=== PATIENT | female | born 1955 | race Caucasian/White ===

== ENCOUNTER → 2017-09-30 10:00 | Outpatient (CLI) | payer OTHER, SELFPAY ==
[2017-09-30 10:45] LABS: Absolute Neutrophil Count 2.3 X10^3/uL (2.0-7.7); Basophil# 0.03 X10^3/uL; Basophil% 0.7 % (0-1); Eosinophil# 0.21 X10^3/uL; Eosinophils% 5.2 % (0-5); Hematocrit 43.1 % (37-47); Hemoglobin 14.2 g/dl (12.0-15.0); Lymphocyte % 27.2 % (19-41); Mean Corp Hgb Conc 32.9 g/gl (32-36); Mean Corpuscular Hgb 29.9 pg (27.0-32.0); Mean Corpuscular Volume 90.7 fL (81-99); Mean Platelet Vol. 9.3 fl (6.2-12.0); Monocyte# 0.43 X10^3/uL; Monocyte% 10.6 % (0-10); Neutrophil # 2.27 X10^3/uL (2.7-7.7); Neutrophil % 56.1 % (47-70); Platelet Count 268 K/mm3 (150-450); RBC Distribution Width CV 12.8 % (11.6-14.6); Red Blood Count 4.75 M/mm3 (4.2-5.4); White Blood Count 4.1 K/mm3 (4.4-11.0)
[2017-09-30 10:48] LABS: POSITIVE COUNT NO; POSITIVE DIFFERENTIAL NO; POSITIVE MORPHOLOGY NO
[2017-09-30 11:24] LABS: ALB/GLOB Ratio 1.2 RATIO (0.9-2.4); AST(SGOT) 25 U/L (15-37); Alanine Aminotransfer ALT/SGPT 33 U/L (13-56); Albumin, Serum 3.9 g/dL (3.2-5.0); Alkaline Phosphatase 80 U/L (45-117); Anion Gap 5 (5-15); BUN 13 mg/dL (7-18); Calcium,Total 8.7 mg/dL (8.5-10.1); Chloride 106 mmol/L (98-107); Creatinine, Serum 0.76 mg/dL (0.55-1.02); EST Glomerular Filtration Rate 81 mL/min (>60); Est Glom Filt Rate - Afr Amer 98 mL/min (>60); Globulin 3.2 g/dL (2.2-4.2); Glucose 88 mg/dL (74-106); Protein, Total 7.1 g/dL (6.4-8.2); Sodium Level 141 mmol/L (136-145)
== END ==
PROVIDERS: Family Provider Family Medicine; PCP Family Medicine
DX: C50.412 Malignant neoplasm of upper-outer quadrant of left female breast (principal)
CPT/HCPCS: 36415; 80053; 82306; 85025

== ENCOUNTER → 2017-10-19 08:49 | Outpatient (CLI) | payer OTHER, SELFPAY ==
--- NOTE | 2017-10-19 09:34 | BD_ITS ---
STUDY: DUAL ENERGY X-RAY ABSORPTIOMETRY / DXA REASON FOR EXAM: Female, 62 years old. The patient is postmenopausal. History of bilateral breast cancer. TECHNIQUE: Bone Mineral Density (BMD) measurements of lumbar spine and bilateral hips were obtained. COMPARISON: Comparison is made with prior study dated September 03, 2015. FINDINGS: Lumbar Spine (L1-L4): g/cm2 (0.826) / T-score (-2.8) / Z-score (-1.3) Findings are suggestive of osteoporosis with a high fracture risk. Left Femur Total: g/cm2 (0.960) / T-score (-0.4) / Z-score (0.8) Left Femoral Neck: g/cm2 (0.856) / T-score (-1.3) / Z-score (0.1) Right Femur Total: g/cm2 (0.892) / T-score (-0.9) / Z-score (0.2) Right Femoral Neck: g/cm2 (0.844) / T-score (-1.4) / Z-score (0.0) The T-Scores on the most recent prior examination were: Lumbar Spine (L1-L4): There has been worsening of bone density since the previous examination. Left Femur Total: which represents a worsening of 2.4%. Right Femur Total: which represents a worsening of 5.3%. BD/Dexa Bone Density Study IMPRESSION: The patient is considered osteoporotic as outlined below according to World Satya Organization (WHO) criteria with a high fracture risk. There has been worsening of bone density since the previous examination. Reference Information: The T-score is the number of standard deviations above or below the standard which is normal for young adults at their peak bone mineral density. The World Health Organization (WHO) interprets the T-scores as follows: Above -1 Normal bone density Between -1 and -2.5 Osteopenia Equal to / or below -2.5 Osteoporosis As a practical clinical guideline, osteopenia may be graded as follows: Mild -1 through -1.5 Moderate -1.6 through -2.0 Severe -2.1 through -2.4 The Z-score is the number of standard deviations above or below age-matched controls. A Z-score of less than -1.5 would be considered abnormal. References: 1. NIH Osteoporosis and Related Bone Diseases http://www.osteo.org 2. International Society for Clinical Densitometry http://www.iscd.org 3. National Osteoporosis Foundation http://www.nof.org Electronically Signed: Carlos Schmitt MD at 16:02 EDT Tel [phone], Service support ,
== END ==
PROVIDERS: Family Provider Family Medicine; PCP Family Medicine
DX: M81.0 Age-related osteoporosis without current pathological fracture (principal); Z78.0 Asymptomatic menopausal state; Z85.3 Personal history of malignant neoplasm of breast
CPT/HCPCS: 77080

== ENCOUNTER → 2018-04-08 07:18 | Outpatient (CLI) | payer OTHER, SELFPAY ==
--- NOTE | 2018-04-08 07:21 | BI_ITS ---
MAMMOGRAPHY - BILATERAL SCREENING REASON FOR EXAM: Female, 62 years old. Routine annual screening examination. PERTINENT HISTORY: Personal history of breast cancer. Prior left lumpectomy with radiation therapy. Remote right lumpectomy and radiation. Grandmother with breast cancer. TECHNIQUE: Digital bilateral breast radha (3D mammographic acquisition) in the CC and MLO projections. 2-D mediolateral oblique (MLO) and craniocaudad (CC) views of both breasts were obtained. CAD: Full Field Digital Mammography with Computer Added Detection was performed. COMPARISON: Comparison is made with prior study dated March 25, 2017 and March 11, 2016. FINDINGS: Breast Composition: There are scattered areas of fibroglandular density. The patient is status post bilateral lumpectomy with resultant architectural distortion and skin thickening at the surgical site. There is a 2 cm x 1.8 cm scoliosis in the superior retroareolar region of the left breast. No other significant abnormalities are identified. BI/SCREENING MAMM (CAD), BILAT IMPRESSION: Findings suggestive of a 2 cm x 1.8 cm coil cyst at the site of the lumpectomy in the left breast. This is a normal postoperative finding. ASSESSMENT CATEGORY: BIRADS Category 2: Benign. A letter regarding these results will be sent to the patient by the facility within 30 days. Approximately 10% of breast cancers are not detected by mammography. A normal mammogram should not delay biopsy of a clinically suspicious abnormality. [id number] Electronically Signed: Carlos Schmitt MD at 8:45 EDT Tel [phone], Service support ,
== END ==
PROVIDERS: Family Provider Family Medicine; PCP Family Medicine; Visit Provider Internal Medicine Hematology & Oncology
DX: Z12.31 Encounter for screening mammogram for malignant neoplasm of breast (principal); Z86.000 Personal history of in-situ neoplasm of breast
CPT/HCPCS: 77063; 77067

== ENCOUNTER → 2019-01-19 08:23 | Outpatient (CLI) | payer MEDICARE, OTHER, SELFPAY ==
[2019-01-19 11:07] LABS: Absolute Lymphocyte Count 1.15 X10^3/ul (0.83-4.51); Absolute Neutrophil Count 3.1 X10^3/uL (2.0-7.7); Basophil# 0.02 X10^3/uL; Basophil% 0.4 % (0-1); Eosinophil# 0.27 X10^3/uL; Eosinophils% 5.5 % (0-5); Hematocrit 43.1 % (37-47); Hemoglobin 14.1 g/dl (12.0-15.0); Lymphocyte # 1.15 X10^3/ul (4.0); Lymphocyte % 23.4 % (19-41); Mean Corp Hgb Conc 32.7 g/gl (32-36); Mean Corpuscular Hgb 30.3 pg (27.0-32.0); Mean Corpuscular Volume 92.5 fL (81-99); Mean Platelet Vol. 9.3 fl (6.2-12.0); Monocyte# 0.34 X10^3/uL; Monocyte% 6.9 % (0-10); Neutrophil # 3.12 X10^3/uL (2.7-7.7); Neutrophil % 63.6 % (47-70); Platelet Count 290 K/mm3 (150-450); RBC Distribution Width SD 43.6 fl (35.1-43.9); Red Blood Count 4.66 M/mm3 (4.2-5.4); White Blood Count 4.9 K/mm3 (4.4-11.0)
[2019-01-19 11:09] LABS: POSITIVE COUNT NO; POSITIVE DIFFERENTIAL NO; POSITIVE MORPHOLOGY NO
[2019-01-19 11:44] LABS: ALB/GLOB Ratio 1.1 RATIO (0.9-2.4); AST(SGOT) 24 U/L (15-37); Alanine Aminotransfer ALT/SGPT 27 U/L (13-56); Albumin, Serum 3.7 g/dL (3.2-5.0); Alkaline Phosphatase 40 U/L (45-117); Anion Gap 2 (5-15); BUN 15 mg/dL (7-18); BUN/Creat Ratio 20.5 RATIO (10-20); Calcium,Total 8.4 mg/dL (8.5-10.1); Chloride 105 mmol/L (98-107); Creatinine, Serum 0.73 mg/dL (0.55-1.02); EST Glomerular Filtration Rate 85 mL/min (>60); Est Glom Filt Rate - Afr Amer 103 mL/min (>60); Globulin 3.5 g/dL (2.2-4.2); Glucose 83 mg/dL (74-106); Potassium 4.1 mmol/L (3.5-5.1); Protein, Total 7.2 g/dL (6.4-8.2); Sodium Level 137 mmol/L (136-145)
[2019-01-19 11:46] LABS: Vitamin D,25 Hydroxy 37.9 ng/mL (29.95-100.01)
== END ==
PROVIDERS: Family Provider Family Medicine; PCP Family Medicine; Referring Provider Internal Medicine Hematology & Oncology; Visit Provider Internal Medicine Hematology & Oncology
DX: E55.9 Vitamin D deficiency, unspecified (principal); D05.12 Intraductal carcinoma in situ of left breast; Z79.899 Other long term (current) drug therapy
CPT/HCPCS: 36415; 80053; 82306; 85025

== ENCOUNTER → 2019-05-04 07:42 | Outpatient (CLI) | payer MEDICARE, OTHER, SELFPAY ==
--- NOTE | 2019-05-04 08:04 | BI_ITS ---
MAMMOGRAPHY - BILATERAL SCREENING REASON FOR EXAM: Female, 63 years old. Routine annual screening examination. PERTINENT HISTORY: Personal history of breast cancer. Prior left lumpectomy and radiation. Prior right lumpectomy. Grandmother with breast cancer. TECHNIQUE: Digital bilateral breast guru (3D mammographic acquisition) in the CC and MLO projections. 2-D mediolateral oblique (MLO) and craniocaudad (CC) views of both breasts were obtained. CAD: Full Field Digital Mammography with Computer Added Detection was performed. COMPARISON: Comparison is made with prior study dated April 08, 2018 and March 25, 2017. FINDINGS: Breast Composition: There are scattered areas of fibroglandular density. There are no dominant masses or suspicious calcifications. The patient is status post lumpectomy in the upper outer aspect of the left breast with postoperative scarring and persistent cortical cyst at the operative site. This measures 1.7 cm x 1.8 cm. No other significant abnormalities are identified. There has been no significant change since the prior study. BI/SCREEN MAMM (CAD) W/GURU BILAT IMPRESSION: Stable bilateral screening mammogram. Yearly follow-up mammogram recommended. (A) ASSESSMENT CATEGORY: BIRADS Category 2: Benign. A letter regarding these results will be sent to the patient by the facility within 30 days. Approximately 10% of breast cancers are not detected by mammography. A normal mammogram should not delay biopsy of a clinically suspicious abnormality. [id number] Electronically Signed: Carlos Schmitt, at 10:19 EDT , Service support ,
== END ==
PROVIDERS: Family Provider Family Medicine; PCP Family Medicine; Referring Provider Internal Medicine Hematology & Oncology
DX: Z12.31 Encounter for screening mammogram for malignant neoplasm of breast (principal); D05.12 Intraductal carcinoma in situ of left breast
CPT/HCPCS: 77063; 77067

== ENCOUNTER → 2019-07-27 09:59 | Outpatient (CLI) | payer MEDICARE, OTHER, SELFPAY ==
[2019-07-27 10:34] LABS: Absolute Lymphocyte Count 1.26 X10^3/uL (0.83-4.51); Absolute Neutrophil Count 2.4 X10^3/uL (2.0-7.7); Basophil# 0.04 X10^3/uL; Basophil% 0.9 % (0-1); Eosinophil# 0.21 X10^3/uL; Eosinophils% 4.8 % (0-5); Hematocrit 46.4 % (37-47); Hemoglobin 15.1 g/dL (12.0-15.0); Lymphocyte # 1.26 X10^3/ul (4.0); Lymphocyte % 28.8 % (19-41); Mean Corp Hgb Conc 32.5 g/dL (32-36); Mean Corpuscular Hgb 30.1 pg (27.0-32.0); Mean Corpuscular Volume 92.6 fL (81-99); Monocyte# 0.42 X10^3/uL; Monocyte% 9.6 % (0-10); NRBC Flagged by Analyzer 0 % (0-5); Neutrophil # 2.44 X10^3/uL (2.7-7.7); Neutrophil % 55.7 % (47-70); Platelet Count 256 K/mm3 (150-450); RBC Distribution Width CV 12.7 % (11.6-14.6); RBC Distribution Width SD 43.2 fl (35.1-43.9); Red Blood Count 5.01 M/mm3 (4.2-5.4); White Blood Count 4.4 K/mm3 (4.4-11.0)
[2019-07-27 11:10] LABS: AST(SGOT) 29 U/L (15-37); Alanine Aminotransfer ALT/SGPT 32 U/L (13-56); Albumin, Serum 3.6 g/dL (3.2-5.0); Alkaline Phosphatase 39 U/L (45-117); Anion Gap 5 (5-15); BUN 11 mg/dL (7-18); BUN/Creat Ratio 12.9 RATIO (10-20); Calcium,Total 8.8 mg/dL (8.5-10.1); Chloride 109 mmol/L (98-107); Creatinine, Serum 0.85 mg/dL (0.55-1.02); EST Glomerular Filtration Rate 71 mL/min (>60); Est Glom Filt Rate - Afr Amer 86 mL/min (>60); Globulin 3.6 g/dL (2.2-4.2); Glucose 87 mg/dL (74-106); Potassium 4.1 mmol/L (3.5-5.1); Protein, Total 7.2 g/dL (6.4-8.2); Sodium Level 138 mmol/L (136-145)
== END ==
PROVIDERS: Family Provider Family Medicine; PCP Family Medicine; Referring Provider Internal Medicine Hematology & Oncology; Visit Provider Internal Medicine Hematology & Oncology
DX: D05.12 Intraductal carcinoma in situ of left breast (principal)
CPT/HCPCS: 36415; 80053; 85025

== ENCOUNTER → 2019-10-31 08:13 | Outpatient (CLI) | payer MEDICARE, OTHER, SELFPAY ==
--- NOTE | 2019-10-31 08:20 | BD_ITS ---
STUDY: DUAL ENERGY X-RAY ABSORPTIOMETRY / DXA REASON FOR EXAM: Female, 64 years old. 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 COMPARISON: Comparison is made with prior study dated October 19, 2017. FINDINGS: Lumbar Spine (L1-L4): g/cm2 (0.983) / T-score (-1.5) / Z-score (0.1) Findings are suggestive of osteopenia with a low fracture risk. Left Femur Total: g/cm2 (0.938) / T-score (-0.6) / Z-score (0.7) Left Femoral Neck: g/cm2 (0.875) / T-score (-1.2) / Z-score (0.3) Right Femur Total: g/cm2 (0.888) / T-score (-0.9) / Z-score (0.3) Right Femoral Neck: g/cm2 (0.860) / T-score (-1.3) / Z-score (0.2) The T-Scores on the most recent prior examination were: Lumbar Spine (L1-L4): There has been improvement of bone density since the previous examination. Left Femur Total: which represents a worsening of 2.3%. Right Femur Total: which represents a worsening of 0.4%. BD/Dexa Bone Density Study IMPRESSION: The patient is considered osteopenic as outlined below according to World Satya Organization (WHO) criteria with a low fracture risk. There has been worsening of bone density since the previous examination. Reference Information: The T-score is the number of standard deviations above or below the standard which is normal for young adults at their peak bone mineral density. The World Health Organization (WHO) interprets the T-scores as follows: Above -1 Normal bone density Between -1 and -2.5 Osteopenia Equal to / or below -2.5 Osteoporosis As a practical clinical guideline, osteopenia may be graded as follows: Mild -1 through -1.5 Moderate -1.6 through -2.0 Severe -2.1 through -2.4 The Z-score is the number of standard deviations above or below age-matched controls. A Z-score of less than -1.5 would be considered abnormal. References: 1. NIH Osteoporosis and Related Bone Diseases http://www.osteo.org 2. International Society for Clinical Densitometry http://www.iscd.org 3. National Osteoporosis Foundation http://www.nof.org Electronically Signed: Carlos Schmitt, at 9:46 EDT , Service support ,
== END ==
PROVIDERS: PCP Family Medicine; Referring Provider Internal Medicine Hematology & Oncology; Visit Provider Internal Medicine Hematology & Oncology
DX: Z79.811 Long term (current) use of aromatase inhibitors (principal); D05.12 Intraductal carcinoma in situ of left breast
CPT/HCPCS: 77080

== ENCOUNTER → 2020-01-25 07:02 | Outpatient (CLI) | payer MEDICARE, OTHER, SELFPAY ==
[2020-01-25 07:22] LABS: Absolute Neutrophil Count 2.6 X10^3/uL (2.0-7.7); Basophil# 0.05 X10^3/uL; Eosinophil# 0.26 X10^3/uL; Eosinophils% 5.3 % (0-5); Hemoglobin 14.2 g/dL (12.0-15.0); Lymphocyte % 30.4 % (19-41); Mean Corp Hgb Conc 32.3 g/dL (32-36); Mean Corpuscular Hgb 30.7 pg (27.0-32.0); Mean Platelet Vol. 9.2 fl (6.2-12.0); Monocyte# 0.57 X10^3/uL; Monocyte% 11.5 % (0-10); NRBC Flagged by Analyzer 0 % (0-5); Neutrophil # 2.55 X10^3/uL (2.7-7.7); Neutrophil % 51.6 % (47-70); Platelet Count 251 K/mm3 (150-450); RBC Distribution Width CV 12.8 % (11.6-14.6); RBC Distribution Width SD 44.1 fl (35.1-43.9); Red Blood Count 4.63 M/mm3 (4.2-5.4); White Blood Count 4.9 K/mm3 (4.4-11.0)
[2020-01-25 07:53] LABS: ALB/GLOB Ratio 1.1 RATIO (0.9-2.4); AST(SGOT) 23 U/L (15-37); Alanine Aminotransfer ALT/SGPT 29 U/L (13-56); Albumin, Serum 3.7 g/dL (3.2-5.0); Alkaline Phosphatase 76 U/L (45-117); Anion Gap 4 (5-15); BUN 13 mg/dL (7-18); BUN/Creat Ratio 14.9 RATIO (10-20); Calcium,Total 8.7 mg/dL (8.5-10.1); Chloride 105 mmol/L (98-107); Creatinine, Serum 0.87 mg/dL (0.55-1.02); EST Glomerular Filtration Rate 69 mL/min (>60); Est Glom Filt Rate - Afr Amer 83 mL/min (>60); Globulin 3.3 g/dL (2.2-4.2); Glucose 87 mg/dL (74-106); Potassium 3.8 mmol/L (3.5-5.1); Sodium Level 139 mmol/L (136-145)
== END ==
PROVIDERS: PCP Family Medicine; Referring Provider Internal Medicine Hematology & Oncology; Visit Provider Internal Medicine Hematology & Oncology
DX: D05.12 Intraductal carcinoma in situ of left breast (principal)
CPT/HCPCS: 36415; 80053; 85025

== ENCOUNTER → 2020-05-06 11:46 | Outpatient (CLI) | payer MEDICARE, OTHER, SELFPAY ==
--- NOTE | 2020-05-06 11:48 | BI_ITS ---
MAMMOGRAPHY - BILATERAL SCREENING REASON FOR EXAM: Female, 64 years old. Routine annual screening examination. PERTINENT HISTORY: Personal history of breast cancer. Prior left lumpectomy with radiation. Grandmother with breast cancer. Prior right lumpectomy. TECHNIQUE: Digital bilateral breast guru (3D mammographic acquisition) in the CC and MLO projections. 2-D mediolateral oblique (MLO) and craniocaudad (CC) views of both breasts were obtained. CAD: Full Field Digital Mammography with Computer Added Detection was performed. COMPARISON: Comparison is made with prior study 05/04/2019 and 04/08/2018. FINDINGS: Breast Composition: There are scattered areas of fibroglandular density. There are no dominant masses or suspicious calcifications. The patient is status post lumpectomy in the upper lateral aspect of the left breast. There is evidence of a persistent 1.7 cm x 1.8 cm fat containing cyst and calcifications. This is unchanged. Minimal deformity in the central deep portion of the right breast in keeping with a history of prior right lumpectomy. No other significant abnormalities are identified. There has been no significant change since the prior study. BI/SCREEN MAMM (CAD) W/GURU BILAT IMPRESSION: Stable bilateral screening mammogram. Yearly follow-up mammogram recommended. (A) ASSESSMENT CATEGORY: BIRADS Category 2: Benign. A letter regarding these results will be sent to the patient by the facility within 30 days. Approximately 10% of breast cancers are not detected by mammography. A normal mammogram should not delay biopsy of a clinically suspicious abnormality. [id number] Electronically Signed: Carlos Schmitt, at 12:26 EDT , Service support ,
== END ==
PROVIDERS: PCP Family Medicine; Referring Provider Internal Medicine Hematology & Oncology; Visit Provider Internal Medicine Hematology & Oncology
DX: Z12.31 Encounter for screening mammogram for malignant neoplasm of breast (principal); Z85.3 Personal history of malignant neoplasm of breast
CPT/HCPCS: 77063; 77067

== ENCOUNTER → 2021-01-22 08:17 | Outpatient (CLI) | payer MEDICARE, OTHER, SELFPAY ==
[2021-01-22 09:18] LABS: Absolute Lymphocyte Count 1.12 X10^3/uL (0.83-4.51); Absolute Neutrophil Count 2.4 X10^3/uL (2.0-7.7); Basophil# 0.05 X10^3/uL; Basophil% 1.2 % (0-1); Eosinophils% 4.8 % (0-5); Hematocrit 45.1 % (37-47); Hemoglobin 14.5 g/dL (12.0-15.0); Lymphocyte # 1.12 X10^3/ul (0.83-4.51); Lymphocyte % 26.9 % (19-41); Mean Corp Hgb Conc 32.2 g/dL (32-36); Mean Corpuscular Hgb 29.7 pg (27.0-32.0); Mean Corpuscular Volume 92.2 fL (81-99); Mean Platelet Vol. 9.5 fl (6.2-12.0); Monocyte# 0.42 X10^3/uL; Monocyte% 10.1 % (0-10); NRBC Flagged by Analyzer 0 % (0-5); Neutrophil # 2.36 X10^3/uL (2.7-7.7); Neutrophil % 56.5 % (47-70); Platelet Count 275 K/mm3 (150-450); RBC Distribution Width CV 12.7 % (11.6-14.6); RBC Distribution Width SD 43.4 fl (35.1-43.9); Red Blood Count 4.89 M/mm3 (4.2-5.4); White Blood Count 4.2 K/mm3 (4.4-11.0)
[2021-01-22 09:54] LABS: ALB/GLOB Ratio 1.2 RATIO (0.9-2.4); AST(SGOT) 25 U/L (15-37); Alanine Aminotransfer ALT/SGPT 28 U/L (13-56); Albumin, Serum 3.7 g/dL (3.2-5.0); Alkaline Phosphatase 82 U/L (45-117); Anion Gap 6 (5-15); BUN 15 mg/dL (7-18); BUN/Creat Ratio 19.5 RATIO (10-20); Calcium,Total 8.8 mg/dL (8.5-10.1); Chloride 103 mmol/L (98-107); Creatinine, Serum 0.77 mg/dL (0.55-1.02); EST Glomerular Filtration Rate 79 mL/min (>60); Est Glom Filt Rate - Afr Amer 96 mL/min (>60); Globulin 3.2 g/dL (2.2-4.2); Glucose 91 mg/dL (74-106); Potassium 3.9 mmol/L (3.5-5.1); Protein, Total 6.9 g/dL (6.4-8.2); Sodium Level 140 mmol/L (136-145)
== END ==
PROVIDERS: PCP Family Medicine; Referring Provider Internal Medicine Hematology & Oncology; Visit Provider Internal Medicine Hematology & Oncology
DX: D05.12 Intraductal carcinoma in situ of left breast (principal)
CPT/HCPCS: 36415; 80053; 85025

== ENCOUNTER → 2021-05-08 09:48 | Outpatient (CLI) | payer MEDICARE, OTHER, SELFPAY ==
--- NOTE | 2021-05-08 09:50 | BI_ITS ---
MAMMOGRAPHY - BILATERAL SCREENING REASON FOR EXAM: Female, 65 years old. Routine annual screening examination. PERTINENT HISTORY: Personal history of breast cancer. Prior left lumpectomy and radiation treatment. Grandmother with breast cancer. TECHNIQUE: Digital bilateral breast guru (3D mammographic acquisition) in the CC and MLO projections. 2-D mediolateral oblique (MLO) and craniocaudad (CC) views of both breasts were obtained. CAD: Full Field Digital Mammography with Computer Added Detection was performed. COMPARISON: Comparison is made with prior study dated 05/06/2020 and 05/04/2019. FINDINGS: Breast Composition: The breasts are heterogeneously dense, which may obscure small masses. There are no dominant masses or suspicious calcifications. The patient is status post lumpectomy in the upper lateral aspect of the left breast. Postsurgical changes. Once again, there is evidence of a 1.7 cm x 1.8 cm fat-containing cystic nodule at the operative site most likely representing postoperative changes. No other significant abnormalities are identified. There has been no significant change since the prior study. BI/SCRN MAMM (CAD)W/GURU BILAT IMPRESSION: Stable bilateral screening mammogram. Yearly follow-up mammogram recommended. (A) ASSESSMENT CATEGORY: BIRADS Category 2: Benign. A letter regarding these results will be sent to the patient by the facility within 30 days. Approximately 10% of breast cancers are not detected by mammography. A normal mammogram should not delay biopsy of a clinically suspicious abnormality. [id number] Electronically Signed: Carlos Schmitt MD at 10:56 EDT , Service support ,
== END ==
PROVIDERS: PCP Family Medicine; Referring Provider Internal Medicine Hematology & Oncology; Visit Provider Internal Medicine Hematology & Oncology
DX: Z12.31 Encounter for screening mammogram for malignant neoplasm of breast (principal); Z85.3 Personal history of malignant neoplasm of breast
CPT/HCPCS: 77063; 77067

== ENCOUNTER 2021-09-07 07:12 | Outpatient (CLI) | payer MEDICARE, OTHER, SELFPAY ==
[2021-09-07 07:57] LABS: ALB/GLOB Ratio 1.1 RATIO (0.9-2.4); AST(SGOT) 43 U/L (15-37); Alanine Aminotransfer ALT/SGPT 65 U/L (13-56); Albumin, Serum 3.5 g/dL (3.2-5.0); Alkaline Phosphatase 74 U/L (45-117); Anion Gap 3 (5-15); BUN 11 mg/dL (7-18); BUN/Creat Ratio 12.9 RATIO (10-20); Calcium,Total 8.5 mg/dL (8.5-10.1); Chloride 107 mmol/L (98-107); Cholesterol 257 mg/dL (200); Creatinine, Serum 0.86 mg/dL (0.55-1.02); EST Glomerular Filtration Rate 70 mL/min (>60); Est Glom Filt Rate - Afr Amer 85 mL/min (>60); Globulin 3.3 g/dL (2.2-4.2); Glucose 96 mg/dL (74-106); High Density Lipoprotein 65 mg/dL; Potassium 3.9 mmol/L (3.5-5.1); Protein, Total 6.8 g/dL (6.4-8.2); Sodium Level 140 mmol/L (136-145); Triglycerides 157 mg/dL; Very Low Density Lipoprotein 31 mg/dL (5-40)
== END 2021-09-07 23:59 | disposition home or self-care (01) ==
LOC: LAB 07:16
PROVIDERS: PCP Family Medicine; Referring Provider Family Medicine; Visit Provider Family Medicine
DX: Z00.00 Encounter for general adult medical examination without abnormal findings (principal); Z13.1 Encounter for screening for diabetes mellitus; Z13.6 Encounter for screening for cardiovascular disorders
CPT/HCPCS: 36415; 80053; 80061

== ENCOUNTER → 2021-11-03 | Outpatient (CLI) | payer MEDICARE, OTHER, SELFPAY ==
--- NOTE | 2021-11-03 12:25 | BD_ITS ---
STUDY: DUAL ENERGY X-RAY ABSORPTIOMETRY / DXA REASON FOR EXAM: Female, 66 years old. [id number]. The patient is postmenopausal. TECHNIQUE: Bone Mineral Density (BMD) measurements of lumbar spine and bilateral hips were obtained. COMPARISON: Comparison is made with prior examination 10/31/2019. FINDINGS: Lumbar Spine (L1-L4): g/cm2 (0.833) / T-score (-1.9) / Z-score (0.0) Findings are suggestive of osteopenia with a moderate fracture risk. Left Femur Total: g/cm2 (0.857) / T-score (-0.7) / Z-score (0.7) Left Femoral Neck: g/cm2 (0.702) / T-score (-1.3) / Z-score (0.4) Right Femur Total: g/cm2 (0.824) / T-score (-1.0) / Z-score (0.4) Right Femoral Neck: g/cm2 (0.730) / T-score (-1.1) / Z-score (0.6) The T-Scores on the most recent prior examination were: Lumbar Spine (L1-L4): There has been worsening of bone density since the previous examination. Left Femur Total: which represents a worsening of 1.9%. Right Femur Total: which represents a worsening of 0.2%. BD/Dexa Bone Density Study IMPRESSION: The patient is considered osteopenic as outlined below according to World Satya Organization (WHO) criteria with a moderate fracture risk. There has been worsening of bone density since the previous examination. Reference Information: The T-score is the number of standard deviations above or below the standard which is normal for young adults at their peak bone mineral density. The World Health Organization (WHO) interprets the T-scores as follows: Above -1 Normal bone density Between -1 and -2.5 Osteopenia Equal to / or below -2.5 Osteoporosis As a practical clinical guideline, osteopenia may be graded as follows: Mild -1 through -1.5 Moderate -1.6 through -2.0 Severe -2.1 through -2.4 The Z-score is the number of standard deviations above or below age-matched controls. A Z-score of less than -1.5 would be considered abnormal. References: 1. NIH Osteoporosis and Related Bone Diseases www osteo.org 2. International Society for Clinical Densitometry www iscd.org 3. National Osteoporosis Foundation www nof.org Electronically Signed: Carlos Schmitt MD at 8:52 EDT ,
== END | disposition home or self-care (01) ==
LOC: OPBD 12:15
PROVIDERS: PCP Family Medicine; Visit Provider Internal Medicine Hematology & Oncology
DX: D05.12 Intraductal carcinoma in situ of left breast (principal); Z78.0 Asymptomatic menopausal state
CPT/HCPCS: 77080

== ENCOUNTER → 2022-02-15 | Outpatient (CLI) | payer MEDICARE, OTHER, SELFPAY ==
[2022-02-15 09:59] LABS: Hemoglobin 14.9 g/dL (12.0-15.0); Mean Corp Hgb Conc 32.4 g/dL (32-36); Mean Corpuscular Hgb 30.2 pg (27.0-32.0); Mean Corpuscular Volume 93.3 fL (81-99); Mean Platelet Vol. 9.5 fl (6.2-12.0); Platelet Count 265 K/mm3 (150-450); RBC Distribution Width CV 12.9 % (11.6-14.6); Red Blood Count 4.93 M/mm3 (4.2-5.4); White Blood Count 4.2 K/mm3 (4.4-11.0)
[2022-02-15 10:52] LABS: ALB/GLOB Ratio 1.2 RATIO (0.9-2.4); AST(SGOT) 24 U/L (15-37); Alanine Aminotransfer ALT/SGPT 26 U/L (13-56); Albumin, Serum 3.6 g/dL (3.2-5.0); Alkaline Phosphatase 62 U/L (45-117); Anion Gap 1 (5-15); BUN 10 mg/dL (7-18); BUN/Creat Ratio 12.1 RATIO (10-20); Calcium,Total 9.1 mg/dL (8.5-10.1); Chloride 108 mmol/L (98-107); Creatinine, Serum 0.82 mg/dL (0.55-1.02); EST Glomerular Filtration Rate 73 mL/min (>60); Est Glom Filt Rate - Afr Amer 89 mL/min (>60); Globulin 3.1 g/dL (2.2-4.2); Glucose 94 mg/dL (74-106); Protein, Total 6.7 g/dL (6.4-8.2); Sodium Level 140 mmol/L (136-145)
== END | disposition home or self-care (01) ==
PROVIDERS: PCP Family Medicine
DX: C50.919 Malignant neoplasm of unspecified site of unspecified female breast (principal)
CPT/HCPCS: 36415; 80053; 85027

== ENCOUNTER → 2022-05-10 | Outpatient (CLI) | payer MEDICARE, SELFPAY ==
--- NOTE | 2022-05-10 09:57 | BI_ITS ---
MAMMOGRAPHY - BILATERAL SCREENING REASON FOR EXAM: Female, 66 years old. Routine annual screening examination. PERTINENT HISTORY: Personal history of breast cancer. Prior left lumpectomy with radiation treatment. Prior right lumpectomy and radiation treatment. TECHNIQUE: Digital bilateral breast guru (3D mammographic acquisition) in the CC and MLO projections. 2-D mediolateral oblique (MLO) and craniocaudad (CC) views of both breasts were obtained. CAD: Full Field Digital Mammography with Computer Added Detection was performed. COMPARISON: Comparison is made with prior study done 05/08/2021 and 05/06/2020. FINDINGS: Breast Composition: The breasts are heterogeneously dense, which may obscure small masses. Again, the patient is status post lumpectomy in the upper lateral aspect of the left breast with a resultant postoperative distortion and skin thickening. Persistent 1.7 cm x 1.7 centimeter fat containing nodule at the operative site. Since prior study, there has been an increase in the number of microcalcifications. A biopsy is recommended. No other significant abnormalities are identified. BI/SCRN MAMM (CAD)W/GURU BILAT IMPRESSION: Status post status post left lumpectomy as described. Increase in number microcalcifications within the fat-containing nodule at the operative site in the left breast. Biopsy recommended. ASSESSMENT CATEGORY: BIRADS Category 4: Suspicious - Biopsy Should Be Considered. A letter regarding these results will be sent to the patient by the facility within 30 days. Approximately 10% of breast cancers are not detected by mammography. A normal mammogram should not delay biopsy of a clinically suspicious abnormality. [id number] Electronically Signed: Carlos Schmitt MD at 11:05 EDT ,
== END | disposition home or self-care (01) ==
PROVIDERS: PCP Family Medicine
DX: Z12.31 Encounter for screening mammogram for malignant neoplasm of breast (principal)
CPT/HCPCS: 77063; 77067

== ENCOUNTER 2022-06-29 11:14 | Outpatient (CLI) | payer MEDICARE, SELFPAY ==
--- NOTE | 2022-06-29 12:20 | BRBX_PTH ---
PATIENT: ZENY REECE LOC: [facility] U#:[id number] AGE/SX: 66/F ROOM: RE06/29/[address]: Dr. Krystin Ren MD : 1955 BED: DIS: 06/29/2022 SPEC #: [id number] RECD: 06/29/22 12:43 STATUS: TARA REKatelin #: [id number] [place]: 06/29/22 12:[address]: Krystin Ren DEPT: SURGICAL PATHOLOGY RECD BY: Rita Álvarez ENTERED: 06/29/22 13:23 SP TYPE: BREAST BX OTHR DR: Dr. Jose Francisco Zamora DO Tissues: Left breast, NOS Procedures: Surgery Specimen Level IV HEADER OPERATION: Left breast stereotactic biopsy PRE-OP DIAGNOSIS: Status post left breast lumpectomy increase in number of microcalcifications within fat containing nodule at operative site upper outer TISSUE SUBMITTED: Left breast core tissue MICROSCOPIC DIAGNOSIS Left breast, stereotactic core biopsy: Dense fibrosis, chronic inflammation and dystrophic calcifications. Negative for atypia or malignancy. 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 and ([id number]) left breast mass, lumpectomy with needle localization with diagnosis of fibrocystic changes and intraductal hyperplasia without atypia.? MICROSCOPIC DESCRIPTION Slides are reviewed. GROSS DESCRIPTION Received in fixative is one container labeled with the patient's name and designated left breast. The specimen consists of multiple elongated fragments of alfaro-yellow fibroadipose tissue that in aggregate measure 3 x 2.5 x 0.3 cm. The entire specimen is submitted in one cassette. / BUD:juliann 06/29/2022 TC:5 CPT: 39928
--- NOTE | 2022-06-29 12:42 | PCM.OPRPT ---
Report of Operation Date of Procedure: 06/29/22 Pre-Operative Diagnosis: abnormal left breast mammograms Post-Operative Diagnosis: same Surgery/Procedure Performed:: left stereotactic breast biopsy Surgeon: Krystin Ren Type of Anesthesia: Local Specimen's removed: left breast tissue Estimated Blood Loss (mL): minimal Description of Procedure: After informed consent was given, the patient was brought into the Breast Biopsy suite. Appropriate time out protocol was followed. The patient was placed in the prone position on the stereotactic biopsy table. The patient?s left breast was then placed in the opening at the head of the biopsy table. A patient coordinator front desk compression mammogram was then obtained in the CC view. The suspicious radiological lesion was thus identified. Stereo pictures of the lesion were then taken for XYZ coordinates. The Mammotome biopsy stylus was then positioned where it would be entering into the patient?s breast. The skin at this site was then cleansed with a surgical skin preparation. The skin and subcutaneous tissues at this site were then infiltrated with 1% xylocaine. A small skin incision was made with an 11 blade scalpel. The biopsy stylus was then positioned into the patient?s breast at the proper coordinates of depth. Using the Mammotome vacuum-assist device, several core samples of breast tissue were obtained. A specimen mammogram was the obtained. It revealed that the abnormal calcifications were within the specimen. I reviewed this personally and concluded that the tissue sampling was adequate. A hemostatic marker clip was then placed into the biopsy cavity and a patient coordinator front desk film revealed that it was properly deployed. The patient was then placed in the supine position and pressure was applied to the breast until no active bleeding was noted. Steristrips were applied to reapproximate the skin. A unilateral mammogram in the CC and MLO view were then taken which revealed that the marker clip was in the same area as the previous suspicious lesion. The patient tolerated the procedure well and was discharged from the Breast Biopsy suite in good condition. Complications none noted
== END 2022-06-29 23:59 | disposition home or self-care (01) ==
LOC: BIRAD 11:17
PROVIDERS: PCP Family Medicine; Referring Provider Surgery; Visit Provider Surgery
DX: N60.32 Fibrosclerosis of left breast (principal); R92.8 Other abnormal and inconclusive findings on diagnostic imaging of breast
CPT/HCPCS: 19081; 88305; J7050; A4648

== ENCOUNTER 2022-09-02 20:42 | Emergency (ER) | payer MEDICARE, SELFPAY ==
[2022-09-02 20:45] VITALS: BP 183/64; PULSE 103; RESP 18; TEMP 36.2; O2SAT 100; BMI 25.7
[2022-09-02 22:20] LABS: Bedside Glucose 129 mg/dL (74-106)
[2022-09-02] MEDS: DiphenhydrAMINE 50 MG/ML Syringe 25 MG IV (22:29)
[2022-09-02] MEDS: 0.9% Normal Saline 1,000 ML 999 ML IV (22:29)
[2022-09-02] MEDS: Famotidine 200 MG/20 ML MDV 20 MG in 0.9% Normal Saline (Pres. free 8 ML 300 MG IV (22:30)
[2022-09-02] MEDS: MethylPREDNISolone 125 MG/2 ML Vial IV (22:30)
[2022-09-02] MEDS: Ondansetron 4 MG/2 ML Vial IV (22:30)
[2022-09-02] MEDS: Morphine 4 MG/ML Syringe IV (22:30)
[2022-09-02 22:51] LABS: Absolute Lymphocyte Count 0.85 X10^3/uL (0.83-4.51); Absolute Neutrophil Count 7.4 X10^3/uL (2.0-7.7); Basophil# 0.04 X10^3/uL; Basophil% 0.4 % (0-1); Eosinophils% 1.1 % (0-5); Hematocrit 42.1 % (37-47); Hemoglobin 13.8 g/dL (12.0-15.0); Lymphocyte # 0.85 X10^3/ul (0.83-4.51); Lymphocyte % 9.4 % (19-41); Mean Corp Hgb Conc 32.8 g/dL (32-36); Mean Corpuscular Hgb 30.1 pg (27.0-32.0); Mean Corpuscular Volume 91.7 fL (81-99); Mean Platelet Vol. 9.4 fl (6.2-12.0); Monocyte# 0.66 X10^3/uL; Monocyte% 7.3 % (0-10); NRBC Flagged by Analyzer 0 % (0-5); Neutrophil # 7.35 X10^3/uL (2.7-7.7); Neutrophil % 81.5 % (47-70); Platelet Count 243 K/mm3 (150-450); RBC Distribution Width CV 12.8 % (11.6-14.6); RBC Distribution Width SD 43.1 fl (35.1-43.9); Red Blood Count 4.59 M/mm3 (4.2-5.4)
[2022-09-02 23:10] LABS: Erythrocyte Sedimentation Rate 10 mm/hr (0-30)
[2022-09-02 23:13] LABS: Anion Gap 8 (5-15); BUN 17 mg/dL (7-18); BUN/Creat Ratio 16.7 RATIO (10-20); Calcium,Total 8.9 mg/dL (8.5-10.1); Chloride 104 mmol/L (98-107); Creatinine, Serum 1.02 mg/dL (0.55-1.02); EST Glomerular Filtration Rate 57 mL/min (>60); Est Glom Filt Rate - Afr Amer 69 mL/min (>60); Estimated Creatinine Clearance 45.58 ml/min; Glucose 128 mg/dL (74-106); Potassium 3.7 mmol/L (3.5-5.1); Sodium Level 139 mmol/L (136-145)
[2022-09-03 00:07] VITALS: BP 154/73; PULSE 101; RESP 17; O2SAT 18
--- NOTE | 2022-09-03 00:08 | EDS_ITS ---
HPI History of Present Illness Chief Complaint: Wound Narrative Narrative: Patient is a 66-year-old female with past medical history of breast cancer. She had to have a biopsy done in June secondary to return of a mass. She states that biopsy became infected and since that time she has been on antibiotics off and on for the past 2 months. She states she is currently on a round of Augmentin. She reports it was prescribed for 10 days but starting around day 9 she noticed rash-like changes with pain and swelling to her wrist as well as her ankle/feet. She states that she contacted her surgeon who prescribed antibiotic and she was advised to stop the medication. She states she did this but symptoms have persisted and therefore she comes in for evaluation. She states no one else at home has the rash she denies any new exposures other than the recent antibiotic [facility] Home Medications vitamin B comp and C no.3 15 mg-10 mg-50 mg-5 mg-300 mg capsule (B Complex Plus Vitamin C) 1 ea PO DAILY 04/09/15 [History Last Taken Unknown] cholecalciferol (vitamin D3) 25 mcg (1,000 unit) tablet (Vitamin D3) 2,000 unit PO DAILY 04/10/15 [History Last Taken Unknown] red yeast rice extract (bulk) 2 tab PO DAILY 05/01/15 [History Last Taken Unknown] Power C 2 tab PO DAILY 09/02/16 [History Last Taken Unknown] anastrozole 1 mg tablet 1 mg PO DAILY 09/02/16 [History Last Taken Unknown] calcium carbonate 600 mg-vitamin D3 5 mcg (200 unit) tablet (Calcium 600 + D(3)) 1 ea PO DAILY 09/02/16 [History Last Taken Unknown] oxycodone-acetaminophen 5 mg-325 mg tablet (Percocet) 1 tab PO Q6H PRN pain 3 days #12 tabs 09/03/22 [Rx Last Taken Unknown] prednisone 10 mg tablet 10 mg PO DAILY #30 tabs 09/03/22 [Rx Last Taken Unknown] Allergy/AdvReac Type Severity Reaction Status Date / Time No Known Allergies Allergy Verified 05/01/15 09:15 Social History Smoking Status: Never smoker ROS [facility] ED Constitutional Constitutional ED: Denies chills or fever(s) ENT ENT ED: Denies sore throat Cardiovascular Cardiovascular: Denies chest pain Respiratory/Chest Respiratory/Chest: Denies cough or dyspnea Gastrointestinal Gastrointestinal: Denies abdominal pain, diarrhea, nausea or vomiting Genitourinary Genitourinary ED: Denies dysuria Musculoskeletal Musculoskeletal: Reports myalgias Integumentary Reports rash Neurologic Neurologic: Denies headache(s) Hematologic/Lymphatic Hematologic/Lymphatic: Denies easy bleeding or easy bruising EXAM Physical Exam Const Vital Signs: 09/02/22 20:45 09/03/22 00:07 Temperature 97.1 F L Temperature Source Temporal Pulse Rate 103 H 101 H Respiratory Rate 18 17 Blood Pressure 183/64 H 154/73 H Blood Pressure Mean 103 100 Pulse Ox 100 18 Oxygen Delivery Method Room Air Room Air Positive well nourished and well developed General Appearance ED: well developed HEENT Reports moist mucous membranes HEENT Narrative: No tongue or lip swelling no oral lesions no airway edema or compromise Eyes PERRL and EOMs intact bilaterally Neck supple Resp normal respiratory effort and clear to auscultation bilaterally Cardio regular rate and regular rhythm GI normal to inspection, nondistended, normoactive bowel sounds, non-tender, non- distended and no masses Auscultation: normoactive bowel sounds Palpation: soft Extremity Extremity Narrative: Patient has soft tissue swelling with faint erythema and warmth to the right wrist and hand. Patient has mild soft tissue swelling around the bilateral ankles without the associated erythema and warmth of the right wrist. There is no involvement of the palms and soles. Neuro oriented x3 and CN's II-XII intact bilaterally Sensorium / Orientation: alert Psych mental status grossly normal Skin Skin Narrative: Soft tissue changes as documented above MDM MDM MDM Narrative Medical decision making narrative: Patient presented to the ER afebrile and in no acute distress. She reported being on multiple antibiotics over the past 2 months but recently on Augmentin. She had multiple areas of joint swelling and pain with skin discoloration and warm. With the patient reported she has been on multiple antibiotics I feel this is most likely serum sickness. Basic blood work was obtained which showed elevation to her CRP indicating acute inflammatory response consistent with serum sickness but otherwise no acute finding. At this time I do not believe this is an infectious rash or secondary to gout or pseudogout but more so the immune response of serum sickness. The patient was given IV fluids Benadryl Pepcid and Solu-Medrol. On reevaluation she has had improvement of symptoms and pain is improved. Therefore at this time as patient can ambulate and there are no signs of infectious process patient is otherwise safe for discharge and can follow-up on an outpatient basis Lab Data Attestation: I reviewed the patient's lab results. Labs: Laboratory Results - last 24 hr 09/02/22 09/02/22 09/02/22 21:45 22:40 22:40 WBC 9.0 RBC 4.59 Hgb 13.8 Hct 42.1 MCV 91.7 MCH 30.1 MCHC 32.8 RDW Std Deviation 43.1 RDW Coeff of Rhonda 12.8 Plt Count 243 MPV 9.4 Immature Gran % (Auto) 0.300 Neut % (Auto) 81.5 H Lymph % (Auto) 9.4 L [place] % (Auto) 7.3 Eos % (Auto) 1.1 Baso % (Auto) 0.4 Absolute Neuts (auto) 7.4 Absolute Lymphs (auto) 0.85 Nucleated RBC % 0 ESR 10 Sodium 139 Potassium 3.7 Chloride 104 Carbon Dioxide 27.0 Anion Gap 8 BUN 17 Creatinine 1.02 Estim Creat Clear Calc 45.58 Est GFR (MDRD) Af Amer 69 Est GFR (MDRD) Non-Af 57 L BUN/Creatinine Ratio 16.7 Glucose 128 H Uric Acid 4.0 Calcium 8.9 C-React Prot Ext Range 21.00 H POC Glucose 129 H Discharge Plan Triage Chief Complaint: Wound ED Provider: Nba Dunn Dx/Rx/DC Orders Clinical Impression: Serum sickness, History of breast cancer Instructions: Understanding Vasculitis Prescriptions: New oxycodone-acetaminophen [Percocet] 5-325 mg tablet 1 tab PO Q6H PRN (Reason: pain) 3 Days Qty: 12 0RF prednisone 10 mg tablet 10 mg PO DAILY Qty: 30 0RF Rx Instructions: 4 pills by mouth days 1 through 3 3 pills by mouth days 4 through 6 2 pills by mouth days 7 through 9 1 pill by mouth days 10 through 12 No Action vitamin B comp and C no.3 [B Complex Plus Vitamin C] 1 EACH capsule 1 ea PO DAILY cholecalciferol (vitamin D3) [Vitamin D3] 1,000 UNIT tablet 2,000 unit PO DAILY Label Comments: supplement red yeast rice extract (bulk) 30 GM powder 2 tab PO DAILY anastrozole 1 MG tablet 1 mg PO DAILY calcium carbonate-vitamin D3 [Calcium 600 + D(3)] 1 EACH tablet 1 ea PO DAILY Power C 2 tab PO DAILY Primary Care Provider: Jose Francisco Zamora Referrals: Jose Francisco Zamora DO [Primary Care Provider] - Activity Restrictions/Additional Instructions: Your history and work-up was consistent with serum sickness most likely due to the prolonged antibiotics you have been on. It will take about 5 to 7 days for the medication to be metabolized out of your system. Use the steroid as directed to control inflammation and help reduce pain and you can add Benadryl if necessary. If you have any further concerns please return for repeat evaluation Disposition Disposition: Home, Self Care Discharge Date/Time: 09/03/22 00:20
== END 2022-09-03 00:20 | disposition home or self-care (01) ==
PROVIDERS: Emergency Provider Emergency Medicine; PCP Family Medicine; Visit Provider Emergency Medicine
DX: L95.8 Other vasculitis limited to the skin (principal); T36.0X5A Adverse effect of penicillins, initial encounter; Z85.3 Personal history of malignant neoplasm of breast
CPT/HCPCS: 80048; 82962; 84550; 85025; 85652; 86140; 93005; 96361; 96374; 96375; 99283; J7030; A4216; J2405; J3490

== ENCOUNTER 2022-09-06 09:50 | Emergency (ER) | payer MEDICARE, SELFPAY ==
[2022-09-06 09:51] VITALS: BP 157/96; PULSE 86; RESP 18; TEMP 37.2; O2SAT 99; BMI 25.7
[2022-09-06 09:59] VITALS: BP 171/113; PULSE 83; RESP 14; O2SAT 98
[2022-09-06 10:04] VITALS: BMI 25.9
--- NOTE | 2022-09-06 10:20 | EKG12_ITS ---
Test Reason : Blood Pressure : / mmHG Vent. Rate : 074 BPM Atrial Rate : 074 BPM P-R Int : 144 ms QRS Dur : 082 ms QT Int : 376 ms P-R-T Axes : 000 177 080 degrees QTc Int : 417 ms Consider limb lead misplacement Probable Sinus Rhythm Poor R wave progression Recommend Repeat ECG Abnormal ECG Confirmed by KEILA HERNANDEZ, BROOKE ([id number]), production editor JOVAN WESTON ([id number]) on 09/07/2022 11:24:50 AM Referred By: STEPHANIE Confirmed By:BROOKE PEDRAZA MD
--- NOTE | 2022-09-06 10:20 | RAD_ITS ---
STUDY: X-RAY CHEST REASON FOR EXAM: Female, 66 years old. Dyspnea TECHNIQUE: PA and lateral views of the chest. COMPARISON: Comparison is made with prior study of 03/19/2017. FINDINGS: EKG electrodes are seen. Once again, the patient is status post situs inversus. There is elevation of the left hemidiaphragm. The lungs are clear and expanded. There is no demonstrated pleural abnormality. Normal size heart. Normal mediastinum and july. Normal visualized pulmonary arteries. Normal visualized aortic arch and descending thoracic aorta. Normal visualized thoracic spine. Normal visualized ribs, clavicles, and shoulders. There is no demonstrated abnormality of the visualized soft tissue structures of the upper abdomen. RAD/Chest PA and Lateral IMPRESSION: No acute abnormality is seen. Once again, the patient is status post situs inversus. Electronically Signed: Carlos Schmitt MD at 11:08 EST ,
--- NOTE | 2022-09-06 10:28 | EDS_ITS ---
HPI History of Present Illness Chief Complaint: Palpitations Informant: patient and spouse/S.O. () Narrative Narrative: Patient presenting for intermittent palpitations that feels like a racing heartbeat. No associated near-syncope or syncope, angina, dyspnea, focal neurologic symptoms. Has been occurring for the last couple days, the least amount of time she has felt it is maybe 45 minutes but for the most part they occur for hours when it occurs. Last time she had it was prior to arrival this morning, but it is gone right now. Called PCPs office and advised to come to the ED. She was just seen here 4 days ago because she was having a possible reaction to some antibiotic she was on. She had recurrence of a mass in her left breast that was thought to possibly be recurrence of her breast cancer, so she had a biopsy that then became infected and she has been on oral antibiotics for about 6 weeks total. The last time she took a dose was 1 week ago today. That course was Augmentin, prescribed by Dr. Ren who has been following her for this infected biopsy site, she states that they think the infection is cleared now and her breast is doing better. After she stopped the Augmentin last week, she continued to have itchy redness in various areas of her arms and legs which is why she initially came to the emergency department and was told that she may have serum sickness. She was given Benadryl, which is also been helping at home with itching whenever she has it which is less common now than it was last week, mostly her palms. She denies any rashes now. She was having joint pains mostly in her hands as well and has black and blue discoloration in her fingers that would improve with lifting her hand above her heart, but that is all better now as well. She just feels tired. She has been on steroids since her visit here [address] [facility] Medical History (Updated 09/06/22 @ 14:[address] Lupillo Lantigua MD) HX: breast cancer Situs inversus Home Medications vitamin B comp and C no.3 15 mg-10 mg-50 mg-5 mg-300 mg capsule (B Complex Plus Vitamin C) 1 ea PO DAILY 04/09/15 [History Last Taken Unknown] cholecalciferol (vitamin D3) 25 mcg (1,000 unit) tablet (Vitamin D3) 2,000 unit PO DAILY 04/10/15 [History Last Taken Unknown] red yeast rice extract (bulk) 2 tab PO DAILY 05/01/15 [History Last Taken Unknown] Power C 2 tab PO DAILY 09/02/16 [History Last Taken Unknown] anastrozole 1 mg tablet 1 mg PO DAILY 09/02/16 [History Last Taken Unknown] calcium carbonate 600 mg-vitamin D3 5 mcg (200 unit) tablet (Calcium 600 + D(3)) 1 ea PO DAILY 09/02/16 [History Last Taken Unknown] oxycodone-acetaminophen 5 mg-325 mg tablet (Percocet) 1 tab PO Q6H PRN pain 3 days #12 tabs 09/03/22 [Rx Last Taken Unknown] prednisone 10 mg tablet 10 mg PO DAILY #30 tabs 09/03/22 [Rx Last Taken Unknown] Allergy/AdvReac Type Severity Reaction Status Date / Time No Known Allergies Allergy Verified 05/01/15 09:15 Surgical History Hx of appendectomy Hx of cholecystectomy Social History Smoking Status: Never smoker ROS ROS ED Review of Systems ROS Unobtainable: other Details: due to anxiety Constitutional Constitutional ED: Reports fatigue and malaise; Denies body ache(s), chills or fever(s) Eyes Eyes: Denies change in vision or diplopia ENT ENT ED: Denies rhinorrhea or sore throat Cardiovascular Cardiovascular: Denies chest pain, palpitations or paroxysmal nocturnal dyspnea Respiratory/Chest Respiratory/Chest: Denies cough, dyspnea on exertion or paroxysmal nocturnal dyspnea Gastrointestinal Gastrointestinal: Denies abdominal pain, diarrhea, nausea or vomiting Genitourinary Genitourinary ED: Denies dysuria or hematuria Musculoskeletal Musculoskeletal: Reports arthralgias; Denies back pain or neck pain Integumentary Reports rash; Denies abscess Neurologic Neurologic: Denies headache(s), paresthesias or weakness Psychiatric Psychiatric: Denies anxiety or suicidal thoughts EXAM Physical Exam Const Vital Signs: 09/06/22 09:51 09/06/22 09:59 09/06/22 10:04 Temperature 98.9 F Temperature Source Temporal Pulse Rate 86 83 Respiratory Rate 18 14 Respiratory Effort Normal Respiratory Pattern Normal Blood Pressure 157/96 H 171/113 H Blood Pressure Mean 116 132 Pulse Ox 99 98 Oxygen Delivery Method Room Air Room Air 09/06/22 11:28 09/06/22 12:43 Temperature Temperature Source Pulse Rate 64 73 Respiratory Rate 16 12 Respiratory Effort Respiratory Pattern Blood Pressure 163/79 H 150/81 H Blood Pressure Mean 107 104 Pulse Ox 98 100 Oxygen Delivery Method Room Air Room Air Positive well nourished and well developed General Appearance ED: well developed and NAD HEENT Reports moist mucous membranes normocephalic and atraumatic Eyes PERRL and EOMs intact bilaterally Neck full ROM, no lymphadenopathy, supple and no JVD Chest Wall inspection of chest normal and palpation of chest normal Resp normal respiratory effort and clear to auscultation bilaterally Cardio regular rate, regular rhythm and no murmurs GI non-tender and non-distended Auscultation: normoactive bowel sounds Palpation: soft Back/Spine no CVA tenderness General Back: other FROM Extremity normal to inspection General Extremety ED: Negative for edema, pulses abnormal or tenderness General Extremity: Negative for edema or pulses abnormal Neuro oriented x3, CN's II-XII intact bilaterally and no sensory deficits noted Sensorium / Orientation: awake and alert Motor Exam: strength 5/5 throughout Psych Mood & Affect: anxious and tearful Skin no rashes or lesions noted and no wounds MDM MDM MDM Narrative Medical decision making narrative: Patient's work-up including EKG is unremarkable except for hypokalemia. This was treated in the ED. While she was being observed and treated, she did not have any recurrent symptoms, nor did she have any dysrhythmias on telemetry. Her EKG chest pain is unremarkable except for some repolarization abnormalities, which are unchanged compared with her priors, her initial troponin was well within normal limits, I did a delta troponin with a 2-hour repeat level as well. Her initial troponin was 6 and the repeat at 7, which is essentially negative delta while treating her mild hypokalemia with oral and IV potassium, she felt better and was continued to be observed in the ED, she had no recurrent symptoms of palpitations throughout her entire ED stay of over 4 hours. Given all of this, I feel she can safely be discharged home. She was thought to potentially have serum sickness by the ED physician who saw her last week, I am not sure if that is what she had or if this was simply a reaction to the Augmentin she was on, or if this is her was some type of vasculitis. She seems like she is a lot better on the prednisone but now that she is having these palpitations, 1 wonders if it could be related to the prednisone. I told her that if she takes the prednisone for 1 week or less she may discontinue it cold turkey, safely. She suggest she would prefer to go off of it and see if Benadryl helps I told her she was welcome to do that and we discussed reasons to return. I advised following up closely with her PCP. It is of note that the patient had a normal ESR several days ago, which in most cases is sensitive enough to rule out acute vasculitis. Do not think putting a Holter on her will necessarily be helpful or necessary right now, but if she continues to have symptoms after discontinuing the prednisone then I would advise following up with cardiology she was given that information. Lab Data Attestation: I reviewed the patient's lab results. Labs: Laboratory Results - last 24 hr 09/06/22 09/06/22 09/06/22 10:00 10:00 12:35 WBC 6.9 RBC 5.01 Hgb 14.9 Hct 46.8 MCV 93.4 MCH 29.7 MCHC 31.8 L RDW Std Deviation 45.0 H RDW Coeff of Rhonda 13.2 Plt Count 328 MPV 9.4 Immature Gran % (Auto) 0.400 Neut % (Auto) 57.3 Lymph % (Auto) 33.2 [place] % (Auto) 7.5 Eos % (Auto) 0.9 Baso % (Auto) 0.7 Absolute Neuts (auto) 3.9 Absolute Lymphs (auto) 2.29 Nucleated RBC % 0 Sodium 142 Potassium 3.4 L Chloride 105 Carbon Dioxide 29.0 Anion Gap 8 BUN 16 Creatinine 0.91 Estim Creat Clear Calc 51.09 Est GFR (MDRD) Af Amer 79 Est GFR (MDRD) Non-Af 65 BUN/Creatinine Ratio 17.6 Glucose 110 H Calcium 9.7 Troponin I High Sens 6 7 Radiography Chest X-Ray - ED: 1 View, Read by ED Physician, No Acute Disease and No Infiltrates Diagnostic Testing: Clinical Impression(s) from Imaging Studies Chest X-Ray 09/06/22 10:20 IMPRESSION: No acute abnormality is seen. Once again, the patient is status post situs inversus. Electronically Signed: Carlos Schmitt MD at 11:08 EST , Rhythm Strip Rhythm Strip: Sinus Rhythm Rate: 85 Ectopy: None EKG Initial EKG: Attestation: I personally reviewed and interpreted this EKG as follows: Interpretation: Sinus Rhythm, No Acute Injury Pattern and Non-Specific ST Changes (Anterolaterally, mostly precordial) Prior EKG tracings: available for review Prior: Unchanged Discharge Plan Triage Chief Complaint: Palpitations ED Provider: Lupillo Lantigua Dx/Rx/DC Orders Clinical Impression: Intermittent palpitations, Hypokalemia Instructions: ED Palpitations Prescriptions: No Action vitamin B comp and C no.3 [B Complex Plus Vitamin C] 1 EACH capsule 1 ea PO DAILY cholecalciferol (vitamin D3) [Vitamin D3] 1,000 UNIT tablet 2,000 unit PO DAILY Label Comments: supplement red yeast rice extract (bulk) 30 GM powder 2 tab PO DAILY anastrozole 1 MG tablet 1 mg PO DAILY calcium carbonate-vitamin D3 [Calcium 600 + D(3)] 1 EACH tablet 1 ea PO DAILY Power C 2 tab PO DAILY oxycodone-acetaminophen [Percocet] 5-325 mg tablet 1 tab PO Q6H PRN (Reason: pain) 3 Days Qty: 12 0RF prednisone 10 mg tablet 10 mg PO DAILY Qty: 30 0RF Rx Instructions: 4 pills by mouth days 1 through 3 3 pills by mouth days 4 through 6 2 pills by mouth days 7 through 9 1 pill by mouth days 10 through 12 Primary Care Provider: Jose Francisco Zamora Referrals: Jose Francisco Zamora, DO [Primary Care Provider] - As soon as possible Jorge Aguilar MD [Med Staff - Active Staff] - (If you have persistent/recurrent symptoms after you have finished taking the prednisone) Activity Restrictions/Additional Instructions: You may discontinue prednisone at any time without harm to your adrenal glands as long as you have been taking it for 1 week or less. You may discontinue now if you want, and see if Benadryl helps if you get recurrence of the itching red rash. Disposition Disposition: Home, Self Care
[2022-09-06 10:33] LABS: Absolute Lymphocyte Count 2.29 X10^3/uL (0.83-4.51); Absolute Neutrophil Count 3.9 X10^3/uL (2.0-7.7); Basophil# 0.05 X10^3/uL; Basophil% 0.7 % (0-1); Eosinophil# 0.06 X10^3/uL; Eosinophils% 0.9 % (0-5); Hematocrit 46.8 % (37-47); Hemoglobin 14.9 g/dL (12.0-15.0); Lymphocyte # 2.29 X10^3/ul (0.83-4.51); Lymphocyte % 33.2 % (19-41); Mean Corp Hgb Conc 31.8 g/dL (32-36); Mean Corpuscular Hgb 29.7 pg (27.0-32.0); Mean Corpuscular Volume 93.4 fL (81-99); Mean Platelet Vol. 9.4 fl (6.2-12.0); Monocyte# 0.52 X10^3/uL; Monocyte% 7.5 % (0-10); NRBC Flagged by Analyzer 0 % (0-5); Neutrophil # 3.94 X10^3/uL (2.7-7.7); Neutrophil % 57.3 % (47-70); Platelet Count 328 K/mm3 (150-450); RBC Distribution Width CV 13.2 % (11.6-14.6); Red Blood Count 5.01 M/mm3 (4.2-5.4); White Blood Count 6.9 K/mm3 (4.4-11.0)
[2022-09-06 10:53] LABS: Anion Gap 8 (5-15); BUN 16 mg/dL (7-18); BUN/Creat Ratio 17.6 RATIO (10-20); Calcium,Total 9.7 mg/dL (8.5-10.1); Chloride 105 mmol/L (98-107); Creatinine, Serum 0.91 mg/dL (0.55-1.02); EST Glomerular Filtration Rate 65 mL/min (>60); Est Glom Filt Rate - Afr Amer 79 mL/min (>60); Estimated Creatinine Clearance 51.09 ml/min; Glucose 110 mg/dL (74-106); Potassium 3.4 mmol/L (3.5-5.1); Sodium Level 142 mmol/L (136-145); Troponin-I HS 6 pg/mL (3.0-54.0)
[2022-09-06 11:28] VITALS: BP 163/79; PULSE 64; RESP 16; O2SAT 98
[2022-09-06] MEDS: Potassium Chloride Oral Tablet 20 MEQ 40 MEQ PO (12:36)
[2022-09-06] MEDS: Potassium Chloride 10mEq/100mL 10 MEQ/100 ML IV.SOLN. 100 MEQ IV BOLUS (12:36)
[2022-09-06 12:43] VITALS: BP 150/81; PULSE 73; RESP 12; O2SAT 100
[2022-09-06 13:06] LABS: Troponin-I HS 7 pg/mL (3.0-54.0)
[2022-09-06 15:07] VITALS: BP 143/82; PULSE 70; RESP 16; O2SAT 96
== END 2022-09-06 15:11 | disposition home or self-care (01) ==
PROVIDERS: Emergency Provider Emergency Medicine; PCP Family Medicine; Visit Provider Emergency Medicine
DX: R00.2 Palpitations (principal); E87.6 Hypokalemia
CPT/HCPCS: 71046; 80048; 84484; 85025; 93005; 96365; 96366; 99284; A4216

== ENCOUNTER → 2022-11-11 | Outpatient (CLI) | payer MEDICARE, SELFPAY ==
[2022-11-11 08:36] LABS: ALB/GLOB Ratio 1.1 RATIO (0.9-2.4); AST(SGOT) 22 U/L (15-37); Alanine Aminotransfer ALT/SGPT 25 U/L (13-56); Albumin, Serum 3.4 g/dL (3.2-5.0); Alkaline Phosphatase 64 U/L (45-117); Anion Gap 0 (5-15); BUN 14 mg/dL (7-18); BUN/Creat Ratio 17.4 RATIO (10-20); Calcium,Total 8.9 mg/dL (8.5-10.1); Chloride 108 mmol/L (98-107); Cholesterol 234 mg/dL (200); EST Glomerular Filtration Rate 75 mL/min (>60); Est Glom Filt Rate - Afr Amer 91 mL/min (>60); Globulin 3.2 g/dL (2.2-4.2); Glucose 92 mg/dL (74-106); High Density Lipoprotein 61 mg/dL; Potassium 3.7 mmol/L (3.5-5.1); Protein, Total 6.6 g/dL (6.4-8.2); Sodium Level 139 mmol/L (136-145); Triglycerides 144 mg/dL; Very Low Density Lipoprotein 29 mg/dL (5-40)
== END | disposition home or self-care (01) ==
PROVIDERS: PCP Family Medicine; Referring Provider Family Medicine; Visit Provider Family Medicine
DX: Z13.1 Encounter for screening for diabetes mellitus (principal); Z13.6 Encounter for screening for cardiovascular disorders
CPT/HCPCS: 36415; 80053; 80061

== ENCOUNTER 2022-12-31 16:11 | Inpatient (IN) | payer MEDICARE, SELFPAY ==
[2022-12-31] VITALS (9 sets, daily range): BP systolic 106–196; BP diastolic 55–99; PULSE 74–103; RESP 12–19; TEMP 36.3–36.7; O2SAT 97–100; BMI 25.2; BMI 25.0
--- NOTE | 2022-12-31 16:37 | CT_ITS ---
STUDY: CT BRAIN WITHOUT CONTRAST REASON FOR EXAM: Female, 67 years old. Vertigo. RADIATION DOSAGE (If Supplied By Facility): CTDIvol = ( 44.99 ) mGy, DLP = ( 796.11 ) mGycm TECHNIQUE: Transaxial CT imaging of the brain was performed without administration of intravenous contrast material. Individualized dose optimization techniques were used for this CT. COMPARISON: No relevant priors. FINDINGS: Normal soft tissue structures. Normal calvarium. Normal size ventricles and extra-axial spaces for the patient''s age. Normal white matter tracts of the cerebral hemispheres. Normal basal ganglia and thalami. Normal brainstem. Normal cerebellum. There is no intracranial hemorrhage. There are no findings of an acute ischemic infarction. Normal visualized paranasal sinuses. CT/Brain/Head without Contrast IMPRESSION: Normal unenhanced CT scan of the brain. [facility] was utilized to assist in identifying pertinent positive findings in this case. Electronically Signed: Peyman Vazquez DO at 17:45 EDT ,
--- NOTE | 2022-12-31 16:38 | EKG12_ITS ---
Test Reason : DIZZINESS Blood Pressure : / mmHG Vent. Rate : 073 BPM Atrial Rate : 073 BPM P-R Int : 152 ms QRS Dur : 082 ms QT Int : 360 ms P-R-T Axes : 000 177 091 degrees QTc Int : 396 ms Normal sinus rhythm Anterolateral infarct , age undetermined Abnormal ECG Confirmed by RANDI HERNANDEZ, ADE ([id number]), assignment desk editor JOVAN WESTON ([id number]) on 01/03/2023 10:53:50 A M Referred By: Confirmed By:DESTINEY BRYAN MD
--- NOTE | 2022-12-31 16:39 | EDS_ITS ---
HPI History of Present Illness Chief Complaint: Dizziness Narrative Narrative: 67-year-old female who denies significant past medical history presents with vertiginous type symptoms and elevated blood pressure. She relates history that her symptoms began on Tuesday evening, 2 days ago. She felt lightheaded and that the room was spinning. This is associated with nausea. Her symptoms resolved and she was able to go to sleep, and states that on , yesterday, she felt well until the evening. She had bent over to get something and became very vertiginous. While she is nauseated she has not vomited at all. She awoke this morning, with worsening symptoms throughout the day. She states her gait feels unsteady and that the room was spinning. She felt she needed a chiropractic manipulation because she was in [place] doing a lot of activity, and felt this would help with all her tenseness. While she was at the chiropractor, they noticed that her blood pressure was elevated in the 190s, then over 200 systolic. She denies any headache, no chest pain, no shortness of breath but states her blood pressure is usually normal. 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 [facility] Medical History HX: breast cancer Situs inversus Home Medications vitamin B comp and C no.3 15 mg-10 mg-50 mg-5 mg-300 mg capsule (B Complex Plus Vitamin C) 1 ea PO DAILY 04/09/15 [History Last Taken Unknown] cholecalciferol (vitamin D3) 25 mcg (1,000 unit) tablet (Vitamin D3) 2,000 unit PO DAILY 04/10/15 [History Last Taken Unknown] red yeast rice extract (bulk) 2 tab PO DAILY 05/01/15 [History Last Taken Unknown] Power C 2 tab PO DAILY 09/02/16 [History Last Taken Unknown] anastrozole 1 mg tablet 1 mg PO DAILY 09/02/16 [History Last Taken Unknown] calcium carbonate 600 mg-vitamin D3 5 mcg (200 unit) tablet (Calcium 600 + D(3)) 1 ea PO DAILY 09/02/16 [History Last Taken Unknown] oxycodone-acetaminophen 5 mg-325 mg tablet (Percocet) 1 tab PO Q6H PRN pain 3 days #12 tabs 09/03/22 [Rx Last Taken Unknown] prednisone 10 mg tablet 10 mg PO DAILY #30 tabs 09/03/22 [Rx Last Taken Unknown] Allergy/AdvReac Type Severity Reaction Status Date / Time amoxicillin [From Augmentin] AdvReac Hives Verified 12/31/22 16:18 clavulanic acid AdvReac Hives Verified 12/31/22 16:18 [From Augmentin] Surgical History Hx of appendectomy Hx of cholecystectomy Social History Smoking Status: Never smoker ROS ROS ED ROS Narrative Constitutional: No fever, no chills. HEENT: No sore throat. No neck pain. No loss of vision. No rhinorrhea. Cardiovascular: No chest pain. No palpitations. No pedal edema. Respiratory: No cough, no shortness of breath. Abdominal: No abdominal pain. Positive nausea. No vomiting. Genitourinary: No dysuria. No hematuria. Musculoskeletal: No myalgias. No arthralgias. Neurologic: No headaches. Positive vertigo/dizziness. No lightheadedness. Skin: No rash. No change in color. Psychiatric: No depression. No anxiety. EXAM Physical Exam Narrative Exam Narrative: Afebrile. Vital signs noted. HEENT: Normocephalic. Atraumatic. PERRL, EOMI. Neck soft and supple. No point tenderness or step off. Cardiovascular: Regular rate and rhythm. No murmurs, rubs, or gallops appreciated. Respiratory: No tachypnea. Lungs clear to auscultation bilaterally. Gastrointestinal: Abdomen soft, nontender, with normoactive bowel sounds. No rebound or guarding. Neurological: Awake. Alert. Nonfocal, nonlateralizing. Cerebellar functioning is normal as tested with [id number] and lower extremity [id number]. Skin: No rash. Normal color. No pallor. Musculoskeletal: No pedal edema. Full range of motion extremities. Const Vital Signs: 12/31/22 16:13 12/31/22 16:29 12/31/22 16:37 Temperature 97.6 F L Temperature Source Temporal Pulse Rate 74 76 Respiratory Rate 17 12 Respiratory Effort Normal Respiratory Pattern Normal Blood Pressure 187/91 H 196/95 H Blood Pressure Mean 123 128 Pulse Ox 100 100 Oxygen Delivery Method Room Air Room Air 12/31/22 17:12 12/31/22 17:57 12/31/22 18:22 Temperature Temperature Source Pulse Rate 81 81 89 Respiratory Rate 14 15 Respiratory Effort Respiratory Pattern Blood Pressure 184/99 H 106/55 L 131/72 H Blood Pressure Mean 127 72 91 Pulse Ox 100 Oxygen Delivery Method Room Air Room Air 12/31/22 19:00 12/31/22 20:00 Temperature Temperature Source Pulse Rate 86 92 Respiratory Rate 14 17 Respiratory Effort Respiratory Pattern Blood Pressure 132/68 H 137/75 H Blood Pressure Mean 89 95 Pulse Ox 98 99 Oxygen Delivery Method Room Air Room Air MDM MDM MDM Narrative Medical decision making narrative: Concern is for hypertensive emergency and intracranial hemorrhage versus benign positional vertigo. I do feel CT imaging of the brain is indicated. Additionally, she will be given 20 mg of hydralazine for elevated blood pressure in the 190s to 200s systolic. EKG was obtained and interpreted by myself independently which demonstrates normal sinus rhythm at 73 bpm without ectopy or acute ST changes. No STEMI. CBC was reviewed and she has a normal white count of 5.2, hemoglobin slightly hemoconcentrated at 16.1 with hematocrit 49.8. Platelet count normal at 277. CMP is grossly unremarkable with normal sodium of 142, normal potassium of 4.1, BUN normal at 14 with creatinine 0.8. High- sensitivity troponin is 6. This is greater than a 6-hour troponin, and I do not feel that she needs serial enzymes. CT of the brain was obtained which shows no acute process. This is in review of the radiology report. I interpreted her chest x-ray independently and see situs inversus but no evidence of an acute process. I reviewed the radiology report which confirms my independent interpretation. At this point in time, she may have more of a benign positional vertigo. However, she was given meclizine 25 mg orally. Attempt was made to ambulate her again, she states she still felt unsteady with her gait and mildly off balance. I discussed patient with Dr. Alvarado for observation for her intractable vertigo and perhaps for further testing to rule out cerebellar stroke. She did have significantly elevated blood pressure without history of hypertension, and is currently 137/75. Patient is in stable condition. History & Record Review Discussion w/independent historian: Patient Additional record(s) reviewed:: Prior ED visit Lab Data Attestation: I reviewed the patient's lab results. Labs: Laboratory Results - last 24 hr 12/31/22 12/31/22 17:03 17:03 WBC 5.2 RBC 5.34 Hgb 16.1 H Hct 49.8 H MCV 93.3 MCH 30.1 MCHC 32.3 RDW Std Deviation 43.8 RDW Coeff of Rhonda 12.9 Plt Count 277 MPV 9.7 Immature Gran % (Auto) 0.200 Neut % (Auto) 59.8 Lymph % (Auto) 26.6 [place] % (Auto) 9.2 Eos % (Auto) 2.9 Baso % (Auto) 1.3 H Absolute Neuts (auto) 3.1 Absolute Lymphs (auto) 1.39 Nucleated RBC % 0 Sodium 142 Potassium 4.1 Chloride 105 Carbon Dioxide 29.0 Anion Gap 8 BUN 14 Creatinine 0.84 Estim Creat Clear Calc 54.58 Est GFR (MDRD) Af Amer 86 Est GFR (MDRD) Non-Af 71 BUN/Creatinine Ratio 16.7 Glucose 96 Calcium 10.2 H Total Bilirubin 0.40 AST 22 ALT 30 Alkaline Phosphatase 77 Troponin I High Sens 6 Total Protein 7.7 Albumin 4.0 Globulin 3.7 Albumin/Globulin Ratio 1.1 Radiography Diagnostic Testing: Clinical Impression(s) from Imaging Studies Brain CT 12/31/22 16:37 IMPRESSION: Normal unenhanced CT scan of the brain. AIDOC was utilized to assist in identifying pertinent positive findings in this case. Electronically Signed: Peyman Vazquez DO at 17:45 EDT Reading Location ID and State: [facility] / [place] Tel [phone], Service support , Chest X-Ray 12/31/22 17:38 IMPRESSION: Situs inversus without evidence of acute cardiopulmonary disease or interval change. Electronically Signed: Peyman Vazquez DO at 17:49 EDT Reading Location ID and State: [facility] / [place] Tel [phone], Service support , Discharge Plan Dx/Rx/DC Orders Clinical Impression: Vertigo, Unsteady gait, Blood pressure elevated without history of HTN Disposition Disposition: Acute Care Hospital [facility]
[2022-12-31] MEDS: hydrALAZINE 20 MG/ML Vial IV (17:11)
[2022-12-31 17:14] LABS: Absolute Lymphocyte Count 1.39 X10^3/uL (0.83-4.51); Absolute Neutrophil Count 3.1 X10^3/uL (2.0-7.7); Basophil# 0.07 X10^3/uL; Basophil% 1.3 % (0-1); Eosinophil# 0.15 X10^3/uL; Eosinophils% 2.9 % (0-5); Hematocrit 49.8 % (37-47); Hemoglobin 16.1 g/dL (12.0-15.0); Lymphocyte # 1.39 X10^3/ul (0.83-4.51); Lymphocyte % 26.6 % (19-41); Mean Corp Hgb Conc 32.3 g/dL (32-36); Mean Corpuscular Hgb 30.1 pg (27.0-32.0); Mean Corpuscular Volume 93.3 fL (81-99); Mean Platelet Vol. 9.7 fl (6.2-12.0); Monocyte# 0.48 X10^3/uL; Monocyte% 9.2 % (0-10); NRBC Flagged by Analyzer 0 % (0-5); Neutrophil # 3.12 X10^3/uL (2.7-7.7); Neutrophil % 59.8 % (47-70); Platelet Count 277 K/mm3 (150-450); RBC Distribution Width CV 12.9 % (11.6-14.6); RBC Distribution Width SD 43.8 fl (35.1-43.9); Red Blood Count 5.34 M/mm3 (4.2-5.4); White Blood Count 5.2 K/mm3 (4.4-11.0)
--- NOTE | 2022-12-31 17:38 | RAD_ITS ---
STUDY: X-RAY CHEST REASON FOR EXAM: Female, 67 years old. Coronary artery disease. TECHNIQUE: Single AP portable view of the chest. COMPARISON: September 06, 2022. FINDINGS: Again seen is evidence of situs inversus. The lungs are clear and expanded. There is no demonstrated pleural abnormality. Normal size heart. Normal mediastinum and july. Normal visualized pulmonary arteries. Normal visualized aortic arch and descending thoracic aorta. Normal visualized thoracic spine. Normal visualized ribs, clavicles, and shoulders. There is no demonstrated abnormality of the visualized soft tissue structures of the upper abdomen. RAD/Chest 1 View (Portable) IMPRESSION: Situs inversus without evidence of acute cardiopulmonary disease or interval change. Electronically Signed: Peyman Vazquez DO at 17:49 EDT ,
[2022-12-31 18:04] LABS: ALB/GLOB Ratio 1.1 RATIO (0.9-2.4); AST(SGOT) 22 U/L (15-37); Alanine Aminotransfer ALT/SGPT 30 U/L (13-56); Alkaline Phosphatase 77 U/L (45-117); Anion Gap 8 (5-15); BUN 14 mg/dL (7-18); BUN/Creat Ratio 16.7 RATIO (10-20); Calcium,Total 10.2 mg/dL (8.5-10.1); Chloride 105 mmol/L (98-107); Creatinine, Serum 0.84 mg/dL (0.55-1.02); EST Glomerular Filtration Rate 71 mL/min (>60); Est Glom Filt Rate - Afr Amer 86 mL/min (>60); Estimated Creatinine Clearance 54.58 ml/min; Globulin 3.7 g/dL (2.2-4.2); Glucose 96 mg/dL (74-106); Potassium 4.1 mmol/L (3.5-5.1); Protein, Total 7.7 g/dL (6.4-8.2); Sodium Level 142 mmol/L (136-145); Troponin-I HS 6 pg/mL (3.0-54.0)
[2022-12-31] MEDS: Meclizine HCl 25 MG Tablet PO (18:30)
--- NOTE | 2022-12-31 21:43 | HP.PCM.HOS_ITS ---
HPI - General General Date of Admission: 12/31/22 Date of Service: 12/31/22 Chief Complaint: dizziness HPI Narrative ZENY REECE, is a 67 F who presents with dizziness. started wed night, and she felt lightheaded and that the room was spinning.? This is associated with nausea.? Her symptoms resolved and she was able to go to sleep, and states that on , yesterday, she felt well until the evening.? She had bent over to get something and became very vertiginous.? While she is nauseated she has not vomited at all.? She awoke this morning, with worsening symptoms throughout the day.? Symptoms can also be present without head movement. No new medication consumed recently. She flew home from [place] on Sun night. She sought care at chiropractor. Her BP was 190 and 215 here. She was checking BP in spring and it routinely was 130/80s. High BP is new for her. no vision or numbness changes. She was admitted b/c she was unsteady when she walked down the [place]. [facility] Medical History HX: breast cancer Situs inversus Home Medications vitamin B comp and C no.3 15 mg-10 mg-50 mg-5 mg-300 mg capsule (B Complex Plus Vitamin C) 1 ea PO DAILY 04/09/15 [History Last Taken Unknown] cholecalciferol (vitamin D3) 25 mcg (1,000 unit) tablet (Vitamin D3) 2,000 unit PO DAILY 04/10/15 [History Last Taken Unknown] red yeast rice extract (bulk) 2 tab PO DAILY 05/01/15 [History Last Taken Unknown] Power C 2 tab PO DAILY 09/02/16 [History Last Taken Unknown] anastrozole 1 mg tablet 1 mg PO DAILY 09/02/16 [History Last Taken Unknown] calcium carbonate 600 mg-vitamin D3 5 mcg (200 unit) tablet (Calcium 600 + D(3)) 1 ea PO DAILY 09/02/16 [History Last Taken Unknown] oxycodone-acetaminophen 5 mg-325 mg tablet (Percocet) 1 tab PO Q6H PRN pain 3 days #12 tabs 09/03/22 [Rx Last Taken Unknown] prednisone 10 mg tablet 10 mg PO DAILY #30 tabs 09/03/22 [Rx Last Taken Unknown] Allergy/AdvReac Type Severity Reaction Status Date / Time amoxicillin [From Augmentin] AdvReac Hives Verified 12/31/22 16:18 clavulanic acid AdvReac Hives Verified 12/31/22 16:18 [From Augmentin] Surgical History Hx of appendectomy Hx of cholecystectomy Social History Smoking Status: Never smoker Vital Signs Vital Signs Vital Signs: 12/31/22 16:13 12/31/22 16:29 12/31/22 16:37 Temperature 97.6 F L Temperature Source Temporal Pulse Rate 74 76 Respiratory Rate 17 12 Respiratory Effort Normal Respiratory Pattern Normal Blood Pressure 187/91 H 196/95 H Blood Pressure Mean 123 128 Pulse Ox 100 100 Oxygen Delivery Method Room Air Room Air 12/31/22 17:12 12/31/22 17:57 12/31/22 18:22 Temperature Temperature Source Pulse Rate 81 81 89 Respiratory Rate 14 15 Respiratory Effort Respiratory Pattern Blood Pressure 184/99 H 106/55 L 131/72 H Blood Pressure Mean 127 72 91 Pulse Ox 100 Oxygen Delivery Method Room Air Room Air 12/31/22 19:00 12/31/22 20:00 12/31/22 21:38 Temperature 97.4 F L Temperature Source Temporal Pulse Rate 86 92 103 H Respiratory Rate 14 17 19 H Respiratory Effort Respiratory Pattern Blood Pressure 132/68 H 137/75 H 158/77 H Blood Pressure Mean 89 95 104 Pulse Ox 98 99 97 Oxygen Delivery Method Room Air Room Air Room Air Weight Weight: 146 lb 13.246 oz Body Mass Index (BMI) 25.2 Physical Exam Const alert HEENT normocephalic, head/scalp atraumatic and hearing grossly normal bilaterally Eyes PERRL and EOMs intact bilaterally Eyes Narrative: No nystagmus, normal Pupil response. Resp normal respiratory effort and no retractions Cardio regular rate and regular rhythm GI normal to inspection, nondistended, normoactive bowel sounds Extremity normal to inspection and no clubbing, cyanosis or edema Neuro moves all extremities and no focal motor deficits Sensorium / Orientation: awake and alert Psych affect normal Results Lab / Micro Data Result Diagrams: 12/31/22 17:03 12/31/22 17:03 Labs: Laboratory Results - last 24 hr 12/31/22 17:03: WBC 5.2, RBC 5.34, Hgb 16.1 H, Hct 49.8 H, MCV 93.3, MCH 30.1, MCHC 32.3, RDW Std Deviation 43.8, RDW Coeff of Rhonda 12.9, Plt Count 277, MPV 9.7, Immature Gran % (Auto) 0.200, Neut % (Auto) 59.8, Lymph % (Auto) 26.6, [place] % (Auto) 9.2, Eos % (Auto) 2.9, Baso % (Auto) 1.3 H, Absolute Neuts (auto) 3.1, Absolute Lymphs (auto) 1.39, Nucleated RBC % 0 12/31/22 17:03: Sodium 142, Potassium 4.1, Chloride 105, Carbon Dioxide 29.0, Anion Gap 8, BUN 14, Creatinine 0.84, Estim Creat Clear Calc 54.58, Est GFR (MDRD) Af Amer 86, Est GFR (MDRD) Non-Af 71, BUN/Creatinine Ratio 16.7, Glucose 96, Calcium 10.2 H, Total Bilirubin 0.40, AST 22, ALT 30, Alkaline Phosphatase 77, Troponin I High Sens 6, Total Protein 7.7, Albumin 4.0, Globulin 3.7, Albumin/Globulin Ratio 1.[address] 12/31/22 16:37 IMPRESSION: Normal unenhanced CT scan of the brain. AIDOC was utilized to assist in identifying pertinent positive findings in this case. Electronically Signed: Peyman Vazquez DO at 17:45 EDT Reading Location ID and State: [facility] / [place] Tel [phone], Service support , Chest X-Ray 12/31/22 17:38 IMPRESSION: Situs inversus without evidence of acute cardiopulmonary disease or interval change. Electronically Signed: Peyman Vazquez DO at 17:49 EDT Reading Location ID and State: [facility] / [place] Tel [phone], Service support , Assessment & Plan Assessment/Plan (1) Vertigo: (2) Blood pressure elevated without history of HTN: PLAN: Plan Symptoms of dizziness could be tied to severe hypertension which is new for her. They are better now BPPV is also consideration (though i would expect more intermittent symptoms and aggravated by quick movements). She responded to therapy in ED, will start Norvasc 5 mg as she clearly fits diagnosis of hypertension. Monitor overnight. Meclizine prn although I think symptoms may eventually resolve as her BP is controlled Full code. Charges/Coding Visit Charges Inpatient E&M: 17232 Init Hosp L2
[2022-12-31] MEDS: amLODIPine 5 MG Tablet PO (22:45)
[2023-01-01 06:04] VITALS: BP 123/71; BP 67/37; BP 92/43; PULSE 101; PULSE 84; PULSE 94; RESP 16; TEMP 36.5; O2SAT 97
[2023-01-01] MEDS: 0.9% Normal Saline 1,000 ML 500 ML IV (06:21)
--- NOTE | 2023-01-01 07:46 | PCM.HOSP.N ---
Hospitalist Note Will hold Norvasc at this point as the patient had significant change in orthostatics to 67/40s while standing I ordered 1 liter of fluid NS over 2 hrs
[2023-01-01 08:02] VITALS: BP 133/70; PULSE 69; RESP 18; TEMP 36.7; O2SAT 100
--- NOTE | 2023-01-01 08:09 | NURSING ---
a&o x3, lungs clear, denies dizziness when standing
--- NOTE | 2023-01-01 09:12 | MRI_ITS ---
STUDY: MRI BRAIN WITHOUT CONTRAST REASON FOR EXAM: Female, 67 years old. stroke like deficits TECHNIQUE: Standardized multiplanar fat and water weighted pulse sequences were obtained. COMPARISON: No relevant prior imaging available for comparison. HEMISPHERES, CEREBELLUM AND BRAINSTEM: Mild cortical and central atrophy. 1. The cerebral parenchyma, ventricular system, subarachnoid spaces have normal configuration and density. There is a normal gyral pattern. There is normal slade/white differentiation. No midline shift.. 2. The hemispheric white matter has normal appearance. 3. No intraparenchymal mass, hemorrhage, or acute territorial infarct. 4. The cerebellum, brainstem, basilar and suprasellar cisterns have normal appearance. No Chiari malformation. PITUITARY: Infundibulum and pituitary have normal configuration. Midline structures appear normal. CSF SPACES: Appropriate for age. No hydrocephalus. Basal cisterns are patent. VESSELS: 1. There are normal flow voids noted in the great vessels at the skull base ORBITS AND PARANASAL SINUSES: 1. Both globes, extraocular muscles, optic nerves and retrobulbar fat appear unremarkable. 2. Paranasal sinuses are clear. BONY ELEMENTS: Bony elements of the cranial vault, facial skeleton and skull base have normal appearance. SCALP AND SOFT TISSUES: Normal appearance of the soft tissues of the scalp and the visualized face OTHER: None MRI/Brain without Contrast IMPRESSION: 1. No intracranial mass, hemorrhage, or acute territorial infarct. 2. No radiographically significant sinus disease. 3. Mild cortical and central atrophy. Electronically Signed: Hao Zaldivar MD, LEX at 12:03 EDT ,
[2023-01-01] MEDS: Acetaminophen 325 MG Tablet 650 MG PO (09:38)
--- NOTE | 2023-01-01 10:04 | ECHOD_ITS ---
Reason For Study: HTN Procedure This was a 2D Doppler, Color Flow transthoracic echocardiogram. Exam performed portable in patient room. Left Ventricle Normal LV size. The estimated ejection fraction is 65 %. Normal diastology for age. No regional wall motion abnormalities noted. Right Ventricle Normal RV size. Normal systolic function. Atria Normal left atrium. Normal right atrium. No doppler evidence for ASD. Bubble contrast study negative for right to left interatrial shunt. Mitral Valve There is no mitral valve stenosis. No mitral valve insufficiency. Tricuspid Valve There is no tricuspid stenosis. Trivial tricuspid valve insufficiency. Unable to estimate RV systolic pressure due to insufficient tricuspid regurgitant envelope. Aortic Valve Trisinus/trileaflet aortic valve. There is no aortic stenosis. No aortic valve insufficiency. Pulmonic Valve There is no pulmonic valvular stenosis. No pulmonic valve insufficiency. Great Vessels Normal aortic root. Pericardium/Pleural No pericardial effusion. Medication Performed a rapid injection of agitated mix of 9 cc saline and 1cc air to assess for atrial septal defect. MMode/2D Measurements & Calculations LVIDd: 4.0 cm IVSd: 1.1 cm Ao root diam: 2.9 cm LVIDs: 2.7 cm LVPWd: 0.91 cm RVDd: 2.1 cm FS: 31.4 % LAV(MOD-bp): 29.4 ml LVAd ap4: 20.4 cm2 SV(MOD-sp4): 31.5 ml LAV(MOD-bp) Indexed: 17.3 ml/m2 LVLd ap4: 7.0 cm LAV(MOD-sp2): 26.6 ml EDV(MOD-sp4): 48.7 ml LAV(MOD-sp4): 32.4 ml EDV(sp4-el): 50.0 ml LVAs ap4: 11.2 cm2 LVLs ap4: 6.2 cm ESV(MOD-sp4): 17.2 ml ESV(sp4-el): 17.3 ml EF(MOD-sp4): 64.6 % EF(sp4-el): 65.3 % SV(sp4-el): 32.6 ml LA A4 area: 13.4 cm2 LA dimension(2D): 3.2 cm RA A4 area: 7.2 cm2 TAPSE: 2.1 cm Time Measurements MV dec time: 0.24 sec Doppler Measurements & Calculations MV E max alonzo: 60.5 cm/sec Lat Peak E' Alonzo: 8.9 cm/sec Med Peak E' Alonzo: 5.6 cm/sec MV A max alonzo: 73.5 cm/sec E/E' lat: 6.8 E/E' med: 10.8 MV E/A: 0.82 MV dec slope: 250.5 cm/sec2 Ao V2 max: 120.6 cm/sec LV V1 max: 85.7 cm/sec Ao max P.8 mmHg LV V1 max P.9 mmHg LV V1 mean P.6 mmHg LV V1 mean: 58.4 cm/sec LV V1 VTI: 17.1 cm PA V2 max: 66.9 cm/sec ECHO/Echo Complete Interpretation Summary The estimated ejection fraction is 65 %. Ordering Physician: Ruma Ordonez Referring Physician: Jose Francisco Zamora Performed By: Melody Arvizu RDCS
[2023-01-01 10:41] VITALS: BP 128/75; PULSE 77; RESP 18; TEMP 36.7; O2SAT 99
[2023-01-01] MEDS: Meclizine HCl 25 MG Tablet PO ×2 (13:19→13:22)
[2023-01-01 13:29] VITALS: BP 134/74; PULSE 83; RESP 18; TEMP 36.7; O2SAT 99
--- NOTE | 2023-01-01 15:22 | PN_ITS ---
Subjective Subjective Seen and examined. She was admitted with a complaint of dizziness and vertigo. CT of the brain was negative. She says she feels okay this morning but felt dizzy and lightheaded when she stood up early this morning. She was orthostatic positive early this morning. Review of systems otherwise negative. Objective Data Objective Data Vital Signs: Vital Signs Temp Pulse Resp BP Pulse Ox O2 Del Method 98.0 F 83 18 134/74 H 99 Room Air 01/01/23 13:29 01/01/23 13:29 01/01/23 13:29 01/01/23 13:29 01/01/23 13:29 01/01/23 13:29 Oxygen Delivery Method Room Air Weight: 145 lb 8.081 oz Body Mass Index (BMI) 25.0 Intake & Output: Intake and Output for Last 24 Hours 12/30/22 12/31/22 01/01/23 23:59 23:59 23:59 Intake Total 440 / 440 1545 / 1545 Balance 440 / 440 1545 / 1545 Lab / Micro Data Result Diagrams: 12/31/22 17:03 12/31/22 17:03 Labs: Laboratory Results - last 24 hr 12/31/22 17:03: WBC 5.2, RBC 5.34, Hgb 16.1 H, Hct 49.8 H, MCV 93.3, MCH 30.1, MCHC 32.3, RDW Std Deviation 43.8, RDW Coeff of Rhonda 12.9, Plt Count 277, MPV 9.7, Immature Gran % (Auto) 0.200, Neut % (Auto) 59.8, Lymph % (Auto) 26.6, [place] % (Auto) 9.2, Eos % (Auto) 2.9, Baso % (Auto) 1.3 H, Absolute Neuts (auto) 3.1, Absolute Lymphs (auto) 1.39, Nucleated RBC % 0 12/31/22 17:03: Sodium 142, Potassium 4.1, Chloride 105, Carbon Dioxide 29.0, Anion Gap 8, BUN 14, Creatinine 0.84, Estim Creat Clear Calc 54.58, Est GFR (MDRD) Af Amer 86, Est GFR (MDRD) Non-Af 71, BUN/Creatinine Ratio 16.7, Glucose 96, Calcium 10.2 H, Total Bilirubin 0.40, AST 22, ALT 30, Alkaline Phosphatase 77, Troponin I High Sens 6, Total Protein 7.7, Albumin 4.0, Globulin 3.7, Albumin/Globulin Ratio 1.1 Radiography Diagnostic Testing: Radiology Impression Brain CT 12/31/22 16:37 IMPRESSION: Normal unenhanced CT scan of the brain. AIDOC was utilized to assist in identifying pertinent positive findings in this case. Electronically Signed: Peyman Vazquez DO at 17:45 EDT Reading Location ID and State: [facility] / [place] Tel [phone], Service support , Chest X-Ray 12/31/22 17:38 IMPRESSION: Situs inversus without evidence of acute cardiopulmonary disease or interval change. Electronically Signed: Peyman Vazquez DO at 17:49 EDT Reading Location ID and State: [facility] / [place] Tel [phone], Service support , Brain MRI 01/01/23 09:12 IMPRESSION: 1. No intracranial mass, hemorrhage, or acute territorial infarct. 2. No radiographically significant sinus disease. 3. Mild cortical and central atrophy. Electronically Signed: Hao Zaldivar MD, LEX at 12:03 EDT , Echocardiogram 01/01/23 10:04 Interpretation Summary The estimated ejection fraction is 65 %. Ordering Physician: Ruma Ordonez Referring Physician: Jose Francisco Zamora Performed By: Melody Arvizu RDCS Physical Exam Const alert, oriented x3 and no apparent distress General Appearance: cooperative HEENT normocephalic, head/scalp atraumatic and moist oral mucous membranes Eyes PERRL and EOMs intact bilaterally Neck no lymphadenopathy, supple and no JVD Lymph Lymphatic: no lymphadenopathy noted and no lymphedema noted Cardio regular rate, regular rhythm, S1 normal heart sound, S2 normal heart sound and no murmurs GI normal to inspection, nondistended, normoactive bowel sounds, soft to palpation, non-tender and non-distended Extremity normal capillary refill, no clubbing, cyanosis or edema and no calf tenderness Skin General Skin Exam: no breakdown Neuro CN's II-XII intact bilaterally, no focal motor deficits, no sensory deficits noted and deep tendon reflexes 2+ bilaterally Motor Exam: strength 5/5 throughout Psych thought process normal, cooperative and affect normal Appearance: appropriate Assessment & Plan Assessment/Plan (1) Vertigo: PLAN: Plan #VErtigo * Could have been due to her markedly elevated blood pressure. Blood pressure subsequently resolved. * CT of the brain showed no acute intracranial pathology. Orthostatics are positive so I believe orthostatics also playing a role. * Hydrate gently with IV normal saline. PT OT consults * Fall precautions. Also on meclizine. * MRI of the brain done today showed no acute intracranial pathology. * #Elevated blood pressure: * Blood pressure was markedly elevated on admission but subsequently trended down. She is now on Norvasc 5 mg daily. * IV hydralazine as needed * 2D echo showed EF of 65% with no regional wall motion abnormalities noted and normal diastole and left ventricular size * DVT prophylaxis: lovenox Charges/Coding Visit Charges Inpatient E&M: 66937 Subs Hosp L2
[2023-01-01] MEDS: 0.9% Normal Saline 1,000 ML 125 ML IV (16:53)
[2023-01-01 17:00] VITALS: BP 134/71; PULSE 80; RESP 18; TEMP 36.7; O2SAT 96
--- NOTE | 2023-01-01 18:15 | CASEMGMT ---
RN CM KETTLE OPERATOR HEAD CM to room to meet with patient for initial transition planning/care coordination assessment. RN GEO introduced self and role at [facility].? Pt voices understanding and consents to assessment at this time.? Pt resting in bed in no distress at this time.? Pt is A/O at this time and answers all questions appropriately.?? Care providers, pharmacy, and demographics verified/updated at this time. PCP: Dr Rivers Specialists: Oncologist-Saji Murray Preferred Pharmacy: [facility] Insurance: [employer] Prescription Benefit:? Yes Living Will/HPOA:? Pt does not currently have LW/HCPOA and declines info at this time.? Pt made aware that she can contact SW as an out-pt and make appt in the future if she decides he would like to talk with someone about this or would like to utilize [facility] social work for advanced directive completion.? Living Arrangements: Lives w/ in one-story home w/2 steps to enter. Independent. Transportation: Pt states drives self and states no transportation concerns at this time.? also drives. DME: ? Denies using any DME and denies needs.? HHC/SNF: No hx of either and no needs identified. Pt wishes to return home and states has no concerns with going home at time of discharge.?CM to follow for any discharge planning/needs.? Pt voices no concerns/needs at this time.? Advised pt to ask for CM if any questions/concerns/needs arise.? Voices understanding. PLAN: ?Home Hossein ANDRADE RN, CM
--- NOTE | 2023-01-01 19:11 | NURSING ---
no change from AM assessment, pt continues to move slowly or has dizziness
[2023-01-01 20:26] VITALS: BP 122/59; PULSE 76; RESP 16; TEMP 37.2; O2SAT 95
[2023-01-02] MEDS: 0.9% Normal Saline 1,000 ML 125 ML IV (01:32)
[2023-01-02 02:26] VITALS: BP 135/66; PULSE 66; RESP 16; TEMP 36.6; O2SAT 98
[2023-01-02 05:19] LABS: Absolute Lymphocyte Count 1.64 X10^3/uL (0.83-4.51); Basophil# 0.06 X10^3/uL; Basophil% 1.4 % (0-1); Eosinophils% 4.7 % (0-5); Hematocrit 45.3 % (37-47); Hemoglobin 13.3 g/dL (12.0-15.0); Lymphocyte # 1.64 X10^3/ul (0.83-4.51); Lymphocyte % 38.2 % (19-41); Mean Corp Hgb Conc 29.4 g/dL (32-36); Mean Corpuscular Hgb 30.2 pg (27.0-32.0); Mean Corpuscular Volume 102.7 fL (81-99); Mean Platelet Vol. 9.3 fl (6.2-12.0); Monocyte# 0.39 X10^3/uL; Monocyte% 9.1 % (0-10); NRBC Flagged by Analyzer 0 % (0-5); Neutrophil # 1.99 X10^3/uL (2.7-7.7); Neutrophil % 46.4 % (47-70); Platelet Count 222 K/mm3 (150-450); RBC Distribution Width CV 13.1 % (11.6-14.6); Red Blood Count 4.41 M/mm3 (4.2-5.4); White Blood Count 4.3 K/mm3 (4.4-11.0)
[2023-01-02 05:43] LABS: Anion Gap 5 (5-15); BUN 14 mg/dL (7-18); BUN/Creat Ratio 19.3 RATIO (10-20); Calcium,Total 8.1 mg/dL (8.5-10.1); Chloride 115 mmol/L (98-107); Creatinine, Serum 0.72 mg/dL (0.55-1.02); EST Glomerular Filtration Rate 85 mL/min (>60); Est Glom Filt Rate - Afr Amer 102 mL/min (>60); Estimated Creatinine Clearance 45.85 ml/min; Glucose 95 mg/dL (74-106); Potassium 3.8 mmol/L (3.5-5.1); Sodium Level 142 mmol/L (136-145)
[2023-01-02 07:55] VITALS: BP 154/91; BP 155/90; BP 160/89; PULSE 62; PULSE 63; PULSE 65
[2023-01-02 08:06] VITALS: BP 155/90; PULSE 63; RESP 18; TEMP 36.6; O2SAT 100
--- NOTE | 2023-01-02 11:19 | DCINST_ITS ---
Discharge Instructions Diet Discharge Diet: Low fat / Low cholesterol Activity Discharge Activity: Return to Normal Activity Weight Bearing Status: Weight bearing as tolerated Dressing / Incision Call your doctor if you observe: Fever of 101 or Higher, Shortness of breath, Dizziness, Fainting spells, Swelling in the ankles, Chest pain and Increased palpitations (irregular heartbeat) Follow Up Care Test Results: Test results from this visit will be discussed in further detail at your follow- up appointment, if applicable. Discharge Plan Admission Admit Date/Time: 01/01/23 16:40 Primary Reason for Your Visit: vertigo Attending Provider: Ruma Ordonez Primary Care Provider: Jose Francisco Zamora Consulting Providers: Chris Alvarado Instructions Patient Instructions: ED Dizziness, Uncertain Cause Additional Instructions / Restrictions: counseled to keep well hydrated. Check BP morning and evening and present log to PCP. Discharge Orders/Prescriptions Prescriptions: New meclizine 25 mg Tablet 25 mg PO TID PRN PRN (Reason: dizzy) Qty: 30 1RF amlodipine 5 mg tablet 5 mg PO DAILY Qty: 30 1RF Continued cholecalciferol (vitamin D3) [Vitamin D3] 1,000 UNIT tablet 2,000 unit PO DAILY Label Comments: supplement red yeast rice extract (bulk) 30 GM powder 2 tab PO DAILY calcium carbonate-vitamin D3 [Calcium 600 + D(3)] 1 EACH tablet 1 ea PO DAILY Fish Oil 1 tab PO.IVFORM DAILY Referrals / Follow Up: Jose Francisco Zamora DO [Primary Care Provider] - Within 1 Week Disposition Disposition (needs filled in before D/C Order can be placed): Home, Self Care
--- NOTE | 2023-01-02 11:24 | DS.PCM_ITS ---
Providers Date of Admission: 01/01/23 Date of Discharge: 01/02/23 Primary Care Physician: Dr. Jose Francisco Zamora DO Reason For Visit: HYPERTENSIVE URGENCY Diagnosis Discharge Diagnosis (1) Vertigo: Status: Acute Code(s): R42 - Dizziness and giddiness Plan #VErtigo * Could have been due to her markedly elevated blood pressure. Blood pressure subsequently resolved. * CT of the brain showed no acute intracranial pathology. Orthostatics are positive so I believe orthostatics also playing a role. * Hydrate gently with IV normal saline. PT OT consults * Fall precautions. Also on meclizine. * MRI of the brain done today showed no acute intracranial pathology. * #Elevated blood pressure: * Blood pressure was markedly elevated on admission but subsequently trended down. She is now on Norvasc 5 mg daily. * IV hydralazine as needed * 2D echo showed EF of 65% with no regional wall motion abnormalities noted and normal diastole and left ventricular size * DVT prophylaxis: lovenox Medications at Discharge Home Medications cholecalciferol (vitamin D3) 25 mcg (1,000 unit) tablet (Vitamin D3) 2,000 unit PO DAILY 04/10/15 red yeast rice extract (bulk) 2 tab PO DAILY 05/01/15 calcium carbonate 600 mg-vitamin D3 5 mcg (200 unit) tablet (Calcium 600 + D(3)) 1 ea PO DAILY 09/02/16 Fish Oil 1 tab PO.IVFORM DAILY 12/31/22 meclizine 25 mg tablet 25 mg PO TID PRN PRN dizzy #30 tabs 01/01/23 amlodipine 5 mg tablet 5 mg PO DAILY #30 tabs 01/02/23 Hospital Course Operations None Procedures 2-D Echocardiogram Summary of Care Provided Minutes Spent on Discharge: 45 Hospital Course: Patient is a 67 female with past medical history as outlined who was admitted through the ED on 12/31/2022 with a complaint of dizziness which started a couple of days prior to admission. She felt lightheaded and felt the world was spinning around her. He had assisted nausea. Symptoms resolved but recurred the next day when she bent over to poultry picker something. The symptoms persisted so she came into the ED. She had recently been in [place] where her blood pressure was noted to be markedly elevated in the 190s systolic. On admission in the ED her blood pressure was elevated at 215 mmHg systolic. She was admitted and managed for vertigo and markedly elevated hypertension. Orthostatics were positive so she was hydrated with IV fluids. CT of the brain showed no acute intracranial pathology. MRI of the brain showed no evidence of stroke. She did have 2D echo which showed EF of 65% with no regional wall motion abnormalities and normal diastolic and ventricular size and function. She was placed on p.o. amlodipine 5 mg daily. She was discharged home on 01/02/2023 and is to follow-up with her primary care doctor within 1 to 2 weeks. She was counseled to keep a blood pressure log twice daily preferably morning and evening and is to presented to her PCP for adjustment of blood pressure medications as needed. She was also given a prescription for meclizine and counseled to remain well- hydrated. Patient seen and examined prior to discharge. She had no complaints and felt mu ch better. She had an uneventful night. Review of systems otherwise negative. Labs and vitals reviewed. Home medication reviewed and reconciled. Physical Exam Const alert, oriented x3 and no apparent distress General Appearance: cooperative, comfortable and well kempt HEENT normocephalic, head/scalp atraumatic, hearing grossly normal bilaterally and moist oral mucous membranes Mouth: oral and palatal mucosa normal Eyes PERRL and EOMs intact bilaterally Neck no lymphadenopathy, supple and no JVD Lymph Lymphatic: no lymphadenopathy noted and no lymphedema noted Resp normal respiratory effort and no retractions Cardio regular rate, regular rhythm, S1 normal heart sound, S2 normal heart sound and no murmurs GI normal to inspection, nondistended, normoactive bowel sounds, soft to palpation, non-tender and non-distended Extremity normal to inspection, full ROM, normal capillary refill, no clubbing, cyanosis or edema and no calf tenderness Skin no rashes or lesions noted General Skin Exam: no breakdown Neuro oriented x3, CN's II-XII intact bilaterally, moves all extremities, no focal motor deficits, no sensory deficits noted and deep tendon reflexes 2+ bilaterally Sensorium / Orientation: awake and alert Motor Exam: strength 5/5 throughout Psych thought process normal, cooperative and affect normal Appearance: appropriate Weight / BMI Weight Weight: 145 lb 8.081 oz Body Mass Index (BMI) 25.0 ABG / Lab / Microbiology Data Result Diagrams: 01/02/23 05:11 01/02/23 05:11 Laboratory: Laboratory Results - last 24 hr 01/02/23 05:11: WBC 4.3 L, RBC 4.41, Hgb 13.3, Hct 45.3, MCV 102.7 H D, MCH 30.2, MCHC 29.4 L D, RDW Std Deviation 50.0 H, RDW Coeff of Rhonda 13.1, Plt Count 222, MPV 9.3, Immature Gran % (Auto) 0.200, Neut % (Auto) 46.4 L, Lymph % (Auto) 38.2, [place] % (Auto) 9.1, Eos % (Auto) 4.7, Baso % (Auto) 1.4 H, Absolute Neuts (auto) 2.0, Absolute Lymphs (auto) 1.64, Nucleated RBC % 0 01/02/23 05:11: Sodium 142, Potassium 3.8, Chloride 115 H, Carbon Dioxide 22.0, Anion Gap 5, BUN 14, Creatinine 0.72, Estim Creat Clear Calc 45.85, Est GFR (MDRD) Af Amer 102, Est GFR (MDRD) Non-Af 85, BUN/Creatinine Ratio 19.3, Glucose 95, Calcium 8.1 L Radiography Diagnostic Testing: Radiology Impression Brain MRI 01/01/23 09:12 IMPRESSION: 1. No intracranial mass, hemorrhage, or acute territorial infarct. 2. No radiographically significant sinus disease. 3. Mild cortical and central atrophy. Electronically Signed: Hao Zaldivar MD, LEX at 12:03 EDT Reading Location ID and State: [facility] / [place] Tel , Service support , Echocardiogram 01/01/23 10:04 Interpretation Summary The estimated ejection fraction is 65 %. Ordering Physician: Ruma Ordonez Referring Physician: Jose Francisco Zamora Performed By: Melody Arvizu RDCS D/C Instructions Discharge Diet: Low fat / Low cholesterol Discharge Activity: Return to Normal Activity Weight Bearing Status: Weight bearing as tolerated Call your doctor if you observe: Fever of 101 or Higher, Shortness of breath, Dizziness, Fainting spells, Swelling in the ankles, Chest pain and Increased palpitations (irregular heartbeat) Meaningful Use Info Meaningful Use Diagnoses (Choose all that apply): None applicable Discharge Plan Admission Admit Date/Time: 01/01/23 16:40 Primary Reason for Your Visit: vertigo Attending Provider: Ruma Ordonez Primary Care Provider: Jose Francisco Zamora Consulting Providers: Chris Alvarado Instructions Patient Instructions: ED Dizziness, Uncertain Cause Additional Instructions / Restrictions: counseled to keep well hydrated. Check BP morning and evening and present log to PCP. Discharge Orders/Prescriptions Prescriptions: New meclizine 25 mg Tablet 25 mg PO TID PRN PRN (Reason: dizzy) Qty: 30 1RF amlodipine 5 mg tablet 5 mg PO DAILY Qty: 30 1RF Continued cholecalciferol (vitamin D3) [Vitamin D3] 1,000 UNIT tablet 2,000 unit PO DAILY Label Comments: supplement red yeast rice extract (bulk) 30 GM powder 2 tab PO DAILY calcium carbonate-vitamin D3 [Calcium 600 + D(3)] 1 EACH tablet 1 ea PO DAILY Fish Oil 1 tab PO.IVFORM DAILY Referrals / Follow Up: Jose Francisco Zamora DO [Primary Care Provider] - Within 1 Week Disposition Disposition (needs filled in before D/C Order can be placed): Home, Self Care Charges/Coding Visit Charges Inpatient E&M: 07282 Disch Hosp >30min
[2023-01-02] MEDS: amLODIPine 5 MG Tablet PO (12:07)
== END 2023-01-02 12:20 | disposition home or self-care (01) | DRG 312 ==
LOC: ED 21:35 → MS3 21:58
PROVIDERS: Admitting Provider Hospitalist; Emergency Provider Emergency Medicine; PCP Family Medicine; Visit Provider Student in an Organized Health Care Education/Training Program
DX: I95.1 Orthostatic hypotension (principal); R03.0 Elevated blood-pressure reading, without diagnosis of hypertension
CPT/HCPCS: 36415; 70450; 70551; 71045; 80048; 80053; 84484; 85025; 93005; 93306; 99284; J7030; A4216

== ENCOUNTER → 2023-02-15 | Outpatient (CLI) | payer MEDICARE, SELFPAY ==
[2023-02-15 09:54] LABS: Hematocrit 45.5 % (37-47); Mean Corpuscular Hgb 30.4 pg (27.0-32.0); Mean Corpuscular Volume 92.3 fL (81-99); Mean Platelet Vol. 9.4 fl (6.2-12.0); Platelet Count 298 K/mm3 (150-450); RBC Distribution Width CV 12.6 % (11.6-14.6); RBC Distribution Width SD 42.7 fl (35.1-43.9); Red Blood Count 4.93 M/mm3 (4.2-5.4); White Blood Count 5.3 K/mm3 (4.4-11.0)
[2023-02-15 10:33] LABS: ALB/GLOB Ratio 1.1 RATIO (0.9-2.4); AST(SGOT) 30 U/L (15-37); Alanine Aminotransfer ALT/SGPT 39 U/L (13-56); Albumin, Serum 3.6 g/dL (3.2-5.0); Alkaline Phosphatase 78 U/L (45-117); Anion Gap 4 (5-15); BUN 11 mg/dL (7-18); BUN/Creat Ratio 13.4 RATIO (10-20); Chloride 106 mmol/L (98-107); Creatinine, Serum 0.82 mg/dL (0.55-1.02); EST Glomerular Filtration Rate 73 mL/min (>60); Est Glom Filt Rate - Afr Amer 89 mL/min (>60); Globulin 3.3 g/dL (2.2-4.2); Glucose 88 mg/dL (74-106); Protein, Total 6.9 g/dL (6.4-8.2); Sodium Level 139 mmol/L (136-145)
== END | disposition home or self-care (01) ==
PROVIDERS: PCP Family Medicine
DX: D05.10 Intraductal carcinoma in situ of unspecified breast (principal); M81.8 Other osteoporosis without current pathological fracture
CPT/HCPCS: 36415; 80053; 85027

== ENCOUNTER → 2023-05-11 | Outpatient (CLI) | payer MEDICARE, SELFPAY ==
--- NOTE | 2023-05-11 08:59 | BI_ITS ---
MAMMOGRAPHY - BILATERAL SCREENING REASON FOR EXAM: Female, 67 years old. Routine annual screening examination. PERTINENT HISTORY: Personal history of breast cancer. Prior left lumpectomy. Recent stereotactic biopsy of the left breast. TECHNIQUE: Digital bilateral breast guru (3D mammographic acquisition) in the CC and MLO projections. 2-D mediolateral oblique (MLO) and craniocaudad (CC) views of both breasts were obtained. CAD: Full Field Digital Mammography with Computer Added Detection was performed. COMPARISON: Comparison is made with prior study May 10, 2022 and May 08, 2021. FINDINGS: Breast Composition: The breasts are heterogeneously dense, which may obscure small masses. There are no dominant masses or suspicious calcifications. The patient is status post lumpectomy in the upper deep central portion of the left breast with resultant postoperative deformity of the breast and scarring at the biopsy site. A tissue clip marker is seen within it at this time. No other significant abnormalities are identified. There has been no significant change since the prior study. BI/SCRN MAMM (CAD)W/GURU BILAT IMPRESSION: Stable bilateral screening mammogram. Yearly follow-up mammogram recommended. (A) ASSESSMENT CATEGORY: BIRADS Category 2: Benign. A letter regarding these results will be sent to the patient by the facility within 30 days. Approximately 10% of breast cancers are not detected by mammography. A normal mammogram should not delay biopsy of a clinically suspicious abnormality. [id number] Electronically Signed: Carlos Schmitt MD at 10:46 EDT ,
== END | disposition home or self-care (01) ==
LOC: OPBD 08:52
PROVIDERS: PCP Family Medicine
DX: M85.89 Other specified disorders of bone density and structure, multiple sites (principal); Z12.31 Encounter for screening mammogram for malignant neoplasm of breast; Z85.3 Personal history of malignant neoplasm of breast
CPT/HCPCS: 77063; 77067

== ENCOUNTER → 2023-08-08 | Outpatient (CLI) | payer MEDICARE, SELFPAY ==
--- OUTSIDE RECORDS SUMMARY | 2023-08-08 09:26 | XMS RPT_ITS | CCD ---
Author Name Unknown Address [id number] [place] [address] Organization [facility] Care Team Providers Care Zigzag Appliquer Name Role Phone SERA DO, DR JIL Reynolds Primary Care Physician Sera DO, Jil Haider Primary Care Provider [phone] Sera DO, Jil Haider Primary Care Provider [phone] KRYSTIN REN Attending Unavailable SERA, JIL HAIDER Primary Care Unavailable KRYSTIN REN Attending Unavailable SERA, JIL HAIDER Primary Care Unavailable KRYSTIN REN Attending Unavailable SERA, JIL HAIDER Primary [facility] Unavailable KRYSTIN REN Attending Unavailable ZANE STRONG L Referring Unavailable SERA, JIL HAIDER Primary [facility] Unavailable KRYSTIN REN Attending Unavailable SERA, JIL HAIDER [facility] Unavailable SERA, JIL HAIDER Primary [facility] Unavailable KRYSTIN REN Attending Unavailable KRYSTIN REN Attending Unavailable SERA, JILBRIANA HAIDER Primary [facility] Unavailable KRYSTIN REN Attending Unavailable SERA, JILBRIANA HAIDER Primary [facility] Unavailable SLIME DENTAL THERAPIST-SMALL OFFSET PRINTER, ZANE Attending Unavai lable SERA , DR IJL Reynolds Primary Care Unavailabl e SERA DO, DR JIL Reynolds Attending Unavailabl e SERA DO, DR JIL Reynolds Primary Care Unavailabl e SERA DO, DR JIL Reynolds Referring Unavailabl e CHRISTIANO HERNANDEZ, DR GRANADOS Attending Unavailabl e SERA DO, DR JIL Reynolds Primary Care Unavailabl e Allergies Allergy Classification Reported Allergen(s) Allergy Type Date of Onset Reaction(s) Facility (1 source) seasonal enviromental Allergy to substance Watery eye (finding) [facility] [place] [facility] Medications Current Medications Medication Drug Class(es) Dates Sig (Normalized) Sig (Original) amLODIPine 5 mg oral tablet (1 source) Dihydropyridine Calcium Channel Tavo Start: 01-26-2023 amLODIPine 5 mg oral tablet Dose : 5 mg = 1 tab(s), Oral, qDay, # 90 tab(s), 1 Refill(s), Pharmacy: [facility], Essential hypertension, 163, cm, 01/26/23 14:00:00 EDT, Height Start Date: 01/26/23 Status: Ordered benzonatate 200 mg oral capsule (1 source) Non-narcotic Antitussive Start: 07-23-2021 End: 07-28-2021 benzonatate 200 mg oral capsule Dose : 200 mg = 1 cap(s), Oral, TID, PRN as needed for cough, X 5 day(s), # 15 cap(s), 0 Refill(s), 07/28/21 8:15:00 EST, Pharmacy: [facility]/pharmacy #[id number], 162.6, cm, 07/23/21 7:46:00 EST, Height, kg, 07/23/21 7:46:00 EST, Dosing Weight Start Date: 07/23/21 Stop Date: 07/28/21 Status: Ordered Calcium, Magnesium and Zinc oral tablet (2 sources) Start: 06-24-2021 take 1 tablet by mouth once daily Calcium, Magnesium and Zinc oral tablet Dose = 1 tab(s), Oral, qDay, # 30 tab(s), 0 Refill(s) Start Date: 06/24/21 Status: Ordered ciprofloxacin 500 mg oral tablet (3 sources) Quinolone Antimicrobial Start: 07-23-2022 End: 08-18-2022 ciprofloxacin HCl (CIPRO) 500 mg tablet Take 1 tablet by mouth twice daily for 14 days. FOR 14 DAYS. 28 tablet 0 08/04/2022 08/18/2022 Active Completed/Discontinued Medications Medication Drug Class(es) Dates Sig (Normalized) Sig (Original) amoxicillin 875 mg / clavulanate 125 mg oral tablet (4 sources) Penicillin-class Antibacterial Start: 05-21-2022 amoxicillin-clavul anic acid (AUGMENTIN) 875-125 mg per tablet anastrozole 1 mg oral tablet (9 sources) Aromatase Inhibitor Start: 03-05-2016 anastrozole (ARIMIDEX) 1 mg tablet 1 tablet once daily. 0 03/05/2016 Active Problems Active Problems Problem Classification Problem Date Documented Da te Episodic/Chronic Cancer of breast (3 sources) Malignant tumor of breast ; Translations: [Intraductal carcinoma in situ of breast] 04-21-2017 Chronic Past or Other Problems Problem Classification Problem Date Documented Da te Episodic/Chronic Other screening for suspected conditions (not mental disorders or infectious disease) (3 sources) Mammography abnormal; Translations: [Other abnormal and inconclusive findings on diagnostic imaging of breast] Onset: 02-18-2023 Episodic Results Test Name Value Interpretation Reference Range Facil ity Vital Signs Date Time Vital Sign Value Performing Clinician Faci lity 11-16-2022 09:18-0400 Body temperature 97.2 [degF] Krystin Ren MD Work Phone: [facility] 11-16-2022 09:18-0400 Body weight 68.49 kg Krystin Ren MD Work Phone: [facility] 11-16-2022 09:18-0400 Diastolic blood pressure 84 mm[Hg] Krystin Ren MD Work Phone: [facility] 11-16-2022 09:18-0400 Heart rate 94 /min Krystin Ren MD Work Phone: [facility] 11-16-2022 09:18-0400 SaO2% (BldA) [Mass fraction] 99 % Krystin Ren MD Work Phone: [facility] 11-16-2022 09:18-0400 Systolic blood pressure 142 mm[Hg] Krystin Ren MD Work Phone: [facility] 10-07-2022 09:15-0400 Body temperature 97.39 [degF] Krystin Ren MD Work Phone: [facility] 10-07-2022 09:15-0400 Diastolic blood pressure 80 mm[Hg] Krystin Ren MD Work Phone: [facility] 10-07-2022 09:15-0400 Heart rate 78 /min Krystin Ren MD Work Phone: [facility] 10-07-2022 09:15-0400 SaO2% (BldA) [Mass fraction] 96 % Krystin Ren MD Work Phone: [facility] 10-07-2022 09:15-0400 Systolic blood pressure 118 mm[Hg] Krystin Ren MD Work Phone: [facility] 09-16-2022 09:25-0500 Body height 162.6 cm Krystin Ren MD Work Phone: [facility] 09-16-2022 09:25-0500 Body temperature 97.2 [degF] Krystin Ren MD Work Phone: [facility] 09-16-2022 09:25-0500 Body weight 67.13 kg Krystin Ren MD Work Phone: [facility] 09-16-2022 09:25-0500 Diastolic blood pressure 80 mm[Hg] Krystin Ren MD Work Phone: [facility] 09-16-2022 09:25-0500 Heart rate 83 /min Krystin Ren MD Work Phone: [facility] 09-16-2022 09:25-0500 SaO2% (BldA) [Mass fraction] 99 % Krystin Ren MD Work Phone: [facility] 09-16-2022 09:25-0500 Systolic blood pressure 146 mm[Hg] Krystin Ren MD Work Phone: [facility] 08-31-2022 13:22-0500 Diastolic blood pressure 96 mm[Hg] Krystin Ren MD Work Phone: [facility] 08-31-2022 13:22-0500 Systolic blood pressure 148 mm[Hg] Krystin Ren MD Work Phone: [facility] 08-31-2022 12:52-0500 Body height 162.6 cm Krystin Ren MD Work Phone: [facility] 08-31-2022 12:52-0500 Body temperature 97.3 [degF] Krystin Ren MD Work Phone: [facility] 08-31-2022 12:52-0500 Body weight 68.04 kg Krystin Ren MD Work Phone: [facility] 08-31-2022 12:52-0500 Heart rate 80 /min Krystin Ren MD Work Phone: [facility] 08-31-2022 12:52-0500 SaO2% (BldA) [Mass fraction] 100 % Krystin Ren MD Work Phone: [facility] 08-04-2022 14:15-0500 Body temperature 97.9 [degF] Krystin Ren MD Work Phone: [facility] 08-04-2022 14:15-0500 Body weight 68.22 kg Krystin Ren MD Work Phone: [facility] 08-04-2022 14:15-0500 Diastolic blood pressure 84 mm[Hg] Krystin Ren MD Work Phone: [facility] 08-04-2022 14:15-0500 Heart rate 82 /min Krystin Ren MD Work Phone: [facility] 08-04-2022 14:15-0500 SaO2% (BldA) [Mass fraction] 100 % Krystin Ren MD Work Phone: [facility] 08-04-2022 14:15-0500 Systolic blood pressure 138 mm[Hg] Krystin Ren MD Work Phone: [facility] 07-23-2022 13:45-0500 Body temperature 98.1 [degF] Krystin Ren MD Work Phone: [facility] 07-23-2022 13:45-0500 Body weight 68.77 kg Krystin Ren MD Work Phone: [facility] 07-23-2022 13:45-0500 Heart rate 98 /min Krystin Ren MD Work Phone: [facility] 07-23-2022 13:45-0500 SaO2% (BldA) [Mass fraction] 100 % Krystin Ren MD Work Phone: [facility] 05-24-2022 09:38-0500 Body height 162.6 cm Krystin Ren MD Work Phone: [facility] 05-24-2022 09:38-0500 Body temperature 97.11 [degF] Krystin Ren MD Work Phone: [facility] 05-24-2022 09:38-0500 Body weight 68.77 kg Krystin Ren MD Work Phone: [facility] 05-24-2022 09:38-0500 Diastolic blood pressure 76 mm[Hg] Krystin Ren MD Work Phone: [facility] 05-24-2022 09:38-0500 Heart rate 89 /min Krystin Ren MD Work Phone: [facility] 05-24-2022 09:38-0500 SaO2% (BldA) [Mass fraction] 100 % Krystin Ren MD Work Phone: [facility] 05-24-2022 09:38-0500 Systolic blood pressure 120 mm[Hg] Krystin Ren MD Work Phone: [facility] Encounters Encounter Date Encounter Type Care Provider Facility Start: 02-22-2023 End: 02-23-2023 ambulatory ZANE STRONG DENTAL THERAPIST-SMALL OFFSET PRINTER Facility:A Start: 02-18-2023 End: 02-23-[address] ROBERTA ALVARADO MD Facility:B Start: 02-18-2023 End: 02-22-[address] ROBERTA ALVARADO MD [facility] Start: 01-07-2023 End: 05-18-[address] JIL ZAMORA DO Facility:B Start: 11-16-2022 End: 11-17-2022 ambulatory KRYSTIN REN Facility:[facility] Start: 11-16-2022 End: 11-16-2022 Patient encounter procedure Krystin Ren MD Work Phone: General Surgery Procedures Date Procedure Procedure Detail Performing Clinician Start: 06-28-[address] ROBERTA ALVARADO MD Start: 05-10-[address] ROBERTA ALVARADO MD Start: 07-18-[address] RAYMOND ALVARADO MD Start: 07-18-[address] ROBERTA ALVARADO MD section DR JIL RAYA DO Cholecystectomy DR JIL WOLFE DO Lumpectomy of breast DR SIMBA ZAMORA DO Plan of Treatment Date Care Activity Detail Author Start: 03-18-2023 Influenza vaccination INFLUENZA (Sea son Ended) [facility] Start: 07-18-2022 ADVANCE DIRECTIVE DISCUSSION ADVANCE DIRECTIVE DISCUSSION [facility] Start: 07-18-2022 DEPRESSION ASSESSMENT DEPRESSION ASS ESSMENT [facility] Start: 03-18-2022 Influenza vaccination INFLUENZA (#1) [facility] Start: 07-18-2021 ADVANCE DIRECTIVE DISCUSSION ADVANCE DIRECTIVE DISCUSSION [facility] Start: 07-18-2021 DEPRESSION ASSESSMENT DEPRESSION ASS ESSMENT [facility] Start: 2018 BONE DENSITY BONE DENSITY [facility] Start: 2018 PNEUMOCOCCAL: 65+ (1 - PCV) PNEUMOCOCCAL: 65+ (1 - PCV) [facility] Start: 09-24-2003 SHINGRIX VACCINE (1 of 2) SHINGRIX V ACCINE (1 of 2) [facility] Start: 1998 COLOGUARD (FIT-DNA) COLOGUARD (FIT-D NA) [facility] Start: 1998 Colonoscopy COLONOSCOPY [facility] Start: 1998 COLORECTAL CANCER SCREENING COLORECTAL CANCER SCREENING [facility] Start: [address] COLONOGRAPHY [facility] Start: 1998 DIABETES SCREEN DIABETES SCREEN [facility] Start: 1998 FECAL OCCULT BLOOD FECAL OCCULT BLOO D [facility] Start: 1998 LIPID SCREEN LIPID SCREEN [facility] Start: 1998 SIGMOIDOSCOPY SIGMOIDOSCOPY [facility] Start: 1993 Mammography MAMMOGRAM [facility] Start: 1972 Urine microalbumin profile DTAP,TDAP ,TD (1 - Tdap) [facility] Start: 09-24-1971 HEPATITIS C SCREENING HEPATITIS C SC CARINE [facility] Start: 03-26-1954 COVID-19 VACCINE (#1) COVID-19 VACCI NE (#1) [facility] c Immunizations Immunization Date Immunization Notes Care Provider Naa cr 10-19-2006 hepatitis B vaccine, adult dosage DR ROBERTA ALVARADO MD [facility] 09-14-2006 hepatitis B vaccine, adult dosage DR ROBERTA ALVARADO MD [facility] Payers Date Payer Category Payer Unknown PRIMETIME [employer] HMO POS [id number] 2022-Present [phone] [address] [place] [address] HMO [id number] 2022 Unknown [id number] 1955 Unknown [id number] 1955 Unknown [id number] 1955 Unknown [id number] Social History Date Type Detail Facility Start: 03-21-2019 End: 05-24-2022 Never smoked tobacco (finding) [place] Sex Assigned At Female [facility] Start: 05-24-2022 Tobacco use and exposure Smokeless tobacco non-user [facility] Start: 05-24-2022 End: 11-16-2022 Alcohol intake Current non-drinker of alcohol (finding) [facility] Start: 1955 Sex Assigned At Not on file [facility] Start: 05-14-2022 End: 05-24-2022 Exposure to SARS-CoV-2 (event) Yes [facility] Clinical Notes 05-24-2022 to 02-22-2023 Krystin Ren MD - 11/16/2022 9:34 AM Francisco Ren MD - 10/08/2022 7:14 AM Francisco Ren MD - 09/16/2022 3:05 PM Buster Ren MD - 08/31/2022 2:45 PM [facility] Note Date & Type Note Facility 02-22-2023 Note If ancillary studies were utilized, the following Laboratory Developed Test (LDT) disclaimer will apply: Under CLIA requirements, [facility] is qualified to perform high complexity testing. For all ancillary stains, positive and negative controls stain appropriately. Performance characteristics of immunohistochemical and chromogenic in-situ hybridization tests have been determined by [facility]. These tests are used for clinical purposes, They should not be regarded as investigational or for research. [place] 02-22-2023 Note If ancillary studies were utilized, the following Laboratory Developed Test (LDT) disclaimer will apply: Under CLIA requirements, [facility] is qualified to perform high complexity testing. For all ancillary stains, positive and negative controls stain appropriately. Performance characteristics of immunohistochemical and chromogenic in-situ hybridization tests have been determined by [facility]. These tests are used for clinical purposes, They should not be regarded as investigational or for research. [place] 02-21-2023 Note If ancillary studies were utilized, the following Laboratory Developed Test (LDT) disclaimer will apply: Under CLIA requirements, [facility] is qualified to perform high complexity testing. For all ancillary stains, positive and negative controls stain appropriately. Performance characteristics of immunohistochemical and chromogenic in-situ hybridization tests have been determined by [facility]. These tests are used for clinical purposes, They should not be regarded as investigational or for research. [place] 02-21-2023 Note If ancillary studies were utilized, the following Laboratory Developed Test (LDT) disclaimer will apply: Under CLIA requirements, [facility] is qualified to perform high complexity testing. For all ancillary stains, positive and negative controls stain appropriately. Performance characteristics of immunohistochemical and chromogenic in-situ hybridization tests have been determined by [facility]. These tests are used for clinical purposes, They should not be regarded as investigational or for research. [place] 02-21-2023 Note If ancillary studies were utilized, the following Laboratory Developed Test (LDT) disclaimer will apply: Under CLIA requirements, [facility] is qualified to perform high complexity testing. For all ancillary stains, positive and negative controls stain appropriately. Performance characteristics of immunohistochemical and chromogenic in-situ hybridization tests have been determined by [facility]. These tests are used for clinical purposes, They should not be regarded as investigational or for research. [place] 02-21-2023 Note If ancillary studies were utilized, the following Laboratory Developed Test (LDT) disclaimer will apply: Under CLIA requirements, [facility] is qualified to perform high complexity testing. For all ancillary stains, positive and negative controls stain appropriately. Performance characteristics of immunohistochemical and chromogenic in-situ hybridization tests have been determined by [facility]. These tests are used for clinical purposes, They should not be regarded as investigational or for research. [place] 02-21-2023 Note If ancillary studies were utilized, the following Laboratory Developed Test (LDT) disclaimer will apply: Under CLIA requirements, [facility] is qualified to perform high complexity testing. For all ancillary stains, positive and negative controls stain appropriately. Performance characteristics of immunohistochemical and chromogenic in-situ hybridization tests have been determined by [facility]. These tests are used for clinical purposes, They should not be regarded as investigational or for research. [place] 11-16-2022 Note HNO ID: [id number] Author: Krystin Ren MD Service: ? Author Type: Physician Type: Progress Notes Filed: 11/19/2022 2:01 PM Note Text: FOLLOW UP VISIT NAME: Zeny Reynolds [facility] NO.: [id number] DATE OF SERVICE: 11/16/2022 : 1955 REFERRING PHYSICIAN: Jil Zamora DO, DO Zeny is status post breast biopsy. She had problems with post procedure infection. VITALS: Blood pressure 142/84, pulse 94, temperature 36.2 ?C (97.2 ?F), weight 68.5 kg (151 lb), SpO2 99 %. On examination, area is indurated but this is probably from radiation changes, no fluctuance or tenderness noted. Assessment IMPRESSION: inflammatory changes, status post stereotactic breast biopsy at radiation site PLAN: Patient is instructed to make an appointment to return to clinic if any worsening signs/symptoms. Patient will return to his PCP for medical care. Patient acknowledges above. Diagnoses: (Z98.890) Status post breast biopsy (primary encounter diagnosis) I have confirmed and edited as necessary, the PFSH and ROS obtained by others. THIS IS A NO CHARGE VISIT Krystin Ren MD [facility] 11-16-2022 History of Present illness Narrative FOLLOW UP VISIT NAME: Zeny Reece [facility] NO.: [id number] DATE OF SERVICE: 11/16/2022 : 1955 REFERRING PHYSICIAN: Jil Zamora DO, DO Zeny is status post breast biopsy. She had problems with post procedure infection. VITALS: Blood pressure 142/84, pulse 94, temperature 36.2 C (97.2 F), weight 68.5 kg (151 lb), SpO2 99 %. On examination, area is indurated but this is probably from radiation changes, no fluctuance or tenderness noted. Assessment IMPRESSION: inflammatory changes, status post stereotactic breast biopsy at radiation site PLAN: Patient is instructed to make an appointment to return to clinic if any worsening signs/symptoms. Patient will return to his PCP for medical care. Patient acknowledges above. Diagnoses: (Z98.890) Status post breast biopsy (primary encounter diagnosis) I have confirmed and edited as necessary, the PFSH and ROS obtained by others. THIS IS A NO CHARGE VISIT Krystin Ren MD documented in this encounter [facility] 10-08-2022 Note HNO ID: [id number] Author: Krystin Rne MD Service: ? Author Type: Physician Type: Progress Notes Filed: 10/10/2022 12:36 PM Note Text: FOLLOW UP VISIT NAME: Zeny Reynolds [facility] NO.: [id number] DATE OF SERVICE: 10/07/2022 : 1955 REFERRING PHYSICIAN: Jil Zamora DO, DO Zeny is s/p left stereotactic breast biopsy done on 06/29/2022. She had a reaction to the last antibiotic and therefore this was stopped. - she has not been on antibiotics since beginning of this month. VITALS: Blood pressure 118/80, pulse 78, temperature 36.3 ?C (97.4 ?F), SpO2 96 %. On examination, there are still inflammatory changes of the area with skin blanching, however no fluctuance is palpated and patient notes no tenderness. Assessment IMPRESSION: status post stereotactic breast biopsy PLAN: Patient to follow up in 4 weeks for recheck. Diagnoses: (N61.0) Breast infection (Z98.890) Status post breast biopsy I have confirmed and edited as necessary, the PFSH and ROS obtained by others. This is a no charge visit. Krystin Ren MD [facility] 10-08-2022 History of Present illness Narrative FOLLOW UP VISIT NAME: Zeny Reynolds [facility] NO.: [id number] DATE OF SERVICE: 10/07/2022 : 1955 REFERRING PHYSICIAN: Jil Zamora DO, DO Zeny is s/p left stereotactic breast biopsy done on 06/29/2022. She had a reaction to the last antibiotic and therefore this was stopped. - she has not been on antibiotics since beginning of this month. VITALS: Blood pressure 118/80, pulse 78, temperature 36.3 C (97.4 F), SpO2 96 %. On examination, there are still inflammatory changes of the area with skin blanching, however no fluctuance is palpated and patient notes no tenderness. Assessment IMPRESSION: status post stereotactic breast biopsy PLAN: Patient to follow up in 4 weeks for recheck. Diagnoses: (N61.0) Breast infection (Z98.890) Status post breast biopsy I have confirmed and edited as necessary, the PFSH and ROS obtained by others. This is a no charge visit. Krystin Ren MD documented in this encounter [facility] 09-16-2022 Note HNO ID: [id number] Author: Krystin Ren MD Service: ? Author Type: Physician Type: Progress Notes Filed: 09/18/2022 10:04 AM Note Text: FOLLOW UP VISIT NAME: Zeny Reynolds [facility] NO.: [id number] DATE OF SERVICE: 09/16/2022 : 1955 REFERRING PHYSICIAN: Jil Zamora DO, DO Zeny is s/p left stereotactic breast biopsy done on 06/29/2022. She presents for follow up VITALS: Blood pressure 146/80, pulse 83, temperature 36.2 ?C (97.2 ?F), height 162.6 cm (5' 4 ), weight 67.1 kg (148 lb), SpO2 99 %. On examination, brawny discoloration of skin at left breast lumpectomy site. No fluctuance detected. Induration probably due to radiation changes. Assessment IMPRESSION: s/p left stereotactic breast biopsy with post procedure infection at radiation site PLAN: Patient had multiple problems with antibiotics. Will stop antibiotics for now and continue observation. Patient to follow up with me in two weeks for reexamination. Diagnoses: (N61.0) Breast infection (primary encounter diagnosis) (Z98.890) Status post breast biopsy I have confirmed and edited as necessary, the PFSH and ROS obtained by others. This is a no charge visit Krystin Ren MD [facility] 09-16-2022 History of Present illness Narrative FOLLOW UP VISIT NAME: Zeny Reynolds [facility] NO.: [id number] DATE OF SERVICE: 09/16/2022 : 1955 REFERRING PHYSICIAN: Jil Zamora DO, DO Zeny is s/p left stereotactic breast biopsy done on 06/29/2022. She presents for follow up VITALS: Blood pressure 146/80, pulse 83, temperature 36.2 C (97.2 F), height 162.6 cm (5' 4 ), weight 67.1 kg (148 lb), SpO2 99 %. On examination, brawny discoloration of skin at left breast lumpectomy site. No fluctuance detected. Induration probably due to radiation changes. Assessment IMPRESSION: s/p left stereotactic breast biopsy with post procedure infection at radiation site PLAN: Patient had multiple problems with antibiotics. Will stop antibiotics for now and continue observation. Patient to follow up with me in two weeks for reexamination. Diagnoses: (N61.0) Breast infection (primary encounter diagnosis) (Z98.890) Status post breast biopsy I have confirmed and edited as necessary, the PFSH and ROS obtained by others. This is a no charge visit Krystin Ren MD documented in this encounter [facility] 08-31-2022 Note HNO ID: [id number] Author: Krystin Ren MD Service: ? Author Type: Physician Type: Progress Notes Filed: 09/09/2022 11:27 AM Note Text: FOLLOW UP VISIT NAME: Zeny Reynolds [facility] NO.: [id number] DATE OF SERVICE: 08/31/2022 : 1955 REFERRING PHYSICIAN: Jil Zamora DO, DO Zeny is noted to have a reaction to the ampicillin in Augmentin. I told her to stop it. I would like to still follow up with her to check on status of this breast infection. Denies fevers. Denies pain, notes only occasional twinges. VITALS: Blood pressure 148/96, pulse 80, temperature 36.3 ?C (97.3 ?F), height 162.6 cm (5' 4 ), weight 68 kg (150 lb), SpO2 100 %. On examination, induration in the area with brawny skin coloration changes, no fluctuance palpated. Non tender. Assessment IMPRESSION: breast infection - now with residual breast inflammation, itching reaction to ampicillin in augmentin PLAN: Patient to stop the augmentin. Patient to follow up with me next week. Diagnoses: (N61.0) Breast infection (primary encounter diagnosis) I have confirmed and edited as necessary, the PFSH and ROS obtained by others. Krystin Ren MD Addendum: this is a no charge visit. [facility] 08-31-2022 History of Present illness Narrative FOLLOW UP VISIT NAME: Zeny eRynolds [facility] NO.: [id number] DATE OF SERVICE: 08/31/2022 : 1955 REFERRING PHYSICIAN: Jil Zamora, DO, DO Zeny is noted to have a reaction to the ampicillin in Augmentin. I told her to stop it. I would like to still follow up with her to check on status of this breast infection. Denies fevers. Denies pain, notes only occasional twinges. VITALS: Blood pressure 148/96, pulse 80, temperature 36.3 C (97.3 F), height 162.6 cm (5' 4 ), weight 68 kg (150 lb), SpO2 100 %. On examination, induration in the area with brawny skin coloration changes, no fluctuance palpated. Non tender. Assessment IMPRESSION: breast infection - now with residual breast inflammation, itching reaction to ampicillin in augmentin PLAN: Patient to stop the augmentin. Patient to follow up with me next week. Diagnoses: (N61.0) Breast infection (primary encounter diagnosis) I have confirmed and edited as necessary, the PFSH and ROS obtained by others. Krystin Ren MD documented in this encounter [facility] 08-31-2022 Nurse Note Pt BP was 142/92 at beginning of visit. I rechecked BP at conclusion of visit, and it was 148/96. Pt denied any CP, SOB, but she did indicate her BP has been fluctuating and sometimes climbs to 150's & 160's systolic to over 100 diastolic. I encouraged pt to make an appt. With PCP as soon as she can to get better management over BP.Judi Thomas RN documented in this encounter [facility] 08-31-2022 Miscellaneous Notes Patient has been scheduled 08/31/22 at 1p.m. Patient contacts office and reports that she woke up yesterday morning and felt itchy. As the day went on itchiness progressed, reports bright red itchy palms and feet. Patient applied an OTC anti-itch cream and took Bendaryl. Feeling better today. Patient has 2 doses of Augmentin left and wonders if she should continue or stop? Further reports continued redness to breast and a new grayish area. She is scheduled for follow up on with Dr. Ren. documented in this encounter [facility] 08-19-2022 Note HNO ID: [id number] Author: Krystin Ren MD Service: ? Author Type: Physician Type: Progress Notes Filed: 08/19/2022 2:11 PM Note Text: FOLLOW UP VISIT NAME: Zeny Reynolds [facility] NO.: [id number] DATE OF SERVICE: 08/19/2022 : 1955 REFERRING PHYSICIAN: Jil Zamora DO, DO Zeny is s/p left breast stereotactic breast biopsy. She developed an infection of the left breast. VITALS: Blood pressure 126/88, pulse 82, temperature 36 ?C (96.8 ?F), SpO2 100 %. On examination, there is induration at the location of biopsy - no fluctuance. There is overlying skin erythema that blanches. Assessment IMPRESSION: breast infection PLAN: I will change the antibiotics to Augmentin. Patient to follow up in two weeks. Diagnoses: (N61.0) Breast infection I have confirmed and edited as necessary, the PFSH and ROS obtained by others. . Krystin Ren MD [facility] 08-04-2022 Note HNO ID: [id number] Author: Krystin Ren MD Service: ? Author Type: Physician Type: Progress Notes Filed: 08/05/2022 9:52 AM Note Text: FOLLOW UP VISIT NAME: Zeny Reynolds [facility] NO.: [id number] DATE OF SERVICE: 08/04/2022 : 1955 REFERRING PHYSICIAN: Jil Zamora DO, DO Zeny is s/p left breast stereotactic breast biopsy. She developed an infection of the left breast. VITALS: Blood pressure 138/84, pulse 82, temperature 36.6 ?C (97.9 ?F), weight 68.2 kg (150 lb 6.4 oz), SpO2 100 %. On examination, the area of density has contracted and the overlying erythema has become brawny colored. No fluctuance is palpated Assessment IMPRESSION: left breast infection PLAN: Will continue antibiotics for another round. Continue heat to area. Follow up in two weeks. Suspect infection due to irradiated area. Diagnoses: (N61.0) Breast infection (primary encounter diagnosis) I have confirmed and edited as necessary, the PFSH and ROS obtained by others. Krystin Ren MD [facility] 08-04-2022 History of Present illness Narrative FOLLOW UP VISIT NAME: Zeny Reynolds [facility] NO.: [id number] DATE OF SERVICE: 08/04/2022 : 1955 REFERRING PHYSICIAN: Jil Zamora DO, DO Zeny is s/p left breast stereotactic breast biopsy. She developed an infection of the left breast. VITALS: Blood pressure 138/84, pulse 82, temperature 36.6 C (97.9 F), weight 68.2 kg (150 lb 6.4 oz), SpO2 100 %. On examination, the area of density has contracted and the overlying erythema has become brawny colored. No fluctuance is palpated Assessment IMPRESSION: left breast infection PLAN: Will continue antibiotics for another round. Continue heat to area. Follow up in two weeks. Suspect infection due to irradiated area. Diagnoses: (N61.0) Breast infection (primary encounter diagnosis) I have confirmed and edited as necessary, the PFSH and ROS obtained by others. Krystin Ren MD documented in this encounter [facility] 07-23-2022 Note HNO ID: [id number] Author: Krystin Ren MD Service: ? Author Type: Physician Type: Progress Notes Filed: 07/24/2022 7:52 PM Note Text: FOLLOW UP VISIT NAME: Zeny Reynolds [facility] NO.: [id number] DATE OF SERVICE: 07/23/2022 : 1955 REFERRING PHYSICIAN: Jil Zamora DO, DO Zeny is status post left stereotactic breast biopsy done on 06/29/2022 She has noted increasing redness and tenderness superior to an incision site from her lumpectomy of the left breast. VITALS: Pulse 98, temperature 36.7 ?C (98.1 ?F), weight 68.8 kg (151 lb 9.6 oz), SpO2 100 %. BP 172/82 On examination, erythema/skin induration/tenderness at incision site Assessment IMPRESSION: left breast infection PLAN: Begin antibiotics treatment. Apply heat to the area to increase antibiotic penetration. Will have patient follow up with me in 2 weeks Diagnoses: (N61.0) Breast infection (Z98.890) Status post breast biopsy I have confirmed and edited as necessary, the PFSH and ROS obtained by others. Krystin Ren MD [facility] 07-23-2022 History of Present illness Narrative FOLLOW UP VISIT NAME: Zeny Reece [facility] NO.: [id number] DATE OF SERVICE: 07/23/2022 : 1955 REFERRING PHYSICIAN: Jil Zamora DO, DO Zeny is status post left stereotactic breast biopsy done on 06/29/2022 She has noted increasing redness and tenderness superior to an incision site from her lumpectomy of the left breast. VITALS: Pulse 98, temperature 36.7 C (98.1 F), weight 68.8 kg (151 lb 9.6 oz), SpO2 100 %. BP 172/82 On examination, erythema/skin induration/tenderness at incision site Assessment IMPRESSION: left breast infection PLAN: Begin antibiotics treatment. Apply heat to the area to increase antibiotic penetration. Will have patient follow up with me in 2 weeks Diagnoses: (N61.0) Breast infection (Z98.890) Status post breast biopsy I have confirmed and edited as necessary, the PFSH and ROS obtained by others. Krystin Ren MD documented in this encounter [facility] 07-14-2022 Miscellaneous Notes Told patient's results of left breast biopsy - 06/29/2022 From [facility] pathology department - dense fibrosis, chronic inflammation and dystrophic calcifications. Negative for atypica or malignancy I have told patient's that patient should return to yearly mammograms surveillance. He acknowledges the above. documented in this encounter [facility] 05-24-2022 Note HNO ID: [id number] Author: Krystin Ren MD Service: ? Author Type: Physician Type: Progress Notes Filed: 05/29/2022 3:21 PM Note Text: Zeny Reece 1955 REFERRING PHYSICIAN: Zane Strong, APR* CHIEF COMPLAINT: Consult (Abnormal mammogram left breast) HPI: The patient is a 66 year old female presents with abnormal left breast mammograms. 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 She is s/p right breast DCIS '09 Mammograms from [facility] 05/10/2022 Persistent 1.7 cm x 1.7 cm fat containing nodule at the operative site. Since prior study, there has been an increase in the number of micro-calcifications. A biopsy is recommended. BIRADS 4 She denies palpable breast masses except for scar tissue at lumpectomy sites. She denies nipple discharge. She will also require a surveillance colonoscopy in the near future. A colonoscopy 2016 revealed - MICROSCOPIC DIAGNOSIS A. Cecal polyp, biopsy: Tubular adenoma. Fragments of hyperplastic polyp. B. Polyp sigmoid, biopsy: Fragments of hyperplastic poly PAST MEDICAL HISTORY Diagnosis Date Breast cancer (HCC) PAST SURGICAL HISTORY Procedure Laterality Date APPENDECTOMY BREAST LUMPECTOMY HX Left 04/17/2015 BREAST LUMPECTOMY HX Right 02/05/2009 DELIVERY ONLY x4 LAPARO CHOLECYSTECTOMY/GRAPH Current Outpatient Medications Medication Sig amoxicillin-clavulanic acid (AUGMENTIN) 875-125 mg per tablet Promethazine-DM (PHENERGAN-DM) 6.25-15 mg/5 mL syrup Take by mouth four times daily as needed. flaxseed oil (OMEGA 3 ORAL) Take by mouth twice daily. cholecalciferol, vitamin D3, (VITAMIN D3 ORAL) Take by mouth. MULTIVITAMIN ORAL Take by mouth once daily. RED YEAST RICE ORAL Take 2 tablets by mouth once daily. Ca-D3-mag cf-[id number]-[id number]-devora-bor 600 mg calcium- 20 mcg-50 mg tab Take 1 tablet by mouth once daily. anastrozole (ARIMIDEX) 1 mg tablet 1 tablet once daily. (Patient not taking: Reported on 05/24/2022) OTC PRODUCT 2 tablets once daily. Power C (Patient not taking: Reported on 05/24/2022) VITAMIN B COMPLEX (B COMPLEX 1 ORAL) Take 1 tablet by mouth once daily. (Patient not taking: Reported on 05/24/2022) Cholecalciferol, Vitamin D3, 50 mcg (2,000 unit) cap Take 1 tablet by mouth once daily. (Patient not taking: Reported on 05/24/2022) ALLERGIES: Patient has no known allergies. PERSONAL HISTORY: Social History Tobacco Use Smoking status: Never Smokeless tobacco: Never Vaping Use Vaping Use: Never used Substance Use Topics Alcohol use: No Drug use: No FAMILY HISTORY Problem Relation Age of Onset Cancer Mother peritoneal Heart disease Father Cancer Brother esophageal REVIEW OF SYMPTOMS: The review of systems data was entered by the nurse and reviewed by ar Nursing Notes: Leia Figueroa RN 05/24/2022 9:59 AM Signed REVIEW OF SYSTEMS: General: The patient denies fatigue, denies weight loss, denies weight gain, denies feeling hot, and denies feelings of cold. Eyes: The patient denies glaucoma, denies eye injury/surgery, wears glasses or contacts. Ear/Nose/Throat: The patient denies allergies, denies hayfever, denies ear infections, and denies bloody noses. Cardiovascular: The patient denies chest pain, denies heart disease, denies high blood pressure,denies cardiac stent, denies prior heart attack, denies irregular heart beat, denies high cholesterol, denies poor circulation, denies heart failure, other cardiac issues, denies claudication, denies cold feet, denies peripheral arterial stent. Respiratory: The patient denies tuberculosis, denies pneumonia, denies frequent cough, denies pulmonary embolism, denies shortness of breath, and denies coughing up blood. Gastrointestinal: The patient denies difficulty swallowing, denies acid reflux, denies ulcers, denies vomiting, denies jaundice/hepatitis, denies gallbladder problems, denies black or tarry stools, denies hemorrhoids, denies bleeding from rectum, denies diverticulitis, denies constipation, denies diarrhea, denies loss of stool control, and denies hernias. Kidney/Bladder: The patient denies kidney stones, denies urine infections, and denies bloody urine. Skin: The patient denies a history of skin cancer, denies bleeding/changing moles, and denies a history of skin rash. Neurologic: The patient denies a history of epilepsy/convulsions, denies headaches, denies head/spinal injuries, and denies stroke/TIA. Psychiatric: The patient denies psychiatric medications, denies depression, and denies voices, denies substance abuse. Endocrine: The patient denies thyroid disorders, denies diabetes, and denies hormonal problems. Hematologic: The patient denies a history of bruising, denies bleeding, and denies anemia, denies blood clots. Infections: The patient denies a history of measles and mumps, denies rheumatic fever, and denies sexually transm (more content not included)... [facility] 05-24-2022 History of Present illness Narrative Zeny Reece 1955 REFERRING PHYSICIAN: Zane Strong, APR* CHIEF COMPLAINT: Consult (Abnormal mammogram left breast) HPI: The patient is a 66 year old female presents with abnormal left breast mammograms. 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 She is s/p right breast DCIS '09 Mammograms from [facility] 05/10/2022 Persistent 1.7 cm x 1.7 cm fat containing nodule at the operative site. Since prior study, there has been an increase in the number of micro-calcifications. A biopsy is recommended. BIRADS 4 She denies palpable breast masses except for scar tissue at lumpectomy sites. She denies nipple discharge. She will also require a surveillance colonoscopy in the near future. A colonoscopy 2016 revealed - MICROSCOPIC DIAGNOSIS A. Cecal polyp, biopsy: Tubular adenoma. Fragments of hyperplastic polyp. B. Polyp sigmoid, biopsy: Fragments of hyperplastic poly PAST MEDICAL HISTORY Diagnosis Date Breast cancer (HCC) PAST SURGICAL HISTORY Procedure Laterality Date APPENDECTOMY BREAST LUMPECTOMY HX Left 04/17/2015 BREAST LUMPECTOMY HX Right 02/05/2009 DELIVERY ONLY x4 LAPARO CHOLECYSTECTOMY/GRAPH Current Outpatient Medications Medication Sig amoxicillin-clavulanic acid (AUGMENTIN) 875-125 mg per tablet Promethazine-DM (PHENERGAN-DM) 6.25-15 mg/5 mL syrup Take by mouth four times daily as needed. flaxseed oil (OMEGA 3 ORAL) Take by mouth twice daily. cholecalciferol, vitamin D3, (VITAMIN D3 ORAL) Take by mouth. MULTIVITAMIN ORAL Take by mouth once daily. RED YEAST RICE ORAL Take 2 tablets by mouth once daily. Ca-D3-mag ro-hvlp-zdr-devora-bor 600 mg calcium- 20 mcg-50 mg tab Take 1 tablet by mouth once daily. anastrozole (ARIMIDEX) 1 mg tablet 1 tablet once daily. (Patient not taking: Reported on 05/24/2022) OTC PRODUCT 2 tablets once daily. Power C (Patient not taking: Reported on 05/24/2022) VITAMIN B COMPLEX (B COMPLEX 1 ORAL) Take 1 tablet by mouth once daily. (Patient not taking: Reported on 05/24/2022) Cholecalciferol, Vitamin D3, 50 mcg (2,000 unit) cap Take 1 tablet by mouth once daily. (Patient not taking: Reported on 05/24/2022) ALLERGIES: Patient has no known allergies. PERSONAL HISTORY: Social History Tobacco Use Smoking status: Never Smokeless tobacco: Never Vaping Use Vaping Use: Never used Substance Use Topics Alcohol use: No Drug use: No FAMILY HISTORY Problem Relation Age of Onset Cancer Mother peritoneal Heart disease Father Cancer Brother esophageal REVIEW OF SYMPTOMS: The review of systems data was entered by the nurse and reviewed by ar Nursing Notes: Leia Figueroa RN 05/24/2022 9:59 AM Signed REVIEW OF SYSTEMS: General: The patient denies fatigue, denies weight loss, denies weight gain, denies feeling hot, and denies feelings of cold. Eyes: The patient denies glaucoma, denies eye injury/surgery, wears glasses or contacts. Ear/Nose/Throat: The patient denies allergies, denies hayfever, denies ear infections, and denies bloody noses. Cardiovascular: The patient denies chest pain, denies heart disease, denies high blood pressure,denies cardiac stent, denies prior heart attack, denies irregular heart beat, denies high cholesterol, denies poor circulation, denies heart failure, other cardiac issues, denies claudication, denies cold feet, denies peripheral arterial stent. Respiratory: The patient denies tuberculosis, denies pneumonia, denies frequent cough, denies pulmonary embolism, denies shortness of breath, and denies coughing up blood. Gastrointestinal: The patient denies difficulty swallowing, denies acid reflux, denies ulcers, denies vomiting, denies jaundice/hepatitis, denies gallbladder problems, denies black or tarry stools, denies hemorrhoids, denies bleeding from rectum, denies diverticulitis, denies constipation, denies diarrhea, denies loss of stool control, and denies hernias. Kidney/Bladder: The patient denies kidney stones, denies urine infections, and denies bloody urine. Skin: The patient denies a history of skin cancer, denies bleeding/changing moles, and denies a history of skin rash. Neurologic: The patient denies a history of epilepsy/convulsions, denies headaches, denies head/spinal injuries, and denies stroke/TIA. Psychiatric: The patient denies psychiatric medications, denies depression, and denies voices, denies substance abuse. Endocrine: The patient denies thyroid disorders, denies diabetes, and denies hormonal problems. Hematologic: The patient denies a history of bruising, denies bleeding, and denies anemia, denies blood clots. Infections: The patient denies a history of measles and mumps, denies rheumatic fever, and denies sexually transmitted diseases. Musculoskeletal: The patient denies back pain/injury, denies back problems, denies sciatica, denies knee/foot trouble, denies arthritis, or denies gout. When was patient's last Mammogram screening? 05/10/2022 @[facility] Last Colonoscopy: 09/09/2016 Leia Figueroa RN PHYSICAL EXAMINATION: General: The patient is 66 year old female, well nourished, well hydrated in no acute distress. The patient is oriented to time, place, and person. VITALS: Blood pressure 120/76, pulse 89, temperature 36.2 C (97.1 F), height 162.6 cm (5' 4 ), weight 68.8 kg (151 lb 9.6 oz), SpO2 100 %. Body mass index is 26.02 kg/m . Head - Normocephalic. EOM intact with sclera clear and no icterus noted. Wearing glasses Neck - supple with no jugular venous distention noted. Trachea is midline. No thyroid enlargement or thyroid nodules detected. No masses noted. Chest/breast - no asymmetry of breasts noted, no suspicious skin lesions noted , no nipple discharge and both nipples everted, no breast masses noted Lungs - clear to auscultation. Normal breath sounds. No rales/rhonchi/wheezing noted. No labored breathing noted, such as retractions. No cough heard. Heart - normal S1 and S2 auscultated. No rubs/clicks/murmurs noted. Regular rate. Abdomen - soft and benign. . Extremities - no calf tenderness noted. No pitting edema noted. Skin - normal skin integrity. Lymph - no cervical adenopathy detected, no supraclavicular adenopathy detected, no axillary adenopathy detected Neurological - gait normal, no focal deficits noted Psych - calm and appropriate RADIOLOGIC STUDIES: As Noted Assessment IMPRESSION: abnormal left breast radiographs PLAN: I have discussed the above with the patient. I have offered left stereotactic breast biopsy. I have explained the procedure to the patient. I have counseled the patient as to the risks of the procedure, including but not limited to: infection, bleeding, injury to any blood vessels/nerves, scar tissue, wound infections, complications of anesthesia, etc. - the patient understands. The patient wishes to proceed. I have answered all questions to the patient s satisfaction and the patient has no further questions. I have confirmed and edited as necessary, the PFSH and ROS obtained by others. Consultation requested by Zane Strong for an opinion regarding patient's abnormal left breast mammograms. My final recommendations will be communicated back to the requesting physician by way of shared Medical record or letter to requesting physician via [place] mail. . Diagnoses: (R92.8) Abnormal mammogram (primary encounter diagnosis) (Z86.000) History of ductal carcinoma in situ (DCIS) of breast Return to Clinic: The patient will be scheduled for stereotactic breast biopsy at [facility] Medical Decision Making: Problems: Moderate: New problem with uncertain prognosis Data: Unique test result(s) reviewed: 1 Risk: Low: Low risk from testing/treatment Medical Decision Making Level: 3 - Low Krystin Ren MD documented in this encounter [facility] 05-24-2022 Nurse Note REVIEW OF SYSTEMS: General: The patient denies fatigue, denies weight loss, denies weight gain, denies feeling hot, and denies feelings of cold. Eyes: The patient denies glaucoma, denies eye injury/surgery, wears glasses or contacts. Ear/Nose/Throat: The patient denies allergies, denies hayfever, denies ear infections, and denies bloody noses. Cardiovascular: The patient denies chest pain, denies heart disease, denies high blood pressure,denies cardiac stent, denies prior heart attack, denies irregular heart beat, denies high cholesterol, denies poor circulation, denies heart failure, other cardiac issues, denies claudication, denies cold feet, denies peripheral arterial stent. Respiratory: The patient denies tuberculosis, denies pneumonia, denies frequent cough, denies pulmonary embolism, denies shortness of breath, and denies coughing up blood. Gastrointestinal: The patient denies difficulty swallowing, denies acid reflux, denies ulcers, denies vomiting, denies jaundice/hepatitis, denies gallbladder problems, denies black or tarry stools, denies hemorrhoids, denies bleeding from rectum, denies diverticulitis, denies constipation, denies diarrhea, denies loss of stool control, and denies hernias. Kidney/Bladder: The patient denies kidney stones, denies urine infections, and denies bloody urine. Skin: The patient denies a history of skin cancer, denies bleeding/changing moles, and denies a history of skin rash. Neurologic: The patient denies a history of epilepsy/convulsions, denies headaches, denies head/spinal injuries, and denies stroke/TIA. Psychiatric: The patient denies psychiatric medications, denies depression, and denies voices, denies substance abuse. Endocrine: The patient denies thyroid disorders, denies diabetes, and denies hormonal problems. Hematologic: The patient denies a history of bruising, denies bleeding, and denies anemia, denies blood clots. Infections: The patient denies a history of measles and mumps, denies rheumatic fever, and denies sexually transmitted diseases. Musculoskeletal: The patient denies back pain/injury, denies back problems, denies sciatica, denies knee/foot trouble, denies arthritis, or denies gout. When was patient's last Mammogram screening? 05/10/2022 @[facility] Last Colonoscopy: 09/09/2016 Leia Figueroa RN documented in this encounter [facility] Evaluation + Plan note Future Appointments Appointment Date:08/24/2021 09:35:00 AM Scheduled Provider:JIL ZAMORA DO Location:[facility] Appointment Type: Wellness Medicare Appointment Date:01/26/2022 01:30:00 PM Scheduled Provider:LAM SEGOVIA MD Location:[facility] Appointment Type:[facility] OV Follow Up [place] Evaluation + Plan note Future Appointments Appointment Date:08/24/2021 09:35:00 AM Scheduled Provider:JIL ZAMORA DO Location:[facility] Appointment Type:PC Wellness Medicare Appointment Date:01/26/2022 01:30:00 PM Scheduled Provider:LAM SEGOVIA MD Location:[facility] Appointment Type:HEM ONC OV Follow Up Future Scheduled TestsXR Chest 2 Views (PA & Lateral) 08/13/21 [place] Evaluation + Plan note Future Appointments Appointment Date:02/23/2024 01:00:00 PM Scheduled Provider:ZANE STRONG Location:[facility] Appointment Type:[facility]M ONC OV Follow Up Future Scheduled TestsComplete Blood Count 02/23/24Complete Blood Count 02/22/23Lipid Profile 11/19/23Complete Metabolic Panel 02/23/24Complete Metabolic Panel 11/19/23Complete Metabolic Panel 02/22/23[facility] Mammo Screening Bilateral w/ Osmani 05/25/23MA Mammo Screening Bilateral w/ Osmani 05/25/22BD Bone Density DEXA Axial Skeleton 10/24/23 [place] [facility] [facility] Diagnosis Breast infection Inflammatory disease of breast Status post breast biopsy Other postprocedural status [facility] Diagnosis Breast infection- Primary Inflammatory disease of breast [facility] Diagnosis Breast infection- Primary Inflammatory disease of breast [facility] Diagnosis Breast infection- Primary Inflammatory disease of breast Status post breast biopsy Other postprocedural status documented in this [facility] Diagnosis Breast infection Inflammatory disease of breast Status post breast biopsy Other postprocedural status [facility] Diagnosis Status post breast biopsy- Primary Other postprocedural status documented in this encounter [facility] course Narrative No data available for this section [facility] Discharge instructions No data available for this section [place] Summary Purpose Family History No Family History Records Found No data available for this section No Family History Records Found Advance Directives No Advanced Directives Records FoundNo Advanced Directives Records Found Additional Source Comments Source Comments (unrecognize d section and content) In the event this informatio n is protected by the Federal Confidentiality of Alcohol and Drug Abuse Patient Records regulations: The Federal rules restrict any use of the information to criminally investigate or prosecute any alcohol or drug abuse patient.[facility] event this information is protected by the Federal Confidentiality of Alcohol and Drug Abuse Patient Records regulations: The Federal rules restrict any use of the information to criminally investigate or prosecute any alcohol or drug abuse patient.[facility] event this information is protected by the Federal Confidentiality of Alcohol and Drug Abuse Patient Records regulations: The Federal rules restrict any use of the information to criminally investigate or prosecute any alcohol or drug abuse patient.[facility] event this information is protected by the Federal Confidentiality of Alcohol and Drug Abuse Patient Records regulations: The Federal rules restrict any use of the information to criminally investigate or prosecute any alcohol or drug abuse patient.[facility] event this information is protected by the Federal Confidentiality of Alcohol and Drug Abuse Patient Records regulations: The Federal rules restrict any use of the information to criminally investigate or prosecute any alcohol or drug abuse patient.[facility] event this information is protected by the Federal Confidentiality of Alcohol and Drug Abuse Patient Records regulations: The Federal rules restrict any use of the information to criminally investigate or prosecute any alcohol or drug abuse patient.[facility] the event this information is protected by the Federal Confidentiality of Alcohol and Drug Abuse Patient Records regulations: The Federal rules restrict any use of the information to criminally investigate or prosecute any alcohol or drug abuse patient.[facility] event this information is protected by the Federal Confidentiality of Alcohol and Drug Abuse Patient Records regulations: The Federal rules restrict any use of the information to criminally investigate or prosecute any alcohol or drug abuse patient.[facility] the event this information is protected by the Federal Confidentiality of Alcohol and Drug Abuse Patient Records regulations: The Federal rules restrict any use of the information to criminally investigate or prosecute any alcohol or drug abuse patient.[facility] Reason for Visit (unrecogniz ed section and content) Reason Comments Results Reason Comments Follow Up Red, raised area ove r breast biopsy site Reason Comments Follow Up 2 week follow up, le ft breast infection Reason Comments Patient Update Reason Comments Follow Up Breast infection Reason Comments Follow Up Left Breast infectio n Reason Comments Follow Up 2 WEEK LEFT BREAST B IOPSY Reason Comments Follow Up Care Teams (unrecognized sec tion and content) [employer] Relationship Specialty Start Date End Date Jil Zamora DO [address] [facility] [place] [address] PCP - General Family Medicine 05/18/22 Zigzag Appliquer Relationship Specialty Start Date End Date Jil Zamora DO Frank [address] [place] [address] PCP - General Family Medicine 05/18/22 Zigzag Appliquer Relationship Specialty Start Date End Date Sera Jil Haider DO [address] [address] PCP - General [facility] 05/18/22 Zigzag Appliquer Relationship Specialty Start Date End Date Sera Jil Haider DO [address] [place] [address] PCP - General [facility] 05/18/22 Zigzag Appliquer Relationship Specialty Start Date End Date Nadine Zamorabriana Haider DO [address] [place] [address] PCP - General [facility] Medicine 05/18/22 INFORMATION SOURCE (unrecogn ized section and content) DATE CREATED AUTHOR AUTHOR'S ORGANIZ ATION 06/08/2023 [facility] ([place]) FOR RECORDS PERTAINING TO PATIENTS WHO ARE OR HAVE BEEN ENROLLED IN A CHEMICAL DEPENDENCY/SUBSTANCEABUSE PROGRAM, SOME INFORMATION MAY BE OMITTED. This clinical summary was aggregated from multiple sources. Caution should be exercised in using it in the provision of clinical care. This summary normalizes information from multiple sources, and as a consequence, information in this document may materially change the coding, format and clinical context of patient data. In addition, data may be omitted in some cases. CLINICAL DECISIONS SHOULD BE BASED ON THE PRIMARY CLINICAL RECORDS. [facility] [employer] [facility]. provides no warranty or guarantee of the accuracy or completeness of information in this document.
[2023-08-08 10:18] LABS: Hematocrit 46.6 % (37-47); Hemoglobin 14.8 g/dL (12.0-15.0); Mean Corp Hgb Conc 31.8 g/dL (32-36); Mean Corpuscular Hgb 29.4 pg (27.0-32.0); Mean Corpuscular Volume 92.5 fL (81-99); Mean Platelet Vol. 9.3 fl (6.2-12.0); Platelet Count 299 K/mm3 (150-450); RBC Distribution Width SD 44.2 fl (35.1-43.9); Red Blood Count 5.04 M/mm3 (4.2-5.4); White Blood Count 5.5 K/mm3 (4.4-11.0)
[2023-08-08 10:45] LABS: ALB/GLOB Ratio 1.1 RATIO (0.9-2.4); AST(SGOT) 23 U/L (15-37); Alanine Aminotransfer ALT/SGPT 28 U/L (13-56); Albumin, Serum 3.8 g/dL (3.2-5.0); Alkaline Phosphatase 72 U/L (45-117); Anion Gap 4 (5-15); BUN 10 mg/dL (7-18); BUN/Creat Ratio 12.5 RATIO (10-20); Calcium,Total 8.9 mg/dL (8.5-10.1); Chloride 106 mmol/L (98-107); Cholesterol 235 mg/dL (200); EST Glomerular Filtration Rate 75 mL/min (>60); Est Glom Filt Rate - Afr Amer 91 mL/min (>60); Globulin 3.5 g/dL (2.2-4.2); Glucose 91 mg/dL (74-106); High Density Lipoprotein 64 mg/dL; Protein, Total 7.3 g/dL (6.4-8.2); Sodium Level 140 mmol/L (136-145); Thyroid Stim Hormone (TSH) 2.52 uIU/mL (0.358-3.74); Triglycerides 124 mg/dL; Very Low Density Lipoprotein 25 mg/dL (5-40)
== END | disposition home or self-care (01) ==
LOC: LAB 08:50
PROVIDERS: PCP Family Medicine; Referring Provider Family Medicine; Visit Provider Family Medicine
DX: R06.02 Shortness of breath (principal); I10 Essential (primary) hypertension; R00.2 Palpitations
CPT/HCPCS: 36415; 80053; 80061; 84443; 85027

== ENCOUNTER → 2023-11-08 | Outpatient (CLI) | payer MEDICARE, SELFPAY ==
--- NOTE | 2023-11-08 09:24 | BD_ITS ---
STUDY: DUAL ENERGY X-RAY ABSORPTIOMETRY / DXA REASON FOR EXAM: Female, 68 years old. M85.89 TECHNIQUE: Bone Mineral Density (BMD) measurements of lumbar spine and bilateral hips were obtained. COMPARISON: Comparison is made with prior study November 03, 2021. FINDINGS: Lumbar Spine (L1-L4): g/cm2 (0.801) / T-score (-2.2) / Z-score (-0.1) Findings are suggestive of osteopenia with a high fracture risk. Left Femur Total: g/cm2 (0.845) / T-score (-0.8) / Z-score (0.7) Left Femoral Neck: g/cm2 (0.699) / T-score (-1.4) / Z-score (0.4) Right Femur Total: g/cm2 (0.784) / T-score (-1.3) / Z-score (0.2) Right Femoral Neck: g/cm2 (0.703) / T-score (-1.3) / Z-score (0.5) The T-Scores on the most recent prior examination were: Lumbar Spine (L1-L4): There has been worsening of bone density since the previous examination. Left Femur Total: which represents a worsening of 1.4%. Right Femur Total: which represents a worsening of 4.9%. BD/Dexa Bone Density Study IMPRESSION: The patient is considered osteopenic as outlined below according to World Satya Organization (WHO) criteria with a high fracture risk. There has been worsening of bone density since the previous examination. Reference Information: The T-score is the number of standard deviations above or below the standard which is normal for young adults at their peak bone mineral density. The World Health Organization (WHO) interprets the T-scores as follows: Above -1 Normal bone density Between -1 and -2.5 Osteopenia Equal to / or below -2.5 Osteoporosis As a practical clinical guideline, osteopenia may be graded as follows: Mild -1 through -1.5 Moderate -1.6 through -2.0 Severe -2.1 through -2.4 The Z-score is the number of standard deviations above or below age-matched controls. A Z-score of less than -1.5 would be considered abnormal. References: 1. NIH Osteoporosis and Related Bone Diseases www osteo.org 2. International Society for Clinical Densitometry www iscd.org 3. National Osteoporosis Foundation www nof.org Electronically Signed: Carlos Schmitt MD at 8:44 EDT ,
== END | disposition home or self-care (01) ==
LOC: OPBD 09:18
PROVIDERS: PCP Family Medicine
DX: Z13.820 Encounter for screening for osteoporosis (principal); D05.10 Intraductal carcinoma in situ of unspecified breast; M85.89 Other specified disorders of bone density and structure, multiple sites; Z78.0 Asymptomatic menopausal state
CPT/HCPCS: 77080

== ENCOUNTER → 2024-03-01 | Outpatient (CLI) | payer MEDICARE, SELFPAY ==
[2024-03-01 08:49] LABS: Hematocrit 49.1 % (37-47); Hemoglobin 15.7 g/dL (12.0-15.0); Mean Corpuscular Hgb 29.4 pg (27.0-32.0); Mean Corpuscular Volume 91.9 fL (81-99); Mean Platelet Vol. 9.3 fl (6.2-12.0); Platelet Count 280 K/mm3 (150-450); RBC Distribution Width CV 12.7 % (11.6-14.6); RBC Distribution Width SD 43.2 fl (35.1-43.9); Red Blood Count 5.34 M/mm3 (4.2-5.4); White Blood Count 4.8 K/mm3 (4.4-11.0)
[2024-03-01 09:11] LABS: ALB/GLOB Ratio 1.1 RATIO (0.9-2.4); AST(SGOT) 26 U/L (15-37); Alanine Aminotransfer ALT/SGPT 28 U/L (13-56); Albumin, Serum 3.6 g/dL (3.2-5.0); Alkaline Phosphatase 77 U/L (45-117); Anion Gap 6 (5-15); BUN 13 mg/dL (7-18); BUN/Creat Ratio 13.9 RATIO (10-20); Calcium,Total 9.1 mg/dL (8.5-10.1); Chloride 106 mmol/L (98-107); Creatinine, Serum 0.94 mg/dL (0.55-1.02); EST Glomerular Filtration Rate 63 mL/min (>60); Est Glom Filt Rate - Afr Amer 76 mL/min (>60); Globulin 3.4 g/dL (2.2-4.2); Glucose 102 mg/dL (74-106); Potassium 4.4 mmol/L (3.5-5.1); Sodium Level 141 mmol/L (136-145)
== END | disposition home or self-care (01) ==
LOC: LAB 08:05
PROVIDERS: PCP Family Medicine
DX: D05.10 Intraductal carcinoma in situ of unspecified breast (principal); M85.80 Other specified disorders of bone density and structure, unspecified site
CPT/HCPCS: 36415; 80053; 85027

== ENCOUNTER → 2024-04-17 | Outpatient (CLI) | payer MEDICARE, SELFPAY ==
[2024-04-17 11:28] LABS: ALB/GLOB Ratio 1.2 RATIO (0.9-2.4); AST(SGOT) 30 U/L (15-37); Alanine Aminotransfer ALT/SGPT 39 U/L (13-56); Albumin, Serum 3.7 g/dL (3.2-5.0); Alkaline Phosphatase 75 U/L (45-117); Anion Gap 4 (5-15); BUN 14 mg/dL (7-18); BUN/Creat Ratio 17.8 RATIO (10-20); Calcium,Total 9.3 mg/dL (8.5-10.1); Chloride 100 mmol/L (98-107); Creatinine, Serum 0.79 mg/dL (0.55-1.02); EST Glomerular Filtration Rate 77 mL/min (>60); Est Glom Filt Rate - Afr Amer 93 mL/min (>60); Globulin 3.2 g/dL (2.2-4.2); Glucose 102 mg/dL (74-106); Potassium 3.9 mmol/L (3.5-5.1); Protein, Total 6.9 g/dL (6.4-8.2); Sodium Level 136 mmol/L (136-145)
[2024-04-17 13:16] LABS: Cholesterol 243 mg/dL (200); High Density Lipoprotein 58 mg/dL; Triglycerides 154 mg/dL; Very Low Density Lipoprotein 31 mg/dL (5-40)
== END | disposition home or self-care (01) ==
LOC: LAB 08:43
PROVIDERS: PCP Family Medicine; Referring Provider Family Medicine; Visit Provider Family Medicine
DX: I10 Essential (primary) hypertension (principal); R00.2 Palpitations
CPT/HCPCS: 36415; 80053; 80061

== ENCOUNTER → 2024-05-15 | Outpatient (CLI) | payer MEDICARE, SELFPAY ==
--- NOTE | 2024-05-15 09:38 | BI_ITS ---
MAMMOGRAPHY - BILATERAL SCREENING REASON FOR EXAM: Female, 68 years old. Routine annual screening examination. PERTINENT HISTORY: Personal history of breast cancer. Prior left lumpectomy with radiation. Prior right lumpectomy with radiation. Grandmother with breast cancer. TECHNIQUE: Digital bilateral breast guru (3D mammographic acquisition) in the CC and MLO projections. 2-D mediolateral oblique (MLO) and craniocaudad (CC) views of both breasts were obtained. CAD: Full Field Digital Mammography with Computer Added Detection was performed. COMPARISON: Comparison is made with prior study May 11, 2023 and May 10, 2022. FINDINGS: Breast Composition: The breasts are heterogeneously dense, which may obscure small masses. There are no dominant masses or suspicious calcifications. Once again, the patient is status post lumpectomy in the upper deep central portion of the left breast with resultant postoperative deformity and overlying skin thickening and dystrophic calcification. A tissue clip marker is seen at the biopsy site. No other significant abnormalities are identified. There has been no significant change since the prior study. BI/SCRN MAMM (CAD)W/GURU BILAT IMPRESSION: Stable bilateral screening mammogram. Yearly follow-up mammogram recommended. (A) ASSESSMENT CATEGORY: BIRADS Category 2: Benign. A letter regarding these results will be sent to the patient by the facility within 30 days. Approximately 10% of breast cancers are not detected by mammography. A normal mammogram should not delay biopsy of a clinically suspicious abnormality. [id number] Electronically Signed: Carlos Schmitt MD at 11:52 EDT ,
== END | disposition home or self-care (01) ==
LOC: OPBI 09:36
PROVIDERS: PCP Family Medicine
DX: Z12.31 Encounter for screening mammogram for malignant neoplasm of breast (principal); D05.10 Intraductal carcinoma in situ of unspecified breast; M85.80 Other specified disorders of bone density and structure, unspecified site
CPT/HCPCS: 77063; 77067

== ENCOUNTER → 2024-06-25 | Outpatient (CLI) | payer MEDICARE, SELFPAY ==
--- NOTE | 2024-06-25 12:25 | US_ITS ---
INDICATION: FAMILY HISTORY OF OVARIAN CANCER EXAMINATION: Ultrasound US Pelvis Non OB Complete With Transvaginal Imaging TECHNIQUE: Transabdominal and transvaginal pelvic ultrasound was performed. Grayscale, spectral waveform, and color flow Doppler evaluation of the adnexa. COMPARISON: No relevant prior comparison study available FINDINGS: UTERUS: Anteverted, retroflexed. The uterus measures 6.5 x 4.1 x 2.9 cm. There is no uterine mass. The endometrial stripe measures 1.6 cm in AP diameter with 0.4 cm hyperechoic nodular density at the lower uterine segment extending into the region of the cervical canal.. RIGHT OVARY: 2.1 x 1 x 1 cm. Non-enlarged, normal echogenicity. There is normal arterial inflow and venous outflow present in the right ovary. LEFT OVARY: 2.8 x 1.3 x 1.2 cm. Non-enlarged, normal echogenicity. There is normal arterial inflow and venous outflow present in the left ovary. FREE FLUID: None. US/Pelvic w/ Transvaginal IMPRESSION: Thickening of the endometrium with nodular hyperechoic focus at the lower uterine segment. This could be an endometrial polyp. Consider further evaluation. Electronically Signed: Yusuf Arriaza MD at 21:13 EST ,
== END | disposition home or self-care (01) ==
PROVIDERS: PCP Family Medicine; Referring Provider Obstetrics & Gynecology Gynecology; Visit Provider Obstetrics & Gynecology Gynecology
DX: C50.919 Malignant neoplasm of unspecified site of unspecified female breast (principal); Z80.41 Family history of malignant neoplasm of ovary
CPT/HCPCS: 76830; 76856

== ENCOUNTER → 2024-08-02 | Outpatient (CLI) | payer MEDICARE, SELFPAY ==
[2024-08-02 12:02] LABS: Hematocrit 42.5 % (37-47); Hemoglobin 14.3 g/dL (12.0-15.0); Mean Corp Hgb Conc 33.6 g/dL (32-36); Mean Corpuscular Hgb 30.7 pg (27.0-32.0); Mean Corpuscular Volume 91.2 fL (81-99); Platelet Count 301 K/mm3 (150-450); RBC Distribution Width CV 12.6 % (11.6-14.6); RBC Distribution Width SD 41.9 fl (35.1-43.9); Red Blood Count 4.66 M/mm3 (4.2-5.4); White Blood Count 6.7 K/mm3 (4.4-11.0)
[2024-08-02 12:33] LABS: AST(SGOT) 45 U/L (15-37); Alanine Aminotransfer ALT/SGPT 49 U/L (13-56); Albumin, Serum 3.5 g/dL (3.2-5.0); Alkaline Phosphatase 67 U/L (45-117); Anion Gap 6 (5-15); BUN 13 mg/dL (7-18); BUN/Creat Ratio 17.4 RATIO (10-20); Chloride 98 mmol/L (98-107); Cholesterol 193 mg/dL (200); Creatinine, Serum 0.75 mg/dL (0.55-1.02); EST Glomerular Filtration Rate 81 mL/min (>60); Est Glom Filt Rate - Afr Amer 98 mL/min (>60); Globulin 3.4 g/dL (2.2-4.2); Glucose 102 mg/dL (74-106); High Density Lipoprotein 65 mg/dL; Potassium 3.5 mmol/L (3.5-5.1); Protein, Total 6.9 g/dL (6.4-8.2); Sodium Level 133 mmol/L (136-145); Triglycerides 95 mg/dL; Very Low Density Lipoprotein 19 mg/dL (5-40)
== END | disposition home or self-care (01) ==
PROVIDERS: PCP Family Medicine; Referring Provider Family Medicine; Visit Provider Family Medicine
DX: Z00.00 Encounter for general adult medical examination without abnormal findings (principal)

== ENCOUNTER → 2024-09-06 | Outpatient (CLI) | payer MEDICARE, SELFPAY ==
[2024-09-06 09:22] LABS: Anion Gap 5 (5-15); BUN 16 mg/dL (7-18); BUN/Creat Ratio 18.5 RATIO (10-20); Calcium,Total 9.4 mg/dL (8.5-10.1); Chloride 107 mmol/L (98-107); Creatinine, Serum 0.86 mg/dL (0.55-1.02); EST Glomerular Filtration Rate 69 mL/min (>60); Est Glom Filt Rate - Afr Amer 83 mL/min (>60); Glucose 96 mg/dL (74-106); Potassium 3.9 mmol/L (3.5-5.1); Sodium Level 141 mmol/L (136-145)
== END | disposition home or self-care (01) ==
LOC: LAB 08:09
PROVIDERS: PCP Family Medicine; Referring Provider Family Medicine; Visit Provider Family Medicine
DX: I10 Essential (primary) hypertension (principal)
CPT/HCPCS: 36415; 80048

== ENCOUNTER → 2024-12-27 | Outpatient (CLI) | payer MEDICARE, SELFPAY ==
[2024-12-27 09:28] LABS: Hematocrit 44.5 % (37-47); Mean Corp Hgb Conc 33.7 g/dL (32-36); Mean Corpuscular Hgb 30.8 pg (27.0-32.0); Mean Corpuscular Volume 91.4 fL (81-99); Mean Platelet Vol. 9.1 fl (6.2-12.0); Platelet Count 283 K/mm3 (150-450); RBC Distribution Width CV 12.6 % (11.6-14.6); RBC Distribution Width SD 42.2 fl (35.1-43.9); Red Blood Count 4.87 M/mm3 (4.2-5.4); White Blood Count 4.8 K/mm3 (4.4-11.0)
[2024-12-27 10:00] LABS: ALB/GLOB Ratio 1.7 RATIO (0.9-2.4); AST(SGOT) 32 U/L (<=31); Alanine Aminotransfer ALT/SGPT 23 U/L (<=34); Albumin, Serum 4.1 g/dL (3.4-4.8); Alkaline Phosphatase 58 U/L (35-104); Anion Gap 11 (5-15); BUN 13 mg/dL (4-19); BUN/Creat Ratio 15.4 RATIO (10-20); Calcium,Total 9.2 mg/dL (7.6-11.0); Carbon Dioxide 26.9 mmol/L (21.0-32.0); Chloride 100 mmol/L (98-108); Cholesterol 202 mg/dL (<=200); Creatinine, Serum 0.87 mg/dL (0.70-1.20); EST Glomerular Filtration Rate 71 (>60); Globulin 2.4 g/dL (2.2-4.2); Glucose 93 mg/dL (70-99); High Density Lipoprotein 57 mg/dL; Low Density Lipoprotein Calc. 121 mg/dL; Protein, Total 6.5 g/dL (5.9-8.4); Sodium Level 138 mmol/L (133-145); Total Bilirubin 0.45 mg/dL (0.00-1.30); Triglycerides 122 mg/dL; Very Low Density Lipoprotein 24 mg/dL (5-40); cholesterol:hdl ratio screen 3.57
== END | disposition home or self-care (01) ==
LOC: LAB 07:52
PROVIDERS: PCP Family Medicine; Referring Provider Family Medicine; Visit Provider Family Medicine
DX: Z00.00 Encounter for general adult medical examination without abnormal findings (principal); I10 Essential (primary) hypertension
CPT/HCPCS: 36415; 80053; 80061; 85027

== ENCOUNTER → 2025-05-16 | Outpatient (CLI) | payer MEDICARE, SELFPAY ==
--- NOTE | 2025-05-16 07:49 | BI_ITS ---
EXAM: BI/SCRN MAMM (CAD)W/GURU BILAT
== END | disposition home or self-care (01) ==
LOC: OPBI 07:48
PROVIDERS: PCP Family Medicine; Referring Provider Family Medicine; Visit Provider Family Medicine
DX: Z12.31 Encounter for screening mammogram for malignant neoplasm of breast (principal); Z86.000 Personal history of in-situ neoplasm of breast
CPT/HCPCS: 77063; 77067

== ENCOUNTER → 2025-05-24 | Outpatient (CLI) | payer MEDICARE, SELFPAY ==
--- NOTE | 2025-05-24 09:19 | US_ITS ---
PROCEDURE: US/Breast Complete Unilateral
== END | disposition home or self-care (01) ==
LOC: OPUS 09:17
PROVIDERS: PCP Family Medicine; Referring Provider Family Medicine; Visit Provider Family Medicine
DX: R92.8 Other abnormal and inconclusive findings on diagnostic imaging of breast (principal)
CPT/HCPCS: 76641

== ENCOUNTER 2025-06-07 09:39 | Outpatient (CLI) | payer MEDICARE, SELFPAY ==
--- NOTE | 2025-06-07 09:41 | US_ITS ---
PROCEDURE: US BREAST BIOPSY 1ST LESION 06/07/2025 REASON FOR EXAM: F, Age 69 y/o , RIGHT BREAST MASS Ultrasound-guided breast biopsy. TECHNIQUE: Procedure Code: [id number] Modality: US Procedure: US BREAST BIOPSY 1ST LESION. Under direct sonographic guidance, the surgeon performed multiple core biopsies of the 5 mm x 5 mm by 5 mm hypoechoic nodule at the 9 o'clock position of the breast at 6 cm from the nipple. COMPARISON: Prior exam(s) dating back to prior sonogram dated May 24, 2025.. FINDINGS: ULTRASOUND: Ultrasound was targeted to the 9 o'clock position of the breast at 6 cm from the nipple. US/US Breast Biopsy 1st Lesion IMPRESSION: OVERALL FINAL ASSESSMENT: BIRADS 11 WAITING PATHOLOGY RECOMMENDATION: Routine annual follow-up in 1 Year Reading Location: [id number]
--- NOTE | 2025-06-07 10:29 | BI_ITS ---
EXAM: DIAG MAMM W/CAD, UNILAT 06/07/2025 CLINICAL HISTORY: F, Age 69 y/o , POST BX CLIP PLACEMENT TECHNIQUE: Procedure Code: [id number] Modality: MG Procedure: DIAG MAMM W/CAD, UNILAT. COMPARISON: Prior exam(s) dated 06/03/2021. FINDINGS: TISSUE DENSITY: There are scattered areas of fibroglandular density. Bilateral Breast Mammographic Findings: A radiopaque clip seen in the lateral aspect of the right breast at the post biopsy site. Air and lidocaine are seen along the biopsy tract. A small residual portion of the mass does still persist. Benign round microcalcifications are seen in the right breast. BI/DIAG MAMM W/CAD, UNILAT IMPRESSION: Successful biopsy of the right breast mass. A radiopaque clip is now present. Pathology is pending. OVERALL FINAL ASSESSMENT BI-RADS 4: SUSPICIOUS. This suspicious mass has been biopsied. A radiopaque c lip is not present. Pathology is pending. RECOMMENDATION: OTHER A letter with findings and recommendations will be mailed to the patient. Reading Location: [id number]
--- NOTE | 2025-06-07 10:41 | OP.PCM_ITS ---
Procedures Integumentary [id number]-[id number]: [id number] Bx breast 1st lesion us imag Operative Report (Standard) Operative Information Date of Procedure: 06/07/25 Pre-Operative Diagnosis: Abnormal right breast ultrasound Post-Operative Diagnosis: Same Surgery/Procedure Performed: Right breast ultrasound-guided mammotome biopsy solar sales consultant: No Type of Anesthesia: Local Procedure Start Time: 10:15 Procedure Stop Time: 10:30 Select all DRAINS/GRAFTS/IMPLANTS that apply: Implanted device Implanted device details: Post procedure marking clip Estimated Blood Loss: 10 mL Specimen collected: Yes Description of specimen(s) removed: Right breast tissue Description of surgery: The patient is a 69-year-old female who was recently seen in the office with an abnormal right breast ultrasound. This was a fairly small lesion. We elected to schedule biopsy in the mammography suite. We discussed the details of the planned procedure including the risks benefits and alternatives. She wished to proceed. She was placed on the procedure room cart and the right breast was scanned by the r and d lab technician. The lesion in question was identified and marked. The skin of the right breast was then prepped and draped in the usual sterile manner. Using ultrasound guidance, local anesthetic was infiltrated in the vicinity of the lesion. A #11 blade was then used to make a small skin incision. A mammotome biopsy device was then inserted and was oriented just deep to the lesion. Numerous suction biopsies were obtained with good tissue sampling. This was performed under ultrasound visualization. There was very confident that the lesion was appropriately sampled. At the completion of the biopsy, a marking clip was deployed also under ultrasound guidance. Manual pressure was held on the area to reduce bruising. Steri-Strip dressing along with an OpSite were applied. She tolerated this well. I will contact her with pathology results once they become available Surgical Findings: See procedure note Complications Complications: No Admit VTE Documentation VTE Present on Admission: No VTE Pharm Prophylaxis ordered?: No Reason prophylaxis not ordered: Treatment Not Indicated
== END 2025-06-07 23:59 | disposition home or self-care (01) ==
LOC: OPUS 09:39
PROVIDERS: PCP Family Medicine; Referring Provider Surgery; Visit Provider Surgery
DX: C50.911 Malignant neoplasm of unspecified site of right female breast (principal); Z17.0 Estrogen receptor positive status [ER+]
CPT/HCPCS: 19083; 77065

== ENCOUNTER 2025-06-11 22:25 | Emergency (ER) | payer MEDICARE, SELFPAY ==
[2025-06-11 22:25] VITALS: BP 134/106; PULSE 84; RESP 14; TEMP 36.6; O2SAT 100; BMI 28.5
[2025-06-11 22:32] VITALS: BP 134/106; PULSE 84; RESP 14; TEMP 36.6; O2SAT 100
--- NOTE | 2025-06-11 22:47 | EX.ED.DYSGE1 ---
HPI History of Present Illness Chief Complaint: Wound Check Informant: patient and spouse/S.O. Narrative Narrative: Patient is 69-year-old female with past medical history of situs inversus and breast cancer/mass. She had underwent a ultrasound-guided biopsy of the right breast on Tuesday. She states she has been doing well and has had some black and blue discoloration from the biopsy. However today she noticed increased pain and also reported new red discoloration along the breast. She denies any history of immunosuppression. She denies any fevers or chills. However she states that a few years ago she had a breast biopsy on the left side which required her to be on antibiotics for 6 weeks and she has concern for developing infection and therefore comes in for evaluation. [facility] Medical History (Updated 06/11/25 @ 22:[address] Nba Dunn, ) delivery delivered Blood pressure elevated without history of HTN Situs inversus HX: breast cancer Home Medications Medication Instructions Recorded Last Taken Type cholecalciferol (vitamin D3) 25 2,000 unit PO DAILY 04/10/15 Unknown History mcg (1,000 unit) tablet (Vitamin D3) red yeast rice extract (bulk) 2 tab PO DAILY 05/01/15 Unknown History calcium 600 mg (as 1 ea PO DAILY 09/02/16 Unknown History carbonate)-vitamin D3 5 mcg (200 unit) tablet (Calcium 600 + D(3)) Fish Oil 1 tab PO.IVFORM DAILY 12/31/22 Unknown History clobetasol 0.05 % topical cream 1 applic topical QDAY 06/04/25 Unknown History hydrochlorothiazide 25 mg tablet 12.5 mg PO QAM 06/04/25 Unknown History xsntlyun-hfil-wikr 8 mg-folic 400 1 tab PO QDAY 06/04/25 Unknown History mcg-K 50 mcg-lutein 300 mcg tablet (Centrum Silver Women) clindamycin HCl 300 mg capsule 300 mg PO 4X/DAY 10 days #40 caps 06/11/25 Unknown Rx (Cleocin HCl) Allergy/AdvReac Type Severity Reaction Status Date / Time amoxicillin (From Augmentin) AdvReac Hives Verified 06/11/25 22:26 clavulanic acid (From AdvReac Hives Verified 06/11/25 22:26 Augmentin) Family History (Updated 06/04/25 @ 13:26 by Cristina Bella) Grandmother Breast cancer Surgical History (Updated 06/11/25 @ 22:33 by Gilberto Johnson) H/O breast biopsy Hx of cholecystectomy Hx of appendectomy Social History (Updated 06/04/25 @ 13:26 by Cristina Bella) Smoking Status: Never smoker alcohol intake: never ROS ROS ED Constitutional Constitutional ED: Denies chills or fever(s) Cardiovascular Cardiovascular: Denies chest pain Respiratory/Chest Respiratory/Chest: Denies cough or dyspnea Gastrointestinal Gastrointestinal: Denies abdominal pain, diarrhea, nausea or vomiting Musculoskeletal Musculoskeletal: Denies myalgias Integumentary Reports other Details: Positive bruising and redness right breast Neurologic Neurologic: Denies headache(s) Hematologic/Lymphatic Hematologic/Lymphatic: Denies easy bleeding or easy bruising EXAM Physical Exam Const Vital Signs: 06/11/25 22:25 06/11/25 22:32 06/11/25 22:40 Temperature 97.9 F 97.9 F Temperature Source Oral Temporal Pulse Rate 84 84 Respiratory Rate 14 14 Respiratory Effort Normal Non-Labored Respiratory Pattern Normal Blood Pressure 134/106 H 134/106 H Blood Pressure Mean 115 115 Pulse Ox 100 100 Oxygen Delivery Method Room Air Room Air Positive well nourished and well developed General Appearance ED: well developed HEENT HEENT Narrative: Normocephalic atraumatic Eyes PERRL and EOMs intact bilaterally General Eye ED: Negative for scleral icterus Neck supple Resp normal respiratory effort and clear to auscultation bilaterally Cardio regular rate and regular rhythm Extremity normal to inspection Neuro oriented x3, CN's II-XII intact bilaterally and no sensory deficits noted Sensorium / Orientation: alert Motor Exam: strength 5/5 throughout Psych mental status grossly normal Skin Skin Narrative: There is a biopsy site along the inferior lateral portion of the right breast consistent with history. There is surrounding ecchymosis consistent with the biopsy. There is faint erythema branching out roughly 1 to 2 cm to the lateral aspect of the breast/chest wall and also similar discoloration tracking underneath the breast towards the sternum. The erythema is faint there is no significant asymmetric warmth there is no purulent discharge or lymphangitic streaking or crepitance palpated. Remainder of the skin exam is normal MDM MDM MDM Narrative Medical decision making narrative: Patient arrived to the ER hypertensive otherwise with stable vitals. She had a biopsy done 5 days ago. She states she was doing well but today noticed increased soreness/pain as well as the new red discoloration. She does not have history of immunosuppression nor does she have findings of systemic infection such as fever tachycardia or hypotension. The changes to me look more like progression of blood underneath the biopsy wound. However as symptoms really just began today and she does have a history of postbiopsy infection I feel the safest option will be to cover her with clindamycin in order to prevent any developing infection. However as she does not show findings of systemic infection/sepsis or have a history immunosuppression I do not feel the need for imaging or laboratory studies. This plan of care was discussed with the patient who is agreeable to it and therefore should be started on clindamycin but is otherwise safe for discharge. History & Record Review Discussion w/independent historian: Patient and Significant other Discharge Plan Triage Chief Complaint: Wound Check ED Provider: Nba Dunn Dx/Rx/DC Orders Clinical Impression: Encounter for post surgical wound check, Breast mass in female, Situs inversus Instructions: Cellulitis, Wound Care Prescriptions: New clindamycin HCl [Cleocin HCl] 300 mg capsule 300 mg PO 4X/DAY 10 Days Qty: 40 0RF No Action clobetasol 0.05 % cream 1 applic topical QDAY hydrochlorothiazide 25 mg tablet 12.5 mg PO QAM Centrum Silver Women 8 mg iron-400 mcg-50 mcg tablet 1 tab PO QDAY cholecalciferol (vitamin D3) [Vitamin D3] 1,000 UNIT tablet 2,000 unit PO DAILY Patient Comments: supplement red yeast rice extract (bulk) 30 GM powder 2 tab PO DAILY calcium carbonate-vitamin D3 [Calcium 600 + D(3)] 1 EACH tablet 1 ea PO DAILY Fish Oil 1 tab PO.IVFORM DAILY Primary Care Provider: Jose Francisco Zamora Referrals: Jose Francisco Zamora DO [Primary Care Provider, Family Practice] Activity Restrictions/Additional Instructions: There is concern for developing soft tissue skin infection/cellulitis after your breast biopsy. Therefore take the antibiotic/clindamycin as directed to help resolve this. If you develop a fever of 100.4 or higher you notice worsening redness or purulent discharge or lymphangitic streaking despite taking the medication or you have any further concerns then return to the ER for repeat evaluation Print Language: Uzbek Disposition Disposition: Home, Self Care
--- OUTSIDE RECORDS SUMMARY | 2025-06-11 22:54 | XMS RPT_ITS | CCD ---
Author Organization [facility] Care Team Providers Care Environmental Monitoring Specialist Name Role Phone SERA MOELLER, DR JIL Reynolds Primary Care Physician Sera DO, Jil Marie Primary Care Provider Sera DO, Jil Marie Primary Care Provider KRYSTIN NGUYỄN Attending Unavailable SERA, JIL MARIE Primary Care Unavailable KRYSTIN NGUYỄN Attending Unavailable SERA, JIL MARIE Primary Care Unavailable KRYSTIN NGUYỄN Attending Unavailable SERA, JIL MELIZA Primary Care Unavailable KRYSTIN NGUYỄN Attending Unavailable KENIA STRONG Referring Unavailable SERA, JILJESSICA MARIE Primary Care Unavailable KRYSTIN NGUYỄN Attending Unavailable [facility], [facility] Unavailable SERA, [facility] Primary Care Unavailable KRYSTIN NGUYỄN Attending Unavailable KRYSTIN NGUYỄN Attending Unavailable SERA, JIL MELIZA Primary Care Unavailable KRYSTIN NGUYỄN Attending Unavailable SERA, JILJESSICA MARIE Primary Care Unavailable Sera, Dr. Felton Primary Care Provider [phone] MD Luis Lencho Emergency Provider Dr. Chris Alvarado Attending Provider Dr. Chris Alvarado Admit Provider Dr. Chris Alvarado Other Provider Dr. Ruma Ordonez Other Provider [phone] Antwon Meza Attending Provider [phone] Dr. Ruma Ordonez Attending Provider [phone] [employer] Attending Unavai lable SERA DO, DR JIL Reynolds Primary Care Unavailabl e SERA DO, DR JIL Reynolds Attending Unavailabl e SERA DO, DR JIL Reynolds Primary Care Unavailabl e SERA DO, DR JIL Reynolds Attending Unavailabl e SERA DO, DR JIL Reynolds Primary Care Unavailabl e STRONG [address] [employer] TEACHER, KENIA Attending Unavai lable SERA DO, DR JIL Reynolds Primary Care Unavailabl e SERA DO, DR JIL Reynolds Primary Care Unavailabl e TRINH, BLESSING Attending Unavailable SERA DO, DR JIL Reynolds Primary Care Unavailabl e TRINH, BLESSING Attending Unavailable Sera DO, Dr. Felton Primary Care Provider Sera DO, Dr. Felton Attending Provider Sera DO, Dr. Felton Referring Provider Sera, Jil Primary Care Unavailable Trinh, Blessing Attending Unavailable Trinh, Blessing Referring Unavailable Sera, Jil Attending Unavailable Sera, Jil Referring Unavailable Sera, Jil Primary Care Unavailable Sera, Jil Primary Care Unavailable Sear, Jil Attending Unavailable Sera, Jil Referring Unavailable Sera, Jil Attending Unavailable Sera, Jil Referring Unavailable Sera, Jil Primary Care Unavailable Sera, Jil Attending Unavailable Sera, Jil Referring Unavailable Sera, Jil Primary Care Unavailable Sera, Jil Primary Care Unavailable Sera, Jil Attending Unavailable Sera, Jil Referring Unavailable Allergies Allergy Classification Reported Allergen(s) Allergy Type Date of Onset Reaction(s) Facility (7 sources) Amoxicillin Drug Allergy 3 [facility] (7 sources) Clavulanate Drug Allergy 3 [facility] (6 sources) seasonal enviromental Allergy to substance Watery eye (finding) [facility] [place] (3 sources) Amoxicillin / Clavulanate; Translations: [amoxicillin-cla vulanate] Drug Allergy Weal (disorder) [facility] (1 source) Amoxicillin Drug Allergy 3 [facility] (1 source) Clavulanate Drug Allergy 3 [facility] Medications Current Medications Medication Drug Class(es) Dates Sig (Normalized) Sig (Original) acetaminophen 325 mg oral capsule (1 source) Start: 08-20-2024 take 1 capsule by mouth every six hours acetaminophen 325 mg oral capsule Dose : 650 mg =, Oral, q6h, # 20 cap(s), 0 Refill(s), Pharmacy: [facility], 163, cm, 08/20/24 12:05:00 EST, Height, kg, 08/20/24 12:05:00 EST, Dosing Weight Start Date: 08/20/24 Status: Ordered Quantity: 20.0 Unit: cap(s) Repeat number: 1 acetaminophen 325 mg / oxyCODONE hydrochloride 5 mg oral tablet (3 sources) Opioid Agonist Start: 09-03-2022 take 1 tablet by mouth every six hours Oxycodone-Acetamin ophen (Percocet) 5-325 mg tablet Active 1 TABLET PO EVERY 6 HOURS 12 September 03, 2022 amLODIPine 5 mg oral tablet (9 sources) Dihydropyridine Calcium Channel Tavo Start: 01-02-2023 take 1 tablet by mouth once daily Amlodipine 5 mg tablet Active 5 mg PO DAILY January 02, 2023 12:00am benzonatate 200 mg oral capsule (1 source) Non-narcotic Antitussive Start: 07-23-2021 End: 07-28-2021 benzonatate 200 mg oral capsule Dose : 200 mg = 1 cap(s), Oral, TID, PRN as needed for cough, X 5 day(s), # 15 cap(s), 0 Refill(s), 07/28/21 8:15:00 EST, Pharmacy: [facility]/pharmacy #[id number], 162.6, cm, 07/23/21 7:46:00 EST, Height, kg, 07/23/21 7:46:00 EST, Dosing Weight Start Date: 07/23/21 Stop Date: 07/28/21 Status: Ordered calcium carbonate 1500 mg / cholecalciferol 200 unt oral tablet (13 sources) Vitamin D Start: 09-02-2016 Calcium Carbonate-Vitamin D3 (Calcium 600 + D(3)) 1 EACH tablet Active 1 NMA PO DAILY September 02, 2016 1:00am Calcium, Magnesium and Zinc oral tablet (6 sources) Start: 08-05-2023 take 1 tablet by mouth once daily Calcium, Magnesium and Zinc oral tablet Dose = 1 tab(s), Oral, qDay, # 30 tab(s), 0 Refill(s) Start Date: 08/05/23 Status: Ordered Quantity: 30.0 Unit: tab(s) Repeat number: 1 Start: 08-05-2023 take 1 tablet by ethan th once daily Calcium, Magnesium and Zinc oral tablet Dose = 1 tab(s), Oral, qDay, # 30 tab(s), 0 Refill(s) Start Date: 08/05/23 Status: Ordered Start: 06-24-2021 take 1 tablet by ethan th once daily Calcium, Magnesium and Zinc oral tablet Dose = 1 tab(s), Oral, qDay, # 30 tab(s), 0 Refill(s) Start Date: 06/24/21 Status: Ordered Centrum Silver Women's oral tablet (2 sources) Start: 08-05-2023 take 1 tablet by mouth once daily Centrum Silver Women's oral tablet Dose = 1 tab(s), Oral, Daily, 0 Refill(s) Start Date: 08/05/23 Status: Ordered cholecalciferol 0.025 mg oral tablet (20 sources) Vitamin D Start: 04-10-2015 take 2 tablets by mouth once daily Cholecalciferol (Vitamin D3) (Vitamin D3) 1,000 UNIT tablet Active 2000 U PO DAILY April 10, 2015 12:00am take 1 tablet by mouth once praveena y Cholecalciferol, Vitamin D3, 50 mcg (2,000 unit) cap Take 1 tablet by mouth once daily. 0 Active Comment on above: Take 1 tablet by ethan once daily. ciprofloxacin 500 mg oral tablet (3 sources) Quinolone Antimicrobial Start: 07-23-2022 End: 08-18-2022 ciprofloxacin HCl (CIPRO) 500 mg tablet Take 1 tablet by mouth twice daily for 14 days. FOR 14 DAYS. 28 tablet 0 08/04/2022 08/18/2022 Active Comment on above: Take 1 tablet by ethan th twice daily for 14 days. FOR 14 DAYS. Clobetasol (5 sources) Corticosteroid Start: 08-04-2024 End: 08-01-2025 clobetasol 0.05% topical cream Apply 1 ruddy, Topical, 2X/week, # 15 gram(s), 0 Refill(s), Pharmacy: [facility], 163, cm, 07/31/24 10:14:00 EST, Height, 72, kg, 07/31/24 10:14:00 EST, Dosing Weight Start Date: 08/04/24 Stop Date: 08/01/25 Status: Ordered Quantity: 15.0 Unit: g Repeat number: 1 Start: 12-02-2022 clobetasol 0.0 5% topical ointment Apply 1 ruddy, Topical, 2X/week, # 15 gram(s), 0 Refill(s), Pharmacy: [facility], Ointment, 162.2, cm, 11/18/22 9:38:00 EDT, Height, 68.7 Start Date: 12/02/22 Status: Ordered Cranberry preparation (2 sources) Non-Standardized Food Allergenic Extract, Non-Standardized Plant Allergenic Extract Start: 08-05-2023 take 1 capsule by mouth twice daily cranberry oral capsule Dose = 1 cap(s), Oral, BID, 0 Refill(s) Start Date: 08/05/23 Status: Ordered Elderberry [employer] (3 sources) Start: 08-05-2023 Elderberry [employer] Chewed, qDay, 0 Refill(s) Start Date: 08/05/23 Status: Ordered Elderberry preparation (2 sources) Start: 07-23-2021 elderberry 0 Refill(s) Start Date: 07/23/21 Status: Ordered Fish Oils (13 sources) Start: 12-31-2022 Fish Oil Active 1 {tbl} PO.IVFORM DAILY December 31, 2022 12:00am Start: 12-31-2022 take 1 tablet by ethan th once daily Fish Oil Active 1 TABLET PO.IVFORM DAILY December 30, 2022 11:00pm Start: 12-31-2022 take 1 tablet by ethan th once daily Fish Oil Active 1 TABLET PO.IVFORM DAILY December 31, 2022 12:00am Start: 06-24-2021 take 1 dose by mouth once praveena y [place]-3 Fish Oil Dose : 1,000 mg =, Oral, qDay, 0 Refill(s) Start Date: 06/24/21 Status: Ordered Repeat number: 1 Start: 06-24-2021 take 1 dose by mouth once praveena y [place]-3 Fish Oil Dose : 1,000 mg =, Oral, qDay, 0 Refill(s) Start Date: 06/24/21 Status: Ordered Start: 06-24-2021 [place]-3 Fish O il mg =, Oral, qDay, 2 daily, 0 Refill(s) Start Date: 06/24/21 Status: Ordered hydroCHLOROthiazide 25 mg oral tablet (1 source) Thiazide Diuretic Start: 05-30-2024 hydroCHLOROthiazide 25 mg oral tablet Dose : 25 mg = 1 tab(s), Oral, qDay, # 90 tab(s), 3 Refill(s), Pharmacy: [facility], 163, cm, 03/15/24 13:41:00 EDT, Height, kg, 03/15/24 13:41:00 EDT, Dosing Weight Start Date: 05/30/24 Status: Ordered Quantity: 90.0 Unit: tab(s) Repeat number: 4 ibuprofen 600 mg oral tablet (1 source) Nonsteroidal Anti-inflammator y Drug Start: 08-20-2024 IBU 600 mg oral tablet Dose : 600 mg = 1 tab(s), Oral, q6h, # 20 tab(s), 0 Refill(s), Pharmacy: [facility], 163, cm, 08/20/24 12:05:00 EST, Height, kg, 08/20/24 12:05:00 EST, Dosing Weight Start Date: 08/20/24 Status: Ordered Quantity: 20.0 Unit: tab(s) Repeat number: 1 meclizine hydrochloride 25 mg oral tablet (6 sources) Antiemetic Start: 01-01-2023 take 1 tablet by mouth three times daily as needed Meclizine 25 mg Tablet Active 25 mg PO 3 TIMES DAILY NEEDED as needed for dizzy January 01, 2023 12:00am Multiple Vitamins oral tablet (5 sources) Start: 04-21-2017 take 1 tablet by mouth once daily Multiple Vitamins oral tablet Dose = 1 tab(s), Oral, Daily, # 30 tab(s), 0 Refill(s) Start Date: 04/21/17 Status: Ordered Multivitamin preparation (1 source) Start: 06-05-2024 take 1 tablet by mouth once daily Multivitamin Dose = 1 tab(s), Oral, Daily, 0 Refill(s) Start Date: 06/05/24 Status: Ordered Repeat number: 1 oxyCODONE hydrochloride 5 mg oral tablet (1 source) Opioid Agonist Start: 08-20-2024 End: 08-21-2024 oxyCODONE 5 mg oral tablet ( IMMEDIATE release ) Dose : 5 mg = 1 tab(s), Oral, q6hr, PRN Pain, scale 7-10, # 5 tab(s), 0 Refill(s), Pharmacy: [facility], Acute post-operative pain, 163, cm, 08/20/24 12:05:00 EST, Height, 70, kg, 08/20/24 12:05:00 EST, Dosing Weight Start Date: 08/20/24 Stop Date: 08/21/24 Status: Ordered Quantity: 5.0 Unit: tab(s) Repeat number: 1 Indication: Other acute postprocedural pain Power C (6 sources) Start: 09-02-2016 take 2 tablets by mouth once daily Power C Active 2 TABLET PO DAILY September 02, 2016 12:00am Start: 09-02-2016 take 2 tablets by [facility] once daily Power C Active 2 TABLET PO DAILY September 02, 2016 1:00am predniSONE 10 mg oral tablet (3 sources) Start: 09-03-2022 Prednisone Act dolores 10 MG PO DAILY September 03, 2022 1:00am 4 pills by mouth days 1 through 3 3 pills by mouth days 4 through 6 2 pills by mouth days 7 through 9 1 pill by mouth days 10 through 12 Red Yeast Rice 600 mg oral capsule (7 sources) Start: 01-05-2023 take 2 capsules by mouth once daily Red Yeast Rice 600 mg oral capsule 2 cap(s), Oral, Daily, 0 Refill(s) Start Date: 01/05/23 Status: Ordered Repeat number: 1 Start: 01-05-2023 take 1 capsule by mo [facility] once daily Red Yeast Rice 600 mg oral capsule See Instructions, 1 daily, 0 Refill(s) Start Date: 01/05/23 Status: Ordered Start: 06-24-2021 Red Yeast Rice 600 mg oral capsule Dose : 600 mg = 1 cap(s), Oral, qDayM, 0 Refill(s) Start Date: 12/8/21 Status: Ordered Red Yeast Rice Extract (Bulk) (12 sources) Start: 05-01-2015 take 2 tablets by mouth once daily Red Yeast Rice Extract (Bulk) Active 2 TABLET PO DAILY April 30, 2015 11:00pm Start: 05-01-2015 take 2 tablets by mouth once d aily Red Yeast Rice Extract (Bulk) Active 2 TABLET PO DAILY May 01, 2015 12:00am Vitamin B Comp And C No.3 (B Complex With Vitamin C) 1 EACH capsule (6 sources) Start: 04-09-2015 take 1 capsule by mouth once daily Vitamin B Comp And C No.3 (B Complex With Vitamin C) 1 EACH capsule Active 1 EACH PO DAILY April 08, 2015 11:00pm Start: 04-09-2015 take 1 capsule by mo [facility] once daily Vitamin B Comp And C No.3 (B Complex With Vitamin C) 1 EACH capsule Active 1 EACH PO DAILY April 09, 2015 12:00am Zinc (2 sources) Start: 07-23-2021 take 1 mg by mouth o nce daily Zinc mg =, Oral, qDay, 0 Refill(s) Start Date: 07/23/21 Status: Ordered Completed/Discontinued Medications Medication Drug Class(es) Dates Sig (Normalized) Sig (Original) amoxicillin 875 mg / clavulanate 125 mg oral tablet (4 sources) Penicillin-class Antibacterial Start: 05-21-2022 amoxicillin-clavu lanic acid (AUGMENTIN) 875-125 mg per tablet anastrozole 1 mg oral tablet (15 sources) Aromatase Inhibitor Start: 03-05-2016 anastrozole (ARIMIDEX) 1 mg tablet 1 tablet once daily. 0 03/05/2016 Active Comment on above: 1 tablet once daily. Ca-D3-mag gs-krmb-lcf-devora-bor 600 mg calcium- 20 mcg-50 mg tab (9 sources) take 1 tablet by mouth once daily Ca-D3-mag ig-vxmp-vet-devora- bor 600 mg calcium- 20 mcg-50 mg tab Take 1 tablet by mouth once daily. 0 Active Comment on above: Take 1 tablet by ethan once daily. cholecalciferol, vitamin D3, (VITAMIN D3 ORAL) (9 sources) cholecalciferol, vitamin D3, (VITAMIN D3 ORAL) Take by mouth. 0 Active Comment on above: Take by mouth. dextromethorphan hydrobromide 3 mg/ml / promethazine hydrochloride 1.25 mg/ml oral solution (9 sources) Phenothiazine, Uncompetitive Q-avnvcv-D-aspartat e Receptor Antagonist, Sigma-1 Agonist Promethazine-DM (PHENERGAN-DM) 6.25-15 mg/5 mL syrup Take by mouth four times daily as needed. 0 Active Comment on above: Take by mouth four t imes daily as needed. flaxseed oil (OMEGA 3 ORAL) (9 sources) flaxseed oil (OMEGA 3 ORAL) Take by mouth twice daily. 0 Active Comment on above: Take by mouth twice daily. folic acid/multivit-min/lute in (CENTRUM SILVER ORAL) (1 source) folic acid/multivit-min /lutein (CENTRUM SILVER ORAL) Take by mouth once daily. 0 Active Comment on above: Take by mouth once d aily. MULTIVITAMIN ORAL (9 sources) MULTIVITAMIN ORA L Take by mouth once daily. 0 Active Comment on above: Take by mouth once d aily. OTC PRODUCT (9 sources) OTC PRODUCT 2 tablets once daily. Power C 0 Active Comment on above: 2 tablets once daily . Power C RED YEAST RICE ORAL (9 sources) take 2 tablets by mouth once daily RED YEAST RICE ORAL Take 2 tablets by mouth once daily. 0 Active Comment on above: Take 2 tablets by mo uth once daily. Vitamin B Complex (9 sources) take 1 tablet by mouth once daily VITAMIN B COMPLEX (B COMPLEX 1 ORAL) Take 1 tablet by mouth once daily. 0 Active Comment on above: Take 1 tablet by ethan once daily. 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] Onset: 07-24-2024 04-21-2017 Chronic Comment on above: bilateral in situ Cancer of breast (16 sources) History of ductal carcinoma in situ of breast; Translations: [Personal history of in-situ neoplasm of breast] Episodic Cardiac dysrhythmias (9 sources) Intermittent palpitations; Translations: [Palpitations] 09-06-2022 Episodic Complications of surgical procedures or medical care (10 sources) Disorder of immune function; Translations: [Other serum reaction due to other serum, initial encounter] 09-03-2022 Episodic Conditions associated with dizziness or vertigo (10 sources) Vertigo; Translations: [Dizziness and giddiness] 12-31-2022 Episodic Essential hypertension (7 sources) Essential hypertension; Translations: [Essential (primary) hypertension] Onset: 09-18-2024 01-26-2023 Chronic Fluid and electrolyte disorders (9 sources) Hypokalemia; Translations: [Hypokalemia] 09-06-2022 Episodic Nonmalignant breast conditions (5 sources) Breast infection; Translations: [Mastitis without abscess] Episodic Other bone disease and musculoskeletal deformities (6 sources) Osteopenia 11-18-2022 Episodic Other circulatory disease (7 sources) Elevated blood-pressure reading without diagnosis of hypertension; Translations: [Elevated blood-pressure reading, without diagnosis of hypertension] 12-31-2022 Episodic Other circulatory disease (2 sources) Elevated blood-pressure reading, without diagnosis of hypertension; Translations: [Elevated blood pressure reading without diagnosis of hypertension] 12-31-2022 Episodic Other congenital anomalies (8 sources) 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 Other nervous system disorders (7 sources) Abnormal gait; Translations: [Unsteadiness on feet] 12-31-2022 Episodic Other nervous system disorders (3 sources) Unsteadiness on feet; Translations: [Abnormality of gait] 12-31-2022 Episodic Other nervous system disorders (1 source) Postoperative pain ; Translations: [Other acute postprocedural pain] Onset: 08-20-2024 Episodic Other screening for suspected conditions (not mental disorders or infectious disease) (2 sources) Abnormal findings on diagnostic imaging of other specified body structures; Translations: [Abnormal findings on diagnostic imaging of other specified body structures] Onset: 08-20-2024 Chronic Other screening for suspected conditions (not mental disorders or infectious disease) (3 sources) Mammography abnormal; Translations: [Other abnormal and inconclusive findings on diagnostic imaging of breast] Onset: 05-24-2025 Episodic Residual codes; unclassified (4 sources) Past history of procedure; Translations: [Other specified postprocedural states] Episodic Residual codes; unclassified (1 source) Other specified postprocedural states; Translations: [Status post breast biopsy] Onset: 11-16-2022 Episodic Results Test Name Value Interpretation Reference Range Facility Breast Complete Unilateralon 05-24-2025 Breast Complete Unilateral [facility] [address] [place], [place] [address] Breast Complete Unilateral MR#: [id number] Acct: [id number] Name: ZENY REECE Rep #: [id number] : 1955 F 69 From: Ana Lawson MD PCP: Dr. Jil Zamora DO Status: REG CLI Study: Breast Complete Unilateral Date of Exam: 05/24 Exam# [id number] Ordering Dr: Jil Zamora DO PROCEDURE: BREAST COMPLETE UNILATERAL 05/24/2025 REASON FOR EXAM: F, Age 69 y/o , ABN MAMMO COMPARISON: Mammogram 05/16/2025, 05/15/2024, 05/11/2023, 05/08/2021. TECHNIQUE: Procedure Code: USBRU Modality: US Procedure: BREAST COMPLETE UNILATERAL FINDINGS: Follow-up examination performed for the right breast finding seen on examination of 05/16/2025. On the present examination, ultrasound performed at the lumpectomy site in the right breast at 9 o'clock 6 cm from the nipple demonstrates an irregular hypoechoic mass measuring 0.6 x 0.3 x 0.5 cm. There is vascularity adjacent to the mass. This is consistent with the mammographic findings. US/Breast Complete Unilateral IMPRESSION: Suspicious mass in the right breast at 9 o'clock. Recommend tissue sampling with ultrasound-guided core needle biopsy. BI-RADS 4: SUSPICIOUS RECOMMENDATION: Biopsy Recommended Reading Location: [id number] CC: Dr. Jil Zamora DO Insole Buffer: Signed Normal [facility] SCRN MAMM (CAD)W/OSMANI BILATo n 05-16-2025 SCRN MAMM (CAD)W/OSMANI BILAT [facility] [address] [place] [address] SCRN MAMM (CAD)W/OSMANI BILAT MR#: [id number] Acct: [id number] Name: ZENY REECE TOMASA Rep #: [id number] : 1955 F 69 From: Carlos marsh MD PCP: Dr. Jil Zamora DO Status: REG CLI Study: SCRN MAMM (CAD)W/OSMANI BILAT Date of Exam: 04/19 Exam# [id number] Ordering Dr: Jil Zamora DO EXAM: SCRN MAMM (CAD)W/OSMANI BILAT DATE: 05/16/2025 CLINICAL HISTORY: F, Age 69 y/o , SCREENING Personal history of breast cancer. Prior left lumpectomy with radiation treatment. History of prior right lumpectomy and radiation treatment. TECHNIQUE: Procedure Code: [id number] Modality: MG Procedure: SCRN MAMM (CAD)W/OSMANI BILAT COMPARISON: Prior exam(s) dated May 15, 2000 24.. FINDINGS: TISSUE DENSITY: There are scattered areas of fibroglandular density. Bilateral Breast Mammographic Findings: No significant masses, calcifications or other abnormalities are identified. Once again, status post lump in the upper deep central portion of the left breast with resultant postoperative scarring and deformity. Overlying skin thickening and dystrophic calcification. A tissue clip marker is also seen at the biopsy site. Architectural distortion is also seen in the outer upper aspect of the right breast. This is unchanged and may represent prior site of lumpectomy. Sonographic correlation recommended. BI/SCRN MAMM (CAD)W/OSMANI BILAT IMPRESSION: Status post lumpectomy in the upper-outer quadrant of the left breast. This is unchanged. Focal area of architectural distortion is seen in the upper lateral aspect of the right breast. With the patient's history of prior lumpectomy at that site, this may represent postoperative scarring. Correlation with ultrasound recommended. OVERALL FINAL ASSESSMENT BI-RADS 0: INCOMPLETE - NEED ADDITIONAL IMAGING EVALUATION. RECOMMENDATION: Ultrasound Recommended Additional Recommendation none A letter with findings and recommendations will be mailed to the patient. Reading Location: [id number] CC: Dr. Jil Zamora, DO Insole Buffer: Signed Normal [facility] Anion gap in Serum or Plasma Ordered By: Jil Zamora on 12-27-2024 Anion gap [Moles/Vol] 11 mmol/L 5- [facility] BUN/creatinine ratioOrdered By: Jil Zamora on 12-27-2024 Urea nitrogen/Creatinine [Mass ratio] 15.4 mg/mg 10- [facility] Bilirubin, totalOrdered By: Jil Zamora on 12-27-2024 Bilirubin [Mass/Vol] 0.45 mg/dL Normal 0.00-1.30 [facility] Comment on above: Performed By: #### L 500.4100, L100.0500, L500.4050 #### [facility] [address] [place], [address] CBC-Complete Blood Cnt No Di ffon 12-27-2024 Erythrocyte distribution width (RBC) [Ratio] 12.6 % Normal 11.6-14.6 [facility] Comment on above: Performed By: #### L 500.4100, L100.0500, L500.4050 #### [facility] [address] [place], [address] Hematocrit (Bld) [Volume fraction] 44.5 % Normal 37-47 [facility] Comment on above: Performed By: #### L 500.4100, L100.0500, L500.4050 #### [facility] [address] [place], [address] Hemoglobin (Bld) [Mass/Vol] 15.0 g/dL Normal 12.0-15.0 [facility] Comment on above: Performed By: #### L 500.4100, L100.0500, L500.4050 #### [facility] [address] [place], [address] MCH (RBC) [Entitic mass] 30.8 pg Normal 27.0-32.0 [facility] Comment on above: Performed By: #### L 500.4100, L100.0500, [id number] #### [facility] [address] [place], [address] MCHC (RBC) [Mass/Vol] 33.7 g/dL Normal 32-36 [facility] Comment on above: Performed By: #### L 500.4100, L100.0500, L500.4050 #### [facility] [address] [place], [address] MCV (RBC) [Entitic vol] 91.4 fL Normal 81-99 [facility] Comment on above: Performed By: #### L 500.4100, L100.0500, L500.4050 #### [facility] [address] [place], [address] Platelet mean volume (Bld) [Entitic vol] 9.1 fL Normal 6.2-12.0 [facility] Comment on above: Performed By: #### L 500.4100, L100.0500, L500.4050 #### [facility] [address] [place], [address] Platelets (Bld) [#/Vol] 283 10*3/uL Normal 150-450 [facility] Comment on above: Performed By: #### L 500.4100, L100.0500, L500.4050 #### [facility] [address] [place], [address] RBC (Bld) [#/Vol] 4.87 10*6/uL Normal 4.2-5.4 [facility] Comment on above: Performed By: #### L 500.4100, L100.0500, L500.4050 #### [facility] [address] [place], [address] RDW SD 42.2 fl Normal 35.1-43.9 [facility] Comment on above: Performed By: #### L 500.4100, L100.0500, L500.4050 #### [facility] [address] [place], [address] WBC (Bld) [#/Vol] 4.8 10*3/uL Normal 4.4-11.0 [facility] Comment on above: Performed By: #### L 500.4100, L100.0500, L500.4050 #### [facility] [address] [place], [address] Calculated very low density lipoprotein (VLDL) cholesterol measurementOrdered By: Jil Zamora on 12-27-2024 Calculated very low density lipoprotein (VLDL) cholesterol measurement 24 mg/dL 5-40 [facility] Carbon dioxide, total [Moles /volume] in Central venous bloodOrdered By: Jil Zamora on 12-27-2024 CO2 [Moles/Vol] 26.9 mmol/L Normal 21.0-32.0 [facility] Comment on above: Performed By: #### L 500.4100, L100.0500, L500.4050 #### [facility] [address] [place], [address] Chloride assayOrdered By: Pavan Zamora on 12-27-2024 Chloride [Moles/Vol] 100 mmol/L Normal 98-108 [facility] Comment on above: Performed By: #### L 500.4100, L100.0500, L500.4050 #### [facility] [address] [place], [address] Comprehensive Metabolic Prof ilon 12-27-2024 ALK PHOS 58 U/L Normal 35-104 [facility] Comment on above: Performed By: #### L 500.4100, L100.0500, L500.4050 #### [facility] [address] [place], [address] BUN/CRE 15.4 RATIO Normal 10-20 [facility] Comment on above: Performed By: #### L 500.4100, L100.0500, L500.4050 #### [facility] [address] [place], [address] GAP 11 Normal 5-15 [facility] Comment on above: Performed By: #### L 500.4100, L100.0500, L500.4050 #### [facility] [address] [place], [address] Potassium [Moles/Vol] 4.0 mmol/L Normal 3.3-5.1 [facility] Comment on above: Performed By: #### L 500.4100, L100.0500, L500.4050 #### [facility] [address] [place], [address] T PROT 6.5 g/dL Normal 5.9-8.4 [facility] Comment on above: Performed By: #### L 500.4100, L100.0500, L500.4050 #### [facility] [address] [place], [address] Comprehensive Metabolic Prof ilOrdered By: Jil Zamora on 12-27-2024 AST [Catalytic activity/Vol] 32 U/L Normal <=31 [facility] Comment on above: Performed By: #### L 500.4100, L100.0500, L500.4050 #### [facility] [address] [place], [address] Erythrocyte distribution wid th ratioOrdered By: Jil Zamora on 12-27-2024 Erythrocyte distribution width (RBC) [Ratio] 12.6 % 11.6-14.6 [facility] Erythrocyte distribution wid th standard deviationOrdered By: Jil Zamora on 12-27-2024 Erythrocyte distribution width (RBC) [Ratio] 42.2 fl 35.1-43.9 [facility] Glomerular filtration rate ( GFR) estimation/1.73 sq m using serum, plasma, or whole bOrdered By: Jil Zamora on 12-27-2024 GFR/1.73 sq M.predicted among non-blacks MDRD (S/P/Bld) [Vol rate/Area] 71 mL/min/{1.73_m2} Normal >60 [facility] Comment on above: mL/min/1.73m2 CKD-EP I Creatinine Equation (2020) Result Comment: mL/m in/1.73m2 CKD-EPI Creatinine Equation (2020) Performed By: #### L 500.4100, L100.0500, L500.4050 #### [facility] [address] [place], [place], [address] Hematocrit Auto (Bld) [Volum e fraction]Ordered By: Jil Zamora on 12-27-2024 Hematocrit (Bld) [Volume fraction] 44.5 % 37-47 [facility] Hemoglobin measurementOrdere d By: Jil Zamora on 12-27-2024 Hemoglobin (Bld) [Mass/Vol] 15.0 g/dL 12.0-15.0 [facility] LDL calc ser/plasOrdered By: Jil Zamora on 12-27-2024 Cholesterol in LDL [Mass/Vol] 121 mg/dL Normal [facility] Comment on above: Mmoedrbnun=190-574 m g/dL & Higher Dbjs=620 mg/dL or greater Result Comment: Bord ikkcvo=763-657 mg/dL Higher Lfms=420 mg/dL or greater Performed By: #### L 500.4100, L100.0500, L500.4050 #### [facility] [address] [place], [place], [id number] Lipid Profileon 12-27-2024 CHOL:HDL 3.57 Normal [facility] Comment on above: Performed By: #### L 500.4100, L100.0500, L500.4050 #### [facility] [address] [place], [address] Cholesterol in VLDL [Mass/Vol] 24 mg/dL Normal 5-40 [facility] Comment on above: Performed By: #### L 500.4100, L100.0500, L500.4050 #### [facility] [address] [place], [address] MCV (mean corpuscular volume ) determinationOrdered By: Jil Zamora on 12-27-2024 MCV (RBC) [Entitic vol] 91.4 fL 81-99 [facility] Mean corpuscular hemoglobin (MCH) determinationOrdered By: Jil Zamora on 12-27-2024 MCH (RBC) [Entitic mass] 30.8 pg 27.0-32.0 [facility] Mean corpuscular hemoglobin concentration (MCHC) determinationOrdered By: Jil Zamora on 12-27-2024 MCHC (RBC) [Mass/Vol] 33.7 g/dL 32-36 [facility] Mean platelet volume determi nationOrdered By: Jil Zamora on 12-27-2024 Platelet mean volume (Bld) [Entitic vol] 9.1 fL 6.2-12.0 [facility] Platelet countOrdered By: Br etisai Zamora on 12-27-2024 Platelets (Bld) [#/Vol] 283 10*3/uL 150-450 [facility] Potassium measurement (mass/ volume)Ordered By: Jil Zamora on 12-27-2024 Potassium (Unsp spec) [Mass/Vol] 4.0 mmol/L 3.3-5.1 [facility] RBC Auto (Bld) [#/Vol]Ordere d By: Jil Zamora on 12-27-2024 RBC (Bld) [#/Vol] 4.87 10*6/uL 4.2-5.4 [facility] Screening total cholesterol/ high density lipoprotein (HDL) cholesterol ratioOrdered By: Jil Zamora on 12-27-2024 Cholesterol.total/Lizz sterol in HDL [Mass ratio] 3.57 {ratio} [facility] Serum creatinine measurement (mass/volume)Ordered By: Jil Zamora on 12-27-2024 Creatinine [Mass/Vol] 0.87 mg/dL Normal 0.70-1.20 [facility] Comment on above: Performed By: #### L 500.4100, L100.0500, L500.4050 #### [facility] [address] [place], [address] Serum globulin measurementOr dered By: Jil Zamora on 12-27-2024 Globulin (S) [Mass/Vol] 2.4 g/dL Normal 2.2-4.2 [facility] Comment on above: Performed By: #### L 500.4100, L100.0500, L500.4050 #### [facility] [address] [place], [address] Serum glucose measurement (m ass/volume)Ordered By: Jil Zamora on 12-27-2024 Glucose [Mass/Vol] 93 mg/dL Normal 70-99 [facility] Comment on above: Performed By: #### L 500.4100, L100.0500, L500.4050 #### [facility] [address] [place], [address] Serum or plasma alanine costa otransferase (ALT) measurementOrdered By: Jil Zamora on 12-27-2024 ALT [Catalytic activity/Vol] 23 U/L Normal <=34 [facility] Comment on above: Performed By: #### L 500.4100, L100.0500, L500.4050 #### [facility] [address] [place], [address] Serum or plasma albumin parth urement (mass/volume)Ordered By: Jil Zamora on 12-27-2024 Albumin [Mass/Vol] 4.1 g/dL Normal 3.4-4.8 [facility] Comment on above: Performed By: #### L 500.4100, L100.0500, L500.4050 #### [facility] [address] [place], [place], [address] Serum or plasma albumin/glob ulin mass ratioOrdered By: Jil Zamora on 12-27-2024 Albumin/Globulin [Mass ratio] 1.7 {ratio} Normal 0.9-2.4 [facility] Comment on above: Performed By: #### L 500.4100, L100.0500, L500.4050 #### [facility] [address] [place], [place], [address] Serum or plasma alkaline candida sphatase measurementOrdered By: Jil Zamora on 12-27-2024 ALP [Catalytic activity/Vol] 58 U/L 35-104 [facility] Serum or plasma calcium parth urement (mass/volume)Ordered By: Jil Zamora on 12-27-2024 Calcium [Mass/Vol] 9.2 mg/dL Normal 7.6-11.0 [facility] Comment on above: Performed By: #### L 500.4100, L100.0500, L500.4050 #### [facility] [address] [place], [place], [id number] Serum or plasma cholesterol in HDL measurement (mass/volume)Ordered By: Jil Zamora on 12-27-2024 Cholesterol in HDL [Mass/Vol] 57 mg/dL Normal [facility] Comment on above: National Cholesterol Education Program (NCEP) guidelines:<40 mg/dL: Low HDL-cholesterol (major risk factor for CHD)>= 60 mg/dL: High HDL-cholesterol (negative risk factor for CHD)HDL-cholesterol is affected by a number of factors, e.g. smoking, exercise, hormones, sex and age. Result Comment: Ember onal Cholesterol Education Program (NCEP) guidelines: <40 mg/dL: Low HDL-cholesterol (major risk factor for CHD) >= 60 mg/dL: High HDL-cholesterol (negative risk factor for CHD) HDL-cholesterol is affected by a number of factors, e.g. smoking, exercise, hormones, sex and age. Performed By: #### L 500.4100, L100.0500, L500.4050 #### [facility] [address] [place], [address] Serum or plasma cholesterol measurement (mass/volume)Ordered By: Jil Zamora on 12-27-2024 Cholesterol [Mass/Vol] 202 mg/dL High <=200 [facility] Comment on above: Cholesterol level, D esirable <200 mg/dLBorderline high cholesterol 200-239 mg/dLHigh cholesterol >=240 mg/dLRecommendations of the NCEP Adult Treatment Panel for the following risk-cutoff thresholds for the [place] population. Result Comment: Chol esterol level, Desirable <200 mg/dL Borderline high cholesterol 200-239 mg/dL High cholesterol >=240 mg/dL Recommendations of the NCEP Adult Treatment Panel for the following risk-cutoff thresholds for the [place] population. Performed By: #### L 500.4100, L100.0500, L500.4050 #### [facility] [address] [place], [address] Serum or plasma urea nitroge n measurement (mass/volume)Ordered By: Jil Zamora on 12-27-2024 Urea nitrogen [Mass/Vol] 13 mg/dL Normal 4-19 [facility] Comment on above: Performed By: #### L 500.4100, L100.0500, L500.4050 #### [facility] [address] [place], [address] Sodium levelOrdered By: Andrew Zamora on 12-27-2024 Sodium [Moles/Vol] 138 mmol/L Normal 133-145 [facility] Comment on above: Performed By: #### L 500.4100, L100.0500, L500.4050 #### [facility] [address] [place], [address] Total proteinOrdered By: Nadine tt Sera on 12-27-2024 Protein [Mass/Vol] 6.5 g/dL 5.9-8.4 [facility] Triglycerides measurementOrd ered By: Jil Zamora on 12-27-2024 Triglyceride [Mass/Vol] 122 mg/dL Normal [facility] Comment on above: The drugs N-Acetylcy steine and Metamizole may falsely depress this assay. Normal range: <150 mg/dLBorderline High: 150-199 mg/dLHigh: 200-499 mg/dLVery High: >500 mg/dL Result Comment: The drugs N-Acetylcysteine and Metamizole may falsely depress this assay. Normal range: <150 mg/dL Borderline High: 150-199 mg/dL High: 200-499 mg/dL Very High: >500 mg/dL Performed By: #### L 500.4100, L100.0500, L500.4050 #### [facility] [address] [place], [address] White blood cell (WBC) count Ordered By: Jil Zamora on 12-27-2024 WBC (Bld) [#/Vol] 4.8 10*3/uL 4.4-11.0 [facility] Basic Metabolic Profile (BMP )on 09-06-2024 BUN/CRE 18.5 RATIO Normal - [facility] Comment on above: Performed By: #### L 500.2500 #### [facility] [address] [facility] [place], [address] CA,Total 9.4 mg/dL Normal 8.5-10.1 [facility] Comment on above: Performed By: #### L 500.2500 #### [facility] [address] [place], [address] Chloride [Moles/Vol] 107 mmol/L Normal 98-107 [facility] Comment on above: Performed By: #### L 500.2500 #### [facility] [address] [place], [address] CO2 [Moles/Vol] 30.0 mmol/L Normal 21.0-32.0 [facility] Comment on above: Performed By: #### L 500.2500 #### [facility] [address] [place], [address] Creatinine [Mass/Vol] 0.86 mg/dL Normal 0.55-1.02 [facility] Comment on above: Result Comment: The validity of the calculated GFR GFRAA in patients over 70 years has not been determined. Clinical correlation is essential. Performed By: #### L 500.2500 #### [facility] [address] [place], [address] EST GFR - AA 83 mL/min Normal >60 [facility] Comment on above: Result Comment: Afri can Jamaican GFR Calc Performed By: #### L 500.2500 #### [facility] [address] [place], [address] GAP 5 Normal 5-15 [facility] Comment on above: Performed By: #### L 500.2500 #### [facility] [address] [place], [address] GFR/1.73 sq M.predicted among non-blacks MDRD (S/P/Bld) [Vol rate/Area] 69 mL/min/{1.73_m2} Normal >60 [facility] Comment on above: Result Comment: Non- GFR Calc Performed By: #### L 500.2500 #### [facility] [address] [place], [address] Glucose [Mass/Vol] 96 mg/dL Normal 74-106 [facility] Comment on above: Performed By: #### L 500.2500 #### [facility] [address] [place], [address] Potassium [Moles/Vol] 3.9 mmol/L Normal 3.5-5.1 [facility] Comment on above: Result Comment: Mode rate Hemolysis, Result may be falsely increased. Performed By: #### L 500.2500 #### [facility] [address] [place], [address] Sodium [Moles/Vol] 141 mmol/L Normal 136-145 [facility] Comment on above: Performed By: #### L 500.2500 #### [facility] [address] [place], [place], [id number] Urea nitrogen [Mass/Vol] 16 mg/dL Normal 7-18 [facility] Comment on above: Performed By: #### L 500.2500 #### [facility] [address] [place], [address] Blood urea nitrogen (BUN)/cr eatinine ratioOrdered By: Jil Zamora on 09-06-2024 Urea nitrogen/Creatinine [Mass ratio] 18.5 mg/mg 10-20 [facility] Carbon dioxide measurementOr dered By: Jil Zamora on 09-06-2024 CO2 [Moles/Vol] 30.0 mmol/L 21.0-32.0 [facility] Chloride measurementOrdered By: Jil Zamora on 09-06-2024 Chloride [Moles/Vol] 107 mmol/L 98-107 [facility] Glomerular filtration rate ( GFR) estimationOrdered By: Jil Zamora on 09-06-2024 GFR/1.73 sq M.predicted among non-blacks MDRD (S/P/Bld) [Vol rate/Area] 69 mL/min/{1.73_m2} >60 [facility] Comment on above: Non- GFR Calc Glucose measurementOrdered B y: Jil Zamora on 09-06-2024 Glucose [Mass/Vol] 96 mg/dL 74-106 [facility] Potassium measurementOrdered By: Jil Zamora on 09-06-2024 Potassium [Moles/Vol] 3.9 mmol/L 3.5-5.1 [facility] Comment on above: Moderate Hemolysis, Result may be falsely increased. Serum anion gap measurementO rdered By: Jil Zamora on 09-06-2024 Anion gap [Moles/Vol] 5 mmol/L 5-15 [facility] Serum or plasma calcium parth urement (mass/volume)Ordered By: Jil Zamora on 09-06-2024 Calcium [Mass/Vol] 9.4 mg/dL 8.5-10.1 [facility] Serum or plasma creatinine m easurement (mass/volume)Ordered By: Jil Zamora on 09-06-2024 Creatinine [Mass/Vol] 0.86 mg/dL 0.55-1.02 [facility] Comment on above: The validity of the calculated GFR & GFRAA in patients over 70 years has not been determined. Clinical correlation is essential. Serum or plasma urea nitroge n measurement (mass/volume)Ordered By: Jil Zamora on 09-06-2024 Urea nitrogen [Mass/Vol] 16 mg/dL 7-18 [facility] Sodium levelOrdered By: Andrew Zamora on 09-06-2024 Sodium [Moles/Vol] 141 mmol/L 136-145 [facility] Final Surgical Pathology Rep [facility] 08-22-2024 Final Surgical Pathology Report . Pathology Reports Accession: Collected Date/Time: Received Date/Time: Pathologist: [id number] 08/20/2024 13:17 EST 08/21/2024 09:26 EST MD SHANNAN CRANE Final Surgical Pathology Report DIAGNOSIS: ENDOMETRIUM, CURETTAGE: - FRAGMENTS OF ENDOMETRIAL POLYP - NEGATIVE FOR MALIGNANCY CLINICAL INFORMATION: Procedure: HYSTEROSCOPY, DILATION AND CURETTAGE Preoperative diagnosis: THICKENED ENDOMETRIUM Postoperative diagnosis: THICKENED ENDOMETRIUM SPECIMEN: A ENDOMETRIAL POLYPS AND CURETTINGS GROSS DESCRIPTION: All parts labelled with patient name and [id number] Received in formalin labeled "endometrial polyp and curettings" is 1 section of gauze containing multiple alfaro-pink tissue fragments aggregating 3.6 x 0.8 x 0.3 cm greatest dimension. Smallest fragments may not survive processing. TS-1 Babita Whiteside, [employer]etters Printer/ Dr. Austin Fischer, Pathologist Performed by Babita Whiteside MICROSCOPIC DESCRIPTION: The microscopic examination is performed, except in the case of Gross Only. Verified by Pathology Report verified by [facility] SHANNAN CRANE MD Sign out Date: 08/22/2024 11:21 Performing Lab: [facility], [address] [place] [address] Pathology Dept Disclaimer If ancillary studies were utilized, the following Laboratory Developed Test (LDT) disclaimer will apply: Under CLIA requirements, [facility] is qualified to perform high complexity testing. For all ancillary stains, positive and negative controls stain appropriately. Performance characteristics of immunohistochemical and chromogenic in-situ hybridization tests have been determined by [facility]. These tests are used for clinical purposes, They should not be regarded as investigational or for research. Normal [facility] CBC-Complete Blood Cnt No Di ffon 08-02-2024 Erythrocyte distribution width (RBC) [Ratio] 12.6 % Normal 11.6-14.6 [facility] Comment on above: Performed By: #### L 500.4050, L100.0500, L500.4100 #### [facility] [address] [place], [address] Hematocrit (Bld) [Volume fraction] 42.5 % Normal 37-47 [facility] Comment on above: Performed By: #### L 500.4050, L100.0500, L500.4100 #### [facility] [address] [place], [address] Hemoglobin (Bld) [Mass/Vol] 14.3 g/dL Normal 12.0-15.0 [facility] Comment on above: Performed By: #### L 500.4050, L100.0500, L500.4100 #### [facility] [address] [place], [address] MCH (RBC) [Entitic mass] 30.7 pg Normal 27.0-32.0 [facility] Comment on above: Performed By: #### L 500.4050, L100.0500, L500.4100 #### [facility] [address] [place], [address] MCHC (RBC) [Mass/Vol] 33.6 g/dL Normal 32-36 [facility] Comment on above: Performed By: #### L 500.4050, L100.0500, L500.4100 #### [facility] [address] [place], [address] MCV (RBC) [Entitic vol] 91.2 fL Normal 81-99 [facility] Comment on above: Performed By: #### L 500.4050, L100.0500, L500.4100 #### [facility] [address] [place], [address] Platelet mean volume (Bld) [Entitic vol] 9.0 fL Normal 6.2-12.0 [facility] Comment on above: Performed By: #### L 500.4050, L100.0500, L500.4100 #### [facility] [address] [place], [address] Platelets (Bld) [#/Vol] 301 10*3/uL Normal 150-450 [facility] Comment on above: Performed By: #### L 500.4050, L100.0500, L500.4100 #### [facility] [address] [place], [address] RBC (Bld) [#/Vol] 4.66 10*6/uL Normal 4.2-5.4 [facility] Comment on above: Performed By: #### L 500.4050, L100.0500, L500.4100 #### [facility] [address] [place], [address] RDW SD 41.9 fl Normal 35.1-43.9 [facility] Comment on above: Performed By: #### L 500.4050, L100.0500, L500.4100 #### [facility] [address] [place], [address] WBC (Bld) [#/Vol] 6.7 10*3/uL Normal 4.4-11.0 [facility] Comment on above: Performed By: #### L 500.4050, L100.0500, L500.4100 #### [facility] [address] [place], [address] Comprehensive Metabolic Prof ilon 08-02-2024 Albumin [Mass/Vol] 3.5 g/dL Normal 3.2-5.0 [facility] Comment on above: Performed By: #### L 500.4050, L100.0500, L500.4100 #### [facility] [address] [place], [address] Albumin/Globulin [Mass ratio] 1.0 {ratio} Normal 0.9-2.4 [facility] Comment on above: Performed By: #### L 500.4050, L100.0500, L500.4100 #### [facility] [address] [place], [address] ALK P 67 U/L Normal 45-117 [facility] Comment on above: Performed By: #### L 500.4050, L100.0500, L500.4100 #### [facility] [address] [place], [address] ALT [Catalytic activity/Vol] 49 U/L Normal 13-56 [facility] Comment on above: Performed By: #### L 500.4050, L100.0500, L500.4100 #### [facility] [address] [place], [address] AST [Catalytic activity/Vol] 45 U/L High 15-37 [facility] Comment on above: Performed By: #### L 500.4050, L100.0500, L500.4100 #### [facility] [address] [place], [address] Bilirubin [Mass/Vol] 0.60 mg/dL Normal 0.20-1.00 [facility] Comment on above: Result Comment: For patients on eltrombopag therapy, use of Dimension Allen TBIL is not recommended. Performed By: #### L 500.4050, L100.0500, L500.4100 #### [facility] [address] [place], [address] BUN/CRE 17.4 RATIO Normal 10-20 [facility] Comment on above: Performed By: #### L 500.4050, L100.0500, L500.4100 #### [facility] [address] [place], [address] CA,Total 9.0 mg/dL Normal 8.5-10.1 [facility] Comment on above: Performed By: #### L 500.4050, L100.0500, L500.4100 #### [facility] [address] [place], [address] Chloride [Moles/Vol] 98 mmol/L Normal 98-107 [facility] Comment on above: Performed By: #### L 500.4050, L100.0500, L500.4100 #### [facility] [address] [place], [address] CO2 [Moles/Vol] 29.0 mmol/L Normal 21.0-32.0 [facility] Comment on above: Performed By: #### L 500.4050, L100.0500, L500.4100 #### [facility] [address] [place], [address] Creatinine [Mass/Vol] 0.75 mg/dL Normal 0.55-1.02 [facility] Comment on above: Result Comment: The validity of the calculated GFR GFRAA in patients over 70 years has not been determined. Clinical correlation is essential. Performed By: #### L 500.4050, L100.0500, L500.4100 #### [facility] [address] [place], [address] EST GFR - AA 98 mL/min Normal >60 [facility] Comment on above: Result Comment: Afri can [place]ican GFR Calc Performed By: #### L 500.4050, L100.0500, L500.4100 #### [facility] [address] [place], [address] GAP 6 Normal 5-15 [facility] Comment on above: Performed By: #### L 500.4050, L100.0500, L500.4100 #### [facility] [address] [place], [address] GFR/1.73 sq M.predicted among non-blacks MDRD (S/P/Bld) [Vol rate/Area] 81 mL/min/{1.73_m2} Normal >60 [facility] Comment on above: Result Comment: Non- GFR Calc Performed By: #### L 500.4050, L100.0500, L500.4100 #### [facility] [address] [place], [place], [address] Globulin (S) [Mass/Vol] 3.4 g/dL Normal 2.2-4.2 [facility] Comment on above: Performed By: #### L 500.4050, L100.0500, L500.4100 #### [facility] [address] [place], [address] Glucose [Mass/Vol] 102 mg/dL Normal 74-106 [facility] Comment on above: Result Comment: Fast ing Glucose result from 100 to 125 mg/dL suggests IMPAIRED HOMEOSTASIS per A.D.A. criteria. Performed By: #### L 500.4050, L100.0500, L500.4100 #### [facility] [address] [place], [address] Potassium [Moles/Vol] 3.5 mmol/L Normal 3.5-5.1 [facility] Comment on above: Performed By: #### L 500.4050, L100.0500, L500.4100 #### [facility] [address] [place], [address] Sodium [Moles/Vol] 133 mmol/L Low 136-145 [facility] Comment on above: Performed By: #### L 500.4050, L100.0500, L500.4100 #### [facility] [address] [place], [address] T PROT 6.9 g/dL Normal 6.4-8.2 [facility] Comment on above: Performed By: #### L 500.4050, L100.0500, L500.4100 #### [facility] [address] [place], [address] Urea nitrogen [Mass/Vol] 13 mg/dL Normal 7-18 [facility] Comment on above: Performed By: #### L 500.4050, L100.0500, L500.4100 #### [facility] [address] [place], [address] Lipid Profileon 08-02-2024 Cholesterol [Mass/Vol] 193 mg/dL Normal 200 [facility] Comment on above: Result Comment: <200 mg/dL Desirable 200-240 mg/dL Borderline >240 mg/dL High Risk Performed By: #### L 500.4050, L100.0500, L500.4100 #### [facility] [address] [place], [address] Cholesterol in HDL [Mass/Vol] 65 mg/dL Normal [facility] Comment on above: Result Comment: The drugs N-Acetylcysteine and Metamizole may falsely depress this assay. Reference Range HDL <40 mg/dL Low HDL Cholesterol HDL >or= 60 mg/dL High HDL Cholesterol Performed By: #### L 500.4050, L100.0500, L500.4100 #### [facility] [address] [place], [address] Cholesterol in LDL [Mass/Vol] 109 mg/dL Normal 0-130 [facility] Comment on above: Performed By: #### L 500.4050, L100.0500, L500.4100 #### [facility] [address] [place], [address] Cholesterol in VLDL [Mass/Vol] 19 mg/dL Normal 5-40 [facility] Comment on above: Performed By: #### L 500.4050, L100.0500, L500.4100 #### [facility] [address] [place], [address] Triglyceride [Mass/Vol] 95 mg/dL Normal [facility] Comment on above: Result Comment: The drugs N-Acetylcysteine and Metamizole may falsely depress this assay. Serum Triglycerides Reference Interval Normal <150 mg/dL Borderline high 150 - 199 mg/dL High 200 - 499 mg/dL Very High > or = 500 mg/dL Performed By: #### L 500.4050, L100.0500, L500.4100 #### [facility] [address] [place], [address] Pelvic w/ Transvaginalon Pelvic w/ Transvaginal [facility] [address] [place] [address] Pelvic w/ Transvaginal MR#: [id number] Acct: [id number] Name: ZENY REECE TOMASA Rep #: [id number] : [id number] F 68 From: Yusuf mendoza MD PCP: Dr. Jil Zamora, DO Status: [facility] Study: Pelvic w/ Transvaginal Date of Exam: 06/25/24 Exam# [id number] Ordering Dr: Blessing Tsang [place] [id number] INDICATION: FAMILY HISTORY OF OVARIAN CANCER EXAMINATION: Ultrasound US Pelvis Non OB Complete With Transvaginal Imaging TECHNIQUE: Transabdominal and transvaginal pelvic ultrasound was performed. Grayscale, spectral waveform, and color flow Doppler evaluation of the adnexa. COMPARISON: No relevant prior comparison study available FINDINGS: UTERUS: Anteverted, retroflexed. The uterus measures 6.5 x 4.1 x 2.9 cm. There is no uterine mass. The endometrial stripe measures 1.6 cm in AP diameter with 0.4 cm hyperechoic nodular density at the lower uterine segment extending into the region of the cervical canal.. RIGHT OVARY: 2.1 x 1 x 1 cm. Non-enlarged, normal echogenicity. There is normal arterial inflow and venous outflow present in the right ovary. LEFT OVARY: 2.8 x 1.3 x 1.2 cm. Non-enlarged, normal echogenicity. There is normal arterial inflow and venous outflow present in the left ovary. FREE FLUID: None. US/Pelvic w/ Transvaginal IMPRESSION: Thickening of the endometrium with nodular hyperechoic focus at the lower uterine segment. This could be an endometrial polyp. Consider further evaluation. Electronically Signed: Yusuf Arriaza MD at 21:13 EST Reading Location ID and State: [facility] / [place] Tel , Service support , CC: Dr. Blessing Tsang MD; Dr. Jil Zamora DO Insole Buffer: Signed Normal [facility] .Auto Diffon 08-12-2023 Basophil, Absolute 0.0 10 3/mcL Normal 0.0-0.2 [facility] ([place]) Comment on above: Performed By: #### G FR, ANEU, TSH, LIPID, CBC, CMP, ADIFF #### [address] [place], [place] [address] Basophils/100 WBC (Bld) 0.7 % Normal 0.0-2.5 [facility] ([place]) Comment on above: Performed By: #### G FR, ANEU, TSH, LIPID, CBC, CMP, ADIFF #### [address] [place], [place] [address] Eosinophil, Absolute 0.2 10 3/mcL Normal 0.0-0.4 [facility] Comment on above: Performed By: #### G FR, ANEU, TSH, LIPID, CBC, CMP, ADIFF #### [address] [address] Eosinophils/100 WBC (Bld) 3.6 % Normal 0.0-7.0 [facility] ([place]) Comment on above: Performed By: #### G FR, ANEU, TSH, LIPID, CBC, CMP, ADIFF #### [address] [address] Lymphocyte, Absolute 1.2 10 3/mcL Normal 0.8-3.9 [facility] [place] Comment on above: Performed By: #### G FR, ANEU, TSH, LIPID, CBC, CMP, ADIFF #### [address] [address] Lymphocytes/100 WBC (Bld) 21.4 % Normal 10.0-50.0 [facility] ([place]) Comment on above: Performed By: #### G FR, ANEU, TSH, LIPID, CBC, CMP, ADIFF #### [address] [address] Monocyte, Absolute 0.4 10 3/mcL Normal 0.2-1.0 [facility] ([place]) Comment on above: Performed By: #### G FR, ANEU, TSH, LIPID, CBC, CMP, ADIFF #### [address] [address] Monocytes/100 WBC (Bld) 7.3 % Normal 1.7-13.0 [facility] ([place]) Comment on above: Performed By: #### G FR, ANEU, TSH, LIPID, CBC, CMP, ADIFF #### [address] [address] Neutrophils/100 WBC (Bld) 67.0 % Normal 37.0-80.0 [facility] ([place]) Comment on above: Performed By: #### G FR, ANEU, TSH, LIPID, CBC, CMP, ADIFF #### [address] [address] .GFRon 08-12-2023 GFR 76 ml/min/1.73sqm Normal [facility] ([place]) Comment on above: Result Comment: GFR Population mean for , Non- Americans Ages 20-29 = 116 mL/min/1.73 sq.m. Ages 30-39 = 107 mL/min/1.73 sq.m. Ages 40-49 = 99 mL/min/1.73 sq.m. Ages 50-59 = 93 mL/min/1.73 sq.m. Ages 60-69 = 85 mL/min/1.73 sq.m. Ages 70+ = 75 mL/min/1.73 sq.m. Chronic Kidney Disease: Less than 60 mL/min/1.73 square meters End Stage Renal Disease: Less than 15 mL/min/1.73 square meters Performed By: #### G FR, ANEU, TSH, LIPID, CBC, CMP, ADIFF #### [address] [address] GFR Non- 63 ml/min/1.73sqm Normal [facility] ([place]) Comment on above: Result Comment: GFR Population mean for , Non- Americans Ages 20-29 = 116 mL/min/1.73 sq.m. Ages 30-39 = 107 mL/min/1.73 sq.m. Ages 40-49 = 99 mL/min/1.73 sq.m. Ages 50-59 = 93 mL/min/1.73 sq.m. Ages 60-69 = 85 mL/min/1.73 sq.m. Ages 70+ = 75 mL/min/1.73 sq.m. Chronic Kidney Disease: Less than 60 mL/min/1.73 square meters End Stage Renal Disease: Less than 15 mL/min/1.73 square meters Performed By: #### G FR, ANEU, TSH, LIPID, CBC, CMP, ADIFF #### [address] [address] .NEUABSon 08-12-2023 Neutrophil, Absolute 3.9 10 3/mcL Normal 2.9-6.2 [facility] Comment on above: Performed By: #### G FR, ANEU, TSH, LIPID, CBC, CMP, ADIFF #### [address] [address] CBCon 08-12-2023 Erythrocyte distribution width (RBC) [Ratio] 13.8 % Normal 11.5-14.5 [facility] ([place]) Comment on above: Performed By: #### G FR, ANEU, TSH, LIPID, CBC, CMP, ADIFF #### [address] [address] Hematocrit (Bld) [Volume fraction] 44.0 % Normal 37.0-47.0 [facility] ([place] Comment on above: Performed By: #### G FR, ANEU, TSH, LIPID, CBC, CMP, ADIFF #### [address] [address] Hgb 14.8 G/dL Normal 12.0-16.0 [facility] ([place] Comment on above: Performed By: #### G FR, ANEU, TSH, LIPID, CBC, CMP, ADIFF #### [address] [address] MCH (RBC) [Entitic mass] 30.3 pg Normal 27.0-31.2 [facility] ([place] Comment on above: Performed By: #### G FR, ANEU, TSH, LIPID, CBC, CMP, ADIFF #### [address] [address] MCHC 33.6 G/dL Normal 33.0-37.0 [facility] ([place] Comment on above: Performed By: #### G FR, ANEU, TSH, LIPID, CBC, CMP, ADIFF #### [address] [address] MCV (RBC) [Entitic vol] 90.1 fL Normal 80.0-94.0 [facility] ([place]) Comment on above: Performed By: #### G FR, ANEU, TSH, LIPID, CBC, CMP, ADIFF #### [address] [address] Platelet 272 10 3/mcL Normal 130-400 [facility] ([place] Comment on above: Performed By: #### G FR, ANEU, TSH, LIPID, CBC, CMP, ADIFF #### [address] [address] Platelet mean volume (Bld) [Entitic vol] 7.3 fL Low 7.4-10.4 [facility] ([place] Comment on above: Performed By: #### G FR, ANEU, TSH, LIPID, CBC, CMP, ADIFF #### [address] [address] RBC 4.88 10 6/mcL Normal 4.20-5.40 [facility] ([place] Comment on above: Performed By: #### G FR, ANEU, TSH, LIPID, CBC, CMP, ADIFF #### [address] [address] WBC 5.8 10 3/mcL Normal 4.6-10.8 [facility] ([place] Comment on above: Performed By: #### G FR, ANEU, TSH, LIPID, CBC, CMP, ADIFF #### [address] [address] CMPon 08-12-2023 Albumin Level 3.9 G/dL Normal 3.4-4.8 [facility] ([place] Comment on above: Performed By: #### G FR, ANEU, TSH, LIPID, CBC, CMP, ADIFF #### [address] [address] Albumin/Globulin [Mass ratio] 1.2 {ratio} Normal 1.1-2.5 [facility] ([place] Comment on above: Performed By: #### G FR, ANEU, TSH, LIPID, CBC, CMP, ADIFF #### [address] [address] ALP [Catalytic activity/Vol] 75 U/L Normal 40-135 [facility] ([place] Comment on above: Performed By: #### G FR, ANEU, TSH, LIPID, CBC, CMP, ADIFF #### [address] [address] ALT [Catalytic activity/Vol] 29 U/L Normal 14-59 [facility] ([place] Comment on above: Performed By: #### G FR, ANEU, TSH, LIPID, CBC, CMP, ADIFF #### [address] [address] AST [Catalytic activity/Vol] 18 U/L Normal 10-40 [facility] ([place] Comment on above: Performed By: #### G FR, ANEU, TSH, LIPID, CBC, CMP, ADIFF #### [address] [address] Bili Total 0.4 mg/dL Normal 0.2-1.0 [facility] ([place] Comment on above: Result Comment: Use of this assay is not recommended for patients undergoing treatment with eltrombopag due to the potential for falsely elevated results. Performed By: #### G FR, ANEU, TSH, LIPID, CBC, CMP, ADIFF #### [address] [address] BUN/Creatinine Ratio 16 ratio Normal 7-27 [facility] ([place]) Comment on above: Performed By: #### G FR, ANEU, TSH, LIPID, CBC, CMP, ADIFF #### [address] [address] Calcium [Mass/Vol] 9.2 mg/dL Normal 8.4-10.2 [facility] ([place]) Comment on above: Performed By: #### G FR, ANEU, TSH, LIPID, CBC, CMP, ADIFF #### [address] [address] Chloride [Moles/Vol] 105 mmol/L Normal 98-107 [facility] ([place] Comment on above: Performed By: #### G FR, ANEU, TSH, LIPID, CBC, CMP, ADIFF #### [address] [address] CO2 [Moles/Vol] 28 mmol/L Normal 23-31 [facility] ([place] Comment on above: Performed By: #### G FR, ANEU, TSH, LIPID, CBC, CMP, ADIFF #### [address] [address] Creatinine [Mass/Vol] 0.89 mg/dL Normal 0.55-1.02 [facility] ([place]) Comment on above: Performed By: #### G FR, ANEU, TSH, LIPID, CBC, CMP, ADIFF #### [address] [address] Electrolyte Balance 11.0 mEq/L Normal 4.0-15.0 [facility] 1928[facility] ([place]) Comment on above: Performed By: #### G FR, ANEU, TSH, LIPID, CBC, CMP, ADIFF #### [address] [address] Globulin 3.3 G/dL Normal [facility] ([place] Comment on above: Performed By: #### G FR, ANEU, TSH, LIPID, CBC, CMP, ADIFF #### [address] [address] Glucose [Mass/Vol] 106 mg/dL Normal 80-115 [facility] ([place] Comment on above: Performed By: #### G FR, ANEU, TSH, LIPID, CBC, CMP, ADIFF #### [address] [address] Potassium [Moles/Vol] 4.2 mmol/L Normal 3.5-5.1 [facility] ([place] Comment on above: Performed By: #### G FR, ANEU, TSH, LIPID, CBC, CMP, ADIFF #### [address] [address] Sodium [Moles/Vol] 144 mmol/L Normal 136-145 [facility] ([place] Comment on above: Performed By: #### G FR, ANEU, TSH, LIPID, CBC, CMP, ADIFF #### [address] [address] Total Protein 7.2 G/dL Normal 6.4-8.2 [facility] ([place] Comment on above: Performed By: #### G FR, ANEU, TSH, LIPID, CBC, CMP, ADIFF #### [address] [place], [place] [address] Urea nitrogen [Mass/Vol] 14 mg/dL Normal 7-18 [facility] ([place] Comment on above: Performed By: #### G FR, ANEU, TSH, LIPID, CBC, CMP, ADIFF #### [address] [place], [place] [address] LABORATORYOrdered By: SYSTEM SYSTEM on 08-12-2023 Albumin BCP dye [Mass/Vol] 3.9 G/dL Normal 3.4 - 4.8 G/dL AO ADM SS Albumin/Globulin [Mass ratio] 1.2 {ratio} Normal 1.1 - 2.5 ratio AO ADM SS ALP [Catalytic activity/Vol] 75 U/L Normal 40 - 135 U/L AO ADM SS ALT With P-5'-P [Catalytic activity/Vol] 29 U/L Normal 14 - 59 U/L AO ADM SS AST With P-5'-P [Catalytic activity/Vol] 18 U/L Normal 10 - 40 U/L AO ADM SS Basophil, Absolute 0.0 103/mcL Normal 0.0 - 0.2 10^3/mcL AO Workflow SS Basophils/100 WBC (Bld) 0.7 % Normal 0.0 - 2.5 % AO Workflow SS Bilirubin [Mass/Vol] 0.4 mg/dL Normal 0.2 - 1 .0 mg/dL AO ADM SS Comment on above: Interpretive Data: U se of this assay is not recommended for patients undergoing treatment with eltrombopag due to the potential for falsely elevated results. Calcium [Mass/Vol] 9.2 mg/dL Normal 8.4 - 10. 2 mg/dL AO ADM SS Chloride [Moles/Vol] 105 mmol/L Normal 98 - 10 7 mmol/L AO ADM SS CO2 [Moles/Vol] 28 mmol/L Normal 23 - 31 mmol/L AO ADM SS Creatinine [Mass/Vol] 0.89 mg/dL Normal 0.55 - 1.02 mg/dL AO ADM SS Electrolyte Balance 11.0 mEq/L Normal 4.0 - 15 .0 mEq/L AO ADM SS Eosinophil, Absolute 0.2 103/mcL Normal 0.0 - 0 .4 10^3/mcL AO Workflow SS Eosinophils/100 WBC (Bld) 3.6 % Normal 0.0 - 7.0 % AO Workflow SS Erythrocyte distribution width (RBC) [Ratio] 13.8 % Normal 11.5 - 14.5 % AO Workflow SS GFR/1.73 sq M.predicted among blacks MDRD (S/P/Bld) [Vol rate/Area] 76 ml/min/1.73sqm Invalid Interpretation Code AO Chemistry S Comment on above: Interpretive Data: GFR Population mean for , Non- Americans Ages 20-29 = 116 mL/min/1.73 sq.m. Ages 30-39 = 107 mL/min/1.73 sq.m. Ages 40-49 = 99 mL/min/1.73 sq.m. Ages 50-59 = 93 mL/min/1.73 sq.m. Ages 60-69 = 85 mL/min/1.73 sq.m. Ages 70+ = 75 mL/min/1.73 sq.m. Chronic Kidney Disease: Less than 60 mL/min/1.73 square meters End Stage Renal Disease: Less than 15 mL/min/1.73 square meters GFR/1.73 sq M.predicted among non-blacks MDRD (S/P/Bld) [Vol rate/Area] 63 ml/min/1.73sqm Invalid Interpretation Code AO Chemistry S Comment on above: Interpretive Data: GFR Population mean for , Non- Americans Ages 20-29 = 116 mL/min/1.73 sq.m. Ages 30-39 = 107 mL/min/1.73 sq.m. Ages 40-49 = 99 mL/min/1.73 sq.m. Ages 50-59 = 93 mL/min/1.73 sq.m. Ages 60-69 = 85 mL/min/1.73 sq.m. Ages 70+ = 75 mL/min/1.73 sq.m. Chronic Kidney Disease: Less than 60 mL/min/1.73 square meters End Stage Renal Disease: Less than 15 mL/min/1.73 square meters Globulin 3.3 G/dL Invalid Interpretation Code AO ADM SS Glucose [Mass/Vol] 106 mg/dL Normal 80 - 115 mg/dL AO ADM SS Hematocrit (Bld) [Volume fraction] 44.0 % Normal 37.0 - 47.0 % AO Workflow SS Hemoglobin (Bld) [Mass/Vol] 14.8 G/dL Normal 12.0 - 16.0 G/dL AO Workflow SS Lymphocyte, Absolute 1.2 103/mcL Normal 0.8 - 3 .9 10^3/mcL AO Workflow SS Lymphocytes/100 WBC (Bld) 21.4 % Normal 10.0 - 50.0 % AO Workflow SS MCH (RBC) [Entitic mass] 30.3 pg Normal 27.0 - 31.2 pg AO Workflow SS MCHC 33.6 G/dL Normal 33.0 - 37.0 G/dL AO Workflow SS MCV (RBC) [Entitic vol] 90.1 fL Normal 80.0 - 94.0 fL AO Workflow SS Monocyte, Absolute 0.4 103/mcL Normal 0.2 - 1.0 10^3/mcL AO Workflow SS Monocytes/100 WBC (Bld) 7.3 % Normal 1.7 - 13.0 % AO Workflow SS Neutrophil, Absolute 3.9 103/mcL Normal 2.9 - 6 .2 10^3/mcL AO Workflow SS Neutrophils/100 WBC (Bld) 67.0 % Normal 37.0 - 80.0 % AO Workflow SS Platelet mean volume (Bld) [Entitic vol] 7.3 fL Low 7.4 - 10.4 fL AO Workflow SS Platelets (Bld) [#/Vol] 272 103/mcL Normal 130 - 400 10^3/mcL AO Workflow SS Potassium [Moles/Vol] 4.2 mmol/L Normal 3.5 - 5.1 mmol/L AO ADM SS Protein [Mass/Vol] 7.2 G/dL Normal 6.4 - 8.2 G/dL AO ADM SS RBC (Bld) [#/Vol] 4.88 106/mcL Normal 4.20 - 5.4 0 10^6/mcL AO Workflow SS Sodium [Moles/Vol] 144 mmol/L Normal 136 - 145 mmol/L AO ADM SS TSH Qn 2.47 m[IU]/L Normal 0.36 - 3.74 mcIU/mL AO ADM SS Urea nitrogen [Mass/Vol] 14 mg/dL Normal 7 - 18 mg/dL AO ADM SS Urea nitrogen/Creatinine [Mass ratio] 16 ratio Normal 7 - 27 ratio AO ADM SS WBC (Bld) [#/Vol] 5.8 103/mcL Normal 4.6 - 10.8 10^3/mcL AO Workflow SS LABORATORYOrdered By: Angela Fernandes on 08-12-2023 Cholesterol [Mass/Vol] 249 mg/dL High 0 - 2 00 mg/dL AO ADM SS Comment on above: Interpretive Data: C holesterol Reference Interval: Less than 200 Desirable 200-239 Borderline high risk 240 and above High risk Cholesterol in HDL [Mass/Vol] 69 mg/dL High 40 - 60 mg/dL AO ADM SS Cholesterol in LDL [Mass/Vol] 156 mg/dL High 0 - 130 mg/dL AO ADM SS Triglyceride [Mass/Vol] 119 mg/dL Normal 0 - 150 mg/dL AO ADM SS Comment on above: Interpretive Data: T riglyceride Reference Interval: Less than 150 Normal 150-199 Borderline high risk 200-499 High risk 500 or higher Very high risk LIPIDon 08-12-2023 Cholesterol [Mass/Vol] 249 mg/dL High 0-200 [facility] Comment on above: Result Comment: Chol esterol Reference Interval: Less than 200 Desirable 200-239 Borderline high risk 240 and above High risk Performed By: #### G FR, ANEU, TSH, LIPID, CBC, CMP, ADIFF #### [address] [address] Cholesterol in HDL [Mass/Vol] 69 mg/dL High 40-60 [facility] ([place]) Comment on above: Performed By: #### G FR, ANEU, TSH, LIPID, CBC, CMP, ADIFF #### [address] [place], [place] [address] Cholesterol in LDL [Mass/Vol] 156 mg/dL High 0-130 [facility] ([place]) Comment on above: Performed By: #### G FR, ANEU, TSH, LIPID, CBC, CMP, ADIFF #### [facility] [address] [place], [place] [address] Triglyceride [Mass/Vol] 119 mg/dL Normal 0-150 [facility] ([place]) Comment on above: Result Comment: Trig lyceride Reference Interval: Less than 150 Normal 150-199 Borderline high risk 200-499 High risk 500 or higher Very high risk Performed By: #### G FR, ANEU, TSH, LIPID, CBC, CMP, ADIFF #### [facility] [address] [place], [place] [address] [place] MYOCARDIAL SPECT STRESS/R ESTon 08-12-2023 NM MYOCARDIAL SPECT STRESS/REST ORIGINAL NM MYOCARDIAL SPECT STRESS/REST CLINICAL STATEMENT:shortness of breath with exertion TECHNIQUE: Patient exercised for 6 minutes and 6 seconds on a Axel protocol achieving a maximum heart rate of 153 bpm which represents 101% predicted. Blood pressure at peak exercise 210/94. Rate-pressure product 88765 Radiopharmaceutical(re st): Tc-99m Sestamibi IV Dose:10.6 mCi Radiopharmaceutical(st ress): Tc-99m Sestamibi IV Dose:31.3 mCi SPECT acquisition: SPECT reconstruction and reorientation into short axis, vertical and horizontal long axis planes Quantitative LVEF assessment COMPARISON:none REPORT:Technically difficult study. Motion is noted on review of rotating raw images. Dextrocardia noted. No clear fixed or reversible perfusion defects are noted left ventricular ejection fraction is 66%. Left ventricular end-diastolic volume is 52 mL and TID ratio 0.93. These values are within normal limits. IMPRESSION: No clear evidence of ischemia or infarction within the limitations of the study. Normal left ventricular ejection fraction. ECG portion will be dictated separately. Interpreted By: Driss Hernández Preliminary Report By: Driss Hernández Electronically Signed By: Driss Hernández Dictated Date: 08/12/2023 6:46:01 PM Prelim Date: 08/12/2023 6:46:01 PM Sign Date: 08/12/2023 6:48:41 PM Ordering Provider:Jil Zamora Normal [facility]) TSHon 08-12-2023 TSH Qn 2.47 m[IU]/L Normal 0.36-3.74 [facility]) Comment on above: Performed By: #### G FR, ANEU, TSH, LIPID, CBC, CMP, ADIFF #### [id number] [place], [place] [address] Basophil percentageOrdered B y: Jil Zamora on 08-08-2023 Bilirubin [Mass/Vol] 0.30 mg/dL 0.20-1.00 [facility] Comment on above: For patients on eltr ombopag therapy, use of Dimension [place] TBIL is not recommended. Chloride [Moles/Vol] 106 mmol/L 98-107 [facility] Cholesterol [Mass/Vol] 235 mg/dL <200 [facility] Comment on above: <200 mg/dL Desirable 200-240 mg/dL Borderline >240 mg/dL High Risk Glucose [Mass/Vol] 91 mg/dL 74-106 [facility] Hemoglobin (Bld) [Mass/Vol] 14.8 g/dL 12.0-15.0 [facility] Potassium [Moles/Vol] 4.0 mmol/L 3.5-5.1 [facility] Protein [Mass/Vol] 7.3 g/dL 6.4-8.2 [facility] Sodium [Moles/Vol] 140 mmol/L 136-145 [facility] Triglyceride [Mass/Vol] 124 mg/dL <199 [facility] Comment on above: The drugs N-Acetylcy steine and Metamizole may falsely depress this assay.Serum Triglycerides Reference Interval Normal <150 mg/dL Borderline high 150 - 199 mg/dL High 200 - 499 mg/dL Very High > or = 500 mg/dL WBC (Bld) [#/Vol] 5.5 10*3/uL 4.4-11.0 [facility] Determination of erythrocyte mean corpuscular volume (MCV)Ordered By: Jil Zamora on 08-08-2023 MCV (RBC) [Entitic vol] 92.5 fL 81-99 [facility] Erythrocyte distribution wid th ratioOrdered By: Jil Zamora on 08-08-2023 Erythrocyte distribution width (RBC) [Ratio] 13.0 % 11.6-14.6 [facility] Erythrocyte distribution wid th standard deviationOrdered By: Jil Zamora on 08-08-2023 Erythrocyte distribution width (RBC) [Entitic vol] 44.2 fL 35.1-43.9 [facility] Hematocrit Auto (Bld) [Volum e fraction]Ordered By: Jil Zamora on 08-08-2023 Hematocrit (Bld) [Volume fraction] 46.6 % 37-47 [facility] High density lipoprotein (HD L) measurementOrdered By: Jil Zamora on 08-08-2023 Cholesterol in HDL (Body fld) [Mass/Vol] 64 mg/dL >40 [facility] Comment on above: The drugs N-Acetylcy steine and Metamizole may falsely depress this assay. Reference Range HDL <40 mg/dL Low HDL Cholesterol HDL >or= 60 mg/dL High HDL Cholesterol Laboratory - Chemistry and C hemistry - challengeOrdered By: Jil Zamora on 08-08-2023 Albumin/Globulin [Mass ratio] 1.1 {ratio} 0.9-2.4 [facility] ALP [Catalytic activity/Vol] 72 U/L 45-117 [facility] ALT [Catalytic activity/Vol] 28 U/L 13-56 [facility] CO2 [Moles/Vol] 30.0 mmol/L 21.0-32.0 [facility] Globulin (S) [Mass/Vol] 3.5 g/dL 2.2-4.2 [facility] Urea nitrogen/Creatinine [Mass ratio] 12.5 mg/mg 10-20 [facility] - Hematology and Cell countsOrdered By: Jil Zamora on 08-08-2023 MCH (RBC) [Entitic mass] 29.4 pg 27.0-32.0 [facility] MCHC (RBC) [Mass/Vol] 31.8 g/dL 32-36 [facility] Platelets (Bld) [#/Vol] 299 10*3/uL 150-450 [facility] Low density lipoprotein (LDL ) cholesterol measurementOrdered By: Jil Zamora on 08-08-2023 Cholesterol in LDL (Body fld) [Moles/Vol] 146 mg/dL 0-130 [facility] No Panel InformationOrdered By: Jil Zamora on 08-08-2023 Estimated GFR (MDRD) Amer 91 mL/min >60 [facility] Comment on above: GFR Calc Estimated GFR (MDRD) Non-Af Amer 75 mL/min >60 [facility] Comment on above: Non- GFR Calc Platelet mean volume [facility] ker (Bld) [Entitic vol]Ordered By: Jil Zamora on 08-08-2023 Platelet mean volume (Bld) [Entitic vol] 9.3 fL 6.2-12.0 [facility] RBC Auto (Bld) [#/Vol]Ordere d By: Jil Zamora on 08-08-2023 RBC (Bld) [#/Vol] 5.04 10*6/uL 4.2-5.4 [facility] Serum or plasma calcium parth urement (mass/volume)Ordered By: Jil Zamora on 08-08-2023 Calcium [Mass/Vol] 8.9 mg/dL 8.5-10.1 [facility] Serum or plasma creatinine m easurement (mass/volume)Ordered By: Jil Zamora on 08-08-2023 Creatinine [Mass/Vol] 0.80 mg/dL 0.55-1.02 [facility] Comment on above: The validity of the calculated GFR & GFRAA in patients over 70 years has not been determined. Clinical correlation is essential. Serum or plasma thyroid stim ulating hormone (TSH) measurement (units/volume)Ordered By: Jil Zamora on 08-08-2023 TSH Qn 2.52 uIU/mL 0.358-3.74 [facility] Serum or plasma urea nitroge n measurement (mass/volume)Ordered By: Jil Zamora on 08-08-2023 Urea nitrogen [Mass/Vol] 10 mg/dL 7-18 [facility] Thin prep Papanicolaou smear with manual screeningOrdered By: Jil Zamora on 08-08-2023 Thin prep Papanicolaou smear with manual screening 3.8 g/dL 3.2-5.0 [facility] Thin prep Papanicolaou smear with manual screening 23 U/L 15-37 [facility] Thin prep Papanicolaou smear with manual screening 4 5-15 [facility] Very low density lipoprotein (VLDL) cholesterol measurementOrdered By: Jil Zamora on 08-08-2023 Cholesterol in VLDL Calc [Moles/Vol] 25 mg/dL 5-40 [facility] Basophil percentageon 2022 Bilirubin [Mass/Vol] 0.40 mg/dL 0.20-1.00 [facility] Comment on above: For patients on eltr ombopag therapy, use of Dimension Allen TBIL is not recommended. Chloride [Moles/Vol] 106 mmol/L 98-107 [facility] Glucose [Mass/Vol] 88 mg/dL 74-106 [facility] Potassium [Moles/Vol] 4.0 mmol/L 3.5-5.1 [facility] Comment on above: Slight Hemolysis, Re sult may be falsely increased. Protein [Mass/Vol] 6.9 g/dL 6.4-8.2 [facility] Sodium [Moles/Vol] 139 mmol/L 136-145 [facility] WBC (Bld) [#/Vol] 5.3 10*3/uL 4.4-11.0 [facility] Blood erythrocytes count (nu mber/volume)on 02-15-2023 RBC (Bld) [#/Vol] 4.93 10*6/uL 4.2-5.4 [facility] Blood hemoglobin measurement (mass/volume)on 02-15-2023 Hemoglobin (Bld) [Mass/Vol] 15.0 g/dL 12.0-15.0 [facility] Blood platelet mean volumeon 02-15-2023 Platelet mean volume (Bld) [Entitic vol] 9.4 fL 6.2-12.0 [facility] Determination of erythrocyte mean corpuscular volume (MCV)on 02-15-2023 MCV (RBC) [Entitic vol] 92.3 fL 81-99 [facility] Hematocrit Auto (Bld) [Volum e fraction]on 02-15-2023 Hematocrit (Bld) [Volume fraction] 45.5 % 37-47 [facility] Laboratory - Chemistry and C hemistry - challengeon 02-15-2023 ALP [Catalytic activity/Vol] 78 U/L 45-117 [facility] ALT [Catalytic activity/Vol] 39 U/L 13-56 [facility] CO2 [Moles/Vol] 29.0 mmol/L 21.0-32.0 [facility] Globulin (S) [Mass/Vol] 3.3 g/dL 2.2-4.2 [facility] Urea nitrogen/Creatinine [Mass ratio] 13.4 mg/mg 10-20 [facility] - Hematology and Cell countson 02-15-2023 Erythrocyte distribution width (RBC) [Entitic vol] 42.7 fL 35.1-43.9 [facility] Erythrocyte distribution width (RBC) [Ratio] 12.6 % 11.6-14.6 [facility] MCH (RBC) [Entitic mass] 30.4 pg 27.0-32.0 [facility] MCHC Auto (RBC) [Mass/Vol]on 02-15-2023 MCHC (RBC) [Mass/Vol] 33.0 g/dL 32-36 [facility] No Panel Informationon 02-15 Estimated GFR (MDRD) Amer 89 mL/min >60 [facility] Comment on above: GFR Calc Estimated GFR (MDRD) Non-Af Amer 73 mL/min >60 [facility] Comment on above: Non- GFR Calc Platelets bldon 02-15-2023 Platelets (Bld) [#/Vol] 298 10*3/uL 150-450 [facility] Serum or plasma albumin parth urement (mass/volume)on 02-15-2023 Albumin [Mass/Vol] 3.6 g/dL 3.2-5.0 [facility] Serum or plasma albumin/glob ulin mass ratioon 02-15-2023 Albumin/Globulin [Mass ratio] 1.1 {ratio} 0.9-2.4 [facility] Serum or plasma calcium parth urement (mass/volume)on 02-15-2023 Calcium [Mass/Vol] 9.0 mg/dL 8.5-10.1 [facility] Serum or plasma creatinine m easurement (mass/volume)on 02-15-2023 Creatinine [Mass/Vol] 0.82 mg/dL 0.55-1.02 [facility] Comment on above: The validity of the calculated GFR & GFRAA in patients over 70 years has not been determined. Clinical correlation is essential. Serum or plasma urea nitroge n measurement (mass/volume)on 02-15-2023 Urea nitrogen [Mass/Vol] 11 mg/dL 7-18 [facility] Thin prep Papanicolaou smear with manual screeningon 02-15-2023 Thin prep Papanicolaou smear with manual screening 30 U/L 15 [facility] Comment on above: Slight Hemolysis, Re sult may be falsely increased. Thin prep Papanicolaou smear with manual screening 4 5-15 [facility] Absolute lymphocyte countOrd ered By: Dr. Ordonez on 01-02-2023 Lymphocytes Auto (Unsp spec) [#/Vol] 1.64 10*3/uL 0.83-4.51 [facility] Basophil percentageOrdered B y: Dr. Ordonez on 01-02-2023 Basophils/100 WBC (Bld) 1.4 % 0-1 [facility] Chloride [Moles/Vol] 115 mmol/L 98-107 [facility] Eosinophils/100 WBC (Bld) 4.7 % 0-5 [facility] Glucose [Mass/Vol] 95 mg/dL 74-106 [facility] Neutrophils (Bld) [#/Vol] 2.0 10*3/uL 2.0-7.7 [facility] Neutrophils/100 WBC (Bld) 46.4 % 47-70 [facility] Potassium [Moles/Vol] 3.8 mmol/L 3.5-5.1 [facility] Sodium [Moles/Vol] 142 mmol/L 136-145 [facility] WBC (Bld) [#/Vol] 4.3 10*3/uL 4.4-11.0 [facility] Blood erythrocytes count (nu mber/volume)Ordered By: Dr. Ordonez on 01-02-2023 RBC (Bld) [#/Vol] 4.41 10*6/uL 4.2-5.4 [facility] Blood hemoglobin measurement (mass/volume)Ordered By: Dr. Ordonez on 01-02-2023 Hemoglobin (Bld) [Mass/Vol] 13.3 g/dL 12.0-15.0 [facility] Blood lymphocytes/100 leukoc ytesOrdered By: Dr. Ordonez on 01-02-2023 Lymphocytes/100 WBC (Bld) 38.2 % 19-41 [facility] Blood monocytes/100 leukocyt esOrdered By: Dr. Ordonez on 01-02-2023 Monocytes/100 WBC (Bld) 9.1 % 0-10 [facility] Blood platelet mean volumeOr dered By: Dr. Ordonez on 01-02-2023 Platelet mean volume (Bld) [Entitic vol] 9.3 fL 6.2-12.0 [facility] Determination of erythrocyte mean corpuscular volume (MCV)Ordered By: Dr. Ordonez on 01-02-2023 MCV (RBC) [Entitic vol] 102.7 fL 81-99 [facility] Comment on above: Delta: 93.3 on 12/31 Hematocrit Auto (Bld) [Volum e fraction]Ordered By: Dr. Ordonez on 01-02-2023 Hematocrit (Bld) [Volume fraction] 45.3 % 37-47 [facility] - Chemistry and C hemistry - challengeOrdered By: Dr. Ordonez on 01-02-2023 CO2 [Moles/Vol] 22.0 mmol/L 21.0-32.0 [facility] Urea nitrogen/Creatinine [Mass ratio] 19.3 mg/mg 10-20 [facility] - Hematology and Cell countsOrdered By: Dr. Ordonez on 01-02-2023 Erythrocyte distribution width (RBC) [Entitic vol] 50.0 fL 35.1-43.9 [facility] Erythrocyte distribution width (RBC) [Ratio] 13.1 % 11.6-14.6 [facility] Immature granulocytes/100 WBC (Bld) 0.200 % 0.0-0.9 [facility] Comment on above: IG% - Immature Granu locytes (promyelocytes, myelocytes and metamyelocytes) > 1% indicates that a LEFT SHIFT is Present. MCH (RBC) [Entitic mass] 30.2 pg 27.0-32.0 [facility] Nucleated RBC/100 WBC (Bld) [Ratio] 0 % 0-5 [facility] MCHC Auto (RBC) [Mass/Vol]Or dered By: Dr. Ordonez on 01-02-2023 MCHC (RBC) [Mass/Vol] 29.4 g/dL 32-36 [facility] Comment on above: Delta: 32.3 on 12/31 No Panel InformationOrdered By: Dr. Ordonez on 01-02-2023 Estimated Creatinine Clearance Calc 45.85 ml/min [facility] Estimated GFR (MDRD) Amer 102 mL/min >60 [facility] Comment on above: GFR Calc Estimated GFR (MDRD) Non-Af Amer 85 mL/min >60 [facility] Comment on above: Non- GFR Calc Platelets bldOrdered By: Dr. Ordonez on 01-02-2023 Platelets (Bld) [#/Vol] 222 10*3/uL 150-450 [facility] Serum or plasma calcium parth urement (mass/volume)Ordered By: Dr. Ordonez on 01-02-2023 Calcium [Mass/Vol] 8.1 mg/dL 8.5-10.1 [facility] Serum or plasma creatinine m easurement (mass/volume)Ordered By: Dr. Ordonez on 01-02-2023 Creatinine [Mass/Vol] 0.72 mg/dL 0.55-1.02 [facility] Comment on above: The validity of the calculated GFR & GFRAA in patients over 70 years has not been determined. Clinical correlation is essential. Serum or plasma urea nitroge n measurement (mass/volume)Ordered By: Dr. Ordonez on 01-02-2023 Urea nitrogen [Mass/Vol] 14 mg/dL - [facility] Thin prep Papanicolaou smear with manual screeningOrdered By: Dr. Ordonez on 01-02-2023 Thin prep Papanicolaou smear with manual screening 5 5-15 [facility] Absolute lymphocyte countOrd ered By: Dr. Smith on 12-31-2022 Lymphocytes Auto (Unsp spec) [#/Vol] 1.39 10*3/uL 0.83-4.51 [facility] Basophil percentageOrdered B y: Dr. Smith on 12-31-2022 Basophils/100 WBC (Bld) 1.3 % 0-1 [facility] Bilirubin [Mass/Vol] 0.40 mg/dL 0.20-1.00 [facility] Comment on above: For patients on eltr ombopag therapy, use of Dimension Allen TBIL is not recommended. Chloride [Moles/Vol] 105 mmol/L 98-107 [facility] Eosinophils/100 WBC (Bld) 2.9 % 0-5 [facility] Glucose [Mass/Vol] 96 mg/dL 74-106 [facility] Neutrophils (Bld) [#/Vol] 3.1 10*3/uL 2.0-7.7 [facility] Neutrophils/100 WBC (Bld) 59.8 % 47-70 [facility] Potassium [Moles/Vol] 4.1 mmol/L 3.5-5.1 [facility] Protein [Mass/Vol] 7.7 g/dL 6.4-8.2 [facility] Sodium [Moles/Vol] 142 mmol/L 136-145 [facility] WBC (Bld) [#/Vol] 5.2 10*3/uL 4.4-11.0 [facility] Blood erythrocytes count (nu mber/volume)Ordered By: Dr. Smith on 12-31-2022 RBC (Bld) [#/Vol] 5.34 10*6/uL 4.2-5.4 [facility] Blood hemoglobin measurement (mass/volume)Ordered By: Dr. Smith on 12-31-2022 Hemoglobin (Bld) [Mass/Vol] 16.1 g/dL 12.0-15.0 [facility] Blood lymphocytes/100 leukoc ytesOrdered By: Dr. Smith on 12-31-2022 Lymphocytes/100 WBC (Bld) 26.6 % 19-41 [facility] Blood monocytes/100 leukocyt esOrdered By: Dr. Smith on 12-31-2022 Monocytes/100 WBC (Bld) 9.2 % 0-10 [facility] Blood platelet mean volumeOr dered By: Dr. Smith on 12-31-2022 Platelet mean volume (Bld) [Entitic vol] 9.7 fL 6.2-12.0 [facility] Determination of erythrocyte mean corpuscular volume (MCV)Ordered By: Dr. Smith on 12-31-2022 MCV (RBC) [Entitic vol] 93.3 fL 81-99 [facility] Hematocrit Auto (Bld) [Volum e fraction]Ordered By: Dr. Smith on 12-31-2022 Hematocrit (Bld) [Volume fraction] 49.8 % 37-47 [facility] - Chemistry and C hemistry - challengeOrdered By: Dr. Smith on 12-31-2022 ALP [Catalytic activity/Vol] 77 U/L 45-117 [facility] ALT [Catalytic activity/Vol] 30 U/L 13-56 [facility] CO2 [Moles/Vol] 29.0 mmol/L 21.0-32.0 [facility] Globulin (S) [Mass/Vol] 3.7 g/dL 2.2-4.2 [facility] Urea nitrogen/Creatinine [Mass ratio] 16.7 mg/mg 10-20 [facility] - Hematology and Cell countsOrdered By: Dr. Smith on 12-31-2022 Erythrocyte distribution width (RBC) [Entitic vol] 43.8 fL 35.1-43.9 [facility] Erythrocyte distribution width (RBC) [Ratio] 12.9 % 11.6-14.6 [facility] Immature granulocytes/100 WBC (Bld) 0.200 % 0.0-0.9 [facility] Comment on above: IG% - Immature Granu locytes (promyelocytes, myelocytes and metamyelocytes) > 1% indicates that a LEFT SHIFT is Present. MCH (RBC) [Entitic mass] 30.1 pg 27.0-32.0 [facility] Nucleated RBC/100 WBC (Bld) [Ratio] 0 % 0-5 [facility] MCHC Auto (RBC) [Mass/Vol]Or dered By: Dr. Smith on 12-31-2022 MCHC (RBC) [Mass/Vol] 32.3 g/dL 32-36 [facility] No Panel InformationOrdered By: Dr. Smith on 12-31-2022 Estimated Creatinine Clearance Calc 54.58 ml/min [facility] Estimated GFR (MDRD) Amer 86 mL/min >60 [facility] Comment on above: GFR Calc Estimated GFR (MDRD) Non-Af Amer 71 mL/min >60 [facility] Comment on above: Non- GFR Calc Troponin I High Sensitivity 6 pg/mL 3.0-54.0 [facility] Comment on above: Please Note: New Shahnaz t Units and Gender Specific Reference Ranges. For more information see Policy Stat Procedure Allen High Sensitivity Troponin (TNIH) and attachments. Platelets bldOrdered By: Dr. Smith on 12-31-2022 Platelets (Bld) [#/Vol] 277 10*3/uL 150-450 [facility] Serum or plasma albumin parth urement (mass/volume)Ordered By: Dr. Smith on 12-31-2022 Albumin [Mass/Vol] 4.0 g/dL 3.2-5.0 [facility] Serum or plasma albumin/glob ulin mass ratioOrdered By: Dr. Smith on 12-31-2022 Albumin/Globulin [Mass ratio] 1.1 {ratio} 0.9-2.4 [facility] Serum or plasma calcium parth urement (mass/volume)Ordered By: Dr. Smith on 12-31-2022 Calcium [Mass/Vol] 10.2 mg/dL 8.5-10.1 [facility] Serum or plasma creatinine m easurement (mass/volume)Ordered By: Dr. mSith on 12-31-2022 Creatinine [Mass/Vol] 0.84 mg/dL 0.55-1.02 [facility] Comment on above: The validity of the calculated GFR & GFRAA in patients over 70 years has not been determined. Clinical correlation is essential. Serum or plasma urea nitroge n measurement (mass/volume)Ordered By: Dr. Smith on 12-31-2022 Urea nitrogen [Mass/Vol] 14 mg/dL 7-18 [facility] Thin prep Papanicolaou smear with manual screeningOrdered By: Dr. Smith on 12-31-2022 Thin prep Papanicolaou smear with manual screening 22 U/L 15-37 [facility] Thin prep Papanicolaou smear with manual screening 8 5-15 [facility] CNOVon 11-16-2022 CNOV Office Visit (LILIYA ) ZENY REECE ([id number]) 1955 F Date Time Provider Department 11/16/22 9:30 AM KRYSTIN NGUYỄN During your visit today, we recorded the following information about you: Temperature Pulse Blood pressure Weight 97.2 degrees 94/minute 142/84 68.5 kg Krystin Nguyễn MD 11/19/2022 2:01 PM Signed FOLLOW UP VISIT NAME: Zeny Reece CLINIC NO.: [id number] DATE OF SERVICE: 11/16/2022 : 1955 REFERRING PHYSICIAN: Jil Zamora, , DO Zeny is status post breast biopsy. [...] THIS IS A NO CHARGE VISIT Krystin Nguyễn MD Allergies As of Date: 11/16/2022 (No Known Allergies) Date Reviewed: 11/16/2022 Reviewed by: Ofe Lewis - Fully Assessed Reason for Visit: Follow Up [171] Primary Visit Diagnosis:Status post breast biopsy [Z98.890] Prescriptions as of 11/19/2022 - folic acid/multivit-min/lute in (CENTRUM SILVER ORAL) Take by mouth once daily. - Promethazine-DM (PHENERGAN-DM) 6.25-15 mg/5 mL syrup Take by mouth four times daily as needed. - flaxseed oil (OMEGA 3 ORAL) Take by mouth twice daily. - cholecalciferol, vitamin D3, (VITAMIN D3 ORAL) Take by mouth. - MULTIVITAMIN ORAL Take by mouth once daily. - anastrozole (ARIMIDEX) 1 mg tablet 1 tablet once daily. - OTC PRODUCT 2 tablets once daily. Power C - VITAMIN B COMPLEX (B COMPLEX 1 ORAL) Take 1 tablet by mouth once daily. - RED YEAST RICE ORAL Take 2 tablets by mouth once daily. - Cholecalciferol, Vitamin D3, 50 mcg (2,000 unit) cap Take 1 tablet by mouth once daily. - Ca-D3-mag [id number]-ezb-devora-bor 600 mg calcium- 20 mcg-50 mg tab Take 1 tablet by mouth once daily. Problem List As Of Date: 11/16/2022 (None) Disposition: Return if symptoms worsen or fail to improve. Follow-up and Disposition History for Encounter Date Provider Department Center 11/16/2022 [id number], LINDA NAGI [facility]ael[facility] Encounter Status:Closed by KRYSTIN NGUYỄN on 11/19/22 Normal [facility] Basophil percentageOrdered B y: Dr. Zamora on 11-11-2022 Bilirubin [Mass/Vol] 0.50 mg/dL 0.20-1.00 [facility] Comment on above: For patients on eltr ombopag therapy, use of Dimension Allen TBIL is not recommended. Chloride [Moles/Vol] 108 mmol/L 98-107 [facility] Cholesterol [Mass/Vol] 234 mg/dL <200 [facility] Comment on above: <200 mg/dL Desirable 200-240 mg/dL Borderline >240 mg/dL High Risk Glucose [Mass/Vol] 92 mg/dL 74-106 [facility] Potassium [Moles/Vol] 3.7 mmol/L 3.5-5.1 [facility] Protein [Mass/Vol] 6.6 g/dL 6.4-8.2 [facility] Sodium [Moles/Vol] 139 mmol/L 136-145 [facility] Triglyceride [Mass/Vol] 144 mg/dL <199 [facility] Comment on above: The drugs N-Acetylcy steine and Metamizole may falsely depress this assay.Serum Triglycerides Reference Interval Normal <150 mg/dL Borderline high 150 - 199 mg/dL High 200 - 499 mg/dL Very High > or = 500 mg/dL Laboratory - Chemistry and C hemistry - challengeOrdered By: Dr. Zamora on 11-11-2022 ALP [Catalytic activity/Vol] 64 U/L 45-117 [facility] ALT [Catalytic activity/Vol] 25 U/L 13-56 [facility] CO2 [Moles/Vol] 31.0 mmol/L 21.0-32.0 [facility] Globulin (S) [Mass/Vol] 3.2 g/dL 2.2-4.2 [facility] Urea nitrogen/Creatinine [Mass ratio] 17.4 mg/mg 10-20 [facility] No Panel InformationOrdered By: Dr. Zamora on 11-11-2022 Estimated GFR (MDRD) Amer 91 mL/min >60 [facility] Comment on above: GFR Calc Estimated GFR (MDRD) Non-Af Amer 75 mL/min >60 [facility] Comment on above: Non- GFR Calc Serum or plasma albumin parth urement (mass/volume)Ordered By: Dr. Zamora on 11-11-2022 Albumin [Mass/Vol] 3.4 g/dL 3.2-5.0 [facility] Serum or plasma albumin/glob ulin mass ratioOrdered By: Dr. Zamora on 11-11-2022 Albumin/Globulin [Mass ratio] 1.1 {ratio} 0.9-2.4 [facility] Serum or plasma calcium parth urement (mass/volume)Ordered By: Dr. Zamora on 11-11-2022 Calcium [Mass/Vol] 8.9 mg/dL 8.5-10.1 [facility] Serum or plasma cholesterol in HDL measurement (mass/volume)Ordered By: Dr. Zamora on 11-11-2022 Cholesterol in HDL [Mass/Vol] 61 mg/dL >40 [facility] Comment on above: The drugs N-Acetylcy steine and Metamizole may falsely depress this assay. Reference Range HDL <40 mg/dL Low HDL Cholesterol HDL >or= 60 mg/dL High HDL Cholesterol Serum or plasma cholesterol in VLDL measurement (mass/volume)Ordered By: Dr. Zamora on 11-11-2022 Cholesterol in VLDL [Mass/Vol] 29 mg/dL 5-40 [facility] Serum or plasma creatinine m easurement (mass/volume)Ordered By: Dr. Zamora on 11-11-2022 Creatinine [Mass/Vol] 0.80 mg/dL 0.55-1.02 [facility] Comment on above: The validity of the calculated GFR & GFRAA in patients over 70 years has not been determined. Clinical correlation is essential. Serum or plasma low density lipoprotein (LDL) cholesterol measurement (mass/volume)Ordered By: Dr. Zamora on 11-11-2022 Cholesterol in LDL [Mass/Vol] 144 mg/dL 0-130 [facility] Serum or plasma urea nitroge n measurement (mass/volume)Ordered By: Dr. Zamora on 11-11-2022 Urea nitrogen [Mass/Vol] 14 mg/dL 7-18 [facility] Thin prep Papanicolaou smear with manual screeningOrdered By: Dr. Zamora on 11-11-2022 Thin prep Papanicolaou smear with manual screening 22 U/L 15-37 [facility] Thin prep Papanicolaou smear with manual screening 0 5-15 [facility] CNOVon 10-07-2022 CNOV Office Visit (ADELAIDAS ) ZENY REECE ([id number]) 1955 F Date Time Provider Department 10/07/22 9:30 AM KRYSTIN NGUYỄN During your visit today, we recorded the following information about you: Temperature Pulse Blood pressure 97.4 degrees 78/minute 118/80 Krystin Nguyễn MD 10/10/2022 12:36 PM Signed FOLLOW UP VISIT NAME: Zeny Reynolds Java CLINIC NO.: [id number] DATE OF SERVICE: 10/07/2022 : 1955 REFERRING PHYSICIAN: Jil Zamora DO, DO Jeanette is s/p left stereotactic breast biopsy done [...] This is a no charge visit. Krystin Nguyễn MD Allergies As of Date: 10/07/2022 (No Known Allergies) Date Reviewed: 10/07/2022 Reviewed by: Chloe Gan LPN - Fully Assessed Reason for Visit: Follow Up [171] Cmt: 2 WEEK LEFT BREAST BIOPSY Visit Diagnoses:Breast infection [N61.0] Status post breast biopsy [Z98.890] Prescriptions as of 10/10/2022 - Promethazine-DM (PHENERGAN-DM) 6.25-15 mg/5 mL syrup Take by mouth four times daily as needed. - flaxseed oil (OMEGA 3 ORAL) Take by mouth twice daily. - cholecalciferol, vitamin D3, (VITAMIN D3 ORAL) Take by mouth. - MULTIVITAMIN ORAL Take by mouth once daily. - anastrozole (ARIMIDEX) 1 mg tablet 1 tablet once daily. - OTC PRODUCT 2 tablets once daily. Power C - VITAMIN B COMPLEX (B COMPLEX 1 ORAL) Take 1 tablet by mouth once daily. - RED YEAST RICE ORAL Take 2 tablets by mouth once daily. - Cholecalciferol, Vitamin D3, 50 mcg (2,000 unit) cap Take 1 tablet by mouth once daily. - Ca-D3-mag ty-ilya-xjq-devora-bor 600 mg calcium- 20 mcg-50 mg tab Take 1 tablet by mouth once daily. Problem List As Of Date: 10/07/2022 (None) Disposition: Return in about 4 weeks (around 11/04/2022). Follow-up and Disposition History for Encounter Date Provider Department Center 10/07/2022 [id number] NGUYỄN [facility] Encounter Status:Closed by KRYSTIN NGUYỄN on 10/10/22 [facility] CNOVon 09-16-2022 CNOV Office Visit (LILIYA ) ZENY REECE ([id number]) 1955 F Date Time Provider Department 09/16/22 9:30 AM KRYSTIN NGUYỄN During your visit today, we recorded the following information about you: Temperature Pulse Blood pressure Weight 97.2 degrees 83/minute 146/80 67.1 kg Height 1.626 m Krystin Nguyễn MD 09/18/2022 10:04 AM Signed FOLLOW UP VISIT NAME: Zeny Reece CLINIC NO.: [id number] DATE OF SERVICE: 09/16/2022 : 1955 REFERRING PHYSICIAN: Jil Zamora DO, DO Zeny is s/p left stereotactic breast biopsy done on 06/29/2022. She presents for follow up VITALS: Blood pressure 146/80, pulse 83, temperature 36.2 ?C (97.2 ?F), height 162.6 cm (5' 4"), weight 67.1 kg (148 lb), SpO2 99 [...] This is a no charge visit Krystin Nguyễn MD Referring Provider: SELF [200] Allergies As of Date: 09/16/2022 (No Known Allergies) Date Reviewed: 09/16/2022 Reviewed by: Cristina Lisa LPN - Fully Assessed Reason for Visit: Follow Up [171] Cmt: Left Breast infection Primary Visit Diagnosis:Breast infection [N61.0] Other Visit Diagnosis:Status post breast biopsy [Z98.890] Prescriptions as of 09/18/2022 - Promethazine-DM (PHENERGAN-DM) 6.25-15 mg/5 mL syrup Take by mouth four times daily as needed. - flaxseed oil (OMEGA 3 ORAL) Take by mouth twice daily. - cholecalciferol, vitamin D3, (VITAMIN D3 ORAL) Take by mouth. - MULTIVITAMIN ORAL Take by mouth once daily. - anastrozole (ARIMIDEX) 1 mg tablet 1 tablet once daily. - OTC PRODUCT 2 tablets once daily. Power C - VITAMIN B COMPLEX (B COMPLEX 1 ORAL) Take 1 tablet by mouth once daily. - RED YEAST RICE ORAL Take 2 tablets by mouth once daily. - Cholecalciferol, Vitamin D3, 50 mcg (2,000 unit) cap Take 1 tablet by mouth once daily. - Ca-D3-mag wk-gnhj-ndi-devora-bor 600 mg calcium- 20 mcg-50 mg tab Take 1 tablet by mouth once daily. Problem List As Of Date: 09/16/2022 (None) Disposition: Return in about 2 weeks (around 09/30/2022). Follow-up and Disposition History for Encounter Date Provider Department Center 09/16/2022 [id number] NGUYỄN [facility] Encounter Status:Closed by KRYSTIN NGUYỄN on 09/18/22 Normal [facility] Absolute lymphocyte countOrd ered By: Dr. Lantigua on 09-06-2022 Lymphocytes Auto (Unsp spec) [#/Vol] 2.29 10*3/uL 0.83-4.51 [facility] Basophil percentageOrdered B y: Dr. Lantigua on 09-06-2022 Basophils/100 WBC (Bld) 0.7 % 0-1 [facility] Chloride [Moles/Vol] 105 mmol/L 98-107 [facility] Eosinophils/100 WBC (Bld) 0.9 % 0-5 [facility] Glucose [Mass/Vol] 110 mg/dL 74-106 [facility] Comment on above: Fasting Glucose resu lt from 100 to 125 mg/dL suggests IMPAIRED HOMEOSTASIS per A.D.A. criteria. Neutrophils (Bld) [#/Vol] 3.9 10*3/uL 2.0-7.7 [facility] Neutrophils/100 WBC (Bld) 57.3 % 47-70 [facility] Potassium [Moles/Vol] 3.4 mmol/L 3.5-5.1 [facility] Sodium [Moles/Vol] 142 mmol/L 136-145 [facility] WBC (Bld) [#/Vol] 6.9 10*3/uL 4.4-11.0 [facility] Blood erythrocytes count (nu mber/volume)Ordered By: Dr. Lantigua on 09-06-2022 RBC (Bld) [#/Vol] 5.01 10*6/uL 4.2-5.4 [facility] Blood hemoglobin measurement (mass/volume)Ordered By: Dr. Lantigua on 09-06-2022 Hemoglobin (Bld) [Mass/Vol] 14.9 g/dL 12.0-15.0 [facility] Blood lymphocytes/100 leukoc ytesOrdered By: Dr. Lantigua on 09-06-2022 Lymphocytes/100 WBC (Bld) 33.2 % 19-41 [facility] Blood monocytes/100 leukocyt esOrdered By: Dr. Lantigua on 09-06-2022 Monocytes/100 WBC (Bld) 7.5 % 0-10 [facility] Blood platelet mean volumeOr dered By: Dr. Lantigua on 09-06-2022 Platelet mean volume (Bld) [Entitic vol] 9.4 fL 6.2-12.0 [facility] Determination of erythrocyte mean corpuscular volume (MCV)Ordered By: Dr. Lantigua on 09-06-2022 MCV (RBC) [Entitic vol] 93.4 fL 81-99 [facility] Hematocrit Auto (Bld) [Volum e fraction]Ordered By: Dr. Lantigua on 09-06-2022 Hematocrit (Bld) [Volume fraction] 46.8 % 37-47 [facility] Laboratory - Chemistry and C hemistry - challengeOrdered By: Dr. Lantigua on 09-06-2022 CO2 [Moles/Vol] 29.0 mmol/L 21.0-32.0 [facility] Urea nitrogen/Creatinine [Mass ratio] 17.6 mg/mg 10-20 [facility] - Hematology and Cell countsOrdered By: Dr. Lantigau on 09-06-2022 Erythrocyte distribution width (RBC) [Entitic vol] 45.0 fL 35.1-43.9 [facility] Erythrocyte distribution width (RBC) [Ratio] 13.2 % 11.6-14.6 [facility] Immature granulocytes/100 WBC (Bld) 0.400 % 0.0-0.9 [facility] Comment on above: IG% - Immature Granu locytes (promyelocytes, myelocytes and metamyelocytes) > 1% indicates that a LEFT SHIFT is Present. MCH (RBC) [Entitic mass] 29.7 pg 27.0-32.0 [facility] Nucleated RBC/100 WBC (Bld) [Ratio] 0 % 0-5 [facility] MCHC Auto (RBC) [Mass/Vol]Or dered By: Dr. Lantigua on 09-06-2022 MCHC (RBC) [Mass/Vol] 31.8 g/dL 32-36 [facility] No Panel InformationOrdered By: Dr. Lantigua on 09-06-2022 Troponin I High Sensitivity 7 pg/mL 3.0-54.0 [facility] Comment on above: Please Note: New Shahnaz t Units and Gender Specific Reference Ranges. For more information see Policy Stat Procedure Allen High Sensitivity Troponin (TNIH) and attachments. Estimated Creatinine Clearance Calc 51.09 ml/min [facility] Estimated GFR (MDRD) Amer 79 mL/min >60 [facility] Comment on above: GFR Calc Estimated GFR (MDRD) Non-Af Amer 65 mL/min >60 [facility] Comment on above: Non- GFR Calc Platelets bldOrdered By: Dr. Lantigua on 09-06-2022 Platelets (Bld) [#/Vol] 328 10*3/uL 150-450 [facility] Serum or plasma calcium parth urement (mass/volume)Ordered By: Dr. Lantigua on 09-06-2022 Calcium [Mass/Vol] 9.7 mg/dL 8.5-10.1 [facility] Serum or plasma creatinine m easurement (mass/volume)Ordered By: Dr. Lantigua on 09-06-2022 Creatinine [Mass/Vol] 0.91 mg/dL 0.55-1.02 [facility] Comment on above: The validity of the calculated GFR & GFRAA in patients over 70 years has not been determined. Clinical correlation is essential. Serum or plasma urea nitroge n measurement (mass/volume)Ordered By: Dr. Lantigua on 09-06-2022 Urea nitrogen [Mass/Vol] 16 mg/dL 7-18 [facility] Thin prep Papanicolaou smear with manual screeningOrdered By: Dr. Lantigua on 09-06-2022 Thin prep Papanicolaou smear with manual screening 8 5-15 [facility] Absolute lymphocyte countOrd ered By: Nba Dunn on 09-02-2022 Lymphocytes Auto (Unsp spec) [#/Vol] 0.85 10*3/uL 0.83-4.51 [facility] Basophil percentageOrdered B y: Nba Dunn on 09-02-2022 Basophils/100 WBC (Bld) 0.4 % 0-1 [facility] Chloride [Moles/Vol] 104 mmol/L 98-107 [facility] Eosinophils/100 WBC (Bld) 1.1 % 0-5 [facility] Glucose [Mass/Vol] 128 mg/dL 74-106 [facility] Comment on above: Fasting Glucose resu lt greater than or equal to 126 mg/dL suggests DIABETES MELLITUS per A.D.A. criteria. Neutrophils (Bld) [#/Vol] 7.4 10*3/uL 2.0-7.7 [facility] Neutrophils/100 WBC (Bld) 81.5 % 47-70 [facility] Potassium [Moles/Vol] 3.7 mmol/L 3.5-5.1 [facility] Sodium [Moles/Vol] 139 mmol/L 136-145 [facility] WBC (Bld) [#/Vol] 9.0 10*3/uL 4.4-11.0 [facility] Blood erythrocytes count (nu mber/volume)Ordered By: Nba Dunn on 09-02-2022 RBC (Bld) [#/Vol] 4.59 10*6/uL 4.2-5.4 [facility] Blood hemoglobin measurement (mass/volume)Ordered By: Nba Dunn on 09-02-2022 Hemoglobin (Bld) [Mass/Vol] 13.8 g/dL 12.0-15.0 [facility] Blood lymphocytes/100 leukoc ytesOrdered By: Nba Dunn on 09-02-2022 Lymphocytes/100 WBC (Bld) 9.4 % 19-41 [facility] Blood monocytes/100 leukocyt esOrdered By: Nba Dunn on 09-02-2022 Monocytes/100 WBC (Bld) 7.3 % 0-10 [facility] Blood platelet mean volumeOr dered By: Nba Dunn on 09-02-2022 Platelet mean volume (Bld) [Entitic vol] 9.4 fL 6.2-12.0 [facility] Determination of erythrocyte mean corpuscular volume (MCV)Ordered By: Nba Dunn on 09-02-2022 MCV (RBC) [Entitic vol] 91.7 fL 81-99 [facility] Erythrocyte sedimentation ra teOrdered By: Nba Dunn on 09-02-2022 ESR (Bld) [Velocity] 10 mm/h 0-30 [facility] Glucose Glucometer (dC) [M ass/Vol]Ordered By: Nba Dunn on 09-02-2022 Glucose [Mass/Vol] 129 mg/dL 74-106 [facility] Comment on above: MANAGEMENT OF PATIEN T CARE PER NURSING PROTOCOL Hematocrit Auto (Bld) [Volum e fraction]Ordered By: Nba Dunn on 09-02-2022 Hematocrit (Bld) [Volume fraction] 42.1 % 37-47 [facility] - Chemistry and C hemistry - challengeOrdered By: Nba Dunn on 09-02-2022 CO2 [Moles/Vol] 27.0 mmol/L 21.0-32.0 [facility] Urea nitrogen/Creatinine [Mass ratio] 16.7 mg/mg 10-20 [facility] - Hematology and Cell countsOrdered By: Nba Dunn on 09-02-2022 Erythrocyte distribution width (RBC) [Entitic vol] 43.1 fL 35.1-43.9 [facility] Erythrocyte distribution width (RBC) [Ratio] 12.8 % 11.6-14.6 [facility] Immature granulocytes/100 WBC (Bld) 0.300 % 0.0-0.9 [facility] Comment on above: IG% - Immature Granu locytes (promyelocytes, myelocytes and metamyelocytes) > 1% indicates that a LEFT SHIFT is Present. MCH (RBC) [Entitic mass] 30.1 pg 27.0-32.0 [facility] Nucleated RBC/100 WBC (Bld) [Ratio] 0 % 0-5 [facility] MCHC Auto (RBC) [Mass/Vol]Or dered By: Nba Dunn on 09-02-2022 MCHC (RBC) [Mass/Vol] 32.8 g/dL 32-36 [facility] No Panel InformationOrdered By: Nab Dunn on 09-02-2022 Estimated Creatinine Clearance Calc 45.58 ml/min [facility] Estimated GFR (MDRD) Amer 69 mL/min >60 [facility] Comment on above: GFR Calc Estimated GFR (MDRD) Non-Af Amer 57 mL/min >60 [facility] Comment on above: Non- GFR Calc Platelets bldOrdered By: Jt Dunn on 09-02-2022 Platelets (Bld) [#/Vol] 243 10*3/uL 150-450 [facility] Serum or plasma C reactive p rotein measurement (mass/volume)Ordered By: Nba Dunn on 09-02-2022 CRP [Mass/Vol] 21.00 mg/L 0.0-3.0 [facility] Comment on above: C-Reactive Protein ( CRP) provides useful information for thediagnosis, therapy and monitoring of inflammatory processesand associated diseases. For the evaluation of Relative Riskfor Cardiovascular Disease, a High Sensitivity CRP (HSCRP)should be ordered. Serum or plasma calcium parth urement (mass/volume)Ordered By: Nba Dunn on 09-02-2022 Calcium [Mass/Vol] 8.9 mg/dL 8.5-10.1 [facility] Serum or plasma creatinine m easurement (mass/volume)Ordered By: Nba Dunn on 09-02-2022 Creatinine [Mass/Vol] 1.02 mg/dL 0.55-1.02 [facility] Comment on above: The validity of the calculated GFR & GFRAA in patients over 70 years has not been determined. Clinical correlation is essential. Serum or plasma urea nitroge n measurement (mass/volume)Ordered By: Nba Dunn on 09-02-2022 Urea nitrogen [Mass/Vol] 17 mg/dL -18 [facility] Serum or plasma uric acid me asurement (mass/volume)Ordered By: Nba Dunn on 09-02-2022 Urate [Mass/Vol] 4.0 mg/dL 2.6-6.0 [facility] Comment on above: The drugs N-Acetylcy steine and Metamizole may falsely depress this assay. Thin prep Papanicolaou smear with manual screeningOrdered By: Nba Dunn on 09-02-2022 Thin prep Papanicolaou smear with manual screening 8 -15 [facility] CNOVon 08-31-2022 CNOV Office Visit (GENSWS ) ZENY REECE ([id number]) 1955 F Date Time Provider Department 08/31/22 1:00 PM KRYSTIN NGUYỄN During your visit today, we recorded the following information about you: Temperature Pulse Blood pressure Weight 97.3 degrees 80/minute 148/96 68 kg Height 1.626 m Judi Thomas RN 08/31/2022 1:27 PM Signed Pt BP was 142/92 at beginning of visit. I rechecked BP at conclusion of visit, and it was 148/96. Pt denied any CP, SOB, but she did indicate her BP has been fluctuating and sometimes climbs to 150's AND 160's systolic to over 100 diastolic. I encouraged pt to make an appt. With PCP as soon as she can to get better management over BP.OSKAR Kong MD 09/09/2022 11:27 AM Addendum FOLLOW UP VISIT NAME: Zeny Reece CLINIC NO.: [id number] DATE OF SERVICE: 08/31/2022 : 1955 REFERRING [...] ?C (97.3 ?F), height 162.6 cm (5' 4"), weight 68 kg (150 lb), SpO2 100 [...] PFSH and ROS obtained by others. Krystin Nguyễn MD Addendum: this is a no charge visit. Allergies As of Date: 08/31/2022 (No Known Allergies) Date Reviewed: 08/31/2022 Reviewed by: Judi Thomas RN - Fully Assessed Reason for Visit: Follow Up [171] Cmt: Breast infection Primary Visit Diagnosis:Breast infection [N61.0] Prescriptions as of 09/09/2022 - Promethazine-DM (PHENERGAN-DM) 6.25-15 mg/5 mL syrup Take by mouth four times daily as needed. - flaxseed oil (OMEGA 3 ORAL) Take by mouth twice daily. - cholecalciferol, vitamin D3, (VITAMIN D3 ORAL) Take by mouth. - MULTIVITAMIN ORAL Take by mouth once daily. - anastrozole (ARIMIDEX) 1 mg tablet 1 tablet once daily. - OTC PRODUCT 2 tablets once daily. Power C - VITAMIN B COMPLEX (B COMPLEX 1 ORAL) Take 1 tablet by mouth once daily. - RED YEAST RICE ORAL Take 2 tablets by mouth once daily. - Cholecalciferol, Vitamin D3, 50 mcg (2,000 unit) cap Take 1 tablet by mouth once daily. - Ca-D3-mag ir-qtwu-ilu-devora-bor 600 mg calcium- 20 mcg-50 mg tab Take 1 tablet by mouth once daily. Problem List As Of Date: 08/31/2022 (None) Visit Notes: >> Judi Thomas RN azra Aug 31, 2022 1:23 PM Status: Signed Pt BP was 142/92 at beginning of visit. I rechecked BP at conclusion of visit, and it was 148/96. Pt denied any CP, SOB, but she did indicate her BP has been fluctuating and sometimes climbs to 150's AND 160's systolic to over 100 diastolic. I encouraged pt to make an appt. With PCP as soon as she can to get better management over BP.Judi Thomas RN Disposition: Return in about 1 week (around 09/07/2022). Follow-up and Disposition History for Encounter Date Provider Department Center 08/31/2022 [id number] NGUYỄN Letter Text Encounter Status:Closed by KRYSTIN NGUYỄN on 09/01/22 [facility] 08-31-2022 CNPN Telephone (LILIYA) ZENY REECE ([id number]) 1955 F Date Time Provider Department 08/31/22 KRYSTIN NGUYỄN During your visit today, we recorded the following information about you: Yana Rothman RN 08/31/2022 9:59 AM Signed Patient contacts office and reports that she [...] continued redness to breast and a new "grayish" area. She is scheduled for follow up on with Dr. Nguyễn. Chloe Gan LPN 08/31/2022 10:21 AM Signed Patient has been scheduled 08/31/22 at 1p.m. Allergies As of Date: 08/31/2022 (No Known Allergies) Date Reviewed: 08/19/2022 Reviewed by: Chloe Gan LPN - Fully Assessed Reason for Visit: Patient Update [1234] Prescriptions as of 08/31/2022 - Promethazine-DM (PHENERGAN-DM) 6.25-15 mg/5 mL syrup Take by mouth four times daily as needed. - flaxseed oil (OMEGA 3 ORAL) Take by mouth twice daily. - cholecalciferol, vitamin D3, (VITAMIN D3 ORAL) Take by mouth. - MULTIVITAMIN ORAL Take by mouth once daily. - anastrozole (ARIMIDEX) 1 mg tablet 1 tablet once daily. - OTC PRODUCT 2 tablets once daily. Power C - VITAMIN B COMPLEX (B COMPLEX 1 ORAL) Take 1 tablet by mouth once daily. - RED YEAST RICE ORAL Take 2 tablets by mouth once daily. - Cholecalciferol, Vitamin D3, 50 mcg (2,000 unit) cap Take 1 tablet by mouth once daily. - Ca-D3-mag yv-dykp-iyb-devora-bor 600 mg calcium- 20 mcg-50 mg tab Take 1 tablet by mouth once daily. Problem List As Of Date: 08/31/2022 (None) Encounter Status:Closed by YANA ROTHMAN RN on 08/31/22 [facility] Kayla 08-19-2022 CNOV Office Visit (SWS ) ZENY REECE ([id number]) 1955 F Date Time Provider Department 08/19/22 9:30 AM KRYSTIN NGYUỄN During your visit today, we recorded the following information about you: Temperature Pulse Blood pressure 96.8 degrees 82/minute 126/88 Krystin Nguyễn MD 08/19/2022 2:11 PM Signed FOLLOW UP VISIT NAME: Zeny Reece CLINIC NO.: [id number] DATE OF SERVICE: 08/19/2022 : 1955 REFERRING [...] and ROS obtained by others. . Krystin Nguyễn MD Referring Provider: SELF [200] Allergies As of Date: 08/19/2022 (No Known Allergies) Date Reviewed: 08/19/2022 Reviewed by: Chloe Gan LPN - Fully Assessed Reason for Visit: Follow Up [171] Cmt: Post op breast infection Visit Diagnosis:Breast infection [N61.0] Order(s):amoxicillin-c lavulanic acid (AUGMENTIN) 875-125 mg per tabletTake 1 tablet by mouth twice daily for 10 days. FOR 10 DAYS.Disp: 20 tabletRfl: 0 Prescriptions as of 08/19/2022 - amoxicillin-clavulanic acid (AUGMENTIN) 875-125 mg per tablet Take 1 tablet by mouth twice daily for 10 days. FOR 10 DAYS. - Promethazine-DM (PHENERGAN-DM) 6.25-15 mg/5 mL syrup Take by mouth four times daily as needed. - flaxseed oil (OMEGA 3 ORAL) Take by mouth twice daily. - cholecalciferol, vitamin D3, (VITAMIN D3 ORAL) Take by mouth. - MULTIVITAMIN ORAL Take by mouth once daily. - anastrozole (ARIMIDEX) 1 mg tablet 1 tablet once daily. - OTC PRODUCT 2 tablets once daily. Power C - VITAMIN B COMPLEX (B COMPLEX 1 ORAL) Take 1 tablet by mouth once daily. - RED YEAST RICE ORAL Take 2 tablets by mouth once daily. - Cholecalciferol, Vitamin D3, 50 mcg (2,000 unit) cap Take 1 tablet by mouth once daily. - Ca-D3-mag sf-omqq-jgw-devora-bor 600 mg calcium- 20 mcg-50 mg tab Take 1 tablet by mouth once daily. Problem List As Of Date: 08/19/2022 (None) Prescriptions ordered this encounter Disp Refills Start End AMOXICILLIN 875 MG-POTASSIUM CLAVULA* 20 t* 0 08/19/2022 08/29/2022 Route: ORAL Sig: Take 1 tablet by mouth twice daily for 10 days. FOR 10 DAYS. Medications Discontinued During This Encounter Prescriptions - amoxicillin-clavulanic acid (AUGMENTIN) 875-125 mg per tablet (Discontinued) Disposition: Return in about 2 weeks (around 09/02/2022). Follow-up and Disposition History for Encounter Date Provider Department Center 08/19/2022 [id number] NGUYỄN Encounter Status:Closed by KRYSTIN NGUYỄN on 08/19/22 [facility] CNOVvincent 08-04-2022 CRISTA Office Visit (LILIYA ) ZENY REECE ([id number]) 1955 F Date Time Provider Department 08/04/22 2:30 PM KRYSTIN NGUYỄN During your visit today, we recorded the following information about you: Temperature Pulse Blood pressure Weight 97.9 degrees 82/minute 138/84 68.2 kg Krystin Nguyễn MD 08/05/2022 9:52 AM Signed FOLLOW UP VISIT NAME: Zeny Reece CLINIC NO.: [id number] DATE OF SERVICE: 08/04/2022 : 1955 REFERRING PHYSICIAN: Jil Zamora, , DO Zeny is s/p left breast stereotactic [...] PFSH and ROS obtained by others. Krystin Nguyễn MD Referring Provider: SELF [200] Allergies As of Date: 08/04/2022 (No Known Allergies) Date Reviewed: 08/04/2022 Reviewed by: Leia Figueroa RN - Fully Assessed Reason for Visit: Follow Up [171] Cmt: 2 week follow up, left breast infection Primary Visit Diagnosis:Breast infection [N61.0] Order(s):ciprofloxacin HCl (CIPRO) 500 mg tabletTake 1 tablet by mouth twice daily for 14 days. FOR 14 DAYS.Disp: 28 tabletRfl: 0 Prescriptions as of 08/05/2022 - ciprofloxacin HCl (CIPRO) 500 mg tablet Take 1 tablet by mouth twice daily for 14 days. FOR 14 DAYS. - ciprofloxacin HCl (CIPRO) 500 mg tablet Take 1 tablet by mouth twice daily for 14 days. FOR 14 DAYS. - amoxicillin-clavulanic acid (AUGMENTIN) 875-125 mg per tablet - Promethazine-DM (PHENERGAN-DM) 6.25-15 mg/5 mL syrup Take by mouth four times daily as needed. - flaxseed oil (OMEGA 3 ORAL) Take by mouth twice daily. - cholecalciferol, vitamin D3, (VITAMIN D3 ORAL) Take by mouth. - MULTIVITAMIN ORAL Take by mouth once daily. - anastrozole (ARIMIDEX) 1 mg tablet 1 tablet once daily. - OTC PRODUCT 2 tablets once daily. Power C - VITAMIN B COMPLEX (B COMPLEX 1 ORAL) Take 1 tablet by mouth once daily. - RED YEAST RICE ORAL Take 2 tablets by mouth once daily. - Cholecalciferol, Vitamin D3, 50 mcg (2,000 unit) cap Take 1 tablet by mouth once daily. - Ca-D3-mag db-nbvq-zbg-devora-bor 600 mg calcium- 20 mcg-50 mg tab Take 1 tablet by mouth once daily. Problem List As Of Date: 08/04/2022 (None) Prescriptions ordered this encounter Disp Refills Start End CIPROFLOXACIN 500 MG TABLET 28 t* 0 08/04/2022 08/18/2022 Route: ORAL Sig: Take 1 tablet by mouth twice daily for 14 days. FOR 14 DAYS. Disposition: Return in about 2 weeks (around 08/18/2022). Follow-up and Disposition History for Encounter Date Provider Department Center 08/04/2022 [id number] NGUY[facility]N [facility] Encounter Status:Closed by KYRSTIN NGUYỄN on 08/05/22 [facility] CNOVon 07-23-2022 CNOV Office Visit (GENSWS ) ZENY REECE ([id number]) 1955 F Date Time Provider Department 07/23/22 2:00 PM KRYSTIN NGUYỄN During your visit today, we recorded the following information about you: Temperature Pulse Weight 98.1 degrees 98/minute 68.8 kg Krystin Nguyễn MD 07/24/2022 7:52 PM Signed FOLLOW UP VISIT NAME: Zeny Reece CLINIC NO.: [id number] DATE OF SERVICE: 07/23/2022 : 1955 REFERRING PHYSICIAN: Jil Zamora DO, DO Izquierdo is status post left stereotactic breast biopsy [...] the PFSH and ROS obtained by others. Krystni Nguyễn MD Allergies As of Date: 07/23/2022 (No Known Allergies) Date Reviewed: 07/23/2022 Reviewed by: Leia Figueroa RN - Fully Assessed Reason for Visit: Follow Up [171] Cmt: Red, raised area over breast biopsy site Visit Diagnoses:Breast infection [N61.0] Status post breast biopsy [Z98.890] Order(s):ciprofloxacin HCl (CIPRO) 500 mg tabletTake 1 tablet by mouth twice daily for 14 days. FOR 14 DAYS.Disp: 28 tabletRfl: 0 Prescriptions as of 07/24/2022 - ciprofloxacin HCl (CIPRO) 500 mg tablet Take 1 tablet by mouth twice daily for 14 days. FOR 14 DAYS. - amoxicillin-clavulanic acid (AUGMENTIN) 875-125 mg per tablet - Promethazine-DM (PHENERGAN-DM) 6.25-15 mg/5 mL syrup Take by mouth four times daily as needed. - flaxseed oil (OMEGA 3 ORAL) Take by mouth twice daily. - cholecalciferol, vitamin D3, (VITAMIN D3 ORAL) Take by mouth. - MULTIVITAMIN ORAL Take by mouth once daily. - anastrozole (ARIMIDEX) 1 mg tablet 1 tablet once daily. - OTC PRODUCT 2 tablets once daily. Power C - VITAMIN B COMPLEX (B COMPLEX 1 ORAL) Take 1 tablet by mouth once daily. - RED YEAST RICE ORAL Take 2 tablets by mouth once daily. - Cholecalciferol, Vitamin D3, 50 mcg (2,000 unit) cap Take 1 tablet by mouth once daily. - Ca-D3-mag dy-llby-hpr-devora-bor 600 mg calcium- 20 mcg-50 mg tab Take 1 tablet by mouth once daily. Problem List As Of Date: 07/23/2022 (None) Prescriptions ordered this encounter Disp Refills Start End CIPROFLOXACIN 500 MG TABLET 28 t* 0 07/23/2022 08/06/2022 Route: ORAL Sig: Take 1 tablet by mouth twice daily for 14 days. FOR 14 DAYS. Disposition: Return in about 2 weeks (around 08/06/2022). Follow-up and Disposition History for Encounter Date Provider Department Center 07/23/2022 [id number] NGUYỄN [facility] Encounter Status:Closed by KRYSTIN NGUYỄN on 07/24/22 [facility] C[facility] Tele[facility] ([employer]) ZENY REECE ([id number]) 1955 F Date Time Provider Department 07/22/22 KRYSTIN NGUYỄN During your visit today, we recorded the following information about you: Melly Whatleyler 07/22/2022 5:00 PM Signed Pt calling regarding the spot just above incision site from surgery that is red and hard noticed over the last few days. She is concerned there may be something going on. Cristina Lisa LPN 07/23/2022 8:46 AM Signed Called and scheduled appointment with Dr Nguyễn for this afternoon, 07/23/22. Allergies As of Date: 07/22/2022 (No Known Allergies) Date Reviewed: 05/24/2022 Reviewed by: Leia Figueroa RN - Fully Assessed Reason for Visit: Patient Update [1234] Prescriptions as of 07/23/2022 - amoxicillin-clavulanic acid (AUGMENTIN) 875-125 mg per tablet - Promethazine-DM (PHENERGAN-DM) 6.25-15 mg/5 mL syrup Take by mouth four times daily as needed. - flaxseed oil (OMEGA 3 ORAL) Take by mouth twice daily. - cholecalciferol, vitamin D3, (VITAMIN D3 ORAL) Take by mouth. - MULTIVITAMIN ORAL Take by mouth once daily. - anastrozole (ARIMIDEX) 1 mg tablet 1 tablet once daily. - OTC PRODUCT 2 tablets once daily. Power C - VITAMIN B COMPLEX (B COMPLEX 1 ORAL) Take 1 tablet by mouth once daily. - RED YEAST RICE ORAL Take 2 tablets by mouth once daily. - Cholecalciferol, Vitamin D3, 50 mcg (2,000 unit) cap Take 1 tablet by mouth once daily. - Ca-D3-mag fx-bfgq-wwa-devora-bor 600 mg calcium- 20 mcg-50 mg tab Take 1 tablet by mouth once daily. Problem List As Of Date: 07/22/2022 (None) Encounter Status:Closed by CRISTINA LISA on 07/23/22 [facility] ([id number]) 1955 F Date Time Provider Department 07/14/22 KRYSTIN NGUYỄN During your visit today, we recorded the following information about you: Krystin Nguyễn MD 07/14/2022 4:33 PM Signed Told patient's results of left breast biopsy - 06/29/[address] [facility] pathology department - "dense fibrosis, chronic inflammation and dystrophic calcifications. Negative for atypica or malignancy" I have told patient's that patient should return to yearly mammograms surveillance. He acknowledges the above. Allergies As of Date: 07/14/2022 (No Known Allergies) Date Reviewed: 05/24/2022 Reviewed by: Leia Figueroa RN - Fully Assessed Reason for Visit: Results [95] Prescriptions as of 07/14/2022 - amoxicillin-clavulanic acid (AUGMENTIN) 875-125 mg per tablet - Promethazine-DM (PHENERGAN-DM) 6.25-15 mg/5 mL syrup Take by mouth four times daily as needed. - flaxseed oil (OMEGA 3 ORAL) Take by mouth twice daily. - cholecalciferol, vitamin D3, (VITAMIN D3 ORAL) Take by mouth. - MULTIVITAMIN ORAL Take by mouth once daily. - anastrozole (ARIMIDEX) 1 mg tablet 1 tablet once daily. - OTC PRODUCT 2 tablets once daily. Power C - VITAMIN B COMPLEX (B COMPLEX 1 ORAL) Take 1 tablet by mouth once daily. - RED YEAST RICE ORAL Take 2 tablets by mouth once daily. - Cholecalciferol, Vitamin D3, 50 mcg (2,000 unit) cap Take 1 tablet by mouth once daily. - Ca-D3-mag mm-fujq-cni-devora-bor 600 mg calcium- 20 mcg-50 mg tab Take 1 tablet by mouth once daily. Problem List As Of Date: 07/14/2022 (None) Encounter Status:Closed by KRYSTIN NGUYỄN on 07/14/22 [facility] 07-08-2022 [facility] Telephone (GENSWS) ZENY REECE ([id number]) 1955 F Date Time Provider Department 07/08/22 KRYSTIN NGUYỄN During your visit today, we recorded the following information about you: Elizabeth Og LPN 07/08/2022 10:19 AM Signed Patient called. Verified name and date of . Patient had biopsy done at [facility] June 29, 2022 and is calling for results. States she was told by Dr. Nguyễn to call for results (patient has appointment with Dr. Nguyễn July 14, 2022). Patient is at home until around 1500 and available on cell after that. Elizabeth Og LPN Cristina REUBEN Lisa 07/08/2022 2:27 PM Signed Called and left message for patient that Dr nguyễn is on vacation until next week and to keep July 14 appointment to go over results at that time. Cristina LisaREUBEN Debbie 07/08/2022 2:35 PM Signed Pt called back. She states that Dr. Nguyễn told her that she did not need to come back in and that she would call her. She wishes to cancel her follow up appointment on 07/14 despite recommendations. She will reschedule if Dr. Nguyễn feels it is necessary after she speaks with her on the phone. She will await her call and is aware it may be next week. Ofe Lewis Allergies As of Date: 07/08/2022 (No Known Allergies) Date Reviewed: 05/24/2022 Reviewed by: Leia Figueroa RN - Fully Assessed Reason for Visit: Results [95] Prescriptions as of 07/08/2022 - amoxicillin-clavulanic acid (AUGMENTIN) 875-125 mg per tablet - Promethazine-DM (PHENERGAN-DM) 6.25-15 mg/5 mL syrup Take by mouth four times daily as needed. - flaxseed oil (OMEGA 3 ORAL) Take by mouth twice daily. - cholecalciferol, vitamin D3, (VITAMIN D3 ORAL) Take by mouth. - MULTIVITAMIN ORAL Take by mouth once daily. - anastrozole (ARIMIDEX) 1 mg tablet 1 tablet once daily. - OTC PRODUCT 2 tablets once daily. Power C - VITAMIN B COMPLEX (B COMPLEX 1 ORAL) Take 1 tablet by mouth once daily. - RED YEAST RICE ORAL Take 2 tablets by mouth once daily. - Cholecalciferol, Vitamin D3, 50 mcg (2,000 unit) cap Take 1 tablet by mouth once daily. - Ca-D3-mag dz-qhwk-qja-devora-bor 600 mg calcium- 20 mcg-50 mg tab Take 1 tablet by mouth once daily. Problem List As Of Date: 07/08/2022 (None) Encounter Status:Closed by CRISTINA LISA on 07/08/22 [facility] ZENY REECE ([id number]) 1955 F Date Time Provider Department 05/25/22 KRYSTIN NGUYỄN During your visit today, we recorded the following information about you: Consuelo Dior 05/25/2022 9:09 AM Signed Patient called on status of results of mammogram completed at [facility]. Patient states to please call home # first, if no answer, then please call cell. Patient is waiting for phone call. Allergies As of Date: 05/25/2022 (No Known Allergies) Date Reviewed: 05/24/2022 Reviewed by: Leia Figueroa RN - Fully Assessed Reason for Visit: Patient Question [2307] Prescriptions as of 05/25/2022 - amoxicillin-clavulanic acid (AUGMENTIN) 875-125 mg per tablet - Promethazine-DM (PHENERGAN-DM) 6.25-15 mg/5 mL syrup Take by mouth four times daily as needed. - flaxseed oil (OMEGA 3 ORAL) Take by mouth twice daily. - cholecalciferol, vitamin D3, (VITAMIN D3 ORAL) Take by mouth. - MULTIVITAMIN ORAL Take by mouth once daily. - anastrozole (ARIMIDEX) 1 mg tablet 1 tablet once daily. - OTC PRODUCT 2 tablets once daily. Power C - VITAMIN B COMPLEX (B COMPLEX 1 ORAL) Take 1 tablet by mouth once daily. - RED YEAST RICE ORAL Take 2 tablets by mouth once daily. - Cholecalciferol, Vitamin D3, 50 mcg (2,000 unit) cap Take 1 tablet by mouth once daily. - Ca-D3-mag qp-xraq-ahk-devora-bor 600 mg calcium- 20 mcg-50 mg tab Take 1 tablet by mouth once daily. Problem List As Of Date: 05/25/2022 (None) Encounter Status:Closed by CONSUELO BARROS on 05/25/22 [facility] CNOVon 05-24-2022 CNOV Office Visit (LILIYA ) SHANELLZENY A ([id number]) 1955 F Date Time Provider Department 05/24/22 9:45 AM KRYSTIN NGUYỄN During your visit today, we recorded the following information about you: Temperature Pulse Blood pressure Weight 97.1 degrees 89/minute 120/76 68.8 kg Height 1.626 m Leia Figueroa RN 05/24/2022 9:59 AM Signed [...] When was patient's last Mammogram screening? 05/10/2022 @[facility] Last Colonoscopy: 09/09/2016 OSKAR Sheppard MD 05/29/2022 3:21 PM Signed Zeny Reece 1955 REFERRING PHYSICIAN: Kenia Strong, APR* CHIEF COMPLAINT: Consult (Abnormal mammogram left breast) HPI: The patient is a 66 year old female presents with abnormal left breast mammograms. 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 Since prior study, there has been an increase in the number of micro-calcifications. A biopsy is recommended. BIRADS 4" She denies palpable breast masses except for [...] 2 tablets by mouth once daily. Ca-D3-mag zp-mihf-pqq-devora-bor 600 mg calcium- 20 mcg-50 mg tab [...] Reported on 05/24/2022) Cholecalciferol, Vitamin D3, 50 mc (more content not included)... Normal [facility] Basophil percentageon 2021 Bilirubin [Mass/Vol] 0.50 mg/dL 0.20-1.00 [facility] Work Phone: Comment on above: For patients on eltr ombopag therapy, use of Dimension Allen TBIL is not recommended. Chloride [Moles/Vol] 108 mmol/L 98-107 [facility] Work Phone: Glucose [Mass/Vol] 94 mg/dL 74-106 [facility] Work Phone: Potassium [Moles/Vol] 4.0 mmol/L 3.5-5.1 [facility] Work Phone: Protein [Mass/Vol] 6.7 g/dL 6.4-8.2 [facility] Work Phone: Sodium [Moles/Vol] 140 mmol/L 136-145 [facility] Work Phone: WBC (Bld) [#/Vol] 4.2 10*3/uL 4.4-11.0 [facility] Work Phone: [phone] Blood erythrocytes count (nu mber/volume)on 02-15-2022 RBC (Bld) [#/Vol] 4.93 10*6/uL 4.2-5.4 [facility] Work Phone: [phone] Blood hemoglobin measurement (mass/volume)on 02-15-2022 Hemoglobin (Bld) [Mass/Vol] 14.9 g/dL 12.0-15.0 [facility] Work Phone: [phone] Blood platelet mean volumeon 02-15-2022 Platelet mean volume (Bld) [Entitic vol] 9.5 fL 6.2-12.0 [facility] Work Phone: [phone] Determination of erythrocyte mean corpuscular volume (MCV)on 02-15-2022 MCV (RBC) [Entitic vol] 93.3 fL 81-99 [facility] Work Phone: [phone] Hematocrit Auto (Bld) [Volum e fraction]on 02-15-2022 Hematocrit (Bld) [Volume fraction] 46.0 % 37-47 [facility] Work Phone: [phone] Laboratory - Chemistry and C hemistry - challengeon 02-15-2022 ALP [Catalytic activity/Vol] 62 U/L 45-117 [facility] Work Phone: [phone] ALT [Catalytic activity/Vol] 26 U/L 13-56 [facility] Work Phone: [phone] CO2 [Moles/Vol] 31.0 mmol/L 21.0-32.0 [facility] Work Phone: [phone] Globulin (S) [Mass/Vol] 3.1 g/dL 2.2-4.2 [facility] Work Phone: [phone] Urea nitrogen/Creatinine [Mass ratio] 12.1 mg/mg 10-20 [facility] Work Phone: [phone] Laboratory - Hematology and Cell countson 02-15-2022 Erythrocyte distribution width (RBC) [Entitic vol] 44.0 fL 35.1-43.9 [facility] Work Phone: [phone] Erythrocyte distribution width (RBC) [Ratio] 12.9 % 11.6-14.6 [facility] Work Phone: [phone] MCH (RBC) [Entitic mass] 30.2 pg 27.0-32.0 [facility] Work Phone: [phone] MCHC Auto (RBC) [Mass/Vol]on 02-15-2022 MCHC (RBC) [Mass/Vol] 32.4 g/dL 32-36 [facility] Work Phone: [phone] No Panel Informationon 02-15 Estimated GFR (MDRD) Amer 89 mL/min >60 [facility] Work Phone: [phone] Comment on above: GFR Calc Estimated GFR (MDRD) Non-Af Amer 73 mL/min >60 [facility] Work Phone: [phone] Comment on above: Non- GFR Calc Platelets bldon 02-15-2022 Platelets (Bld) [#/Vol] 265 10*3/uL 150-450 [facility] Work Phone: [phone] Serum or plasma albumin parth urement (mass/volume)on 02-15-2022 Albumin [Mass/Vol] 3.6 g/dL 3.2-5.0 [facility] Work Phone: [phone] Serum or plasma albumin/glob ulin mass ratioon 02-15-2022 Albumin/Globulin [Mass ratio] 1.2 {ratio} 0.9-2.4 [facility] Work Phone: [phone] Serum or plasma calcium parth urement (mass/volume)on 02-15-2022 Calcium [Mass/Vol] 9.1 mg/dL 8.5-10.1 [facility] Work Phone: [phone] Serum or plasma creatinine m easurement (mass/volume)on 02-15-2022 Creatinine [Mass/Vol] 0.82 mg/dL 0.55-1.02 [facility] Work Phone: [phone] Comment on above: The validity of the calculated GFR & GFRAA in patients over 70 years has not been determined. Clinical correlation is essential. Serum or plasma urea nitroge n measurement (mass/volume)on 02-15-2022 Urea nitrogen [Mass/Vol] 10 mg/dL 7-18 [facility] Work Phone: Thin prep Papanicolaou smear with manual screeningon 02-15-2022 Thin prep Papanicolaou smear with manual screening 24 U/L 15-37 [facility] Work Phone: Thin prep Papanicolaou smear with manual screening 1 5-15 [facility] Work Phone: LABORATORYOrdered By: Kacie Ho on 07-23-2021 ADMITTED TO INTENSIVE CARE UNIT FOR CONDITION OF INTEREST:FIND:PT:^PATIE NT:ORD: No (07/23/21 12:29 PM) Invalid Interpretation Code AO Auto Urine SS EMPLOYED IN A HEALTHCARE SETTING:FIND:PT:^PATIEN T:ORD: No (07/23/21 12:29 PM) Invalid Interpretation Code AO Auto Urine SS FIRST TEST FOR CONDITION OF INTEREST:FIND:PT:^PATIE NT:ORD: Yes (07/23/21 12:29 PM) Invalid Interpretation Code AO Auto Urine SS HAS SYMPTOMS RELATED TO CONDITION OF INTEREST:FIND:PT:^PATIE NT:ORD: Yes (07/23/21 12:29 PM) Invalid Interpretation Code AO Auto Urine SS Illness or injury onset date and time [id number] Invalid Interpretation Code AO Auto Urine SS Patient was hospitalized because of this condition No (07/23/21 12:29 PM) Invalid Interpretation Code AO Auto Urine SS status Not (07/23/21 12:29 PM) Invalid Interpretation Code AO Auto Urine SS RESIDES IN A CONGREGATE CARE SETTING:FIND:PT:^PATIEN T:ORD: No (07/23/21 12:29 PM) Invalid Interpretation Code AO Auto Urine SS SARS-CoV-2 (COVID-19) RNA SHANTAL+probe Ql (Resp) Negative (07/23/21 12:29 PM) Invalid Interpretation Code Negative AO Auto Urine SS SARS-CoV-2 (COVID-19) RNA SHANTAL+probe Ql (Unsp spec) Negative results do not preclude SARS-CoV-2 infection and should not be used as the sole basis for patient management decisions. Negative results must be combined with clinical observations, patient history, and epidemiological information.There is a risk of false negative values resulting from improperly collected, transported, or handled specimens.There is a risk of false negative values due to the presence of sequence variants in the pathogen targets of the assay, procedural errors, amplification inhibitors in specimens, or inadequate numbers of organisms for amplification.BREANNA SARS-CoV-2 Assay is a Real-Time reverse-transcriptase polymerase chain reaction (RT-PCR) based qualitative in vitro diagnostic test intended for the qualitative detection of nucleic acid from the SARS-CoV-2 in nasopharyngeal swab specimens collected from individuals suspected of COVID-19 by their healthcare provider. Testing is limited to laboratories certified under the Clinical Laboratory Improvement Amendments of 1988 (CLIA), 42 U.S.C. 263a, to perform moderate and high complexity tests. Invalid Interpretation Code AO Auto Urine SS Vital Signs Date Time Vital Sign Value Performing Clinician Facility 08-20-2024 14:13-0500 Diastolic Blood Pressure Non-Invasive 59 mm[Hg] BLESSING TSANG MD [facility] 08-20-2024 14:13-0500 Heart rate 71 /min BLESSING TSANG MD [facility] 08-20-2024 14:13-0500 Respiratory rate 16 /min BLESSING TSANG MD [facility] 08-20-2024 14:13-0500 Systolic Blood Pressure Non-Invasive 104 mm[Hg] BLESSING TSANG MD [facility] 08-20-2024 14:03-0500 Diastolic Blood Pressure Non-Invasive 60 mm[Hg] BLESSING TSANG MD [facility] 08-20-2024 14:03-0500 Heart rate 72 /min BLESSING TSANG MD [facility] 08-20-2024 14:03-0500 Respiratory rate 15 /min BLESSING TSANG MD [facility] 08-20-2024 14:03-0500 Systolic Blood Pressure Non-Invasive 107 mm[Hg] BLESSING TSANG MD [facility] 08-20-2024 13:46-0500 Diastolic Blood Pressure Non-Invasive 60 mm[Hg] BLESSING TSANG MD [facility] 08-20-2024 13:46-0500 Heart rate 68 /min BLESSING TSANG MD [facility] 08-20-2024 13:46-0500 Respiratory rate 14 /min BLESSING TSANG MD [facility] 08-20-2024 13:46-0500 Systolic Blood Pressure Non-Invasive 106 mm[Hg] BLESSING TSANG MD [facility] 08-20-2024 13:28-0500 Body temperature 96.62 [degF] BLESSING TSANG MD [facility] 08-20-2024 13:25-0500 Respiratory Rate - Anes 3 br/min BLESSING TSANG MD [facility] 08-20-2024 13:20-0500 Respiratory Rate - Anes 8 br/min BLESSING TSANG MD [facility] 08-20-2024 13:15-0500 Body temperature 96.8 [degF] BLESSING TSANG MD [facility] 08-20-2024 13:15-0500 Respiratory Rate - Anes 6 br/min BLESSING TSANG MD [facility] 08-20-2024 11:58-0500 Body height 163 cm BLESSING TSANG MD [facility] 08-20-2024 11:58-0500 Body temperature 97.16 [degF] BLESSING TSANG MD [facility] 08-20-2024 11:58-0500 Body weight 70 kg BLESSING TSANG MD [facility] 08-20-2024 11:58-0500 Heart rate 91 /min BLESSING TSANG MD [facility] 08-07-2024 11:45-0500 Body height 162.6 cm BLESSING TSANG MD [facility] 08-07-2024 11:45-0500 Body weight 70.5 kg BLESSING TSANG MD [facility] 08-07-2024 11:45-0500 Body weight 26.67 kg/m2 BLESSING TSANG MD [facility] 08-07-2024 11:45-0500 Diastolic Blood Pressure Non-Invasive 74 mm[Hg] BLESSING TSANG MD [facility] 08-07-2024 11:45-0500 Heart rate 72 /min BLESSING TSANG MD [facility] 08-07-2024 11:45-0500 Respiratory rate 20 /min BLESSING TSANG MD [facility] 08-07-2024 11:45-0500 Systolic Blood Pressure Non-Invasive 136 mm[Hg] BLESSING TSANG MD [facility] 01-02-2023 08:06-0400 Body temperature 97.9 [degF] Dr. Jil Zamora Work Phone: [facility] 01-02-2023 08:06-0400 Diastolic blood pressure 90 mm[Hg] Dr. Jil Zamora Work Phone: [facility] 01-02-2023 08:06-0400 Heart rate 63 /min Dr. Jil Zamora Work Phone: [facility] 01-02-2023 08:06-0400 Respiratory rate 18 /min Dr. Jil Zamora Work Phone: [facility] 01-02-2023 08:06-0400 SaO2% (BldA) [Mass fraction] 100 % Dr. Jil Zamora Work Phone: [facility] 01-02-2023 08:06-0400 Systolic blood pressure 155 mm[Hg] Dr. Jil Zamora Work Phone: [facility] 12-31-2022 22:25-0400 Body height 162.[address] Jil Zamora Work Phone: [facility] 12-31-2022 22:25-0400 Body mass index (BMI) [Ratio] 25 kg/m2 Dr. Jil Zamora Work Phone: [facility] 12-31-2022 22:25-0400 Body weight [address] Jil Zamora Work Phone: [facility] 12-31-2022 21:38-0400 Body temperature 97.4 [degF] Dr. Jil Zamora Work Phone: [facility] 12-31-2022 21:38-0400 Diastolic blood pressure 77 mm[Hg] Dr. Jil Zamora Work Phone: [facility] 12-31-2022 21:38-0400 Heart rate 103 /min Dr. Jil Zamora Work Phone: [facility] 12-31-2022 21:38-0400 Respiratory rate 19 /min Dr. Jil Zamora Work Phone: [facility] 12-31-2022 21:38-0400 SaO2% (BldA) [Mass fraction] 97 % Dr. Jil Zamora Work Phone: [facility] 12-31-2022 21:38-0400 Systolic blood pressure 158 mm[Hg] Dr. Jil Zamora Work Phone: [facility] 12-31-2022 16:28-0400 Body mass index (BMI) [Ratio] 25.2 kg/m2 Dr. Jil Zamora Work Phone: [facility] 12-31-2022 16:28-0400 Body weight 66.[address] Jil Zamora Work Phone: [facility] 12-31-2022 16:13-0400 Body height 162.[address] Jil Zamora Work Phone: [facility] 11-16-2022 09:18-0400 Body temperature 97.2 [degF] Krystin Nguyễn MD Work Phone: [facility] 11-16-2022 09:18-0400 Body weight 68.49 kg Krystin Nguyễn MD Work Phone: [facility] 11-16-2022 09:18-0400 Diastolic blood pressure 84 mm[Hg] Krystin Nguyễn MD Work Phone: [facility] 11-16-2022 09:18-0400 Heart rate 94 /min Krystin Nguyễn MD Work Phone: [facility] 11-16-2022 09:18-0400 SaO2% (BldA) [Mass fraction] 99 % Krystin Nguyễn MD Work Phone: [facility] 11-16-2022 09:18-0400 Systolic blood pressure 142 mm[Hg] Krystin Nguyễn MD Work Phone: [facility] 10-07-2022 09:15-0400 Body temperature 97.39 [degF] Krystin Nguyễn MD Work Phone: [facility] 10-07-2022 09:15-0400 Diastolic blood pressure 80 mm[Hg] Krystin Nguyễn MD Work Phone: [facility] 10-07-2022 09:15-0400 Heart rate 78 /min Krystin Nguyễn MD Work Phone: [facility] 10-07-2022 09:15-0400 SaO2% (BldA) [Mass fraction] 96 % Krystin Nguyễn MD Work Phone: [facility] 10-07-2022 09:15-0400 Systolic blood pressure 118 mm[Hg] Krystin Nguyễn MD Work Phone: [facility] 09-16-2022 09:25-0500 Body height 162.6 cm Krystin Nguyễn MD Work Phone: [facility] 09-16-2022 09:25-0500 Body temperature 97.2 [degF] Krystin Nguyễn MD Work Phone: [facility] 09-16-2022 09:25-0500 Body weight 67.13 kg Krystin Nguyễn MD Work Phone: [facility] 09-16-2022 09:25-0500 Diastolic blood pressure 80 mm[Hg] Krystin Nguyễn MD Work Phone: [facility] 09-16-2022 09:25-0500 Heart rate 83 /min Krystin Nguyễn MD Work Phone: [facility] 09-16-2022 09:25-0500 SaO2% (BldA) [Mass fraction] 99 % Krystin Nguyễn MD Work Phone: [facility] 09-16-2022 09:25-0500 Systolic blood pressure 146 mm[Hg] Krystin Nguyễn MD Work Phone: [facility] 09-06-2022 15:07-0500 Diastolic blood pressure 82 mm[Hg] [facility] 09-06-2022 15:07-0500 Heart rate 70 /min [facility] 09-06-2022 15:07-0500 Respiratory rate 16 /min [facility] 09-06-2022 15:07-0500 SaO2% (BldA) [Mass fraction] 96 % [facility] 09-06-2022 15:07-0500 Systolic blood pressure 143 mm[Hg] [facility] 09-06-2022 10:04-0500 Body mass index (BMI) [Ratio] 25.9 kg/m2 [facility] 09-06-2022 10:04-0500 Body weight 68.4 kg [facility] 09-06-2022 09:51-0500 Body height 162.56 cm [facility] 09-06-2022 09:51-0500 Body temperature 98.9 [degF] [facility] 09-03-2022 00:07-0500 Diastolic blood pressure 73 mm[Hg] [facility] 09-03-2022 00:07-0500 Heart rate 101 /min [facility] 09-03-2022 00:07-0500 Respiratory rate 17 /min [facility] 09-03-2022 00:07-0500 SaO2% (BldA) [Mass fraction] 18 % [facility] 09-03-2022 00:07-0500 Systolic blood pressure 154 mm[Hg] [facility] 09-02-2022 20:45-0500 Body height 162.56 cm [facility] 09-02-2022 20:45-0500 Body mass index (BMI) [Ratio] 25.7 kg/m2 [facility] 09-02-2022 20:45-0500 Body temperature 97.1 [degF] [facility] 09-02-2022 20:45-0500 Body weight 68.03 kg [facility] 08-31-2022 13:22-0500 Diastolic blood pressure 96 mm[Hg] Krystin Nguyễn MD Work Phone: [facility] 08-31-2022 13:22-0500 Systolic blood pressure 148 mm[Hg] Krystin Nguyễn MD Work Phone: [facility] 08-31-2022 12:52-0500 Body height 162.6 cm Krystin Nguyễn MD Work Phone: [facility] 08-31-2022 12:52-0500 Body temperature 97.3 [degF] Krystin Nguyễn MD Work Phone: [facility] 08-31-2022 12:52-0500 Body weight 68.04 kg Krystin Nguyễn MD Work Phone: [facility] 08-31-2022 12:52-0500 Heart rate 80 /min Krystin Nguyễn MD Work Phone: [facility] 08-31-2022 12:52-0500 SaO2% (BldA) [Mass fraction] 100 % Krystin Nguyễn MD Work Phone: [facility] 08-04-2022 14:15-0500 Body temperature 97.9 [degF] Krystin Nguyễn MD Work Phone: [facility] 08-04-2022 14:15-0500 Body weight 68.22 kg Krystin Nguyễn MD Work Phone: [facility] 08-04-2022 14:15-0500 Diastolic blood pressure 84 mm[Hg] Krystin Nguyễn MD Work Phone: [facility] 08-04-2022 14:15-0500 Heart rate 82 /min Krystin Nguyễn MD Work Phone: [facility] 08-04-2022 14:15-0500 SaO2% (BldA) [Mass fraction] 100 % Krystin Nguyễn MD Work Phone: [facility] 08-04-2022 14:15-0500 Systolic blood pressure 138 mm[Hg] Krystin Nguyễn MD Work Phone: [facility] 07-23-2022 13:45-0500 Body temperature 98.1 [degF] Krystin Nguyễn MD Work Phone: [facility] 07-23-2022 13:45-0500 Body weight 68.77 kg Krystin Nguyễn MD Work Phone: [facility] 07-23-2022 13:45-0500 Heart rate 98 /min Krystin Nguyễn MD Work Phone: [facility] 07-23-2022 13:45-0500 SaO2% (BldA) [Mass fraction] 100 % Krystin Nguyễn MD Work Phone: [facility] 05-24-2022 09:38-0500 Body height 162.6 cm Krystin Nguyễn MD Work Phone: [facility] 05-24-2022 09:38-0500 Body temperature 97.11 [degF] Krystin Nguyễn MD Work Phone: [facility] 05-24-2022 09:38-0500 Body weight 68.77 kg Krystin Nguyễn MD Work Phone: [facility] 05-24-2022 09:38-0500 Diastolic blood pressure 76 mm[Hg] Krystin Nguyễn MD Work Phone: [facility] 05-24-2022 09:38-0500 Heart rate 89 /min Krystin Nguyễn MD Work Phone: [facility] 05-24-2022 09:38-0500 SaO2% (BldA) [Mass fraction] 100 % Krystin Nguyễn MD Work Phone: [facility] 05-24-2022 09:38-0500 Systolic blood pressure 120 mm[Hg] Krystin Nguyễn MD Work Phone: [facility] Encounters Encounter Date Encounter Type Care Provider Facility Start: 05-24-2025 ambulatory Jil Sera Facility:[facility] Start: 05-16-2025 End: 05-16-2025 ambulatory Jil Sera Facility:[facility] Start: 01-02-2025 Encounter for genera l adult medical examination without abnormal findings Jil Zamora [facility] Start: 12-27-2024 End: 12-27-[address] Jil Zamora DO Work Phone: [facility] Work Phone: Start: 12-27-2024 End: 12-27-[address] Jil Zamora DO -Laboratory Work Phone: Start: 12-27-2024 End: 12-27-2024 ambulatory Jil Sera Facility:[facility] Start: 09-06-2024 End: 09-06-[address] Jil Zamora DO -Laboratory Work Phone: Start: 09-06-2024 End: 09-06-2024 ambulatory Jil Sera Facility:[facility] Start: 08-20-2024 End: 08-20-[address] JIL Reynolds SERA DO Facility:[facility] Start: 08-20-2024 End: 08-20-2024 SAME DAY STAY BLESSING TSANG MD [facility] Start: 08-07-2024 End: 08-07-2024 Admission to establishment BLESSING TSANG MD [facility] Start: 08-07-2024 End: 08-07-[address] JIL Reynolds SERA DO Facility:[facility] Start: 08-02-2024 End: 08-02-2024 ambulatory Jil Sera Facility:[facility] Start: 06-25-2024 End: 06-25-2024 ambulatory [facility] [facility] Start: 03-08-2024 End: 03-08-2024 ambulatory [address]ETH STRONG [address] VENDOR-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 TEACHER Facility:A Start: 03-08-2024 End: 03-08-2024 Patient encounter procedure KENIAELIZABETH STRONG [address] VENDOR-CELLO TEACHER [facility] Start: 11-08-2023 End: 11-08-2023 ambulatory [facility] Work Phone: Start: 11-08-2023 End: 11-08-2023 Patient encounter procedure [facility] Work Phone: Start: 08-12-2023 End: 08-12-[address] JIL Reynolds SERA DO Facility:B Start: 08-12-2023 End: 08-12-[address] JIL ZAMORA DO [facility] Start: 08-12-2023 End: 08-12-[address] JIL ZAMORA DO Facility:B Start: 08-12-2023 End: 08-12-[address] JIL ZAMORA DO [facility] Start: 08-08-2023 End: 08-08-2023 ambulatory [facility] Work Phone: Start: 08-08-2023 End: 08-08-2023 Patient encounter procedure [facility] Work Phone: Start: 05-11-2023 End: 05-11-2023 ambulatory [facility] Work Phone: Start: 05-11-2023 End: 05-11-2023 Patient encounter procedure [facility] Work Phone: Start: 02-18-2023 End: 02-22-[address] ROBERTA ALVARADO MD [facility] Start: 02-15-2023 End: 02-15-[address] Jil Zamora Work Phone: [facility] Work Phone: Start: 02-15-2023 End: 02-15-[address] Jil Zamora Work Phone: [facility] Work Phone: Start: 01-02-2023 Non-patient / Non-visit Dr. Pavan Zamora Work Phone: [facility] Work Phone: Start: 01-01-2023 End: 01-02-2023 Evaluation and management of inpatient Dr. Jil Zamora Work Phone: [facility] 3 Start: 01-01-2023 Non-patient / Non-visit Dr. Pavan Zamora Work Phone: [facility] Start: 01-01-2023 Non-patient / Non-visit Dr. Pavan Zamora Work Phone: [facility] Start: 12-31-2022 Evaluation and manag ement of inpatient Dr. Jil Zamora Work Phone: [facility] 3 Start: 12-31-[address] Andrew Zamora Work Phone: [facility] Work Phone: Start: 12-31-2022 Non-patient / Non-visit Dr. Pavan Zamora Work Phone: [facility] Start: 11-16-2022 End: 11-17-2022 ambulatory KRYSTIN NGUYỄN Facility:[facility] Start: 11-16-2022 End: 11-16-2022 Patient encounter procedure Krystin Nguyễn MD Work Phone: General Surgery Comment on above: Status post breast b iopsy (Primary Dx) Start: 11-11-2022 End: 11-11-2022 ambulatory [facility] Work Phone: Start: 11-11-2022 End: 11-11-2022 Patient encounter procedure [facility] Start: 10-07-2022 End: 10-07-2022 ambulatory JIL ZAMORA Facility:[facility] Start: 10-07-2022 End: 10-07-2022 Patient encounter procedure Krystin Nguyễn MD Work Phone: General Surgery Comment on above: Breast infection; Status post breast biopsy Start: 09-16-2022 End: 09-16-2022 ambulatory KRYSTIN NGUYỄN Facility:[facility] Start: 09-16-2022 End: 09-16-2022 Patient encounter procedure Krystin Nguyễn MD Work Phone: General Surgery Comment on above: Breast infection (Pr imary Dx); Status post breast biopsy Start: 09-06-2022 End: 09-06-2022 Emergency department patient visit [facility] Start: 09-02-2022 End: 09-03-2022 Emergency department patient visit [facility] Start: 08-31-2022 End: 08-31-2022 ambulatory KRYSTIN NGUYỄN Facility:[facility] Start: 08-31-2022 Telephone encounter Krystin Jesus MD Work Phone: General Surgery Comment on above: Patient Update Start: 08-31-2022 End: 08-31-2022 Patient encounter procedure Krystin Nguyễn MD Work Phone: General Surgery Comment on above: Breast infection (Pr imary Dx) Start: 08-19-2022 End: 08-19-2022 ambulatory KRYSTIN NGUYỄN Facility:[facility] Start: 08-04-2022 End: 08-04-2022 ambulatory KRYSTIN NGUYỄN Facility:[facility] Start: 08-04-2022 End: 08-04-2022 Patient encounter procedure Krystin Nguyễn MD Work Phone: General Surgery Comment on above: Breast infection (Pr imary Dx) Start: 07-23-2022 End: 07-23-2022 ambulatory KRYSTIN NGUYỄN Facility:[facility] Start: 07-23-2022 End: 07-23-2022 Patient encounter procedure Krystin Nguyễn MD Work Phone: General Surgery Comment on above: Breast infection; Status post breast biopsy Start: 07-14-2022 Telephone encounter Krystin Jesus MD Work Phone: General Surgery Comment on above: Results Start: 06-29-2022 End: 06-29-2022 [facility] Work Phone: Start: 06-29-2022 End: 06-29-2022 Patient encounter procedure [facility] - Biopsy/[facility] Start: 05-24-2022 End: 05-24-2022 ambulatory KRYSTIN NGUYỄN Facility:[facility] Start: 05-24-2022 End: 05-24-2022 Patient encounter procedure Krystin Nguyễn MD Work Phone: General Surgery Comment on above: Abnormal mammogram ( Primary Dx); History of ductal carcinoma in situ (DCIS) of breast Start: 05-10-2022 End: 05-10-2022 [facility] Work Phone: Start: 05-10-2022 End: 05-10-2022 Patient encounter procedure [facility] Start: 02-15-2022 End: 02-15-2022 ambulatory [facility] Work Phone: Start: 02-15-2022 End: 02-15-2022 Patient encounter procedure [facility] Start: 08-13-2021 End: 08-13-2021 Patient encounter procedure JUANCHO GRAVES MD [facility] Start: 07-23-2021 End: 07-23-[address] JIL ZAMORA DO [facility] Procedures Date Procedure Procedure Detail Performing Clinician Start: 09-06-2024 Measurement of renal function Dr. Jil Zamora DO Work Phone: Comment on above: GFR Calc Start: 11-08-2023 Dual energy X-ray absorptiometry Start: 05-11-2023 Screening mammography Start: 01-01-2023 MRI of brain without contrast Dr. Jil Zamora Work Phone: Start: 12-31-2022 Plain chest X-ray Dr. Abdoulaye Zamora Work Phone: Start: 12-31-2022 CT of head without contrast Dr. Jil Zamora Work Phone: Start: 09-06-2022 Plain chest X-ray Start: 06-29-2022 Biopsy of breast Start: 06-28-[address] ROBERTA ALVARADO MD Start: 05-10-2022 Screening mammography Start: 05-10-[address] ROBERTA ALVARADO MD Start: 07-18-[address] RAYMOND ALVARADO MD Start: 07-18-[address] ROBERTA ALVARADO MD section DR JIL BU LLER DO Cholecystectomy DR JIL TORRES LER DO Deliveries by chelo gaston (finding) BLESSING TSANG MD Comment on above: x4 Lumpectomy of breast DR ANDREW ZAMORA DO Comment on above: bilateral Lumpectomy of breast DR RAYMOND ALVARADO MD Comment on above: 2008, 2014 bilateral Plan of Treatment Date Care Activity Detail Author Start: 03-18-2023 Influenza vaccination INFLUENZA (Season Ended) [facility] Start: 01-09-2023 Blood chemistry [facility] Start: 01-08-2023 Blood chemistry [facility] Start: 01-07-2023 Blood chemistry [facility] Start: 01-06-2023 Blood chemistry [facility] Start: 01-05-2023 Blood chemistry [facility] Start: 01-04-2023 Blood chemistry [facility] Start: 01-03-2023 Blood chemistry [facility] Start: 01-02-2023 Patient discharge [facility] Start: 01-01-2023 Admission procedure [facility] Start: 12-31-2022 Following clinical pathway protocol [facility] Start: 12-31-2022 Assessment of risk of venous thromboembolism [facility] Start: 12-31-2022 Insertion of catheter into peripheral vein [facility] Start: 12-31-2022 Providing care according to standard [facility] Start: 12-31-2022 [facility] Start: 12-31-2022 Verification routine [facility] Start: 12-31-2022 Admission procedure [facility] Start: 07-18-2022 ADVANCE DIRECTIVE DISCUSSION ADVANCE DIRECTIVE DISCUSSION [facility] Start: 07-18-2022 DEPRESSION ASSESSMENT DEPRESSION ASSESSMENT [facility] Start: 06-29-2022 Biopsy breast open incisional BIOPSY OF BREAST OPEN [facility] Work Phone: Start: 06-29-2022 Bx breast w/device 1st lesion stereotactic guid BX BREAST 1ST LESION STRTCTC [facility] Start: 03-18-2022 Influenza vaccination INFLUENZA (#1) [facility] Start: 07-18-2021 ADVANCE DIRECTIVE DISCUSSION ADVANCE DIRECTIVE DISCUSSION [facility] Start: 07-18-2021 DEPRESSION ASSESSMENT DEPRESSION ASSESSMENT [facility] Start: 2018 BONE DENSITY BONE DENSITY [facility] Start: 2018 PNEUMOCOCCAL: 65+ (1 - PCV) PNEUMOCOCCAL: 65+ (1 - PCV) [facility] Start: 09-24-2003 SHINGRIX VACCINE (1 of 2) SHINGRIX VACCINE (1 of 2) [facility] Start: 1998 COLOGUARD (FIT-DNA) COLOGUARD (FIT-DNA) [facility] Start: 1998 Colonoscopy COLONOSCOPY [facility] Start: 1998 COLORECTAL CANCER SCREENING COLORECTAL CANCER SCREENING [facility] Start: [address] COLONOGRAPHY [facility] Start: 1998 DIABETES SCREEN DIABETES SCREEN [facility] Start: 1998 FECAL OCCULT BLOOD FECAL OCCULT BLOOD [facility] Start: 1998 LIPID SCREEN LIPID SCREEN [facility] Start: 1998 SIGMOIDOSCOPY SIGMOIDOSCOPY [facility] Start: 1993 Mammography MAMMOGRAM [facility] Start: 1972 Urine microalbumin profile DTAP,TDAP,TD (1 - Tdap) [facility] Start: 09-24-1971 HEPATITIS C SCREENING HEPATITIS C SCREENING [facility] Start: 03-26-1954 COVID-19 VACCINE (#1) COVID-19 VACCINE (#1) [facility] Patient Education [facility] Work Phone: Patient referral [facility] Work Phone: [facility] Immunizations Immunization Date Immunization Notes Care Provider Fa tayo 10-19-2006 hepatitis B vaccine, adult dosage DR ROBERTA ALVARADO MD [facility] 09-14-2006 hepatitis B vaccine, adult dosage DR ROBERTA ALVARADO MD [facility] Payers Date Payer Category Payer Self-pay [id number] 2022 Unknown [id number] 2022 Unknown [id number] 2015 Unknown [employer] [id number] 1953 Unknown [id number] 7 1953 Unknown [id number] 7 1953 Unknown [id number] 7 1953 Unknown [id number] 7 1953 Unknown [id number] 7 1953 Unknown [id number] 7 Medicare MEDICARE PART A B [id number] Private Health Insurance [employer] [id number] Unknown [facility] [id number] Unknown [id number] 2 Unknown [id number] 2 Unknown [id number] 2 Unknown [id number] 2 Unknown [id number] 2 Unknown [id number] 2 Social History Date Type Detail Facility Start: 03-21-2019 End: 12-31-2022 Never smoked tobacco (finding) [facility] Start: 1955 Sex Assigned At Female [facility] Start: 03-19-2017 End: 12-31-2022 Tobacco smoking status COIS Unknown if ever smoked [facility] Start: 05-24-2022 Tobacco use and exposure Smoke less tobacco non-user [facility] Start: 05-24-2022 End: 11-16-2022 Alcohol intake Current non-drinker of alcohol (finding) [facility] Start: 1955 Sex Assigned At Not on file [facility] Start: 05-14-2022 End: 05-24-2022 Exposure to SARS-CoV-2 (event) Yes [facility] Sexual Orientation [facility] Start: 01-10-2019 Sex Female (finding) [facility] Medical Equipment Procedure Code Equipment Code Equipment Origin al Text Equipment Identifier Dates Red Yeast Rice Extract (Bulk) 30 GM powder Start: 05-01-2015 Goals Date Patient Goal Desired Activity /State Functional Status Date Assessment Result Facility 08-20-2024 Functional Status bilateral knee high applied/on [facility] 08-20-2024 Functional Status Maintained, More than 8 hours [facility] 08-07-2024 Functional Status Sensory Deficits None [facility] 01-02-2023 Functional status Chair [facility] Work Phone: Mental Status Date Assessment Result Facility 08-20-2024 Mental Status Orientation Oriented x 4 [facility] 01-02-2023 Cognitive function [facility] Work Phone: 01-02-2023 Cognitive function Demonstrates ability to follow instructions/comprehend [facility] Work Phone: 12-31-2022 Cognitive function Level Of Cons ciousness Awake;Alert;Appropriate;Follow s Commands [facility] Work Phone: 09-06-2022 Cognitive function Level Of Cons ciousness Awake;Alert;Appropriate;Follow s Commands [facility] Work Phone: Clinical Notes 05-24-2022 to 08-20-2024 Note Date & Type Note Facility 08-20-2024 Hospital Discharg e instructions Patient Education 08/20/2024 13:38:47 Hysteroscopy, Care After Hysteroscopy, Care After This sheet gives you information about how to care for yourself after your procedure. Your health care provider may also give you more specific instructions. If you have problems or questions, contact your health care provider. What can I expect after the procedure? After the procedure, it is common to have: Cramping. Bleeding. This can vary from light spotting to menstrual-like bleeding. Follow these instructions at home: Activity Rest for 1 2 days after the procedure. Do not douche, use tampons, or have sex for 2 weeks after the procedure, or until your health care provider approves. Do not drive for 24 hours after the procedure, or for as long as told by your health care provider. Do not drive, use heavy machinery, or drink alcohol while taking prescription pain medicines. Medicines Take nlws-aai-skfgpfb and prescription medicines only as told by your health care provider. Do not take aspirin during recovery. It can increase the risk of bleeding. General instructions Do not take baths, swim, or use a hot tub until your health care provider approves. Take showers instead of baths for 2 weeks, or for as long as told by your health care provider. To prevent or treat constipation while you are taking prescription pain medicine, your health care provider may recommend that you: ?Drink enough fluid to keep your urine clear or pale yellow. ?Take xbwf-gtj-sdddvmt or prescription medicines. ?Eat foods that are high in fiber, such as fresh fruits and vegetables, whole grains, and beans. ?Limit foods that are high in fat and processed sugars, such as fried and sweet foods. Keep all follow-up visits as told by your health care provider. This is important. Contact a health care provider if: You feel dizzy or lightheaded. You feel nauseous. You have abnormal vaginal discharge. You have a rash. You have pain that does not get better with medicine. You have chills. Get help right away if: You have bleeding that is heavier than a normal menstrual period. You have a fever. You have pain or cramps that get worse. You develop new abdominal pain. You faint. You have pain in your shoulders. You have shortness of breath. Summary After the procedure, you may have cramping and some vaginal bleeding. Do not douche, use tampons, or have sex for 2 weeks after the procedure, or until your health care provider approves. Do not take baths, swim, or use a hot tub until your health care provider approves. Take showers instead of baths for 2 weeks, or for as long as told by your health care provider. Report any unusual symptoms to your health care provider. Keep all follow-up visits as told by your health care provider. This is important. This information is not intended to replace advice given to you by your health care provider. Make sure you discuss any questions you have with your health care provider. Document Released: 04/24/2014 Document Revised: 06/16/2018 Document Reviewed: 08/02/2017 [employer] Patient Education 2020 [email or web address] 08/20/2024 13:38:41 Dilation and Curettage or Vacuum Curettage, Care After, Rlwf-re-Ocpi Dilation and Curettage or Vacuum Curettage, Care After These instructions give you information about caring for yourself after your procedure. Your doctor may also give you more specific instructions. Call your doctor if you have any problems or questions after your procedure. Follow these instructions at home: Activity Do not drive or use heavy machinery while taking prescription pain medicine. For 24 hours after your procedure, avoid driving. Take short walks often, followed by rest periods. Ask your doctor what activities are safe for you. After one or two days, you may be able to return to your normal activities. Do not lift anything that is heavier than 10 lb (4.5 kg) until your doctor approves. For at least 2 weeks, or as long as told by your doctor: ?Do not douche. ?Do not use tampons. ?Do not have sex. General instructions Take yxuc-qrl-mwegwpi and prescription medicines only as told by your doctor. This is very important if you take blood thinning medicine. Do not take baths, swim, or use a hot tub until your doctor approves. Take showers instead of baths. Wear compression stockings as told by your doctor. It is up to you to get the results of your procedure. Ask your doctor when your results will be ready. Keep all follow-up visits as told by your doctor. This is important. Contact a doctor if: You have very bad cramps that get worse or do not get better with medicine. You have very bad pain in your belly (abdomen). You cannot drink fluids without throwing up (vomiting). You get pain in a different part of the area between your belly and thighs (pelvis). You have bad-smelling discharge from your vagina. You have a rash. Get help right away if: You are bleeding a lot from your vagina. A lot of bleeding means soaking more than one sanitary pad in an hour, for 2 hours in a row. You have clumps of blood (blood clots) coming from your vagina. You have a fever or chills. Your belly feels very tender or hard. You have chest pain. You have trouble breathing. You cough up blood. You feel dizzy. You feel light-headed. You pass out (faint). You have pain in your neck or shoulder area. Summary Take short walks often, followed by rest periods. Ask your doctor what activities are safe for you. After one or two days, you may be able to return to your normal activities. Do not lift anything that is heavier than 10 lb (4.5 kg) until your doctor approves. Do not take baths, swim, or use a hot tub until your doctor approves. Take showers instead of baths. Contact your doctor if you have any symptoms of infection, like bad-smelling discharge from your vagina. This information is not intended to replace advice given to you by your health care provider. Make sure you discuss any questions you have with your health care provider. Document Released: 04/12/2009 Document Revised: 06/16/2018 Document Reviewed: 03/21/2017 [employer] Patient Education 2020 [email or web address] 08/20/2024 13:38:31 General Anesthesia, Adult, Care After General Anesthesia, Adult, Care After This sheet gives you information about how to care for yourself after your procedure. Your health care provider may also give you more specific instructions. If you have problems or questions, contact your health care provider. What can I expect after the procedure? After the procedure, the following side effects are common: Pain or discomfort at the IV site. Nausea. Vomiting. Sore throat. Trouble concentrating. Feeling cold or chills. Weak or tired. Sleepiness and fatigue. Soreness and body aches. These side effects can affect parts of the body that were not involved in surgery. Follow these instructions at home: For at least 24 hours after the procedure: Have a responsible adult stay with you. It is important to have someone help care for you until you are awake and alert. Rest as needed. Do not: ?Participate in activities in which you could fall or become injured. ?Drive. ?Use heavy machinery. ?Drink alcohol. ?Take sleeping pills or medicines that cause drowsiness. ?Make important decisions or sign legal documents. ?Take care of children on your own. Eating and drinking Follow any instructions from your health care provider about eating or drinking restrictions. When you feel hungry, start by eating small amounts of foods that are soft and easy to digest (bland), such as toast. Gradually return to your regular diet. Drink enough fluid to keep your urine pale yellow. If you vomit, rehydrate by drinking water, juice, or clear broth. General instructions If you have sleep apnea, surgery and certain medicines can increase your risk for breathing problems. Follow instructions from your health care provider about wearing your sleep device: ?Anytime you are sleeping, including during daytime naps. ?While taking prescription pain medicines, sleeping medicines, or medicines that make you drowsy. Return to your normal activities as told by your health care provider. Ask your health care provider what activities are safe for you. Take xtby-cgb-mytjhbm and prescription medicines only as told by your health care provider. If you smoke, do not smoke without supervision. Keep all follow-up visits as told by your health care provider. This is important. Contact a health care provider if: You have nausea or vomiting that does not get better with medicine. You cannot eat or drink without vomiting. You have pain that does not get better with medicine. You are unable to pass urine. You develop a skin rash. You have a fever. You have redness around your IV site that gets worse. Get help right away if: You have difficulty breathing. You have chest pain. You have blood in your urine or stool, or you vomit blood. Summary After the procedure, it is common to have a sore throat or nausea. It is also common to feel tired. Have a responsible adult stay with you for the first 24 hours after general anesthesia. It is important to have someone help care for you until you are awake and alert. When you feel hungry, start by eating small amounts of foods that are soft and easy to digest (bland), such as toast. Gradually return to your regular diet. Drink enough fluid to keep your urine pale yellow. Return to your normal activities as told by your health care provider. Ask your health care provider what activities are safe for you. This information is not intended to replace advice given to you by your health care provider. Make sure you discuss any questions you have with your health care provider. Document Released: 10/10/2001 Document Revised: 07/07/2018 Document Reviewed: 02/17/2018 [employer] Patient Education [employer]. Follow Up Care 08/02/2024 11:33:08 With:BLESSING TSANG MD Address: [address] [place] [address] [place] [address]- [phone] When: Unknown Comments:Follow up office vice within 2 weeks Follow-up as scheduled [facility] 08-20-2024 Evaluation + Plan note Extrac lakhwinder from: Title:Clinical Document Author:BLESSING TSANG MD Date:08/20/24 History and Physical Update I have examined the patient; reviewed the H&P and there are no changes to the H&P unless noted below. Future Appointments Appointment Date:09/13/2024 09:30:00 AM Scheduled Provider:JIL ZAMORA DO Location:[facility] Appointment Type: OV Appointment Date:01/10/2025 01:30:00 PM Scheduled Provider:JIL ZAMORA DO Location:[facility] Appointment Type:PC Wellness Primetime Enhanced Future Scheduled Tests Laboratory* Basic Metabolic Panel 08/09/24 * Complete Blood Count 02/23/24 * Complete Blood Count 08/02/24 * Lipid Profile 08/02/24 * Lipid Profile 07/06/24 * Complete Metabolic Panel 02/23/24 * Complete Metabolic Panel 08/02/24 * Complete Metabolic Panel 07/06/24 Radiology* MA Mammo Screening Bilateral w/ Osmani 06/08/24 * BD Bone Density DEXA Axial Skeleton 10/24/23 * US Pelvis Non-OB W/Transvaginal 06/05/24 [facility] 02-03-2025 Summary of episode note Discharge Instructions Thank you for allowing [facility] to assist you with your healthcare needs. The following is importantdischarge information regarding your hospital visit. Your Care Team JIL ZAMORA DO Your Diagnosis Acute post-operative pain What to do next Scheduled Follow-Up Appointments Appointment Type When With Where Contact Information StatusPC OV 09/13/2024 09:30 AM EST JIL ZAMORA DO [facility] Confirmed PC Wellness Primetime Enhanced 01/10/2025 01:30 PM EDT [facility] Confirmed Follow Up Appointments Follow Up with BLESSING TSANG MD Where:[address] [facility] [place] [address]- [phone] Additional Information: Follow up office vice within 2 weeks Follow-up as scheduled Allergies Augmentin Hives seasonal enviromental Watery eye Medications Please ask your primary doctor or pharmacist before taking any other medication not listed, including over the counter drugs, herbal medications, vitamins and or supplements as they may interact withyour home medications. What How Much When Why Instructions Last Dose New acetaminophen (acetaminophen 325 mg oral capsule) 650 Milligram by mouth Every 6 hours Pickup at [facility] New ibuprofen (IBU 600 mg oral tablet) 1 tab(s) by mouth Every 6 hours Pickup at [facility] New oxyCODONE (oxyCODONE 5 mg oral tablet ( IMMEDIATE release )) 1 tab(s) by mouth Every 6 hours as needed for Pain, scale 7-10 Acute post-operative pain Duration: 1 Days Pickup at [facility] Pharmacy Information [facility]: [address] [place] [address] [phone] What How Much When Why Comments Stop Taking cholecalciferol (Vitamin D3) Once a day 2,000 IU drops 1 drop daily Stop Taking clobetasol topical (clobetasol 0.05% topical cream) 1 application Topical Twice a week Stop Taking herbal/ nutritional product (Red Yeast Rice 600 mg oral capsule) 2 cap by mouth Every day Stop Taking hydroCHLOROthiazide (hydroCHLOROthiazide 12.5 mg oral tablet) 1 tab(s) by mouth Once a day Essential hypertension change in dose Stop Taking multivitamin (Multivitamin) 1 tab(s) by mouth Every day Stop Taking multivitamin with minerals (Calcium, Magnesium and Zinc oral tablet) 1 tab(s) by mouth Once a day Stop Taking omega-3 polyunsaturated fatty acids ([place]-3 Fish Oil) 1,000 Milligram by mouth Once a day Please take this list to your next doctor s visit. Bring all medications you take, including over the counter medications, herbals and other supplements with you to your doctor s visit. Patients and families are reminded to discard old lists and to update any records with all medication providers or retail pharmacies. Education Materials Hysteroscopy, Care After This sheet gives you information about how to care for yourself after your procedure. Your health care provider may also give you more specific instructions. If you have problems or questions, contact your health care provider. What can I expect after the procedure? After the procedure, it is common to have: Cramping. Bleeding. This can vary from light spotting to menstrual-like bleeding. Follow these instructions at home: Activity Rest for 1 2 days after the procedure. Do not douche, use tampons, or have sex for 2 weeks after the procedure, or until your health care provider approves. Do not drive for 24 hours after the procedure, or for as long as told by your health care provider. Do not drive, use heavy machinery, or drink alcohol while taking prescription pain medicines. Medicines Take xxfe-yqj-qdathnj and prescription medicines only as told by your health care provider. Do not take aspirin during recovery. It can increase the risk of bleeding. General instructions Do not take baths, swim, or use a hot tub until your health care provider approves. Take showers instead of baths for 2 weeks, or for as long as told by your health care provider. To prevent or treat constipation while you are taking prescription pain medicine, your health care provider may recommend that you: ? Drink enough fluid to keep your urine clear or pale yellow. ? Take dxiq-def-uflqupp or prescription medicines. ? Eat foods that are high in fiber, such as fresh fruits and vegetables, whole grains, and beans. ? Limit foods that are high in fat and processed sugars, such as fried and sweet foods. Keep all follow-up visits as told by your health care provider. This is important. Contact a health care provider if: You feel dizzy or lightheaded. You feel nauseous. You have abnormal vaginal discharge. You have a rash. You have pain that does not get better with medicine. You have chills. Get help right away if: You have bleeding that is heavier than a normal menstrual period. You have a fever. You have pain or cramps that get worse. You develop new abdominal pain. You faint. You have pain in your shoulders. You have shortness of breath. Summary After the procedure, you may have cramping and some vaginal bleeding. Do not douche, use tampons, or have sex for 2 weeks after the procedure, or until your health care provider approves. Do not take baths, swim, or use a hot tub until your health care provider approves. Take showers instead of baths for 2 weeks, or for as long as told by your health care provider. Report any unusual symptoms to your health care provider. Keep all follow-up visits as told by your health care provider. This is important. This information is not intended to replace advice given to you by your health care provider. Make sure you discuss any questions you have with your health care provider. Document Released: 04/24/2014 Document Revised: 06/16/2018 Document Reviewed: 08/02/2017 [employer] Patient Education 2020 [employer] Dilation and Curettage or Vacuum Curettage, Care After These instructions give you information about caring for yourself after your procedure. Your doctormay also give you more specific instructions. Call your doctor if you have any problems or questions after your procedure. Follow these instructions at home: Activity Do not drive or use heavy machinery while taking prescription pain medicine. For 24 hours after your procedure, avoid driving. Take short walks often, followed by rest periods. Ask your doctor what activities are safe for you.After one or two days, you may be able to return to your normal activities. Do not lift anything that is heavier than 10 lb (4.5 kg) until your doctor approves. For at least 2 weeks, or as long as told by your doctor: ? Do not douche. ? Do not use tampons. ? Do not have sex. General instructions Take kcem-ixl-eimykao and prescription medicines only as told by your doctor. This is very important if you take blood thinning medicine. Do not take baths, swim, or use a hot tub until your doctor approves. Take showers instead of baths. Wear compression stockings as told by your doctor. It is up to you to get the results of your procedure. Ask your doctor when your results will be ready. Keep all follow-up visits as told by your doctor. This is important. Contact a doctor if: You have very bad cramps that get worse or do not get better with medicine. You have very bad pain in your belly (abdomen). You cannot drink fluids without throwing up (vomiting). You get pain in a different part of the area between your belly and thighs (pelvis). You have bad-smelling discharge from your vagina. You have a rash. Get help right away if: You are bleeding a lot from your vagina. A lot of bleeding means soaking more than one sanitary brenda an hour, for 2 hours in a row. You have clumps of blood (blood clots) coming from your vagina. You have a fever or chills. Your belly feels very tender or hard. You have chest pain. You have trouble breathing. You cough up blood. You feel dizzy. You feel light-headed. You pass out (faint). You have pain in your neck or shoulder area. Summary Take short walks often, followed by rest periods. Ask your doctor what activities are safe for you.After one or two days, you may be able to return to your normal activities. Do not lift anything that is heavier than 10 lb (4.5 kg) until your doctor approves. Do not take baths, swim, or use a hot tub until your doctor approves. Take showers instead of baths. Contact your doctor if you have any symptoms of infection, like bad-smelling discharge from your vagina. This information is not intended to replace advice given to you by your health care provider. Make sure you discuss any questions you have with your health care provider. Document Released: 04/12/2009 Document Revised: 06/16/2018 Document Reviewed: 03/21/2017 [employer] Patient Education 2020 [email or web address]. General Anesthesia, Adult, Care After This sheet gives you information about how to care for yourself after your procedure. Your health care provider may also give you more specific instructions. If you have problems or questions, contact your health care provider. What can I expect after the procedure? After the procedure, the following side effects are common: Pain or discomfort at the IV site. Nausea. Vomiting. Sore throat. Trouble concentrating. Feeling cold or chills. Weak or tired. Sleepiness and fatigue. Soreness and body aches. These side effects can affect parts of the body that were not involved in surgery. Follow these instructions at home: For at least 24 hours after the procedure: Have a responsible adult stay with you. It is important to have someone help care for you until youare awake and alert. Rest as needed. Do not: ? Participate in activities in which you could fall or become injured. ? Drive. ? Use heavy machinery. ? Drink alcohol. ? Take sleeping pills or medicines that cause drowsiness. ? Make important decisions or sign legal documents. ? Take care of children on your own. Eating and drinking Follow any instructions from your health care provider about eating or drinking restrictions. When you feel hungry, start by eating small amounts of foods that are soft and easy to digest (bland), such as toast. Gradually return to your regular diet. Drink enough fluid to keep your urine pale yellow. If you vomit, rehydrate by drinking water, juice, or clear broth. General instructions If you have sleep apnea, surgery and certain medicines can increase your risk for breathing problems. Follow instructions from your health care provider about wearing your sleep device: ? Anytime you are sleeping, including during daytime naps. ? While taking prescription pain medicines, sleeping medicines, or medicines that make you drowsy. Return to your normal activities as told by your health care provider. Ask your health care provider what activities are safe for you. Take atoj-fpl-hywsccg and prescription medicines only as told by your health care provider. If you smoke, do not smoke without supervision. Keep all follow-up visits as told by your health care provider. This is important. Contact a health care provider if: You have nausea or vomiting that does not get better with medicine. You cannot eat or drink without vomiting. You have pain that does not get better with medicine. You are unable to pass urine. You develop a skin rash. You have a fever. You have redness around your IV site that gets worse. Get help right away if: You have difficulty breathing. You have chest pain. You have blood in your urine or stool, or you vomit blood. Summary After the procedure, it is common to have a sore throat or nausea. It is also common to feel tired. Have a responsible adult stay with you for the first 24 hours after general anesthesia. It is important to have someone help care for you until you are awake and alert. When you feel hungry, start by eating small amounts of foods that are soft and easy to digest (bland), such as toast. Gradually return to your regular diet. Drink enough fluid to keep your urine pale yellow. Return to your normal activities as told by your health care provider. Ask your health care provider what activities are safe for you. This information is not intended to replace advice given to you by your health care provider. Make sure you discuss any questions you have with your health care provider. Document Released: 10/10/2001 Document Revised: 07/07/2018 Document Reviewed: 02/17/2018 [employer] Patient Education 2020 [email or web address]. Additional Information VACCINATE! IT SAVES LIVES! Members of the community who have not yet received the COVID-19 vaccine and would like to receive it can visit one of [facility] vaccine clinics. There are many vaccine clinic locations within the [facility]. For locations and available times, please visit [email or web address].[place].gov/. It is important to note that some COVID mobile vaccine clinics are held outdoors and may be canceled in rainy or stormy conditions. To learn more about pediatric vaccinations (ages 5-11), we invite you to visit the [facility] webpage. https://www.akNetvibess.org/pages/[email or web address]-Rvyfy-Dkbxfffylwg-Nmrwhpqulg-Wyauv-Rfk stions.htmlTo learn more about the COVID-19 vaccine, we invite you to visit the CDC website for a list of frequently asked questions.https://www.cdc.gov/coronavirus/2019-ncov/vaccines/faq.html [facility] Patient Portal Access Instructions: Stay connected with your healthcare team and access your personal medical information anytime with the [facility] Patient Portal. Please follow the directions below to create your [facility] account: 1.Access the email account you provided upon registration to the hospital/physician office.2.Look for an invitation email from [facility].3.Open the email and access the invitation link: AcceptInvitation to [facility].4.Fill in the required smith to create your account. To access your account, visit [email or web address]. Click the blue button labeled "Access Patient Portal" and then log in with the username and password that you created in the steps above. You will be able to view your test results, lab results, a summary of your visits, upcoming appointments and more. There is also a convenient messaging option where you can send secure messages to your PlayPhonevider. In addition, you will have the ability to download any documents or summaries to your computer and/or send the information securely to a physician. Remember that your healthcare information is confidential, so carefully consider who you will allowto register on the [facility] Patient Portal for access to your information. You can also access the [facility] Patient Portal on the [facility] ruddy. Simply click on "Patient Portal" and then log into your account. If you would like to receive a full copy of your medical records, please contact the [facility] Medical Records Department by calling [phone], Tuesday through Tuesday between 8 a.m. and 4:30 p.m. HOW TO SAFELY DISPOSE OF PRESCRIPTION MEDICATIONS Please use one of the following methods to safely dispose of your unused medications. 1.Use a drug disposal kit: the drug disposal pouch allows you to safely discard your old and unuseddrugs. Ask your nurse to give you one when you are discharged.2.Visit a local take-back location: Many local pharmacies and police departments have programs that collect old and unwanted prescriptiondrugs. Call your local pharmacy or go to http://bit.Oomnitza/8M9Be0r to find one close to you.3.Make use of household items: Use cat litter or old coffee grounds to dispose medications if other options arenot available. Mix your drugs with these household products, seal them in an airtight container andthrow it into the garbage. Call [facility]: [phone] to be sure your drugs can be disposed of in this way. Some medicines may require a different approach.4.Never flush your medications down the toilet. IF YOU HAVE BEEN PRESCRIBED AN OPIOID FOR PAIN If you have been prescribed an opioid (such as hydrocodone, oxycodone or morphine), it is critical to understand the possible side effects and risks of opioid pain medications. Even when taken as directed, opioids can have several side effects including: Tolerance, meaning you might need to take more of a medication for the same pain relief. Nausea, vomiting and/or constipation. Sleepiness, dizziness, dry mouth, confusion, depression or itching. Physical dependence, meaning you have withdrawal symptoms when a medication is stopped, can develop within a few days. KNOW YOUR RESPONSIBILITIES It is important to know exactly how much and how often to take the opioid pain medications you are prescribed. Never take opioids in higher amounts or more often than prescribed. Do not combine opioids with alcohol or other drugs that cause drowsiness, such as benzodiazepines, also known as benzos, including diazepam and alprazolam, muscle relaxants or sleep aids. Never sell or share prescription opioids. This is illegal. Store opioids in a secure place and out of reach of others (including children, family, friends and visitors). The last page of this document has been signed and retained as a CHART COPY. Signatures Patient Education Materials Hysteroscopy, Care After Dilation and Curettage or Vacuum Curettage, Care After, Yrlc-po-Piid General Anesthesia, Adult, Care After Medication Leaflets My discharge plan and instructions have been reviewed and explained to me and I,ZENY REECE understand my current condition and have read and understand these discharge instructions. I have received a written copy of the plan/instructions. If I have questions, I am aware that I should contact my doctor. Patient/Home Care Nurse Signature: Date/Time: Relationship to Patient: Witness Name/Signature: Date/Time: [facility]02-03-2025 Anesthesiology Consult note Patient: ZENY REECE Age: 68 years Sex: Female : 1955 Associated Diagnoses: None Author: ESTUARDO GUTIERREZ APRN-DOMESTIC VIOLENCE COUNSELOR Assessment Postanesthesia assessment Vitals: Vital signs from flowsheet : Vital Signs 08/20/2024 13:25 EST Respiratory Rate - Anes 3 br/min br/min 08/20/2024 13:20 EST Heart Rate Monitored 57 bpm bpm Respiratory Rate - Anes 8 br/min br/min Systolic Blood Pressure Non-Invasive 87 mmHg mmHg Diastolic Blood Pressure Non-Invasive 45 mmHg mmHg 08/20/2024 13:15 EST Temperature (Route Not Specified) 36 DegC DegC Heart Rate Monitored 61 bpm bpm Respiratory Rate - Anes 6 br/min br/min Systolic Blood Pressure Non-Invasive 88 mmHg mmHg Diastolic Blood Pressure Non-Invasive 45 mmHg mmHg 08/20/2024 13:10 EST Heart Rate Monitored 59 bpm bpm Respiratory Rate - Anes 6 br/min br/min Systolic Blood Pressure Non-Invasive 93 mmHg mmHg Diastolic Blood Pressure Non-Invasive 59 mmHg mmHg 08/20/2024 13:05 EST Heart Rate Monitored 63 bpm bpm Respiratory Rate - Anes 2 br/min br/min Systolic Blood Pressure Non-Invasive 84 mmHg mmHg Diastolic Blood Pressure Non-Invasive 53 mmHg mmHg 08/20/2024 13:02 EST Systolic Blood Pressure Non-Invasive 83 mmHg mmHg Diastolic Blood Pressure Non-Invasive 44 mmHg mmHg 08/20/2024 13:00 EST Temperature (Route Not Specified) 36 DegC DegC Heart Rate Monitored 62 bpm bpm Respiratory Rate - Anes 6 br/min br/min Systolic Blood Pressure Non-Invasive 85 mmHg mmHg Diastolic Blood Pressure Non-Invasive 53 mmHg mmHg 08/20/2024 12:56 EST Systolic Blood Pressure Non-Invasive 127 mmHg mmHg Diastolic Blood Pressure Non-Invasive 71 mmHg mmHg 08/20/2024 11:58 EST Temperature Temporal Artery 36.2 DegC Peripheral Pulse Rate 91 bpm Respiratory Rate 12 br/min LOW Systolic Blood Pressure Non-Invasive 152 mmHg HI Diastolic Blood Pressure Non-Invasive 64 mmHg , Measurements from flowsheet . Mental status: alert & oriented x 4. Respiratory function: respirations are non-labored. Respiratory support: none. CV function: Normal rate. Cardiovascular support: none. Pain. Nausea status: see nursing documentation of medications. Postoperative hydration status: within normal limits. Digitally Signed by ESTUARDO GUTIERREZ on 08/20/2024 01:32 PM [facility]02-03-2025 Anesthesiology Consult note Patient: ZENY REECE Age: 68 years Sex: Female : 1955 Associated Diagnoses: None Author: ESTUARDO GUTIERREZ Preoperative Information Time of last food or liquid consumption: 08/20/2024 00:00:00 Anesthesia history Patient's history: negative. Family's history: negative. Health Status Allergies: Allergic Reactions (Selected) Severity Not Documented Augmentin- Hives. Seasonal enviromental- Watery eye., Allergies (2) ActiveSeverityReaction seasonal enviromentalWatery eye AugmentinHives Current medications: (Selected) Inpatient Medications Ordered Normal Saline 500 mL 1,000 mL: 100 mL, Intravenous Prescriptions Prescribed clobetasol 0.05% topical cream: 1 ruddy, Topical, 2X/week, 15 gram(s), 0 Refill(s) hydroCHLOROthiazide 12.5 mg oral tablet: 12.5 mg, 1 tab(s), Oral, qDay, change in dose, 90 tab(s), 0 Refill(s) Documented Medications Documented Calcium, Magnesium and Zinc oral tablet: 1 tab(s), Oral, qDay, 30 tab(s), 0 Refill(s) Multivitamin: 1 tab(s), Oral, Daily, 0 Refill(s) [place]-3 Fish Oil: 1,000 mg, Oral, qDay, 0 Refill(s) Red Yeast Rice 600 mg oral capsule: 2 cap(s), Oral, Daily, 0 Refill(s) Vitamin D3: qDay, 2,000 IU drops 1 drop daily, 0 Refill(s), Medications (1) Active Scheduled: (0) Continuous: (1) NS (0.9% nacl) 1,000 mL 1,000 mL, Intravenous PRN: (0) Problem list: Medical (Selected) Essential hypertension / SNOMED CT 30756112 / Confirmed History of breast cancer in situ Active / SNOMED CT 2255943010 / Confirmed Dcis of the breast Active / SNOMED CT 287833957 / Confirmed Osteopenia / SNOMED CT 357890297 / Confirmed 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 Family History: Breast cancer Paternal Grandmother Rheumatoid arthritis Mother (Meng Wilcox, ) Father (Charly Tipton, ) Heart disease Father (Charly Tipton, ) Diabetes mellitus type 2 Mother (Meng Wilcox, ) Father (Charly Tipton, ) Osteoporosis Mother (Meng Wilcox, ) Cancer of colon Maternal Grandmother Malignant tumor of ovary Mother (Meng Wilcox, ) Hypercholesterolemia Mother (Meng Wilcox, ) Father (Charly Tipton, ) Malignant tumor of prostate Maternal Grandfather Osteoarthritis Mother (Meng Wilcox, ) Malignant tumor of head and/or neck Brother (Wander Fowler, ) Procedure history: Biopsy ([id number]) on 06/28/2022 at 66 Years. Mammogram ([id number]) on 05/10/2022 at 66 Years. Cholecystectomy; (69130) in 2012 at 57 Years. Appendectomy ([id number]) in 1982 at 27 Years. delivery ([id number]). Comments: 08/07/2024 11:59 EST - Torrie Paez RN x4 Breast lumpectomy ([id number]). Comments: 11/17/2022 13:42 EDT - Lizzie Piper LPN 201404/21/2017 13:36 SAMARA STACY RN [place] bilateral Social History: Social & Psychosocial Habits Alcohol 08/20/2024Risk Assessment: Denies Alcohol Use 08/20/2024 Use: Never Employment/School 08/09/2024 Status: Retired Substance Abuse 08/20/2024Risk Assessment: Denies Substance Abuse 08/20/2024 Use: Never Tobacco 08/20/2024 Tobacco Use: Never (less than 100 in l Exercise Comment: Walk some and house work - 09/14/2021 10:45 - Heidi Escamilla CMA Home/Environment 08/20/2024 Living situation: Home/Independent Domestic Concerns None Primary Manager Administrative Services: Self Current Home Treatments None Special Services and Community Resources None Spouse Name Luther Marital Status of Patient if Patient Independent Adult: Nutrition/Health 08/20/2024 Type of diet: Regular Caffeine intake amount: very little Appetite Good Physical Examination Vital Signs 08/20/2024 13:05 EST Heart Rate Monitored 63 bpm bpm Respiratory Rate - Anes 2 br/min br/min Systolic Blood Pressure Non-Invasive 84 mmHg mmHg Diastolic Blood Pressure Non-Invasive 53 mmHg mmHg 08/20/2024 13:02 EST Systolic Blood Pressure Non-Invasive 83 mmHg mmHg Diastolic Blood Pressure Non-Invasive 44 mmHg mmHg 08/20/2024 13:00 EST Heart Rate Monitored 62 bpm bpm Respiratory Rate - Anes 6 br/min br/min Systolic Blood Pressure Non-Invasive 85 mmHg mmHg Diastolic Blood Pressure Non-Invasive 53 mmHg mmHg 08/20/2024 12:56 EST Systolic Blood Pressure Non-Invasive 127 mmHg mmHg Diastolic Blood Pressure Non-Invasive 71 mmHg mmHg 08/20/2024 11:58 EST Temperature Temporal Artery 36.2 DegC Peripheral Pulse Rate 91 bpm Respiratory Rate 12 br/min LOW Systolic Blood Pressure Non-Invasive 152 mmHg HI Diastolic Blood Pressure Non-Invasive 64 mmHg Vital Signs (last 24 hrs) Last Charted Temp Mhnpcqec34.2 DegC (AUG 20 11:58) Heart Rate Bhmnlnsme62 bpm (AUG 20 13:05) SBP84 mmHg (AUG 20 13:05) DBP53 mmHg (AUG 20 13:05) Measurements from flowsheet : Measurements 08/20/2024 11:58 EST Height 163 cm Admission Weight 70 kg Solomon Body Weight 55.10 kg Pain assessment: Pain Assessment 08/20/2024 11:58 EST Primary Pain Intensity 0 Pain Scale Type 0-10 Pain scale . General: Alert and oriented. Airway: Normal temporomandibular joint mobility, Normal mouth, Normal neck range of motion. Mallampati classification: II (soft palate, fauces, uvula visible). Dentition Evaluation: Dentures, upper, Dentures, partial plate. Respiratory: Respirations are non-labored. Cardiovascular: Normal rate. Neurologic: Alert, Oriented. Review / Management Results review: No qualifying data available , Lab results 08/20/2024 13:06 EST SN - TDC - Device Type CATH URETHRAL 14FR RED RUBBER WHEN GONE/USE L # [id number] 08/20/2024 13:05 EST Heart Rate Monitored 63 bpm bpm Respiratory Rate - Anes 2 br/min br/min Systolic Blood Pressure Non-Invasive 84 mmHg mmHg Diastolic Blood Pressure Non-Invasive 53 mmHg mmHg Oxygen Saturation 98 % % 08/20/2024 13:03 EST SN - TDC - Location BLADDER SN - TDC - DC'd at End of Case Yes 08/20/2024 13:02 EST Systolic Blood Pressure Non-Invasive 83 mmHg mmHg Diastolic Blood Pressure Non-Invasive 44 mmHg mmHg 08/20/2024 13:00 EST Heart Rate Monitored 62 bpm bpm Respiratory Rate - Anes 6 br/min br/min Systolic Blood Pressure Non-Invasive 85 mmHg mmHg Diastolic Blood Pressure Non-Invasive 53 mmHg mmHg Oxygen Saturation 100 % % clindamycin 600 mg mg 08/20/2024 12:58 EST SN - Cul - Culture Type Tissue in Formalin SN - Cul - Kind Specimen 08/20/2024 12:56 EST SN - Proc - Anesthesia Type General SN - Proc - Actual Procedure HYSTEROSCOPY, DILATION AND CURETTAGE 08/20/2024 12:56 EST SN - Irl - Irrigant Normal Saline 08/20/2024 12:56 EST Systolic Blood Pressure Non-Invasive 127 mmHg mmHg Diastolic Blood Pressure Non-Invasive 71 mmHg mmHg 08/20/2024 12:55 EST SN - SP - Prep Agents Betadine Scrub, Betadine Solution SN - SP - HR - Method N/A 08/20/2024 12:50 EST SN - PP - Body Position Supine Standard Intra-op 08/20/2024 12:49 EST SN - PTCare - Anti-thromboembolism Sarah Sequential Compression Device (SCD) 08/20/2024 12:49 EST SN - Assess - LOC Alert, Awake SN - Assess - Orientation Oriented X 3 SN - Assess - Post-op Skin Integrity Intact/Dry 08/20/2024 12:48 EST SN - GCD - ASA Class 2 SN - GCD - Post-operative Diagnosis THICKENED ENDOMETRIUM SN - GCD - Case Level Level 3 08/20/2024 12:48 EST SN - CAt - Case Attendee SN - CAt - Case Attendee SN - CAt - Case Attendee SN - CAt - Case Attendee SN - CAt - Case Attendee SN - CAt - Case Attendee SN - CAt - Case Attendee SN - CAt - Case Attendee SN - CAt - Case Attendee SN - CAt - Case Attendee SN - CAt - Role Performed Primary Surgeon SN - CAt - Role Performed Wire Cutter 1 SN - CAt - Role Performed Scrub 1 SN - CAt - Role Performed Replenishment Analyst 1 SN - CAt - Role Performed DOMESTIC VIOLENCE COUNSELOR 08/20/2024 12:40 EST Sodium Chloride 0.9% Begin Bag 1,000 mL mL 08/20/2024 12:35 EST [place] Pre-Surgical History & Physical 08/20/2024 12:32 EST SN - Preop - CTm Pt in SDS Room 08/20/2024 12:00 SN - Preop - CTm Pt Ready for OR/Proced 08/20/2024 12:31 08/20/2024 12:16 EST Continuous IV Infusions NaCl Hand Right 08/20/2024 20 gauge Peripheral IV Activity: Insert new site Peripheral IV Dressing Condition: Clean, Dry, Intact Peripheral IV Dressing Activity: Applied, Transparent dressing Peripheral IV Line Status/Patency: Flushes easily Peripheral IV Line Care: Secured with tape Peripheral IV Site Condition: No complications Peripheral IV Equipment: Extension set, PRN Adaptor Peripheral IV Number of Attempts: 1 08/20/2024 12:02 EST Respirations Unlabored Respiratory Pattern Regular All Lobes Breath Sounds Clear 08/20/2024 11:58 EST Height 163 cm Admission Weight 70 kg Solomon Body Weight 55.10 kg Temperature Temporal Artery 36.2 DegC Peripheral Pulse Rate 91 bpm Respiratory Rate 12 br/min LOW Systolic Blood Pressure Non-Invasive 152 mmHg HI Diastolic Blood Pressure Non-Invasive 64 mmHg Primary Pain Intensity 0 Pain Scale Type 0-10 Pain scale Heart Rhythm Regular Oxygen Therapy Room air Oxygen Saturation 100 % Bowel Sounds All Quadrants Present Urinary Elimination Voiding, no difficulties Skin Description Normal for ethnicity Skin Integrity Intact IV Present Present Extremity Movement Equal Characteristics of Speech Clear Level of Consciousness Alert Affect/Behavior Appropriate, Calm, Cooperative Orientation Oriented x 4 Allergies Yes Anesthesia Extension Set Applied Yes Saturator Tender On Yes Consent Form Signed Yes Patient Dressed In Hospital gown Pre-op Preparation Dentures, upper removed, Dentures, lower removed, Glasses removed History & Physical Update On Chart Yes History & Physical On Chart Yes Belongings At Bedside Cell phone, Coat, Credit cards, Pants, Purse, Shirt, Shoes, Socks, Wallet NPO Status Maintained, More than 8 hours Allergy Band on and Verified Yes Patient ID Band on and Verified Yes Implants Verified No Pacemaker/AICD Verified No Site Verified by Patient/Family Yes Anesthesia Consent Signed Yes Blood Consent Signed Yes Last Fluid Intake 08/19/2024 23:59 Last Food Intake 08/19/2024 23:00 Last Void 08/20/2024 12:01 08/20/2024 11:56 EST Designated Person #1 We May Share WILBUR Reece [phone] Designated Person #1 Relationship Spouse Privacy Restrictions Requested None Status N/A Sensory Deficits None Sleep Apnea Snore No Sleep Apnea Tired No Sleep Apnea Obstruction No Sleep Apnea Pressure Yes Sleep Apnea BMI No Sleep Apnea Age Yes Sleep Apnea Neck No Sleep Apnea Gender No Sleep Apnea Score 2 Diagnosed With Sleep Apnea No Advanced Directives No - refuses information Infectious Disease Symptoms Patient states no symptoms Infectious Disease Recent Exposure No Alcohol and Drug Use No Employee of Institutional Living No Health Care Employee No History of Exposure to TB No History of Positive Chest X-Ray for TB No History of Positive TB Skin Test No Homeless No Known Immunosuppression No Recent Immigrant No Resident of Institutional Living No Bloody Sputum No Fatigue No Fever No Loss of Appetite No Night Sweats No Persistent Cough > 3 Weeks No Weight Loss No Pre-Op Patient Education NPO after midnight, No makeup, No jewelry, Responsible Constitution Party, Aware of surgery location, Pre-op education done, No ordered medications, SSI prevention handout given SN - Preprocedure Comments Spoke with patient, Verbalizes/Nonverbally indicates understanding Barriers to Learning None evident Teaching Method Explanation, Printed materials Preferred Spoken Language Ecuadorean Preferred Written Language Ecuadorean Teaching Evaluation No further teaching needed Safety Brochure Information Reviewed Yes Ishaan Yanes Video Viewed No Patient's Current Physicians Patient's Current Physicians Discharge To, Anticipated Home independently Prev Test Positive/Diagnosis w/COVID-19 No Current Quarantine/Isolated any Illness No Any Contact with Sick Animals/Birds No Traveled Anywhere in Last 30 Days No Lost Weight Unintentionally Recently No Eat Poorly Due to Decreased Appetite No Total MST Score 0 N/A Personal Devices, Patient Valuables Dentures, lower, Dentures, upper, Glasses Anesthesia/Transfusions Prior anesthesia Admission Note-Nursing Same Day Patient History . Assessment and Plan [place] [employer] (ASA) physical status classification: Class II. Anesthetic Preoperative Plan Anesthetic technique: General. Informed consent: signed by patient. Digitally Signed by ESTUARDO GUTIERREZ on 08/20/2024 01:13 PM [facility]02-03-2025 Note History and Physical Update I have examined the patient; reviewed the H&P and there are no changes to the H&P unless noted below. Digitally Signed by BLESSING TSANG MD on 08/20/2024 12:35 PM [facility]01-26-2024 Note ORIGINAL NM MYOCARDIAL SPECT STRESS/REST CLINICAL STATEMENT:shortness of breath with exertion TECHNIQUE: Patient exercised for 6 minutes and 6 seconds on a Axel protocol achieving a maximum heart rate of153 bpm which represents 101% predicted. Blood pressure at peak exercise 210/94. Rate-pressure product 66805 Radiopharmaceutical(rest): Tc-99m Sestamibi IV Dose:10.6 mCi Radiopharmaceutical(stress): Tc-99m Sestamibi IV Dose:31.3 mCi SPECT acquisition: SPECT reconstruction and reorientation into short axis, vertical and horizontal long axis planes Quantitative LVEF assessment COMPARISON:none REPORT:Technically difficult study. Motion is noted on review of rotating raw images. Dextrocardia noted. No clear fixed or reversible perfusion defects are noted left ventricular ejection fraction is 66%. Left ventricular end-diastolic volume is 52 mL and TID ratio 0.93. These values are within normal limits. IMPRESSION: No clear evidence of ischemia or infarction within the limitations of the study. Normal left ventricular ejection fraction. ECG portion will be dictated separately. Interpreted By: Driss Hernández Preliminary Report By: Driss Hernández Electronically Signed By: Driss Hernández Dictated Date: 08/12/2023 6:46:01 PM Prelim Date: 08/12/2023 6:46:01 PM Sign Date: 08/12/2023 6:48:41 PM Ordering Provider:Jil Archbold - [facility]08-08-2023 Note If ancillary studies were utilized, the following Laboratory Developed Test (LDT) disclaimer will apply: Under CLIA requirements, [facility] is qualified to perform high complexity testing. For all ancillary stains, positive and negative controls stain appropriately. Performance characteristics of immunohistochemical and chromogenic in-situ hybridization tests have been deter mined by [facility]. These tests are used for clinical purposes, They should not be regarded as investigational or for research. [facility] 08-08-2023 Note If ancillary studies were utilized, the following Laboratory Developed Test (LDT) disclaimer will apply: Under CLIA requirements, [facility] is qualified to perform high complexity testing. For all ancillary stains, positive and negative controls stain appropriately. Performance characteristics of immunohistochemical and chromogenic in-situ hybridization tests have been deter mined by [facility]. These tests are used for clinical purposes, They should not be regarded as investigational or for research. [facility] 08-07-2023 Note If ancillary studies were utilized, the following Laboratory Developed Test (LDT) disclaimer will apply: Under CLIA requirements, [facility] is qualified to perform high complexity testing. For all ancillary stains, positive and negative controls stain appropriately. Performance characteristics of immunohistochemical and chromogenic in-situ hybridization tests have been deter mined by [facility]. These tests are used for clinical purposes, They should not be regarded as investigational or for research. [facility] 08-07-2023 Note If ancillary studies were utilized, the following Laboratory Developed Test (LDT) disclaimer will apply: Under CLIA requirements, [facility] is qualified to perform high complexity testing. For all ancillary stains, positive and negative controls stain appropriately. Performance characteristics of immunohistochemical and chromogenic in-situ hybridization tests have been deter mined by [facility]. These tests are used for clinical purposes, They should not be regarded as investigational or for research. [facility] 08-07-2023 Note If ancillary studies were utilized, the following Laboratory Developed Test (LDT) disclaimer will apply: Under CLIA requirements, [facility] is qualified to perform high complexity testing. For all ancillary stains, positive and negative controls stain appropriately. Performance characteristics of immunohistochemical and chromogenic in-situ hybridization tests have been deter mined by [facility]. These tests are used for clinical purposes, They should not be regarded as investigational or for research. [facility] 08-07-2023 Note If ancillary studies were utilized, the following Laboratory Developed Test (LDT) disclaimer will apply: Under CLIA requirements, [facility] is qualified to perform high complexity testing. For all ancillary stains, positive and negative controls stain appropriately. Performance characteristics of immunohistochemical and chromogenic in-situ hybridization tests have been deter mined by [facility]. These tests are used for clinical purposes, They should not be regarded as investigational or for research. [facility] 08-07-2023 Note If ancillary studies were utilized, the following Laboratory Developed Test (LDT) disclaimer will apply: Under CLIA requirements, [facility] is qualified to perform high complexity testing. For all ancillary stains, positive and negative controls stain appropriately. Performance characteristics of immunohistochemical and chromogenic in-situ hybridization tests have been deter mined by [facility]. These tests are used for clinical purposes, They should not be regarded as investigational or for research. [facility] 06-17-[address] Ordonez [facility] January 01, 2023 3:37pm Note Date/Time January 01, 2023 3:28 pm [facility] Medical Records Department [address] [place] [address] Progress Note 01/01/23 1522 MR#: [id number] Acct: [id number] Name: ZENY REECE Rep #:[id number] : 1955 67 From: uRma Ordonez MD PCP: Dr. Jli Zamora, DO Status:ADM I NO Location: MS3 RT078-4 Subjective Subjective Seen and examined. She was admitted with a complaint of dizziness and vertigo. CT of the brain was negative. She says she feels okay this morning but felt dizzy and lightheaded when she stood up early this morning. She was orthostaticpositive early this morning. Review of systems otherwise negative. Objective Data Objective Data Vital Signs: Vital Signs Temp Pulse Resp BP Pulse Ox O2 Del Method 98.0 F 83 18 134/74 H 99 Room Air 01/01/23 13:29 01/01/23 13:29 01/01/23 13:29 01/01/23 13:29 01/01/23 13:29 01/01/23 13:29 Oxygen Delivery Method Room Air Weight: 145 lb 8.081 oz Body Mass Index (BMI) 25.0 Intake & Output: Intake and Output for Last 24 Hours 12/30/22 12/31/22 01/01/23 23:59 23:59 23:59 Intake Total 440 / 440 1545 / 1545 Balance 440 / 440 1545 / 1545 Lab / Micro Data Result Diagrams: 12/31/22 17:03 12/31/22 17:03 Labs: Laboratory Results - last 24 hr 12/31/22 17:03: WBC 5.2, RBC 5.34, Hgb 16.1 H, Hct 49.8 H, MCV 93.3, MCH 30.1, MCHC 32.3, RDW Std Deviation 43.8, RDW Coeff of Rhonda 12.9, Plt Count 277, MPV 9.7, Immature Gran % (Auto) 0.200, Neut % (Auto) 59.8, Lymph % (Auto) 26.6, [place]% (Auto) 9.2, Eos % (Auto) 2.9, Baso % (Auto) 1.3 H, Absolute Neuts (auto) 3.1, Absolute Lymphs (auto) 1.39, Nucleated RBC % 0 12/31/22 17:03: Sodium 142, Potassium 4.1, Chloride 105, Carbon Dioxide 29.0, Anion Gap 8, BUN 14, Creatinine 0.84, Estim Creat Clear Calc 54.58, Est GFR (MDRD) Af Amer 86, Est GFR (MDRD) Non-Af 71, BUN/Creatinine Ratio 16.7, Glucose 96, Calcium 10.2 H, Total Bilirubin 0.40, AST 22, ALT 30, Alkaline Phosphatase 77, Troponin I High Sens 6, Total Protein 7.7, Albumin 4.0, Globulin 3.7, Albumin/Globulin Ratio 1.1 Radiography Diagnostic Testing: Radiology Impression Brain CT 12/31/22 16:37 IMPRESSION: Normal unenhanced CT scan of the brain. AIDOC was utilized to assist in identifying pertinent positive findings in this case. 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 Electronically Signed: Peyman Vazquez DO at 17:49 EDT Reading Location ID and State: [address] [place] [address] Tel [phone], Service support , Brain MRI 01/01/23 09:12 IMPRESSION: 1. No intracranial mass, hemorrhage, or acute territorial infarct. 2. No radiographically significant sinus disease. 3. Mild cortical and central atrophy. Electronically Signed: Hao Zaldivar MD, LEX at 12:03 EDT , Echocardiogram 01/01/23 10:04 Interpretation Summary The estimated ejection fraction is 65 %. Ordering Physician: Ruma Ordnoez Referring Physician: Jil Zamora Performed By: Melody Arvizu RDCS Physical Exam Const alert, oriented x3 and no apparent distress General Appearance: cooperative HEENT normocephalic, head/scalp atraumatic and moist oral mucous membranes Eyes PERRL and EOMs intact bilaterally Neck no lymphadenopathy, supple and no JVD Lymph Lymphatic: no lymphadenopathy noted and no lymphedema noted Cardio regular rate, regular rhythm, S1 normal heart sound, S2 normal heart sound and no murmurs GI normal to inspection, nondistended, normoactive bowel sounds, soft to palpation,non-tender and non-distended Extremity normal capillary refill, no clubbing, cyanosis or edema and no calf tenderness Skin General Skin Exam: no breakdown Neuro CN's II-XII intact bilaterally, no focal motor deficits, no sensory deficits noted and deep tendon reflexes 2+ bilaterally Motor Exam: strength 5/5 throughout Psych thought process normal, cooperative and affect normal Appearance: appropriate Assessment & Plan Assessment/Plan (1) Vertigo: PLAN: Plan #VErtigo * Could have been due to her markedly elevated blood pressure. Blood pressure subsequently resolved. * CT of the brain showed no acute intracranial pathology. Orthostatics are positive so I believe orthostatics also playing a role. * Hydrate gently with IV normal saline. PT OT consults * Fall precautions. Also on meclizine. * MRI of the brain done today showed no acute intracranial pathology. * #Elevated blood pressure: * Blood pressure was markedly elevated on admission but subsequently trended down. She is now on Norvasc 5 mg daily. * IV hydralazine as needed * 2D echo showed EF of 65% with no regional wall motion abnormalities noted and normal diastole and left ventricular size * DVT prophylaxis: lovenox Charges/Coding Visit Charges Inpatient E&M: 18948 Subs Hosp L2 01/01/23 1537 <Electronically signed by Ruma Ordonez MD> Ruma Ordonez MD Cosigner Signature (if applicable): CC: ~ Signed [facility] Work Phone: [phone]) 940-613306-17-2023 Progress note Author Chris Alvarado [facility] January 01, 2023 7:48am Note Date/Time January 01, 2023 7:48 am [facility] Medical Records Department [address] [place] [address] Progress Note - Hospitalist 01/01/23 0746 MR#: [id number] Acct: [id number] Name: ZENY REECE TOMASA Rep #:[id number] : 1955 67 From: Chris Alvarado MD PCP: Dr. Jil Zamora, DO Status:ADM I NO Location: MS3 PR048-2 Hospitalist Note Will hold Norvasc at this point as the patient had significant change in orthostatics to 67/40s while standing I ordered 1 liter of fluid NS over 2 hrs 01/01/23 0748 <Electronically signed by Chris Alvarado MD> Cosigner Signature (if applicable): CC: ~ Signed [facility] Work Phone: [phone] 117-819806-16-2023 History and physical note Author Chris [facility] December 31, 2022 9:49pm Note Date/Time December 31, 2022 9:48 pm [facility] Medical Records Department [address] [facility] [place] [address] H&P Exam - Hospitalist 12/31/22 2143 MR#: [id number] Acct: [id number] Name: ZENY REECE TOMASA Rep #:[id number] : 1955 67 From: Chris Alvarado MD PCP: Dr. Jil Zamora, DO Status:REG E R Location: ED HPI - General General Date of Admission: 12/31/22 Date of Service: 12/31/22 Chief Complaint: dizziness HPI Narrative ZENY REECE, is a 67 F who presents with dizziness. started wed night, and she felt lightheaded and that the room was spinning.? This is associated with nausea.? Her symptoms resolved and she was able to go tosleep, and states that on , yesterday, she felt well until the evening.?She had bent over to get something and became very vertiginous.? While she is nauseated she has not vomited at all.? She awoke this morning, with worsening symptoms throughout the day.? Symptoms can also be present without head movement. No new medication consumed recently. She flew home from [place] on Sun night. She sought care at chiropractor. Her BP was 190 and 215 here. She was checking BP in spring and it routinely was 130/80s. High BP is new for her. no vision or numbness changes. She was admitted b/c she was unsteady when she walked down the quintero. [facility] Medical History HX: breast cancer Situs inversus Home Medications vitamin B comp and C no.3 15 mg-10 mg-50 mg-5 mg-300 mg capsule (B Complex Plus Vitamin C) 1 ea PO DAILY 04/09/15 [History Last Taken Unknown] cholecalciferol (vitamin D3) 25 mcg (1,000 unit) tablet (Vitamin D3) 2,000 unit PO DAILY 04/10/15 [History Last Taken Unknown] red yeast rice extract (bulk) 2 tab PO DAILY 05/01/15 [History Last Taken Unknown] Power C 2 tab PO DAILY 09/02/16 [History Last Taken Unknown] anastrozole 1 mg tablet 1 mg PO DAILY 09/02/16 [History Last Taken Unknown] calcium carbonate 600 mg-vitamin D3 5 mcg (200 unit) tablet (Calcium 600 + D(3))1 ea PO DAILY 09/02/16 [History Last Taken Unknown] oxycodone-acetaminophen 5 mg-325 mg tablet (Percocet) 1 tab PO Q6H PRN pain 3 days #12 tabs 09/03/22 [Rx Last Taken Unknown] prednisone 10 mg tablet 10 mg PO DAILY #30 tabs 09/03/22 [Rx Last Taken Unknown] Allergy/AdvReac Type Severity Reaction Status Date / Time amoxicillin [From Augmentin] AdvReac Hives Verified 12/31/22 16:18 clavulanic acid AdvReac Hives Verified 12/31/22 16:18 [From Augmentin] Surgical History Hx of appendectomy Hx of cholecystectomy Social History Smoking Status: Never smoker Vital Signs Vital Signs Vital Signs: 12/31/22 16:13 12/31/22 16:29 12/31/22 16:37 Temperature 97.6 F L Temperature Source Temporal Pulse Rate 74 76 Respiratory Rate 17 12 Respiratory Effort Normal Respiratory Pattern Normal Blood Pressure 187/91 H 196/95 H Blood Pressure Mean 123 128 Pulse Ox 100 100 Oxygen Delivery Method Room Air Room Air 12/31/22 17:12 12/31/22 17:57 12/31/22 18:22 Temperature Temperature Source Pulse Rate 81 81 89 Respiratory Rate 14 15 Respiratory Effort Respiratory Pattern Blood Pressure 184/99 H 106/55 L 131/72 H Blood Pressure Mean 127 72 91 Pulse Ox 100 Oxygen Delivery Method Room Air Room Air 12/31/22 19:00 12/31/22 20:00 12/31/22 21:38 Temperature 97.4 F L Temperature Source Temporal Pulse Rate 86 92 103 H Respiratory Rate 14 17 19 H Respiratory Effort Respiratory Pattern Blood Pressure 132/68 H 137/75 H 158/77 H Blood Pressure Mean 89 95 104 Pulse Ox 98 99 97 Oxygen Delivery Method Room Air Room Air Room Air Weight Weight: 146 lb 13.246 oz Body Mass Index (BMI) 25.2 Physical Exam Const alert HEENT normocephalic, head/scalp atraumatic and hearing grossly normal bilaterally Eyes PERRL and EOMs intact bilaterally Eyes Narrative: No nystagmus, normal Pupil response. Resp normal respiratory effort and no retractions Cardio regular rate and regular rhythm GI normal to inspection, nondistended, normoactive bowel sounds Extremity normal to inspection and no clubbing, cyanosis or edema Neuro moves all extremities and no focal motor deficits Sensorium / Orientation: awake and alert Psych affect normal Results Lab / Micro Data Result Diagrams: 12/31/22 17:03 12/31/22 17:03 Labs: Laboratory Results - last 24 hr 12/31/22 17:03: WBC 5.2, RBC 5.34, Hgb 16.1 H, Hct 49.8 H, MCV 93.3, MCH 30.1, MCHC 32.3, RDW Std Deviation 43.8, RDW Coeff of Rhonda 12.9, Plt Count 277, MPV 9.7, Immature Gran % (Auto) 0.200, Neut % (Auto) 59.8, Lymph % (Auto) 26.6, [place]% (Auto) 9.2, Eos % (Auto) 2.9, Baso % (Auto) 1.3 H, Absolute Neuts (auto) 3.1, Absolute Lymphs (auto) 1.39, Nucleated RBC % 0 12/31/22 17:03: Sodium 142, Potassium 4.1, Chloride 105, Carbon Dioxide 29.0, Anion Gap 8, BUN 14, Creatinine 0.84, Estim Creat Clear Calc 54.58, Est GFR (MDRD) Af Amer 86, Est GFR (MDRD) Non-Af 71, BUN/Creatinine Ratio 16.7, Glucose 96, Calcium 10.2 H, Total Bilirubin 0.40, AST 22, ALT 30, Alkaline Phosphatase 77, Troponin I High Sens 6, Total Protein 7.7, Albumin 4.0, Globulin 3.7, Albumin/Globulin Ratio 1.[address] 12/31/22 16:37 IMPRESSION: Normal unenhanced CT scan of the brain. [employer]IDOC was utilized to assist in identifying pertinent positive findings in this case. 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 Electronically Signed: Peyman Vazquez DO at 17:49 EDT Reading Location ID and State: [employer] / [employer] Tel [phone], Service support , Assessment & Plan Assessment/Plan (1) Vertigo: (2) Blood pressure elevated without history of HTN: PLAN: Plan Symptoms of dizziness could be tied to severe hypertension which is new for her.They are better now BPPV is also consideration (though i would expect more intermittent symptoms and aggravated by quick movements). She responded to therapy in ED, will start Norvasc 5 mg as she clearly fits diagnosis of hypertension. Monitor overnight. Meclizine prn although I think symptoms may eventually resolve as her BP is controlled Full code. Charges/Coding Visit Charges Inpatient E&M: 29186 Init Hosp L2 12/31/222148 <Electronically signed by Chris Alvarado MD> Cosigner Signature (if applicable): CC: Dr. Jil Zamora, ; Chris Alvarado MD~ Signed [facility] Work Phone: 1(112) 500-749506-16-[address] Smith [facility] December 31, 2022 9:36pm Note Date/Time December 31, 2022 4:44 pm [facility] Medical Records Department [address] [place] [address] Emergency Department Summary 12/31/22 MR#: [id number] Acct: [id number] Name: ZENY REECE Rep #:[id number] : 1955 67 From: Lencho Smith MD PCP: Dr. Jil Zamora, DO Status:REG E R Location: ED HPI History of Present Illness Chief Complaint: Dizziness Narrative Narrative: 67-year-old female who denies significant past medical history presents with vertiginous type symptoms and elevated blood pressure. She relates history thather symptoms began on Tuesday evening, 2 days ago. She felt lightheaded and that the room was spinning. This is associated with nausea. Her symptoms resolved and she was able to go to sleep, and states that on , yesterday, she felt well until the evening. She had bent over to get something and became very vertiginous. While she is nauseated she has not vomited at all. She awoke this morning, with worsening symptoms throughout the day. She statesher gait feels unsteady and that the room was spinning. She felt she needed a chiropractic manipulation because she was in [place] doing a lot of activity, and felt this would help with all her tenseness. While she was at the chiropractor,they noticed that her blood pressure was elevated in the 190s, then over 200 systolic. She denies any headache, no chest pain, no shortness of breath but states her blood pressure is usually normal. 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 [facility] Medical History HX: breast cancer Situs inversus Home Medications vitamin B comp and C no.3 15 mg-10 mg-50 mg-5 mg-300 mg capsule (B Complex Plus Vitamin C) 1 ea PO DAILY 04/09/15 [History Last Taken Unknown] cholecalciferol (vitamin D3) 25 mcg (1,000 unit) tablet (Vitamin D3) 2,000 unit PO DAILY 04/10/15 [History Last Taken Unknown] red yeast rice extract (bulk) 2 tab PO DAILY 05/01/15 [History Last Taken Unknown] Power C 2 tab PO DAILY 09/02/16 [History Last Taken Unknown] anastrozole 1 mg tablet 1 mg PO DAILY 09/02/16 [History Last Taken Unknown] calcium carbonate 600 mg-vitamin D3 5 mcg (200 unit) tablet (Calcium 600 + D(3))1 ea PO DAILY 09/02/16 [History Last Taken Unknown] oxycodone-acetaminophen 5 mg-325 mg tablet (Percocet) 1 tab PO Q6H PRN pain 3 days #12 tabs 09/03/22 [Rx Last Taken Unknown] prednisone 10 mg tablet 10 mg PO DAILY #30 tabs 09/03/22 [Rx Last Taken Unknown] Allergy/AdvReac Type Severity Reaction Status Date / Time amoxicillin [From Augmentin] AdvReac Hives Verified 12/31/22 16:18 clavulanic acid AdvReac Hives Verified 12/31/22 16:18 [From Augmentin] Surgical History Hx of appendectomy Hx of cholecystectomy Social History Smoking Status: Never smoker ROS ROS ED ROS Narrative Constitutional: No fever, no chills. HEENT: No sore throat. No neck pain. No loss of vision. No rhinorrhea. Cardiovascular: No chest pain. No palpitations. No pedal edema. Respiratory: No cough, no shortness of breath. Abdominal: No abdominal pain. Positive nausea. No vomiting. Genitourinary: No dysuria. No hematuria. Musculoskeletal: No myalgias. No arthralgias. Neurologic: No headaches. Positive vertigo/dizziness. No lightheadedness. Skin: No rash. No change in color. Psychiatric: No depression. No anxiety. EXAM Physical Exam Narrative Exam Narrative: Afebrile. Vital signs noted. HEENT: Normocephalic. Atraumatic. PERRL, EOMI. Neck soft and supple. No pointtenderness or step off. Cardiovascular: Regular rate and rhythm. No murmurs, rubs, or gallops appreciated. Respiratory: No tachypnea. Lungs clear to auscultation bilaterally. Gastrointestinal: Abdomen soft, nontender, with normoactive bowel sounds. No rebound or guarding. Neurological: Awake. Alert. Nonfocal, nonlateralizing. Cerebellar functioning is normal as tested with toxmvn-te-uops and lower extremity isyz-cu-poba. Skin: No rash. Normal color. No pallor. Musculoskeletal: No pedal edema. Full range of motion extremities. Const Vital Signs: 12/31/22 16:13 12/31/22 16:29 12/31/22 16:37 Temperature 97.6 F L Temperature Source Temporal Pulse Rate 74 76 Respiratory Rate 17 12 Respiratory Effort Normal Respiratory Pattern Normal Blood Pressure 187/91 H 196/95 H Blood Pressure Mean 123 128 Pulse Ox 100 100 Oxygen Delivery Method Room Air Room Air 12/31/22 17:12 12/31/22 17:57 12/31/22 18:22 Temperature Temperature Source Pulse Rate 81 81 89 Respiratory Rate 14 15 Respiratory Effort Respiratory Pattern Blood Pressure 184/99 H 106/55 L 131/72 H Blood Pressure Mean 127 72 91 Pulse Ox 100 Oxygen Delivery Method Room Air Room Air 12/31/22 19:00 12/31/22 20:00 Temperature Temperature Source Pulse Rate 86 92 Respiratory Rate 14 17 Respiratory Effort Respiratory Pattern Blood Pressure 132/68 H 137/75 H Blood Pressure Mean 89 95 Pulse Ox 98 99 Oxygen Delivery Method Room Air Room Air MDM MDM MDM Narrative Medical decision making narrative: Concern is for hypertensive emergency and intracranial hemorrhage versus benign positional vertigo. I do feel CT imaging of the brain is indicated. Additionally, she will be given 20 mg of hydralazine for elevated blood pressurein the 190s to 200s systolic. EKG was obtained and interpreted by myself independently which demonstrates normal sinus rhythm at 73 bpm without ectopy oracute ST changes. No STEMI. CBC was reviewed and she has a normal white count of 5.2, hemoglobin slightly hemoconcentrated at 16.1 with hematocrit 49.8. Platelet count normal at 277. CMP is grossly unremarkable with normal sodium of142, normal potassium of 4.1, BUN normal at 14 with creatinine 0.8. High-sensitivity troponin is 6. This is greater than a 6-hour troponin, and I do not feel that she needs serial enzymes. CT of the brain was obtained which shows no acute process. This is in review of the radiology report. 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 I reviewed the radiology report which confirms my independent interpretation. At this point in time, she may have more of a benign positional vertigo. However, she was given meclizine 25 mg orally. Attempt was made to ambulate her again, she states she still felt unsteady with her gait and mildly off balance. I discussed patient with Dr. Alvarado for observation for her intractable vertigo and perhaps for further testing to rule out cerebellar stroke. She did have significantly elevated blood pressure without history of hypertension, and is currently 137/75. Patient is in stable condition. History & Record Review Discussion w/independent historian: Patient Additional record(s) reviewed:: Prior ED visit Lab Data Attestation: I reviewed the patient's lab results. Labs: Laboratory Results - last 24 hr 12/31/22 12/31/22 17:03 17:03 WBC 5.2 RBC 5.34 Hgb 16.1 H Hct 49.8 H MCV 93.3 MCH 30.1 MCHC 32.3 RDW Std Deviation 43.8 RDW Coeff of Rhonda 12.9 Plt Count 277 MPV 9.7 Immature Gran % (Auto) 0.200 Neut % (Auto) 59.8 Lymph % (Auto) 26.6 [place] % (Auto) 9.2 Eos % (Auto) 2.9 Baso % (Auto) 1.3 H Absolute Neuts (auto) 3.1 Absolute Lymphs (auto) 1.39 Nucleated RBC % 0 Sodium 142 Potassium 4.1 Chloride 105 Carbon Dioxide 29.0 Anion Gap 8 BUN 14 Creatinine 0.84 Estim Creat Clear Calc 54.58 Est GFR (MDRD) Af Amer 86 Est GFR (MDRD) Non-Af 71 BUN/Creatinine Ratio 16.7 Glucose 96 Calcium 10.2 H Total Bilirubin 0.40 AST 22 ALT 30 Alkaline Phosphatase 77 Troponin I High Sens 6 Total Protein 7.7 Albumin 4.0 Globulin 3.7 Albumin/Globulin Ratio 1.1 Radiography Diagnostic Testing: Clinical Impression(s) from Imaging Studies Brain CT 12/31/22 16:37 IMPRESSION: Normal unenhanced CT scan of the brain. AIDOC was utilized to assist in identifying pertinent positive findings in this case. 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 Electronically Signed: Peyman VazquezDO at 17:49 EDT Reading Location ID and State: [address] [place] [address] Tel [phone], Service support , Discharge Plan Dx/Rx/DC Orders Clinical Impression: Vertigo, Unsteady gait, Blood pressure elevated without history of HTN Disposition Disposition: Acute Care [facility] What to do if you have Problems For any increased pain, shortness of breath, bleeding, nausea or vomiting, chestpain, or any unexpected problems, contact your Primary Care Provider. Call [facility] ([phone]) or report to the closest Emergency Room. Call 911 if necessary. 12/31/222135 <Electronically signed by Lencho Smith MD> Cosigner Signature (if applicable): CC: Dr. Jil Zamora DO ~ Signed [facility] Work Phone: 1(152) 169-216106-16-[address] Smith [facility] December 31, 2022 9:36pm Note Date/Time December 31, 2022 4:44 pm [facility] Medical Records Department [address] [place] [address] Emergency Department Summary 12/31/22 MR#: [id number] Acct: [id number] Name: ZENY REECE TOMASA Rep #:[id number] : 1955 67 From: Lencho Smith MD PCP: Dr. Jil Zamora DO Status:REG E R Location: ED HPI History of Present Illness Chief Complaint: Dizziness Narrative Narrative: 67-year-old female who denies significant past medical history presents with vertiginous type symptoms and elevated blood pressure. She relates history thather symptoms began on Tuesday evening, 2 days ago. She felt lightheaded and that the room was spinning. This is associated with nausea. Her symptoms resolved and she was able to go to sleep, and states that on , yesterday, she felt well until the evening. She had bent over to get something and became very vertiginous. While she is nauseated she has not vomited at all. She awoke this morning, with worsening symptoms throughout the day. She statesher gait feels unsteady and that the room was spinning. She felt she needed a chiropractic manipulation because she was in [place] doing a lot of activity, and felt this would help with all her tenseness. While she was at the chiropractor,they noticed that her blood pressure was elevated in the 190s, then over 200 systolic. She denies any headache, no chest pain, no shortness of breath but states her blood pressure is usually normal. 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 [facility] Medical History HX: breast cancer Situs inversus Home Medications vitamin B comp and C no.3 15 mg-10 mg-50 mg-5 mg-300 mg capsule (B Complex Plus Vitamin C) 1 ea PO DAILY 04/09/15 [History Last Taken Unknown] cholecalciferol (vitamin D3) 25 mcg (1,000 unit) tablet (Vitamin D3) 2,000 unit PO DAILY 04/10/15 [History Last Taken Unknown] red yeast rice extract (bulk) 2 tab PO DAILY 05/01/15 [History Last Taken Unknown] Power C 2 tab PO DAILY 09/02/16 [History Last Taken Unknown] anastrozole 1 mg tablet 1 mg PO DAILY 09/02/16 [History Last Taken Unknown] calcium carbonate 600 mg-vitamin D3 5 mcg (200 unit) tablet (Calcium 600 + D(3))1 ea PO DAILY 09/02/16 [History Last Taken Unknown] oxycodone-acetaminophen 5 mg-325 mg tablet (Percocet) 1 tab PO Q6H PRN pain 3 days #12 tabs 09/03/22 [Rx Last Taken Unknown] prednisone 10 mg tablet 10 mg PO DAILY #30 tabs 09/03/22 [Rx Last Taken Unknown] Allergy/AdvReac Type Severity Reaction Status Date / Time amoxicillin [From Augmentin] AdvReac Hives Verified 12/31/22 16:18 clavulanic acid AdvReac Hives Verified 12/31/22 16:18 [From Augmentin] Surgical History Hx of appendectomy Hx of cholecystectomy Social History Smoking Status: Never smoker ROS ROS ED ROS Narrative Constitutional: No fever, no chills. HEENT: No sore throat. No neck pain. No loss of vision. No rhinorrhea. Cardiovascular: No chest pain. No palpitations. No pedal edema. Respiratory: No cough, no shortness of breath. Abdominal: No abdominal pain. Positive nausea. No vomiting. Genitourinary: No dysuria. No hematuria. Musculoskeletal: No myalgias. No arthralgias. Neurologic: No headaches. Positive vertigo/dizziness. No lightheadedness. Skin: No rash. No change in color. Psychiatric: No depression. No anxiety. EXAM Physical Exam Narrative Exam Narrative: Afebrile. Vital signs noted. HEENT: Normocephalic. Atraumatic. PERRL, EOMI. Neck soft and supple. No pointtenderness or step off. Cardiovascular: Regular rate and rhythm. No murmurs, rubs, or gallops appreciated. Respiratory: No tachypnea. Lungs clear to auscultation bilaterally. Gastrointestinal: Abdomen soft, nontender, with normoactive bowel sounds. No rebound or guarding. Neurological: Awake. Alert. Nonfocal, nonlateralizing. Cerebellar functioning is normal as tested with [id number]-vh-rbsb and lower extremity furl-wh-bkem. Skin: No rash. Normal color. No pallor. Musculoskeletal: No pedal edema. Full range of motion extremities. Const Vital Signs: 12/31/22 16:13 12/31/22 16:29 12/31/22 16:37 Temperature 97.6 F L Temperature Source Temporal Pulse Rate 74 76 Respiratory Rate 17 12 Respiratory Effort Normal Respiratory Pattern Normal Blood Pressure 187/91 H 196/95 H Blood Pressure Mean 123 128 Pulse Ox 100 100 Oxygen Delivery Method Room Air Room Air 12/31/22 17:12 12/31/22 17:57 12/31/22 18:22 Temperature Temperature Source Pulse Rate 81 81 89 Respiratory Rate 14 15 Respiratory Effort Respiratory Pattern Blood Pressure 184/99 H 106/55 L 131/72 H Blood Pressure Mean 127 72 91 Pulse Ox 100 Oxygen Delivery Method Room Air Room Air 12/31/22 19:00 12/31/22 20:00 Temperature Temperature Source Pulse Rate 86 92 Respiratory Rate 14 17 Respiratory Effort Respiratory Pattern Blood Pressure 132/68 H 137/75 H Blood Pressure Mean 89 95 Pulse Ox 98 99 Oxygen Delivery Method Room Air Room Air MDM MDM MDM Narrative Medical decision making narrative: Concern is for hypertensive emergency and intracranial hemorrhage versus benign positional vertigo. I do feel CT imaging of the brain is indicated. Additionally, she will be given 20 mg of hydralazine for elevated blood pressurein the 190s to 200s systolic. EKG was obtained and interpreted by myself independently which demonstrates normal sinus rhythm at 73 bpm without ectopy oracute ST changes. No STEMI. CBC was reviewed and she has a normal white count of 5.2, hemoglobin slightly hemoconcentrated at 16.1 with hematocrit 49.8. Platelet count normal at 277. CMP is grossly unremarkable with normal sodium of142, normal potassium of 4.1, BUN normal at 14 with creatinine 0.8. High-sensitivity troponin is 6. This is greater than a 6-hour troponin, and I do not feel that she needs serial enzymes. CT of the brain was obtained which shows no acute process. This is in review of the radiology report. 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 I reviewed the radiology report which confirms my independent interpretation. At this point in time, she may have more of a benign positional vertigo. However, she was given meclizine 25 mg orally. Attempt was made to ambulate her again, she states she still felt unsteady with her gait and mildly off balance. I discussed patient with Dr. Alvarado for observation for her intractable vertigo and perhaps for further testing to rule out cerebellar stroke. She did have significantly elevated blood pressure without history of hypertension, and is currently 137/75. Patient is in stable condition. History & Record Review Discussion w/independent historian: Patient Additional record(s) reviewed:: Prior ED visit Lab Data Attestation: I reviewed the patient's lab results. Labs: Laboratory Results - last 24 hr 12/31/22 12/31/22 17:03 17:03 WBC 5.2 RBC 5.34 Hgb 16.1 H Hct 49.8 H MCV 93.3 MCH 30.1 MCHC 32.3 RDW Std Deviation 43.8 RDW Coeff of Rhonda 12.9 Plt Count 277 MPV 9.7 Immature Gran % (Auto) 0.200 Neut % (Auto) 59.8 Lymph % (Auto) 26.6 [place] % (Auto) 9.2 Eos % (Auto) 2.9 Baso % (Auto) 1.3 H Absolute Neuts (auto) 3.1 Absolute Lymphs (auto) 1.39 Nucleated RBC % 0 Sodium 142 Potassium 4.1 Chloride 105 Carbon Dioxide 29.0 Anion Gap 8 BUN 14 Creatinine 0.84 Estim Creat Clear Calc 54.58 Est GFR (MDRD) Af Amer 86 Est GFR (MDRD) Non-Af 71 BUN/Creatinine Ratio 16.7 Glucose 96 Calcium 10.2 H Total Bilirubin 0.40 AST 22 ALT 30 Alkaline Phosphatase 77 Troponin I High Sens 6 Total Protein 7.7 Albumin 4.0 Globulin 3.7 Albumin/Globulin Ratio 1.1 Radiography Diagnostic Testing: Clinical Impression(s) from Imaging Studies Brain CT 12/31/22 16:37 IMPRESSION: Normal unenhanced CT scan of the brain. AIDOC was utilized to assist in identifying pertinent positive findings in this case. 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 Electronically Signed: Peyman Vazquez DO at 17:49 EDT Reading Location ID and State: [address] [place] [address] Tel [phone], Service support , Discharge Plan Dx/Rx/DC Orders Clinical Impression: Vertigo, Unsteady gait, Blood pressure elevated without history of HTN Disposition Disposition: Acute Care [facility] What to do if you have Problems For any increased pain, shortness of breath, bleeding, nausea or vomiting, chestpain, or any unexpected problems, contact your Primary Care Provider. Call [facility] ([phone]) or report to the closest Emergency Room. Call 911 if necessary. 12/31/222135 <Electronically signed by Lencho Smith MD> Cosigner Signature (if applicable): CC: Dr. Jil Zamora DO ~ Signed [facility] Work Phone: 1(193) 362-439205-02-2023 NoteHNO ID: [id number] Author: Krystin Nguyễn MD Service: ? Author Type: Physician Type: Progress Notes Filed: 11/19/2022 2:01 PM Note Text: FOLLOW UP VISIT NAME: Zeny Reece [facility] NO.: [id number] DATE OF SERVICE: 11/16/2022 : 1955 REFERRING PHYSICIAN: Jil Zamora DO, DO Jeanette is status post breast biopsy. She had [...] THIS IS A NO CHARGE VISIT Krystin Nguyễn [facility]05-02-2023 History of Present illness Narrative* Krystin Nguyễn MD - 11/16/2022 9:34 AM EDT FOLLOW UP VISIT NAME: Zeny Reece [facility] NO.: [id number] DATE OF SERVICE: 11/16/2022 : 1955 REFERRING PHYSICIAN: Jil Zamora DO, DO Jeanette is status post breast biopsy. She had problems with post procedure infection. VITALS: Blood pressure 142/84, pulse 94, temperature 36.2 C (97.2 F), weight 68.5 kg (151 lb), [id number] %. On examination, area is indurated but [...] THIS IS A NO CHARGE VISIT Krystin Nguyễn MD documented [facility] encounterThe [facility] NoteHNO ID: [id number] Author: Krystin Nguyễn MD Service: ? Author Type: Physician Type: Progress Notes Filed: 10/10/2022 12:36 PM Note Text: FOLLOW UP VISIT NAME: Zeny Reynolds [facility] NO.: [id number] DATE OF SERVICE: 10/07/2022 : 1955 REFERRING [...] This is a no charge visit. [facility] History of Present illness Narrative* Krystin Nguyễn MD - 10/08/2022 7:14 AM EDT FOLLOW UP VISIT NAME: Zeny Reece [facility] NO.: [id number] DATE OF SERVICE: 10/07/2022 : 1955 REFERRING [...] This is a no charge visit. Krystin Nguyễn MD documented in this encounterThe [facility]03-02-2023 NoteHNO ID: [id number] Author: Krystin Nguyễn MD Service: ? Author Type: Physician Type: Progress Notes Filed: 09/18/2022 10:04 AM Note Text: FOLLOW UP VISIT NAME: Zeny Reynolds [facility] NO.: [id number] DATE OF SERVICE: 09/16/2022 : 1955 REFERRING PHYSICIAN: Jil Zamora DO, DO Zeny is s/p left stereotactic breast biopsy done on 06/29/2022. She presents for follow up VITALS: Blood pressure 146/80, pulse 83, temperature 36.2 ?C (97.2 ?F), height 162.6 cm (5' 4"), weight 67.1 kg (148 lb), SpO2 99 [...] This is a no charge visit Krystin Nguyễn [facility]03-02-2023 History of Present illness Narrative* Krystin Nguyễn MD - 09/16/2022 3:05 PM EST FOLLOW UP VISIT NAME: Zeny Reynolds [facility] NO.: [id number] DATE OF SERVICE: 09/16/2022 : 1955 REFERRING PHYSICIAN: Jil Zamora DO, DO Zeny is s/p left stereotactic breast biopsy done on 06/29/2022. She presents for follow up VITALS: Blood pressure 146/80, pulse 83, temperature 36.2 C (97.2 F), height 162.6 cm (5' 4"), weight 67.1 kg (148 lb), SpO2 99 [...] This is a no charge visit Krystin Nguyễn MD documented in this encounterThe [facility]02-20-2023 Discharge summary Author Dr. Lantigua [facility] September 06, 2022 2:57pm Note Date/Time September 06, 2022 10:33am [facility] Medical Records Department [address] [place] [address] Emergency Department Summary 09/06/22 MR#: [id number] Acct: [id number] Name: ZENY REECE Rep #:[id number] : 1955 66 From: Lupillo Lantigua MD PCP: Dr. Jil Zamora, DO Status:REG E R Location: ED HPI History of Present Illness Chief Complaint: Palpitations Informant: patient and spouse/S.O. () Narrative Narrative: Patient presenting for intermittent palpitations that feels like a racing heartbeat. No associated near-syncope or syncope, angina, dyspnea, focal neurologic symptoms. Has been occurring for the last couple days, the least amount of time she has felt it is maybe 45 minutes but for the most part they occur for hours when it occurs. Last time she had it was prior to arrival this morning, but it is gone right now. Called PCPs office and advised to come to the ED. She was just seen here 4 days ago because she was having a possible reaction to some antibiotic she was on. She had recurrence of a mass in her left breast that was thought to possibly be recurrence of her breast cancer, so she had a biopsy that then became infected and she has been on oral antibiotics for about 6 weeks total. The last time she took a dose was 1 week ago today. That course was Augmentin, prescribed by Dr. Nguyễn who has been following her forthis infected biopsy site, she states that they think the infection is cleared now and her breast is doing better. After she stopped the Augmentin last week, she continued to have itchy redness in various areas of her arms and legs which is why she initially came to the emergency department and was told that she may have serum sickness. She was given Benadryl, which is also been helping at homewith itching whenever she has it which is less common now than it was last week,mostly her palms. She denies any rashes now. She was having joint pains mostlyin her hands as well and has "black and blue" discoloration in her fingers that would improve with lifting her hand above her heart, but that is all better now as well. She just feels tired. She has been on steroids since her visit here 4days ago. [facility] Medical History (Updated 09/06/22 @ 14:[address] Lupillo Lantigua MD) HX: breast cancer Situs inversus Home Medications vitamin B comp and C no.3 15 mg-10 mg-50 mg-5 mg-300 mg capsule (B Complex Plus Vitamin C) 1 ea PO DAILY 04/09/15 [History Last Taken Unknown] cholecalciferol (vitamin D3) 25 mcg (1,000 unit) tablet (Vitamin D3) 2,000 unit PO DAILY 04/10/15 [History Last Taken Unknown] red yeast rice extract (bulk) 2 tab PO DAILY 05/01/15 [History Last Taken Unknown] Power C 2 tab PO DAILY 09/02/16 [History Last Taken Unknown] anastrozole 1 mg tablet 1 mg PO DAILY 09/02/16 [History Last Taken Unknown] calcium carbonate 600 mg-vitamin D3 5 mcg (200 unit) tablet (Calcium 600 + D(3))1 ea PO DAILY 09/02/16 [History Last Taken Unknown] oxycodone-acetaminophen 5 mg-325 mg tablet (Percocet) 1 tab PO Q6H PRN pain 3 days #12 tabs 09/03/22 [Rx Last Taken Unknown] prednisone 10 mg tablet 10 mg PO DAILY #30 tabs 09/03/22 [Rx Last Taken Unknown] Allergy/AdvReac Type Severity Reaction Status Date / Time No Known Allergies Allergy Verified 05/01/15 09:15 Surgical History Hx of appendectomy Hx of cholecystectomy Social History Smoking Status: Never smoker ROS ROS ED Review of Systems ROS Unobtainable: other Details: due to anxiety Constitutional Constitutional ED: Reports fatigue and malaise; Denies body ache(s), chills or fever(s) Eyes Eyes: Denies change in vision or diplopia ENT ENT ED: Denies rhinorrhea or sore throat Cardiovascular Cardiovascular: Denies chest pain, palpitations or paroxysmal nocturnal dyspnea Respiratory/Chest Respiratory/Chest: Denies cough, dyspnea on exertion or paroxysmal nocturnal dyspnea Gastrointestinal Gastrointestinal: Denies abdominal pain, diarrhea, nausea or vomiting Genitourinary Genitourinary ED: Denies dysuria or hematuria Musculoskeletal Musculoskeletal: Reports arthralgias; Denies back pain or neck pain Integumentary Reports rash; Denies abscess Neurologic Neurologic: Denies headache(s), paresthesias or weakness Psychiatric Psychiatric: Denies anxiety or suicidal thoughts EXAM Physical Exam Const Vital Signs: 09/06/22 09:51 09/06/22 09:59 09/06/22 10:04 Temperature 98.9 F Temperature Source Temporal Pulse Rate 86 83 Respiratory Rate 18 14 Respiratory Effort Normal Respiratory Pattern Normal Blood Pressure 157/96 H 171/113 H Blood Pressure Mean 116 132 Pulse Ox 99 98 Oxygen Delivery Method Room Air Room Air 09/06/22 11:28 09/06/22 12:43 Temperature Temperature Source Pulse Rate 64 73 Respiratory Rate 16 12 Respiratory Effort Respiratory Pattern Blood Pressure 163/79 H 150/81 H Blood Pressure Mean 107 104 Pulse Ox 98 100 Oxygen Delivery Method Room Air Room Air Positive well nourished and well developed General Appearance ED: well developed and NAD HEENT Reports moist mucous membranes normocephalic and atraumatic Eyes PERRL and EOMs intact bilaterally Neck full ROM, no lymphadenopathy, supple and no JVD Chest Wall inspection of chest normal and palpation of chest normal Resp normal respiratory effort and clear to auscultation bilaterally Cardio regular rate, regular rhythm and no murmurs GI non-tender and non-distended Auscultation: normoactive bowel sounds Palpation: soft Back/Spine no CVA tenderness General Back: other FROM Extremity normal to inspection General Extremety ED: Negative for edema, pulses abnormal or tenderness General Extremity: Negative for edema or pulses abnormal Neuro oriented x3, CN's II-XII intact bilaterally and no sensory deficits noted Sensorium / Orientation: awake and alert Motor Exam: strength 5/5 throughout Psych Mood & Affect: anxious and tearful Skin no rashes or lesions noted and no wounds MDM MDM MDM Narrative Medical decision making narrative: Patient's work-up including EKG is unremarkable except for hypokalemia. This was treated in the ED. While she was being observed and treated, she did not have any recurrent symptoms, nor did she have any dysrhythmias on telemetry. Her EKG chest pain is unremarkable except for some repolarization abnormalities,which are unchanged compared with her priors, her initial troponin was well within normal limits, I did a delta troponin with a 2-hour repeat level as well. Her initial troponin was 6 and the repeat at 7, which is essentially negative delta while treating her mild hypokalemia with oral and IV potassium, she felt better and was continued to be observed in the ED, she had no recurrent symptomsof palpitations throughout her entire ED stay of over 4 hours. Given all of this, I feel she can safely be discharged home. She was thought to potentially have serum sickness by the ED physician who saw her last week, I am not sure if that is what she had or if this was simply a reaction to the Augmentin she was on, or if this is her was some type of vasculitis. She seems like she is a lot better on the prednisone but now that she is having these palpitations, 1 wonders if it could be related to the prednisone. I told her that if she takes the prednisone for 1 week or less she may discontinue it cold turkey, safely. She suggest she would prefer to go off of it and see if Benadryl helps I told her she was welcome to do that and we discussed reasons to return. I advised following up closely with her PCP. It is of note that the patient had a normal ESR several days ago, which in most cases is sensitive enough to rule out acute vasculitis. Do not think putting a Holter on her will necessarily be helpful ornecessary right now, but if she continues to have symptoms after discontinuing the prednisone then I would advise following up with cardiology she was given that information. Lab Data Attestation: I reviewed the patient's lab results. Labs: Laboratory Results - last 24 hr 09/06/22 09/06/22 09/06/22 10:00 10:00 12:35 WBC 6.9 RBC 5.01 Hgb 14.9 Hct 46.8 MCV 93.4 MCH 29.7 MCHC 31.8 L RDW Std Deviation 45.0 H RDW Coeff of Rhonda 13.2 Plt Count 328 MPV 9.4 Immature Gran % (Auto) 0.400 Neut % (Auto) 57.3 Lymph % (Auto) 33.2 [place] % (Auto) 7.5 Eos % (Auto) 0.9 Baso % (Auto) 0.7 Absolute Neuts (auto) 3.9 Absolute Lymphs (auto) 2.29 Nucleated RBC % 0 Sodium 142 Potassium 3.4 L Chloride 105 Carbon Dioxide 29.0 Anion Gap 8 BUN 16 Creatinine 0.91 Estim Creat Clear Calc 51.09 Est GFR (MDRD) Af Amer 79 Est GFR (MDRD) Non-Af 65 BUN/Creatinine Ratio 17.6 Glucose 110 H Calcium 9.7 Troponin I High Sens 6 7 Radiography Chest X-Ray - ED: 1 View, Read by ED Physician, No Acute Disease and No Infiltrates Diagnostic Testing: Clinical Impression(s) from Imaging Studies Chest X-Ray 09/06/22 10:20 IMPRESSION: No acute abnormality is seen. Once again, the patient is status post situs inversus. Electronically Signed: Carlos Schmitt MD at 11:08 EST , Rhythm Strip Rhythm Strip: Sinus Rhythm Rate: 85 Ectopy: None EKG Initial EKG: Attestation: I personally reviewed and interpreted this EKG as follows: Interpretation: Sinus Rhythm, No Acute Injury Pattern and Non-Specific ST Changes (Anterolaterally, mostly precordial) Prior EKG tracings: available for review Prior: Unchanged Discharge Plan Triage Chief Complaint: Palpitations ED Provider: Lupillo Lantigua Dx/Rx/DC Orders Clinical Impression: Intermittent palpitations, Hypokalemia Instructions: ED Palpitations Prescriptions: No Action vitamin B comp and C no.3 [B Complex Plus Vitamin C] 1 EACH capsule 1 ea PO DAILY cholecalciferol (vitamin D3) [Vitamin D3] 1,000 UNIT tablet 2,000 unit PO DAILY Label Comments: supplement red yeast rice extract (bulk) 30 GM powder 2 tab PO DAILY anastrozole 1 MG tablet 1 mg PO DAILY calcium carbonate-vitamin D3 [Calcium 600 + D(3)] 1 EACH tablet 1 ea PO DAILY Power C 2 tab PO DAILY oxycodone-acetaminophen [Percocet] 5-325 mg tablet 1 tab PO Q6H PRN (Reason: pain) 3 Days Qty: 12 0RF prednisone 10 mg tablet 10 mg PO DAILY Qty: 30 0RF Rx Instructions: 4 pills by mouth days 1 through 3 3 pills by mouth days 4 through 6 2 pills by mouth days 7 through 9 1 pill by mouth days 10 through 12 Primary Care Provider: Jil Zamora Referrals: Jil Zamora DO [Primary Care Provider] - As soon as possible Jorge Aguilar MD [Med Staff - Active Staff] - (If you have persistent/recurrent symptoms after you have finished taking the prednisone) Activity Restrictions/Additional Instructions: You may discontinue prednisone at any time without harm to your adrenal glands as long as you have been taking it for 1 week or less. You may discontinue now if you want, and see if Benadryl helps if you get recurrence of the itching red rash. Disposition Disposition: Home, Self Care What to do if you have Problems For any increased pain, shortness of breath, bleeding, nausea or vomiting, chestpain, or any unexpected problems, contact your Primary Care Provider. Call [facility] ([phone]) or report to the closest Emergency Room. Call 911 if necessary. 09/06/22 4553 <Electronically signed by Lupillo Lantigua MD> Cosigner Signature (if applicable): CC: Dr. Jil Zamora DO ~ Signed [facility] Work Phone: [phone] 297-628802-16-2023 Hospital Discharge instructions Additional Instructions Your history and work-up was consistent with serum sickness most likely due to the prolonged antibiotics you have been on. It will take about 5 to 7 days for the medication to be metabolized out of your system. Use the steroid as directed to control inflammation and help reduce pain and you can add Benadryl if necessary. If you have any further concerns please return for repeat evaluationWA[facility] Work Phone: 1(306) 990-513302-14-2023 NoteHNO ID: [id number] Author: Krystin Nguyễn MD Service: ? Author Type: Physician Type: Progress Notes Filed: 09/09/2022 11:27 AM Note Text: FOLLOW UP VISIT NAME: Zeny A [facility] NO.: [id number] DATE OF SERVICE: 08/31/2022 : 1955 REFERRING [...] ?C (97.3 ?F), height 162.6 cm (5' 4"), weight 68 kg (150 lb), SpO2 100 [...] PFSH and ROS obtained by others. Krystin Nguyễn MD Addendum: this is a no charge visit.[facility]02-14-2023 History of Present illness Narrative* Krystin Nguyễn MD - 08/31/2022 2:45 PM EST FOLLOW UP VISIT NAME: Zeny Reynolds [facility] NO.: [id number] DATE OF SERVICE: 08/31/2022 : 1955 REFERRING [...] C (97.3 F), height 162.6 cm (5' 4"), weight 68 kg (150 lb), SpO2 100 %. On examination, induration in the area with brawny skin coloration changes, no fluctuance palpated.Non tender. Assessment IMPRESSION: breast infection - now with residual breast inflammation, itching reaction to ampicillin in augmentin PLAN: Patient to stop the augmentin. Patient to follow up with me next week. Diagnoses: (N61.0) Breast infection (primary encounter diagnosis) I have confirmed and edited as necessary, the PFSH and ROS obtained by others. Krystin Nguyễn MD documented in this encounterThe [facility] Nurse Note* Judi Thomas RN - 08/31/2022 1:23 PM EST Pt BP was 142/92 at beginning of visit. I rechecked BP at conclusion of visit, and it was 148/96. Pt denied any CP, SOB, but she did indicate her BP has been fluctuating and sometimes climbs to "150's & 160's" systolic to over 100 diastolic. I encouraged pt to make an appt. With PCP as soon as she can to get better management over BP.Judi Thomas RN documented in this encounterThe [facility]02-14-2023 Miscellaneous Notes* Telephone Encounter - Chloe Gan LPN - 08/31/2022 10:20 AM EST Patient has been scheduled 08/31/22 at 1p.m. * Telephone Encounter - Yana Rothman RN - 08/31/2022 9:51 AM EST Patient contacts office and reports that she [...] continued redness to breast and a new "grayish" area. She is scheduled for follow up on with Dr. Nguyễn. documented in this encounterThe [facility]02-02-2023 NoteHNO ID: [id number] Author: Krystin Nguyễn MD Service: ? Author Type: Physician Type: Progress Notes Filed: 08/19/2022 2:11 PM Note Text: FOLLOW UP VISIT NAME: Zeny Reynolds [facility] NO.: [id number] DATE OF SERVICE: 08/19/2022 : 1955 REFERRING [...] and ROS obtained by others. . Krystin Nguyễn, [facility]01-18-2023 NoteHNO ID: [id number] Author: Krystin Nguyễn MD Service: ? Author Type: Physician Type: Progress Notes Filed: 08/05/2022 9:52 AM Note Text: FOLLOW UP VISIT NAME: Zeny Reynolds [facility] NO.: [id number] DATE OF SERVICE: 08/04/2022 : 1955 REFERRING [...] PFSH and ROS obtained by others. Krystin Nguyễn [facility]01-18-2023 History of Present illness Narrative* Krystin Nguyễn MD - 08/04/2022 6:04 PM EST FOLLOW UP VISIT NAME: Zeny Reynolds [facility] NO.: [id number] DATE OF SERVICE: 08/04/2022 : 1955 REFERRING [...] PFSH and ROS obtained by others. Krystin Nguyễn MD documented in this encounterThe [facility]01-06-2023 NoteHNO ID: [id number] Author: Krystin Nguyễn MD Service: ? Author Type: Physician Type: Progress Notes Filed: 07/24/2022 7:52 PM Note Text: FOLLOW UP VISIT NAME: Zeny Reynolds [facility] NO.: [id number] DATE OF SERVICE: 07/23/2022 : 1955 REFERRING PHYSICIAN: Jil Zamora DO, DO Jeanette is status post left stereotactic breast biopsy [...] PFSH and ROS obtained by others. Krystin Nguyễn, [facility]01-06-2023 History of Present illness Narrative* Krystin Nguyễn MD - 07/23/2022 2:03 PM EST FOLLOW UP VISIT NAME: Zeny Reynolds [facility] NO.: [id number] DATE OF SERVICE: 07/23/2022 : 1955 REFERRING PHYSICIAN: Jil Zamora DO, DO Jeanette is status post left stereotactic breast biopsy done on 06/29/2022 She has noted increasing redness and tenderness superior to an incision site from her lumpectomy ofthe left breast. VITALS: Pulse 98, temperature 36.7 [...] PFSH and ROS obtained by others. Krystin Nguyễn MD documented in this encounterThe [facility]12-28-2022 Miscellaneous Notes* Telephone Encounter - Krystin Nguyễn MD - 07/14/2022 4:31 PM EST Told patient's results of left breast biopsy - 06/29/[address] [facility] pathology department - "dense fibrosis, chronic inflammation and dystrophic calcifications. Negative for atypica or malignancy" I have told patient's that patient should return to yearly mammograms surveillance. He acknowledges the above. documented in this encounterThe [facility]11-07-2022 NoteHNO ID: [id number] Author: Krystin Nguyễn MD Service: ? Author Type: Physician Type: Progress Notes Filed: 05/29/2022 3:21 PM Note Text: Zeny Reece 1955 REFERRING PHYSICIAN: Kenia Strong, APR* CHIEF COMPLAINT: Consult (Abnormal mammogram left breast) HPI: The patient is a 66 year old female presents with abnormal left breast mammograms. 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 Since prior study, there has been an increase in the number of micro-calcifications. A biopsy is recommended. BIRADS 4" She denies palpable breast masses except for scar tissue at lumpectomy sites. She denies nipple discharge. She will also require a surveillance colonoscopy in the near future. A colonoscopy 2017 revealed - MICROSCOPIC DIAGNOSIS A. Cecal polyp, [...] 2 tablets by mouth once daily. Ca-D3-mag tq-orwc-qve-devora-bor 600 mg calcium- 20 mcg-50 mg tab [...] entered by the nurse and reviewed by id Nursing Notes: Leia Figueroa RN 05/24/2022 9:59 [...] and denies sexually transm (more content not included)...[facility]11-[facility] History of Present illness Narrative* Krystin Nguyễn MD - 05/24/2022 7:24 PM EST Zeny Reece 1955 REFERRING PHYSICIAN: Kenia Strong, APR* CHIEF COMPLAINT: Consult (Abnormal mammogram left breast) HPI: The patient is a 66 year old female presents with abnormal left breast mammograms. 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 Since prior study, there has been an increase in the number of micro-calcifications. A biopsy is recommended. BIRADS 4" She denies palpable breast masses except for scar tissue at lumpectomy sites. She denies nipple discharge. She will also require a surveillance colonoscopy in the near future. A colonoscopy 2017 revealed - MICROSCOPIC DIAGNOSIS A. Cecal polyp, [...] 2 tablets by mouth once daily. Ca-D3-mag wz-dcko-yfz-devora-bor 600 mg calcium- 20 mcg-50 mg tab [...] entered by the nurse and reviewed by id Nursing Notes: Leia Figueroa RN 05/24/2022 9:59 [...] back pain/injury, denies back problems, denies sciatica, deniesknee/foot trouble, denies arthritis, or denies gout. When was patient's last Mammogram screening? 05/10/2022 @[facility] Last Colonoscopy: 09/09/2016 Leia Figueroa RN PHYSICAL EXAMINATION: General: The patient is 66 year old female, well nourished, well hydrated in no acute distress. Thepatient is oriented to time, place, and person. VITALS: Blood pressure 120/76, pulse 89, temperature 36.2 C (97.1 F), height 162.6 cm (5' 4"), weight 68.8 kg (151 lb 9.6 oz), [...] ROS obtained by others. Consultation requested by Kenia Strong for an opinion regarding patient's abnormal [...] be scheduled for stereotactic breast biopsy at [facility] Medical Decision Making: Problems: Moderate: New problem with uncertain prognosis Data: Unique test result(s) reviewed: 1 Risk: Low: Low risk from testing/treatment Medical Decision Making Level: 3 - Low Krystin Nguyễn MD documented in this encounterThe [facility]11-07-2022 Nurse Note* Leia Figueroa RN - 05/24/2022 9:58 AM EST REVIEW OF SYSTEMS: General: The patient denies [...] back pain/injury, denies back problems, denies sciatica, deniesknee/foot trouble, denies arthritis, or denies gout. When was patient's last Mammogram screening? 05/10/2022 @[facility] Last Colonoscopy: 09/09/2016 Leia Figueroa RN documented in this encounterThe University Of Toledo Medical CenterDischarge summary Author [facility] January 02, 2023 11:24am Note Date/Time January 02, 2023 11:2 4am [facility] Medical Records Department [address] [place] [address] Instructions for Home/Discharge Instructions 01/02/23 1119 MR#: [id number] Acct: [id number] Name: ZENY REECE TOMASA Rep #:[id number] : 1955 67 From: Ruma Ordonez MD PCP: Dr. Jil Zamora, DO Status:ADM I N Discharge Instructions Diet Discharge Diet: Low fat / Low cholesterol Activity Discharge Activity: Return to Normal Activity Weight Bearing Status: Weight bearing as tolerated Dressing / Incision Call your doctor if you observe: Fever of 101 or Higher, Shortness of breath, Dizziness, Fainting spells, Swelling in the ankles, Chest pain and Increased palpitations (irregular heartbeat) Follow Up Care Test Results: Test results from this visit will be discussed in further detail at your follow- up appointment, if applicable. Discharge Plan Admission Admit Date/Time: 01/01/23 16:40 Primary Reason for Your Visit: vertigo Attending Provider: Ruma Ordonez Primary Care Provider: Jil Zamora Consulting Providers: Chris Alvarado Instructions Patient Instructions: ED Dizziness, Uncertain Cause Additional Instructions / Restrictions: counseled to keep well hydrated. Check BP morning and evening and present log toPCP. Discharge Orders/Prescriptions Prescriptions: New meclizine 25 mg Tablet 25 mg PO TID PRN PRN (Reason: dizzy) Qty: 30 1RF amlodipine 5 mg tablet 5 mg PO DAILY Qty: 30 1RF Continued cholecalciferol (vitamin D3) [Vitamin D3] 1,000 UNIT tablet 2,000 unit PO DAILY Label Comments: supplement red yeast rice extract (bulk) 30 GM powder 2 tab PO DAILY calcium carbonate-vitamin D3 [Calcium 600 + D(3)] 1 EACH tablet 1 ea PO DAILY Fish Oil 1 tab PO.IVFORM DAILY Referrals / Follow Up: Jil Zamora DO [Primary Care Provider] - Within 1 Week Disposition Disposition (needs filled in before D/C Order can be placed): Home, Self Care 01/02/23 1124<Electronically signed by Ruma Ordonez MD>Ruma Ordonez MD CC: Dr. Jil Zamora DO; Chris Alvarado MD ~ Signed [facility] Work Phone: Evaluation + Plan note Future Appointments Appointment Date:08/24/2021 09:35:00 AM Scheduled Provider:JIL ZAMORA DO Location:[facility] Appointment Type: Wellness Medicare Appointment Date:01/26/2022 01:30:00 PM Scheduled Provider:LAM SEGOVIA MD Location:HEM ONC Appointment Type:HEM ONC OV Follow Up [facility] Evaluation + Plan note Future Appointments Appointment Date:08/24/2021 09:35:00 AM Scheduled Provider:JIL ZAMORA DO Location:[facility] Appointment Type:PC Wellness Medicare Appointment Date:01/26/2022 01:30:00 PM Scheduled Provider:LAM SEGOVIA MD Location:HEM ONC Appointment Type:HEM ONC OV Follow Up Future Scheduled Tests Radiology* XR Chest 2 Views (PA & Lateral) 08/13/21 [facility] Evaluation + Plan note Future Appointments Appointment Date:02/23/2024 01:00:00 PM Scheduled Provider:KENIA STRONG Location:HEM ONC Appointment Type:HEM ONC OV Follow Up Future Scheduled Tests Laboratory* Complete Blood Count 02/23/24 * Complete Blood Count 02/22/23 * Lipid Profile 11/19/23 * Complete Metabolic Panel 02/23/24 * Complete Metabolic Panel 11/19/23 * Complete Metabolic Panel 02/22/23 Radiology* MA Mammo Screening Bilateral w/ Osmani 05/25/23 * MA Mammo Screening Bilateral w/ Osmani 05/25/22 * BD Bone Density DEXA Axial Skeleton 10/24/23 [facility] Evaluation + Plan note Future Appointments Appointment Date:02/23/2024 01:00:00 PM Scheduled Provider:KENIA STRONG Location:HEM ONC Appointment Type:HEM ONC OV Follow Up Future Scheduled Tests Laboratory* Complete Blood Count 02/23/24 * Complete Blood Count 02/22/23 * Lipid Profile 08/05/23 * Complete Metabolic Panel 02/23/24 * Complete Metabolic Panel 08/05/23 * Complete Metabolic Panel 02/22/23 Radiology* MA Mammo Screening Bilateral w/ Osmani 05/25/23 * BD Bone Density DEXA Axial Skeleton 10/24/23 [facility] Evaluation + Plan note Future Appointments Appointment Date:08/09/2024 09:30:00 AM Scheduled Provider:JIL ZAMORA DO Location:[facility] Appointment Type:PC OV Follow Up Future Scheduled Tests Laboratory* Complete Blood Count 02/23/24 * Complete Blood Count 02/22/23 * Lipid Profile 08/05/23 * Lipid Profile 07/06/24 * Complete Metabolic Panel 02/23/24 * Complete Metabolic Panel 08/05/23 * Complete Metabolic Panel 07/06/24 * Complete Metabolic Panel 02/22/23 Radiology* MA Mammo Screening Bilateral w/ Osmani 11/8/23 * MA Mammo Screening Bilateral w/ Osmani 06/08/24 * BD Bone Density DEXA Axial Skeleton 10/24/23 [facility] Evaluation + Plan note Future Appointments Appointment Date:08/09/2024 09:30:00 AM Scheduled Provider:JIL ZAMORA DO Location:[facility] Appointment Type:PC OV Follow Up Appointment Date:01/10/2025 01:30:00 PM Scheduled Provider:JIL ZAMORA DO Location:[facility] Appointment Type:PC Wellness [facility] Enhanced Future Scheduled Tests Laboratory* Complete Blood Count 02/23/24 * Complete Blood Count 08/02/24 * Lipid Profile 08/02/24 * Lipid Profile 07/06/24 * Complete Metabolic Panel 02/23/24 * Complete Metabolic Panel 08/02/24 * Complete Metabolic Panel 07/06/24 Radiology* MA Mammo Screening Bilateral w/ Osmani 06/08/24 * BD Bone Density DEXA Axial Skeleton 10/24/23 * US Pelvis Non-OB W/Transvaginal 06/05/24 [facility] Evaluation noteNo assessment information available [facility] Work Phone: Evaluation note* Diagnosis Abnormal mammogram- Primary Abnormal mammogram, unspecified History of ductal carcinoma in situ (DCIS) of breast [facility] Breast infection Inflammatory disease of breast Status post breast biopsy Other postprocedural status [facility] this encounter [facility] Diagnosis Breast infection- Primary Inflammatory disease of breast [facility] Diagnosis Breast infection- Primary Inflammatory disease of breast [facility] Diagnosis Breast infection- Primary Inflammatory disease of breast Status post breast biopsy Other postprocedural status [facility] Diagnosis Breast infection Inflammatory disease of breast Status post breast biopsy Other postprocedural status [facility] Diagnosis Status post breast biopsy- Primary Other postprocedural status [facility] this [facility] Diagnosis Onset Date Resolution Status Blood pressure elevated without history of HTN acute Unsteady gait acute Vertigo acute [facility] Work Phone: Evaluation note* Diagnosis Onset Date Resolution Status Unsteady gait resolved Vertigo resolved [facility] Work Phone: History and physical note Author Chris Alvarado [facility] December 31, 2022 9:49pm Note Date/Time December 31, 2022 9:48 pm [facility] Medical Records Department [address] [place] [address] H&P Exam - Hospitalist 12/31/226 MR#: [id number] Acct: [id number] Name: ZENY REECE TOMASA Rep #:[id number] : [id number] 67 From: Chris Alvarado MD PCP: Dr. Jil Zamora, DO Status:REG E R Location: ED HPI - General General Date of Admission: 12/31/22 Date of Service: 12/31/22 Chief Complaint: dizziness HPI Narrative ZENY REECE, is a 67 F who presents with dizziness. started tue night, and she felt lightheaded and that the room was spinning.? This is associated with nausea.? Her symptoms resolved and she was able to go tosleep, and states that on , yesterday, she felt well until the evening.?She had bent over to get something and became very vertiginous.? While she is nauseated she has not vomited at all.? She awoke this morning, with worsening symptoms throughout the day.? Symptoms can also be present without head movement. No new medication consumed recently. She flew home from [place] on Sun night. She sought care at chiropractor. Her BP was 190 and 215 here. She was checking BP in spring and it routinely was 130/80s. High BP is new for her. no vision or numbness changes. She was admitted b/c she was unsteady when she walked down the [place]intero. [facility] Medical History HX: breast cancer Situs inversus Home Medications vitamin B comp and C no.3 15 mg-10 mg-50 mg-5 mg-300 mg capsule (B Complex Plus Vitamin C) 1 ea PO DAILY 04/09/15 [History Last Taken Unknown] cholecalciferol (vitamin D3) 25 mcg (1,000 unit) tablet (Vitamin D3) 2,000 unit PO DAILY 04/10/15 [History Last Taken Unknown] red yeast rice extract (bulk) 2 tab PO DAILY 05/01/15 [History Last Taken Unknown] Power C 2 tab PO DAILY 09/02/16 [History Last Taken Unknown] anastrozole 1 mg tablet 1 mg PO DAILY 09/02/16 [History Last Taken Unknown] calcium carbonate 600 mg-vitamin D3 5 mcg (200 unit) tablet (Calcium 600 + D(3))1 ea PO DAILY 09/02/16 [History Last Taken Unknown] oxycodone-acetaminophen 5 mg-325 mg tablet (Percocet) 1 tab PO Q6H PRN pain 3 days #12 tabs 09/03/22 [Rx Last Taken Unknown] prednisone 10 mg tablet 10 mg PO DAILY #30 tabs 09/03/22 [Rx Last Taken Unknown] Allergy/AdvReac Type Severity Reaction Status Date / Time amoxicillin [From Augmentin] AdvReac Hives Verified 12/31/22 16:18 clavulanic acid AdvReac Hives Verified 12/31/22 16:18 [From Augmentin] Surgical History Hx of appendectomy Hx of cholecystectomy Social History Smoking Status: Never smoker Vital Signs Vital Signs Vital Signs: 12/31/22 16:13 12/31/22 16:29 12/31/22 16:37 Temperature 97.6 F L Temperature Source Temporal Pulse Rate 74 76 Respiratory Rate 17 12 Respiratory Effort Normal Respiratory Pattern Normal Blood Pressure 187/91 H 196/95 H Blood Pressure Mean 123 128 Pulse Ox 100 100 Oxygen Delivery Method Room Air Room Air 12/31/22 17:12 12/31/22 17:57 12/31/22 18:22 Temperature Temperature Source Pulse Rate 81 81 89 Respiratory Rate 14 15 Respiratory Effort Respiratory Pattern Blood Pressure 184/99 H 106/55 L 131/72 H Blood Pressure Mean 127 72 91 Pulse Ox 100 Oxygen Delivery Method Room Air Room Air 12/31/22 19:00 12/31/22 20:00 12/31/22 21:38 Temperature 97.4 F L Temperature Source Temporal Pulse Rate 86 92 103 H Respiratory Rate 14 17 19 H Respiratory Effort Respiratory Pattern Blood Pressure 132/68 H 137/75 H 158/77 H Blood Pressure Mean 89 95 104 Pulse Ox 98 99 97 Oxygen Delivery Method Room Air Room Air Room Air Weight Weight: 146 lb 13.246 oz Body Mass Index (BMI) 25.2 Physical Exam Const alert HEENT normocephalic, head/scalp atraumatic and hearing grossly normal bilaterally Eyes PERRL and EOMs intact bilaterally Eyes Narrative: No nystagmus, normal Pupil response. Resp normal respiratory effort and no retractions Cardio regular rate and regular rhythm GI normal to inspection, nondistended, normoactive bowel sounds Extremity normal to inspection and no clubbing, cyanosis or edema Neuro moves all extremities and no focal motor deficits Sensorium / Orientation: awake and alert Psych affect normal Results Lab / Micro Data Result Diagrams: 12/31/22 17:03 12/31/22 17:03 Labs: Laboratory Results - last 24 hr 12/31/22 17:03: WBC 5.2, RBC 5.34, Hgb 16.1 H, Hct 49.8 H, MCV 93.3, MCH 30.1, MCHC 32.3, RDW Std Deviation 43.8, RDW Coeff of Rhonda 12.9, Plt Count 277, MPV 9.7, Immature Gran % (Auto) 0.200, Neut % (Auto) 59.8, Lymph % (Auto) 26.6, [place]% (Auto) 9.2, Eos % (Auto) 2.9, Baso % (Auto) 1.3 H, Absolute Neuts (auto) 3.1, Absolute Lymphs (auto) 1.39, Nucleated RBC % 0 12/31/22 17:03: Sodium 142, Potassium 4.1, Chloride 105, Carbon Dioxide 29.0, Anion Gap 8, BUN 14, Creatinine 0.84, Estim Creat Clear Calc 54.58, Est GFR (MDRD) Af Amer 86, Est GFR (MDRD) Non-Af 71, BUN/Creatinine Ratio 16.7, Glucose 96, Calcium 10.2 H, Total Bilirubin 0.40, AST 22, ALT 30, Alkaline Phosphatase 77, Troponin I High Sens 6, Total Protein 7.7, Albumin 4.0, Globulin 3.7, Albumin/Globulin Ratio 1.[address] 12/31/22 16:37 IMPRESSION: Normal unenhanced CT scan of the brain. [employer] was utilized to assist in identifying pertinent positive findings in this case. 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 Electronically Signed: Peyman Vazquez DO at 17:49 EDT Reading Location ID and State: [facility] / [place] Tel [phone], Service support , Assessment & Plan Assessment/Plan (1) Vertigo: (2) Blood pressure elevated without history of HTN: PLAN: Plan Symptoms of dizziness could be tied to severe hypertension which is new for her.They are better now BPPV is also consideration (though i would expect more intermittent symptoms and aggravated by quick movements). She responded to therapy in ED, will start Norvasc 5 mg as she clearly fits diagnosis of hypertension. Monitor overnight. Meclizine prn although I think symptoms may eventually resolve as her BP is controlled Full code. Charges/Coding Visit Charges Inpatient E&M: 70976 Init Hosp L2 12/31/222148 <Electronically signed by Chris Alvarado MD> Cosigner Signature (if applicable): CC: Dr. Jil Zamora DO; Chris Alvarado MD~ Signed [facility] Work Phone: Hospital course Narrative No data available for this section [facility] Hospital Discharge instructions No data available for this section [facility] Discharge instructions Additional Instructions You may discontinue prednisone at any time without harm to your adrenal glands as long as you have been taking it for 1 week or less. You may discontinue now if you want, and see if Benadryl helps if you get recurrence of the itching red rash.[facility] Work Phone: Progress note No data available for this section [facility] Reason for referral (narrative)No reason for referral information availableWAvita [facility] Work Phone: Chief Complaint and Reason for Visit Chief Complaint SCREENING Chief Complaint SCREENING ABN MAMM /NGUYỄN Chief Complaint SCREENING ABN MAMM /NGUYỄN WOUND Chief Complaint SCREENING ABN MAMM /NGUYỄN WOUND PALPITATIONS Chief Complaint WOUND PALPITATIONS Chief Complaint WOUND PALPITATIONS dizzy HYPERTENSIVE URGENCY Reason for Visit Blood pressure eleva lakhwinder without history of HTN Unsteady gait Vertigo Chief Complaint PALPITATIONS dizzy HYPERTENSIVE URGENCY HYPERTENSIVE URGENCY Reason for Visit Blood pressure eleva lakhwinder without history of HTN Unsteady gait Vertigo Chief Complaint dizzy HYPERTENSIVE URGENCY HYPERTENSIVE URGENCY HYPERTENSIVE URGENCY Reason for Visit Unsteady gait Vertigo Chief Complaint OSTEO Chief Complaint OSTEO NEED ORDER Chief Complaint NEED ORDER OSTEO Advance Directives No Advanced Directives Records Found Advance Directive Response Recorded Date/ Time Advance Directives No August 9:26am Living Will No March 19 6:52pm Power of Assurance Manager No March 19, 2017 6:52pm Advance Directive Response Recorded Date/ Time Advance Directives No August 8:26am Living Will No March 19 017 5:52pm Power of Assurance Manager No March 19, 2017 5:52pm Advance Directive Response Recorded Date/ Time Advance Directives No August 8:26am Living Will No September 02 023 9:47pm Power of Assurance Manager No September 02, 2022 9:47pm Advance Directive Response Recorded Date/ Time Name of Medical Power of Assurance Manager julissa reece September 06, 2022 10:04am Advance Directives No August 8:26am Living Will Yes September 06 10:04am Power of Assurance Manager Yes September 06, 2022 10:04am Advance Directive Response Recorded Date/ Time Name of Medical Power of Assurance Manager julissa reece September 06, 2022 11:04am Advance Directives No August 9:26am Living Will Yes September 06 11:04am Power of Assurance Manager Yes September 06, 2022 11:04am Advance Directive Response Recorded Date/ Time Name of Medical Power of Assurance Manager julissa reece September 06, 2022 11:04am Advance Directives No August 9:26am Living Will No December 31, 2022 4:29pm Power of Assurance Manager No December 31 3 4:29pm Advance Directive Response Recorded Date/ Time Name of Medical Power of Assurance Manager julissa pearce September 06, 2022 11:04am Advance Directives No August 9:26am Living Will No December 31, 2022 10:26pm Power of Assurance Manager No December 31 3 10:26pm Advance Directive Response Recorded Date/ Time Advance Directives No August 9:26am Living Will No December 31, 2022 10:26pm Power of Assurance Manager No December 31 3 10:26pm Advance Directive Response Recorded Date/ Time Advance Directives No August 8:26am Living Will No December 31, 2022 9:26pm Power of Assurance Manager No December 31 3 9:26pm Advance Directive Response Recorded Date/ Time Advance Directives No August 9:26am Summary Purpose Family History No Family History Records Found No data available for this section No data available for this section No data available for this section No data available for this section No Family History Records FoundNo Family History Records Found No data available for this section No data available for this section No Family History Records FoundNo Family History Records Found Additional Source Comments Goals (unrecognized section and content) Goals may be documented in a n alternate section Source Comments (unrecognize d section and content) In the event this informatio n is protected by the Federal Confidentiality of Alcohol and Drug Abuse Patient Records regulations: The Federal rules restrict any use of the information to criminally investigate or prosecute any alcohol or drug abuse patient.[facility] the event this information is protected by the Federal Confidentiality of Alcohol and Drug Abuse Patient Records regulations: The Federal rules restrict any use of the information to criminally investigate or prosecute any alcohol or drug abuse patient.[facility] the event this information is protected by the Federal Confidentiality of Alcohol and Drug Abuse Patient Records regulations: The Federal rules restrict any use of the information to criminally investigate or prosecute any alcohol or drug abuse patient.[facility] the event this information is protected by the Federal Confidentiality of Alcohol and Drug Abuse Patient Records regulations: The Federal rules restrict any use of the information to criminally investigate or prosecute any alcohol or drug abuse patient.[facility] the event this information is protected by the Federal Confidentiality of Alcohol and Drug Abuse Patient Records regulations: The Federal rules restrict any use of the information to criminally investigate or prosecute any alcohol or drug abuse patient.[facility] the event this information is protected by the Federal Confidentiality of Alcohol and Drug Abuse Patient Records regulations: The Federal rules restrict any use of the information to criminally investigate or prosecute any alcohol or drug abuse patient.[facility] the event this information is protected by the Federal Confidentiality of Alcohol and Drug Abuse Patient Records regulations: The Federal rules restrict any use of the information to criminally investigate or prosecute any alcohol or drug abuse patient.[facility] the event this information is protected by the Federal Confidentiality of Alcohol and Drug Abuse Patient Records regulations: The Federal rules restrict any use of the information to criminally investigate or prosecute any alcohol or drug abuse patient.[facility] the event this information is protected by the Federal Confidentiality of Alcohol and Drug Abuse Patient Records regulations: The Federal rules restrict any use of the information to criminally investigate or prosecute any alcohol or drug abuse patient.[facility] Reason for Visit (unrecogniz ed section and content) Reason Comments Consult Abnormal mammogram l eft breast Reason Comments Results Reason Comments Follow Up [...] Care Teams (unrecognized sec tion and content) Environmental Monitoring Specialist Relationship Specialty Start Date End Date Jil Zamora DO [address] [place] [address] PCP - General Family Medicine 05/18/22 Environmental Monitoring Specialist Relationship Specialty Start Date End Date Jil Zamora DO [address] [place] [address] PCP - General Family Medicine 05/18/22 Environmental Monitoring Specialist Relationship Specialty Start Date End Date Jil Zamora DO [address] [place] [address] PCP - [facility] Medicine 05/18/22 Environmental Monitoring Specialist Relationship Specialty Start Date End Date Jil Zamora DO [address] [place] [address] PCP - General [facility] Medicine 05/18/22 Environmental Monitoring Specialist Relationship Specialty Start Date End Date Jil Zamora DO [address] [place] [address] PCP - General Family Medicine 05/18/22 Team Status: Active Member Role Status Dates Dr. Jil Zamora DO Family Provider Active Dr. Jil Zamora , DO Primary Care Provider Active Team Status: Inactive Member Role Status Dates Dr. Jil Zamora DO Primary Care Provider Active SLIME DEGROOT Attending Provider, Referring Provide r Active Team Status: Inactive Member Role Status Dates Dr. Jil Zamora DO Primary Care Provider Active Dr. Krystin Nguyễn MD Attending Provider, Referring Prov ider Active Team Status: Inactive Member Role Status Dates Dr. Jil Zamora , DO Primary Care Provider Active Dr. Nba Dunn , DO Emergency Provider Active Team Status: Inactive Member Role Status Dates Dr. Jil Zamora , DO Primary Care Provider Active Dr. Lupillo Lantigua MD Emergency Provider Active Team Status: Inactive Member Role Status Dates Dr. Jil Zamora , DO Primary Care Provider Active Dr. Nba Dunn , DO Attending Provider, Emergency Pr ovider Active Team Status: Inactive Member Role Status Dates Dr. Jil Zamora , DO Primary Care Provider Active Dr. Lupillo Lantigua MD Attending Provider, Emergency Provider Active Team Status: Inactive Member Role Status Dates Dr. Jil Zamora DO Primary Care Provi ashley, Attending Provider, Referring Provider Active Dr. Blessing Tsang MD Other Provider Active Environmental Monitoring Specialist Relationship Specialty Start Date End Date Jil Zamora DO [address] [facility] [place] [address] PCP - General Family Medicine 05/18/22 Team Status: Active Member Role Status Dates Dr. Jil Zamora DO Primary Care Provider Active Lencho Smith MD Emergency Provider Active Dr. Chris Alvarado MD Attending Provider Active Team Status: Active Member Role Status Dates Dr. Jil Zamora DO Primary Care Provider Active Lencho Smith MD Emergency Provider Active Dr. Chris Alvarado MD Admit Provider, Attending Pro vider Active Team Status: Active Member Role Status Dates Dr. Jil Zamora DO Primary Care Provider Active Lencho Smith MD Emergency Provider Active Dr. Chris Alvarado MD Admit Provider, Attending Provider, Other Provider Active Dr. Ruma Ordonez MD Other Provider Active Team Status: Active Member Role Status Dates Dr. Jil Zamora DO Primary Care Provider Active Dr. Antwon Meza MD Attending Provider Activ e Team Status: Inactive Member Role Status Dates Dr. Jil Zamora DO Primary Care Provider Active Lencho Smith MD Emergency Provider Active Dr. Chris Alvarado MD Admit Provider, Other Provide r Active Dr. Ruma Ordonez MD Attending Provider Active Team Status: Active Member Role Status Dates Dr. Jil Zamora DO Primary Care Provider Active Lencho Smith MD Emergency Provider Active Dr. Chris Alvarado MD Admit Provider, Other Provide r Active Dr. Ruma Ordonez MD Attending Provider, Other Prov ider Active Team Status: Inactive Member Role Status Dates Dr. Jil Zamora DO Primary Care Provi ashley, Attending Provider, Referring Provider Active Team Status: Inactive Member Role Status Dates Dr. Jil Zamora DO Primary Care Provider Active Start: September 06, 2024 End: September 06, 2024 Dr. Jil Zamora DO Attending Provider Active Start: September 06, 2024 End: September 06, 2024 Dr. Jil Zamora DO Referring Provider Active Start: September 06, 2024 End: September 06, 2024 Team Status: Inactive Member Role Status Dates Dr. Jil Zamora DO Primary Care Provider Active Start: December 27, 2024 End: December 27, 2024 Dr. Jil Zamora DO Attending Provider Active Start: December 27, 2024 End: December 27, 2024 Dr. Jil Zamora DO Referring Provider Active Start: December 27, 2024 End: December 27, 2024 INFORMATION SOURCE (unrecogn ized section and content) DATE CREATED AUTHOR 11/21/2022 [facility] DATE CREATED AUTHOR AUTHOR'S ORGANIZ ATION 03/13/2024 [facility] ([place]) DATE CREATED AUTHOR AUTHOR'S ORGANIZ ATION 04/14/2024 [facility] DATE CREATED AUTHOR AUTHOR'S ORGANIZ ATION 08/30/2024 [facility] DATE CREATED AUTHOR AUTHOR'S ORGANIZ ATION 05/26/2025 [facility] FOR RECORDS PERTAINING TO PATIENTS WHO ARE [...] BE BASED ON THE PRIMARY CLINICAL RECORDS. [employer] [facility]. provides no warranty or guarantee of the accuracy or completeness of information in this document.
[2025-06-11 23:08] VITALS: BP 160/79; PULSE 77; RESP 14; TEMP 36.4; O2SAT 100
== END 2025-06-11 23:09 | disposition home or self-care (01) ==
PROVIDERS: Emergency Provider Emergency Medicine; PCP Family Medicine; Visit Provider Emergency Medicine
DX: Z48.01 Encounter for change or removal of surgical wound dressing (principal); N63.10 Unspecified lump in the right breast, unspecified quadrant; Q89.3 Situs inversus
CPT/HCPCS: 99283

== ENCOUNTER → 2025-06-26 | Outpatient (CLI) | payer MEDICARE, SELFPAY | END | disposition home or self-care (01) | PROVIDERS: PCP Family Medicine; Referring Provider Surgery; Visit Provider Surgery | DX: C50.911 Malignant neoplasm of unspecified site of right female breast (principal) ==

== ENCOUNTER 2025-07-02 07:51 | Day surgery (SDC) | payer MEDICARE, SELFPAY ==
--- NOTE | 2025-06-28 15:42 | PAT.ANESEVAL ---
Pre-Assessment Diagnosis/Proposed Procedure Planned Operative Procedure(s): (R) Breast, Lumpectomy,[place] Node,blue dye & radiotracer, poss Ax Dis. 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 When Was Last Pacemaker Check QUESTION #4 FULL TEXT: You/Your Family Experience fever (hyperthermia) with Anesthesia Last Oral Intake Last Oral intake: Last Oral Intake NPO since Meds taken in AM with sips of water? Meds patient instructed to take am of surgery PONV PONV - brilliandeer looper: PONV - brilliandeer looper Female Yes 06/28/25 11:20 HX of Motion Sickness Yes 06/28/25 11:20 HX of N/V After Surgery No 06/28/25 11:20 Non-Smoker Yes 06/28/25 11:20 Duration of Surgery greater Yes 06/28/25 11:20 than 60 minutes Number of Risk Factors 4 06/28/25 11:20 PONV Score Severe Risk 06/28/25 11:20 Height & Weight Height & Weight: Anesthesia: Height & Weight Height 5 ft 4 in 06/19/25 15:06 Respiratory Assessment Respiratory Assessment - brilliandeer looper: Respiratory Tract Infection Hx - brilliandeer looper Hx Respiratory Tract Infection No: . 06/28/25 11:20 STOP Sleep Apnea STOP Sleep Apnea - brilliandeer looper: STOP Sleep Apnea - brilliandeer looper Hx Hypertension Yes: CONTROLLED ON MED 06/28/25 11:20 Hx Sleep Apnea No 06/28/25 11:20 CPAP No 06/28/25 11:20 BIPAP No 06/28/25 11:20 Do you snore loudly (louder No 06/28/25 11:20 than talking or can be heard Do you often feel tired/ No 06/28/25 11:20 fatigued/ sleepy during daytime? Has anyone observed you stop No 06/28/25 11:20 breathing during sleep? STOP Results Negative 06/28/25 11:20 QUESTION #5 FULL TEXT : Do you snore loudly (louder than talking or can be heard through closed doors)? 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 Specify any problems Hx of Preganancy in last 3 No 06/28/25 11:20 Months Nurse Filling Out Transfusion VCHRISTIN 06/28/25 11:20 & Questions: Date: 06/28/25 06/28/25 11:20 Time: 11:21 06/28/25 11:20 Patient unable to answer at this time (ie. confused, unrespo /Reproduction History /Reproductive History - brilliandeer looper: /Reproductive Hx- brilliandeer looper Hx Now No 06/28/25 11:20 Gestational Age (in weeks): EDC: Hx Hx Para Hx Section SAB No 06/28/25 11:20 Does the father of the baby or his family experience fever w Father of the baby Malignant Hypertension history comment [facility] Medical History (Updated 06/28/25 @ 11:20 by Siria Hartmann) Wears dentures Wears glasses Post-menopausal Cancer Arthritis Injury of head and neck Gastric reflux History of stress test History of echocardiogram Hypertension delivery delivered Blood pressure elevated without history of HTN Situs inversus HX: breast cancer Home Medications ?Medication ?Instructions ?Recorded ?Last Taken ?Type cholecalciferol (vitamin D3) 25 2,000 unit PO DAILY 04/10/15 Unknown History mcg (1,000 unit) tablet (Vitamin D3) red yeast rice extract (bulk) 1 tab PO DAILY 05/01/15 Unknown History calcium 600 mg (as 1 ea PO DAILY 09/02/16 Unknown History carbonate)-vitamin D3 5 mcg (200 unit) tablet (Calcium 600 + D(3)) clobetasol 0.05 % topical cream 1 applic topical QDAY 06/04/25 Unknown History hydrochlorothiazide 25 mg tablet 12.5 mg PO QAM 06/04/25 Unknown History uxhncxwn-jisx-tchr 8 mg-folic 400 1 tab PO QDAY 06/04/25 Unknown History mcg-K 50 mcg-lutein 300 mcg tablet (Centrum Silver Women) omega 8-udu-ghi-fish oil 1,200 mg 1 cap PO DAILY 06/28/25 Unknown History (144 mg-216 mg) capsule (Fish Oil) Allergy/AdvReac Type Severity Reaction Status Date / Time amoxicillin (From Augmentin) AdvReac Hives Verified 06/28/25 11:03 clavulanic acid (From AdvReac Hives Verified 06/28/25 11:03 Augmentin) Family History Grandmother Breast cancer Surgical History (Updated 06/28/25 @ 11:20 by Siria Hartmann) Hx of surgical procedure Hx of colonoscopy H/O breast biopsy Hx of cholecystectomy Hx of appendectomy Social History Smoking Status: Never smoker alcohol intake: never Audit: Pertinent Findings Pertinent Findings EKG Perinent findings: 12/31/2022. Normal sinus rhythm. Anterolateral infarct, age undetermined. 73 bpm. Echo (EF%) pertinent findings: 01/01/2023. EF 65%. Recommendation Anesthesia Recommendation Anesthesia recommendation: OPTIMIZED for anesthesia
[2025-07-02] VITALS (10 sets, daily range): BP systolic 118–136; BP diastolic 65–83; PULSE 76–101; RESP 12–20; TEMP 36.3–36.6; O2SAT 92–100; BMI 27.6
[2025-07-02] MEDS: Lactated Ringers 1,000 ML 15 ML IV (08:13)
--- NOTE | 2025-07-02 08:16 | PRE.ANES_ITS ---
ASA Classification* ASA Classification ASA Classification: 2 Assessment & Plan Anesthesia* Anesthesia Assessment Anesthesia Assessment: Discussed sedation and/or anesthesia options, risks, benefits, and alternatives with patient/parents/legal guardian/POA. Questions invited. The patient/parents/legal guardian/POA seems to understand and agrees to proceed with anesthesia plan. Reviewed the physical assessment, medical history, allergy history and patient home medications list prior to surgery/procedure/anesthetic and documented any changes. Performed airway and anesthesia risk assessments. Anesthesia Type Anesthesia Type: General Anesthesia Focused Assessment* Temperature: 97.9 F Pulse Rate: 76 Blood Pressure: 136/83 Respiratory Rate: 16 Pulse Ox: 100 Airway Assessment Mouth opens: >3 cm Mallampati Score: II Labs Anesthesia Preop lab: CBC WBC, (4.4-11.0) 4.8 K/mm3 12/27/24, 08:06 RBC, (4.2-5.4) 4.87 M/mm3 12/27/24, 08:06 Hgb, (12.0-15.0) 15.0 g/dL 12/27/24, 08:06 Hct, (37-47) 44.5 % 12/27/24, 08:06 Plt Count, (150-450) 283 K/mm3 12/27/24, 08:06 CHEMISTRY Potassium, (3.3-5.1) 4.0 mmol/L 12/27/24, 08:06 Sodium, (133-145) 138 mmol/L 12/27/24, 08:06 BUN, (4-19) 13 mg/dL 12/27/24, 08:06 Creatinine, (0.70-1.20) 0.87 mg/dL 12/27/24, 08:06 Glucose, (70-99) 93 mg/dL 12/27/24, 08:06 POC Glucose, (74-106) 129 mg/dL H 09/02/22, 21:45 TSH, (0.358-3.74) 2.52 uIU/mL 08/08/23, 09:31 COAG Pre-Assessment Diagnosis/Proposed Procedure Planned Operative Procedure(s): (R) Breast, Lumpectomy,[place] Node,blue dye & radiotracer, poss Ax Dis. Lymphoseek, Stereo wire loc Anesthesia History Anesthesia History - field representative/health education: Anesthesia History - field representative/health education Hx Hospitalization No 06/28/25 11:20 Any Problems With Anesthesia No 06/28/25 11:20 Cholinesterase deficiency No 06/28/25 11:20 You/Your Family Experience No 06/28/25 11:20 fever (hyperthermia) with Relationship Recent Exposure to Contagious No 09/02/16 08:26 Disease Does patient have nerve No 06/28/25 11:20 stimulator Patient instructed to have device shut off --Does patient have Pacemaker No 07/02/25 08:07 or ICD? When Was Last Pacemaker Check QUESTION #4 FULL TEXT: You/Your Family Experience fever (hyperthermia) with Anesthesia Last Oral Intake Last Oral intake: Last Oral Intake NPO since 23:00 07/02/25 08:07 Meds taken in AM with sips of No 07/02/25 08:07 water? Meds patient instructed to take am of surgery PONV PONV - field representative/health education: PONV - field representative/health education Female Yes 06/28/25 11:20 HX of Motion Sickness Yes 06/28/25 11:20 HX of N/V After Surgery No 06/28/25 11:20 Non-Smoker Yes 06/28/25 11:20 Duration of Surgery greater Yes 06/28/25 11:20 than 60 minutes Number of Risk Factors 4 06/28/25 11:20 PONV Score Severe Risk 06/28/25 11:20 Height & Weight Height & Weight: Anesthesia: Height & Weight Height 5 ft 4 in 07/02/25 08:07 Weight: 73 kg 07/02/25 08:07 Body Mass Index (BMI) 27.6 07/02/25 08:07 Respiratory Assessment Respiratory Assessment - field representative/health education: Respiratory Tract Infection Hx - field representative/health education Hx Respiratory Tract Infection No: . 06/28/25 11:20 STOP Sleep Apnea STOP Sleep Apnea - field representative/health education: STOP Sleep Apnea - field representative/health education Hx Hypertension Yes: CONTROLLED ON MED 06/28/25 11:20 Hx Sleep Apnea No 06/28/25 11:20 CPAP No 06/28/25 11:20 BIPAP No 06/28/25 11:20 Do you snore loudly (louder No 06/28/25 11:20 than talking or can be heard Do you often feel tired/ No 06/28/25 11:20 fatigued/ sleepy during daytime? Has anyone observed you stop No 06/28/25 11:20 breathing during sleep? STOP Results Negative 06/28/25 11:20 QUESTION #5 FULL TEXT : Do you snore loudly (louder than talking or can be heard through closed doors)? 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 Specify any problems Hx of Preganancy in last 3 No 06/28/25 11:20 Months Nurse Filling Out Transfusion VCHRISTIN 06/28/25 11:20 & Questions: Date: 06/28/25 06/28/25 11:20 Time: 11:21 06/28/25 11:20 Patient unable to answer at this time (ie. confused, unrespo /Reproduction History /Reproductive History - field representative/health education: /Reproductive Hx- field representative/health education Hx Now No 06/28/25 11:20 Gestational Age (in weeks): EDC: Hx Hx Para Hx Section SAB No 06/28/25 11:20 Does the father of the baby or his family experience fever w Father of the baby Malignant Hypertension history comment Active Medications Active Medications: Current Medications Generic Name Dose Route Start Last Admin Trade Name Freq PRN Reason Stop Dose Admin Lactated Ringer's 1,000 mls @ 15 mls/hr 07/02/25 08:15 07/02/25 08:13 IV 15 mls/hr .Q48H KATYA Administration PFSH Medical History Wears dentures Wears glasses Post-menopausal Cancer Arthritis Injury of head and neck Gastric reflux History of stress test History of echocardiogram Hypertension delivery delivered Blood pressure elevated without history of HTN Situs inversus HX: breast cancer Home Medications ?Medication ?Instructions ?Recorded ?Last Taken ?Type cholecalciferol (vitamin D3) 25 2,000 unit PO DAILY Unknown History mcg (1,000 unit) tablet (Vitamin D3) red yeast rice extract (bulk) 1 tab PO DAILY 05/01/15 Unknown History calcium 600 mg (as 1 ea PO DAILY 09/02/16 Unkno wn History carbonate)-vitamin D3 5 mcg (200 unit) tablet (Calcium 600 + D(3)) clobetasol 0.05 % topical cream 1 applic topical QDAY 06/04/25 Unknown History hydrochlorothiazide 25 mg tablet 12.5 mg PO QAM Unknown History klayhwig-usev-ximd 8 mg-folic 400 1 tab PO QDAY Unknown History mcg-K 50 mcg-lutein 300 mcg tablet (Centrum Silver Women) omega 2-ovg-cam-fish oil 1,200 mg 1 cap PO DAILY 06/28 Unknown History (144 mg-216 mg) capsule (Fish Oil) Allergy/AdvReac Type Severity Reaction Status Date / Time amoxicillin (From Augmentin) AdvReac Hives Verified 07/02/25 08:06 clavulanic acid (From AdvReac Hives Verified 07/02/25 08:06 Augmentin) Family History Grandmother Breast cancer Surgical History Hx of surgical procedure Hx of colonoscopy H/O breast biopsy Hx of cholecystectomy Hx of appendectomy Social History Smoking Status: Never smoker alcohol intake: never Review of Systems (Anesthesia) ROS Narrative System reviewed and no additional complaints, except as documented.
--- NOTE | 2025-07-02 08:30 | NM_ITS ---
PROCEDURE: LYMPH NODE INJECTION ONLY 07/02/2025 REASON FOR EXAM: Right breast cancer. TECHNIQUE: Procedure Code: [id number] Modality: NM Procedure: LYMPH NODE INJECTION ONLY [place] node imaging. 600 uCi of Lymphoseek was injected in the subdermal region of the right periareolar region, 1 cm above the right nipple. FINDINGS: Subdermal injection of mCi of Lymphoseek for right sentinel node imaging. NM/Lymph Node Injection Only IMPRESSION: Subdermal injection of mCi of Lymphoseek in the subdermal region of the right p eriareolar area for sentinel node imaging. Reading Location: [place] [id number]
--- NOTE | 2025-07-02 09:30 | BI_ITS ---
EXAM: BREAST BIOPSY SPECIMEN 07/02/2025 CLINICAL HISTORY: F, Age 69 y/o , . Excisional breast biopsy. TECHNIQUE: Procedure Code: BIB Modality: MG Procedure: BREAST BIOPSY SPECIMEN COMPARISON: Prior exam(s) dated June 10, 2025.. FINDINGS: TISSUE DENSITY: The breasts are heterogeneously dense, which may obscure small masses The specimen contains the tissue clip marker as well as the localization wire. BI/Breast Biopsy Specimen IMPRESSION: OVERALL FINAL ASSESSMENT: BIRADS 6: Known Biopsy-Proven Malignancy. RECOMMENDATION: Waiting for pathology report. Additional Recommendation none A letter with findings and recommendations will be mailed to the patient. Reading Location: [id number]
--- NOTE | 2025-07-02 10:54 | PCM.HP.STD ---
HPI - General General Date of Admission: 07/02/25 Date of Service: 07/02/25 Chief Complaint: Right breast cancer HPI Narrative ZENY REECE, is a 69 F who presents for right breast lumpectomy and sentinel lymph node biopsy for treatment of breast cancer of the right breast. [facility] Medical History (Updated 07/02/25 @ 10:[address] Severo Valentine MD) Breast cancer, right Wears dentures Wears glasses Post-menopausal Cancer Arthritis Injury of head and neck Gastric reflux History of stress test History of echocardiogram Hypertension delivery delivered Blood pressure elevated without history of HTN Situs inversus HX: breast cancer Home Medications ?Medication ?Instructions ?Recorded ?Last Taken ?Type cholecalciferol (vitamin D3) 25 2,000 unit PO DAILY 04/10/15 Unknown History mcg (1,000 unit) tablet (Vitamin D3) red yeast rice extract (bulk) 1 tab PO DAILY 05/01/15 Unknown History calcium 600 mg (as 1 ea PO DAILY 09/02/16 Unknown History carbonate)-vitamin D3 5 mcg (200 unit) tablet (Calcium 600 + D(3)) clobetasol 0.05 % topical cream 1 applic topical QDAY 06/04/25 Unknown History hydrochlorothiazide 25 mg tablet 12.5 mg PO QAM 06/04/25 Unknown History gadcyrwv-rhbh-ujul 8 mg-folic 400 1 tab PO QDAY 06/04/25 Unknown History mcg-K 50 mcg-lutein 300 mcg tablet (Centrum Silver Women) omega 4-lgf-voh-fish oil 1,200 mg 1 cap PO DAILY 06/28/25 Unknown History (144 mg-216 mg) capsule (Fish Oil) Allergy/AdvReac Type Severity Reaction Status Date / Time amoxicillin (From Augmentin) AdvReac Hives Verified 07/02/25 08:06 clavulanic acid (From AdvReac Hives Verified 07/02/25 08:06 Augmentin) Family History Grandmother Breast cancer Surgical History Hx of surgical procedure Hx of colonoscopy H/O breast biopsy Hx of cholecystectomy Hx of appendectomy Social History Smoking Status: Never smoker alcohol intake: never Vital Signs Vital Signs Vital Signs: 07/02/25 08:07 07/02/25 08:07 07/02/25 08:07 Temperature 97.9 F Temperature Source Temporal Pulse Rate 76 Respiratory Rate 16 Respiratory Pattern Normal Blood Pressure 136/83 H Blood Pressure Mean 100 Blood Pressure Source Monitor Blood Pressure Position Semi-Fowlers Blood Pressure Location Right Arm Baseline BP 136/83 Pulse Ox 100 Oxygen Delivery Method Room Air 07/02/25 08:16 Temperature 97.9 F Temperature Source Pulse Rate 76 Respiratory Rate 16 Respiratory Pattern Blood Pressure 136/83 H Blood Pressure Mean Blood Pressure Source Blood Pressure Position Blood Pressure Location Baseline BP Pulse Ox 100 Oxygen Delivery Method Weight Weight: 160 lb 14.999 oz Body Mass Index (BMI) 27.6 Physical Exam Const alert, oriented x3 and no apparent distress Assessment & Plan Assessment/Plan (1) Breast cancer, right: PLAN: Plan The patient is a 69-year-old female with right breast cancer. She has a history of bilateral breast DCIS. We have offered her surgical options of lumpectomy with radiation versus mastectomy. She has opted for lumpectomy. We discussed the details of the planned procedure including risk benefits and alternatives. Stereo wire was placed earlier today. Surgery will begin shortly
--- NOTE | 2025-07-02 10:56 | PCM.OPRPT ---
Procedures Integumentary [id number]: [id number] Perq dev breast [facility]st [facility] Operative Report (Standard) Operative Information Date of Procedure: 07/02/25 Pre-Operative Diagnosis: Right breast cancer Post-Operative Diagnosis: Same Surgery/Procedure Performed: Placement of right breast localization wire naval architect: No Type of Anesthesia: Local RN Documented Start/Stop Times: Operation Date: 07/02/25 11:00 Case Time Into Pre-Op 07/02/25 08:01 Procedure Start Time: 10:00 Procedure Stop Time: 10:15 Select all DRAINS/GRAFTS/IMPLANTS that apply: None Estimated Blood Loss: Minimal Specimen collected: No Description of surgery: The patient is a 69-year-old female who presents today for right breast lumpectomy and sentinel lymph node biopsy. She also requires placement of a localization wire. After obtaining informed consent, the patient was placed prone on the stereotactic table. The right breast was suspended through the aperture and the table. The breast was then placed into compression and school psychology professor views were obtained until the marking clip was clearly identified. At this point to stereotactic views were then obtained and these were used to target upon the lesion. Once the lesion was targeted, the skin of the breast was prepped and draped in the usual manner. Local anesthetic was infiltrated. The Bard wire was then inserted to the desired depth. The wire was then confirmed to be in good position based on images. The wire was then deployed and the needle was withdrawn. Patient tolerated this well. A postprocedure mammogram was performed and this showed the wire to be in satisfactory location. She tolerated the procedure well. She was then taken over to preoperative holding area. Surgical Findings: See operative note Complications Complications: No Admit VTE Documentation VTE Present on Admission: No VTE Mechan Device Prophylaxis: None Reason prophylaxis not ordered: Treatment Not Indicated
--- NOTE | 2025-07-02 11:00 | BREAST_PTH ---
PATIENT: ZENY REECE LOC: [facility] [place] U#:[id number] AGE/SX: 69/F ROOM: RE07/02/[address]: Dr. Severo Valentine MD : [id number] BED: DIS: 07/02/2025 SPEC #: [id number] RECD: 07/02/25 12:35 STATUS: TARA REQ #: [id number] [place]: 07/02/25 11:[address]: Severo Valentine DEPT: SURGICAL PATHOLOGY RECD BY: Jaylan Perez ENTERED: 07/02/25 13:40 SP TYPE: BREAST OTHR DR: DO Estephania Harrington PA-C Tissues: A - Right breast, NOS B - Lymph node, NOS C - Lymph node, NOS D - Axillary lymph node, NOS E - Right breast, NOS Procedures: Frozen Section (charge) Immunohistochemical Stains Frozen Section Add'l ([facility]) Surgery Specimen Level IV Surgery Specimen Level V HEADER OPERATION: Breast, lumpectomy, sentinel node, blue dye and radiotracer PRE-OP DIAGNOSIS: Breast cancer, right TISSUE SUBMITTED: A- Right breast mass *long suture- lateral, short suture- superior*, B- Right sentinel node, C- [place] node #2, FROZEN SECTION DIAGNOSIS B. Lymph node, sentinel, right, excision: Negative for macrometastasis. C. Lymph node, sentinel, right, excision: Negative for macrometastasis. 07/02/2025 MICROSCOPIC DIAGNOSIS A. Breast, right, lumpectomy: * Invasive ductal carcinoma, Grade 2 (See synoptic report) B. Lymph node, sentinel, right, excision: * One lymph node negative for metastatic carcinoma by H&E and pankeratin stained sections (0/1) C. Lymph node, sentinel, right, excision: * One lymph node negative for metastatic carcinoma by H&E and pankeratin stained sections (0/1) D. Axilla, contents, right, excision: * One lymph node negative for metastatic carcinoma (0/1) E. Breast, anterior, right, margin, excision: * Negative for malignancy SYNOPTIC REPORT FOR INVASIVE BREAST CARCINOMA Specimen: Lumpectomy Laterality: Right Focality: Unifocal Tumor size (cm): 1.7 x 1.2 x 1.1 cm Histologic type: Ductal Histologic grade: Grade 2 Tubule score (1-3): 3 Nuclear score (1-3): 2 Mitotic score (1-3): 2 Skin, nipple epidermis, skeletal muscle: Negative (skin) Lymphovascular invasion: Not identified Margins of main specimen: Negative Distance to closest margin of main specimen (mm): 2.0 mm Designation of closest margin of main specimen: Medial Designation of other margins of main specimen </=1 mm: Not applicable Re-resection margin status: Negative DCIS: Present Nuclear grade: Grade 2 (intermediate nuclear grade) Comedo necrosis: Not identified Extensive intraductal component: Not identified Margins of main specimen: Negative Distance to closest margin of main specimen (mm): 1.8 mm Designation of closest margin of main specimen: Posterior Designation of other margins of main specimen </=2 mm: Not applicable Longest span </= 2 mm to margin of main specimen (mm): 2.0 mm Re-resection margin status: Negative Regional lymph nodes: Total number of lymph nodes: 3 Number of sentinel lymph nodes: 2 Number with macrometastases: 0 Number with micrometastases: 0 Number with isolated tumor cells: 0 Size of largest nata metastasis (mm): Not applicable Size of extranodal extension (mm): Not applicable Estrogen receptor: Positive (>95%) Progesterone receptor: Positive (70%) HER2 IHC: Equivocal (score 2+) HER2 FISH: Negative Specimen in which ER/ND/HER2 performed: [id number] pTNM: pT1c pN0(sn)(i-) Additional findings: Histologic sections consistent with previous biopsy site Comment: A radiograph of the breast specimen was performed to assist in the sectioning of the specimen and the image was reviewed and correlated with the histological findings. Pancytokeratin performed on blocks B1-2, C1 MICROSCOPIC DESCRIPTION Slides are reviewed. All matched controls reacted appropriately. These tests were developed and their performance characteristics determined by [facility]. They may not have been cleared or approved by the U.S. Food and Drug Administration. The FDA has determined that such clearance or approval is not necessary. The above immunohistochemical markers are viewed by the Pathologist. GROSS DESCRIPTION A. Received fresh labeled with the patient's name and date of . Designated as right breast mass is a 6.4 x 6.1 x 2.3 cm lumpectomy with an exposed localization wire spanning from the inferior aspect. There is a short suture designated as superior and a long suture designated as lateral. Skin is present, 3.0 x 0.6 cm. The specimen is inked as follows: Superior: RedInferior: BlueMedial: YellowLateral: OrangeAnterior: GreenPosterior: Black The specimen is serially sectioned from lateral to medial (into 9 slices) revealing 1.7 x 1.2 x 1.1 cm ill-defined, indurated mass in biopsy cavity, spanning slices #5-#7 with surrounding, yellow discoloration (suspicious for fat necrosis) and threadlike fibrosis, some of which span to the margins. A barbell biopsy clip is identified within the mass in #6. The mass is located the following distances from each margin: Anterior: 0.4 cmInferior (skin): 0.8 cmMedial: 0.6 cmLateral: >1.0 cmPosterior: 0.4 cmSuperior: 1.2 cm Review of postoperative imaging confirms the presence of a localization wire and biopsy clip.Bottle Washing Machine Operator sections are submitted, sequentially from slice 2 slice #9 as follows: A1: Slice #1, lateral, perpendicular (orange)A2: Slice #3, fibrosis, no marginsA3: Slice #4, fibrosis adjacent to mass, no marginsA4-A6: Slice #5, mass to anterior/posterior including skin (inferior) in cassette A4 (green/black)A7: Slice #6, mass to anterior/posterior including skin (inferior)A8: Slice #6, mass to anterior/posteriorA9: Slice #7, mass to anterior/posterior/medial (green/black/yellow)A10: Slice #7, mass to anterior/posterior/superior (green/black/red) I [id number]: Slice #8, fibrosis to anterior/posterior (green/black)A12: Slice #9, medial, perpendicular (yellow) Cold ischemic time: 48 minutesFormalin fixation time: 6 hours, 43 minutesB. Received fresh for frozen section diagnosis labeled the patient's name and date of . Designated as right sentinel lymph node is a 3.9 x 1.1 x 0.9 cm fatty lymph node which is serially sectioned and entirely submitted for frozen section diagnosis and subsequently placed in cassette B1-B2 for permanent sections. C. Received fresh for frozen section diagnosis labeled with patient's name and date of . Designated as sentinel node #2 is a 1.1 x 1.0 x 0.4 cm lymph node with attached fat. The lymph node is bisected and entirely submitted for frozen section diagnosis and subsequently placed in cassette C1 for permanent sections. The remainder of the fat is submitted in cassette C2. D. Received in formalin labeled with the patient's name and date of . Designated as axillary contents right is a 2.0 x 1.4 x 1.0 cm portion of alfaro-yellow soft tissue. Sectioning reveals fatty cut surfaces with a possible rim of lymph node. Entirely submitted in 1 cassette. E. Received in formalin labeled with the patient's name and date of . Designated as right breast new anterior margin is a 5.6 x 4.3 x 0.5-1.4 cm portion of alfaro-yellow fibrofatty tissue with focal, patchy blue dye discoloration. The specimen is devoid of orientation. The external surfaces are inked green. Sectioning reveals yellow fatty cut surfaces with focal fibrosis. Definitive lesions are not grossly appreciated. Bottle Washing Machine Operator sections are submitted 4 cassettes. DC 07/02/2025 CPT:59051g9,93710,66857,69092,[id number]
[2025-07-02] MEDS: Bupiv/Epi 0.25% 30 ML Vial INFILT (13:04)
--- NOTE | 2025-07-02 13:06 | DCINST_ITS ---
Discharge Instructions Diet Discharge Diet: Light diet - advance as tolerated Activity May shower in (days): 1 Ice area for (Minutes): 30 Dressing / Incision Call your doctor if your incision/area has: Continuous Slow Oozing, Sudden Increased Bleeding, Increased Pain/ Swelling, Increased Redness, Foul Smelling Discharge and Swelling at the incision site Call your doctor if you observe: Fever of 101 or Higher Cleanse incision/area with: Soap & Water Follow Up Care Please Follow Up With: Severo Valentine MD When: 1-2 weeks. please call for appointment Test Results: Test results from this visit will be discussed in further detail at your follow- up appointment, if applicable. Discharge Plan Admission Primary Reason for Your Visit: lumpectomy Attending Provider: Severo Valentine Primary Care Provider: Jose Francisco Zamora Consulting Providers: Estephania Montoya Instructions Print Language: Emirati Discharge Orders/Prescriptions Prescriptions: New oxycodone 5 mg tablet 5 mg PO Q8H PRN (Reason: pain) 3 Days Qty: 12 0RF Continued clobetasol 0.05 % cream 1 applic topical QDAY hydrochlorothiazide 25 mg tablet 12.5 mg PO QAM Centrum Silver Women 8 mg iron-400 mcg-50 mcg tablet 1 tab PO QDAY cholecalciferol (vitamin D3) [Vitamin D3] 1,000 UNIT tablet 2,000 unit PO DAILY Patient Comments: supplement red yeast rice extract (bulk) 30 GM powder 1 tab PO DAILY calcium carbonate-vitamin D3 [Calcium 600 + D(3)] 1 EACH tablet 1 ea PO DAILY omega 7-jlv-vok-fish oil [Fish Oil] 1,200 (144-216) mg capsule 1 cap PO DAILY Referrals / Follow Up: Jose Francisco Zamora DO [Primary Care Provider, Family Practice] Disposition Disposition (needs filled in before D/C Order can be placed): Home, Self Care
--- NOTE | 2025-07-02 13:14 | PCM.OPRPT ---
Oncology: Genny Requirements . Oncology surgical intervention performed: [place] Node Biopsy for Breast Cancer performed [place] Node Bx - Breast Cancer: Synoptic Portion: Element Response Options Operation performed with curative intent. Yes Tracer(s) used to identify sentinel nodes in the upfront surgery (non-neoadjuvant) setting (select all that apply). Dye; Radioactive tracer Tracer(s) used to identify sentinel nodes in the neoadjuvant setting (select all that apply).[ N/A.] All nodes (colored or non-colored) present at the end of a dye-filled lymphatic channel were removed. Yes All significantly radioactive nodes were removed. [Yes All palpably suspicious nodes were removed. [Yes Biopsy-proven positive nodes marked with clips prior to chemotherapy were identified and removed. [N/A.] Procedures Integumentary 16xxx-193xx: 43309 Partial mastectomy Multi Select Codes Integumentary Integumentary CPT Codes: 30987 Partial mastectomy Respiratory/Cardiovascular Resp/Cardiovascular CPT Codes: 91318 Biopsy/removal lymph nodes and 27436 Ra tracer id of sentinl node Operative Report (Standard) Operative Information Date of Procedure: 07/02/25 Pre-Operative Diagnosis: Right breast cancer Post-Operative Diagnosis: Same Surgery/Procedure Performed: 1. Right breast needle localized lumpectomy. 2. Right axillary sentinel lymph node biopsy. 3. Right axillary dissection business support professional: Yes Ink Blender: Elli Mg Tasks completed by or first assist registered nurse: Closing and Retracting Additional junior sales assistant?: No Type of Anesthesia: General RN Documented Start/Stop Times: Operation Date: 07/02/25 11:00 Case Time Into Pre-Op 07/02/25 08:01 Out of Pre-Op 07/02/25 11:05 Anesthesia Start 07/02/25 11:12 Into Room 07/02/25 11:12 Procedure Start 07/02/25 11:42 Procedure Start Time: 11:42 Procedure Stop Time: 13:15 Select all DRAINS/GRAFTS/IMPLANTS that apply: None Estimated Blood Loss: 20 mL Specimen collected: Yes Description of specimen(s) removed: 1. Right lumpectomy 2. Right sentinel lymph node biopsy x 2 3. Right axillary tissue 4. New anterior margin Description of surgery: The patient is a 69-year-old female who is being seen today for right breast lumpectomy. She was recently diagnosed with right breast cancer. She had a history of previous bilateral DCIS. We discussed surgical options of lumpectomy versus mastectomy. Ultimately she wished to pursue a lumpectomy. Patient presents today for the surgery. Earlier in the day radioactive tracer was injected into the right periareolar area and a localization wire was also placed. Patient was brought to the operating room today following informed consent. She was placed supine on the operative table with arms outstretched and arm boards. General anesthesia was induced. Once adequately anesthetized Lymphazurin blue was then injected in 4 quadrants in the periareolar area of the right breast and then massaged into the breast. The right breast and axilla were then prepped and draped in the usual sterile manner. Marking pen was used to indicate the lumpectomy incision. Local anesthetic was then injected. #15 blade was used to make the ellipse skin incision. Bovie electrocautery was then used dissect down through the subcutaneous tissues. Dissection was carried out in the direction of the localization wire. Once beyond the tip of the wire, the lesion was excised and sent to pathology labeled right breast lumpectomy specimen. This first went to radiology for specimen radiograph. Pathology performed a frozen section and appeared that margins were all negative. Her closest margin was the anterior and posterior margins. I did excise some additional anterior margin. Posterior margin was chest wall which I could not remove further. The wound was copiously irrigated. Hemostasis was excellent. We then turned our attention to the right axilla. Incision was made using #15 blade. Bovie electrocautery was used dissect down through subtendinous tissues. The axillary region was inspected. There were blue lymphatic channels. At each lymphatic channel I was able to identify a blue lymph node. Unfortunately these really did not have notable radioactive counts. These were sent to pathology labeled per sentinel lymph nodes. I did carry out a dissection of the right axilla and any obvious palpable lymph nodes were removed. Frozen section of the lymph nodes were negative. At this point both incisions were irrigated and closed using 3-0 Vicryl and then 4-0 Vicryl. Skin glue was then applied. Fluffs and a postoperative bra were also applied. She was awakened from anesthesia and taken to recovery in good condition Surgical Findings: See operative note Complications Complications: No Admit VTE Documentation VTE Present on Admission: No VTE Mechan Device Prophylaxis: SCD's VTE Pharm Prophylaxis ordered?: No Reason prophylaxis not ordered: Treatment Not Indicated
--- NOTE | 2025-07-02 13:26 | PCM.POST.ANE ---
Anesthesia: Postop Eval I Current Vital Signs Temperature: 97.4 F Pulse Rate: 95 Blood Pressure: 130/71 Respiratory Rate: 20 Pulse Ox: 96 Assessment Airway patent: Yes Spontaneous unlabored respirations: Yes nausea: No Vomiting: No Anesthesia Complication: No Fluid Hydration Crystalloid volume administer (ml): 1,300 Total IV fluid infused: 1,300 Progress Note Anesthesia document: Postop Eval 1 completed: Yes
--- NOTE | 2025-07-03 22:45 | POSTOPAN2_ITS ---
Anesthesia Postop Eval I Sum Postop Eval Completion status Anesthesia document: Postop Eval 1 completed: Yes Anesthesia Postop Eval I Summary Anesthesia Postop Eval I Summary: Anesthesia Postop Eval I: Assessment Summary Airway patent Yes 07/02/25 13:27 ACCOUNT SOLUTIONS ANALYST.CSIR Spontaneous unlabored Yes 07/02/25 13:27 ACCOUNT SOLUTIONS ANALYST.CSIR respirations Mental status nausea No 07/02/25 13:27 ACCOUNT SOLUTIONS ANALYST.CSIR Vomiting No 07/02/25 13:27 ACCOUNT SOLUTIONS ANALYST.CSIR Anesthesia Postop Eval I: Fluid Summary Crystalloid volume administer 1,300 07/02/25 13:27 ACCOUNT SOLUTIONS ANALYST.CSIR (ml) Colloids volume administered ( ml) Blood Product volume administered (ml) Total IV fluid infused 1,300 07/02/25 13:27 ACCOUNT SOLUTIONS ANALYST.CSIR Anesthesia Postop Eval I: Summary Notes Anesthesia Complication No 07/02/25 13:27 ACCOUNT SOLUTIONS ANALYST.CSIR Anesthesia Complication Comment: Post-operative progress note Anesthesia: Postop Eval II Evaluation Mental status: Awake and Calm Pain Level: 1 nausea: No Vomiting: No Complications Anesthesia Complication: No
--- NOTE | 2025-07-03 22:45 | PCM.POSTANE2 ---
Anesthesia Postop Eval I Sum Postop Eval Completion status Anesthesia document: Postop Eval 1 completed: Yes Anesthesia Postop Eval I Summary Anesthesia Postop Eval I Summary: Anesthesia Postop Eval I: Assessment Summary Airway patent Yes 07/02/25 13:27 MELTING OPERATOR.CSIR Spontaneous unlabored Yes 07/02/25 13:27 MELTING OPERATOR.CSIR respirations Mental status nausea No 07/02/25 13:27 MELTING OPERATOR.CSIR Vomiting No 07/02/25 13:27 MELTING OPERATOR.CSIR Anesthesia Postop Eval I: Fluid Summary Crystalloid volume administer 1,300 07/02/25 13:27 MELTING OPERATOR.CSIR (ml) Colloids volume administered ( ml) Blood Product volume administered (ml) Total IV fluid infused 1,300 07/02/25 13:27 MELTING OPERATOR.CSIR Anesthesia Postop Eval I: Summary Notes Anesthesia Complication No 07/02/25 13:27 MELTING OPERATOR.CSIR Anesthesia Complication Comment: Post-operative progress note Anesthesia: Postop Eval II Evaluation Mental status: Awake and Calm Pain Level: 1 nausea: No Vomiting: No Complications Anesthesia Complication: No
== END 2025-07-02 15:21 | disposition home or self-care (01) ==
LOC: SDC 07:51 → AC 07:52
PROVIDERS: PCP Family Medicine; Referring Provider Surgery; Visit Provider Surgery
PROC: (CPT 19301; principal; 2025-07-02 10:45)
DX: C50.911 Malignant neoplasm of unspecified site of right female breast (principal); R59.0 Localized enlarged lymph nodes; I10 Essential (primary) hypertension; K21.9 Gastro-esophageal reflux disease without esophagitis; Z79.899 Other long term (current) drug therapy
CPT/HCPCS: 38500; 19301; 00404; 19281; 38792; 76098; 88305; 88307; 88331; 88332; 88342; A4648; A9520; J2405; Q9968